=== PATIENT | female | born 1930 | race Caucasian/White ===

== ENCOUNTER 2016-03-21 15:06 | Emergency (ER) | payer OTHER ==
[2016-03-21 15:15] VITALS: BP 145/69; PULSE 95; TEMP 99.6; BMI 20.8
[2016-03-21 17:57] LABS: BASOPHIL 0.9 % (0-2.0); EOSINOPHIL 1.2 % (0-4.5); MCH 29.6 pg (25.7-33.7); MCHC 32.1 g/dl (32.0-36.0); MEAN CELL VOLUME 92.3 fl (80-96); MEAN PLT VOLUME 7.4 fl (7.5-11.1); PLATELET COUNT 187 K/MM3 (134-434); RDW 16.5 % (11.6-15.6); WHITE BLOOD COUNT 8.4 K/mm3 (4.0-10.0)
[2016-03-21 18:36] LABS: ALBUMIN 2.7 g/dl (3.4-5.0); ANION GAP 8 (8-16); BILIRUBIN,TOTAL 0.4 mg/dL (0.2-1.0); CALCIUM 7.8 mg/dL (8.5-10.1); CO2 27 mmol/L (21-32); CREATININE 1.2 mg/dL (0.55-1.02); GLUCOSE,RANDOM 94 mg/dL (74-106); SGOT/AST 12 U/L (15-37); SGPT/ALT 16 U/L (12-78); TOT PROT 5.8 g/dl (6.4-8.2)
[2016-03-21 18:38] LABS: ALK PHOS 63 U/L (45-117); TROPONIN I < 0.02 ng/ml (0.00-0.05)
--- NOTE | 2016-03-21 19:31 | PDOC ---
History of Present Illness - History of Present Illness Initial Comments: 03/21/16 19:32 Patient is an 85 year old female with significant medical hx of COPD/emphysema and left lobectomy who is presenting to the ED with nausea, chills, fever, body aches, cough, and lightheadedness since yesterday. The patient reports measuring a fever yesterday of 102 with body aches, chills, and dizziness. She also reports a cough that has been ongoing for the past five weeks. Today the patient spoke with Dr. Mullins over the phone who advised her to come to the ED. Patient took two extra strength Tylenol before coming to the ED which brought her temperature down to 99. Patients O2Sat in the ED was 99% on room air. The patient is chronically short of breath secondary to COPD. Denies vomiting or diarrhea. <Kristan Siddiqui - Last Filed: 03/21/16 21:38> <Jenny Murray - Last Filed: 03/21/16 22:43> - General Chief Complaint: Cold Symptoms Stated Complaint: COUGH, LIGHTHEADED, SOB Time Seen by Provider: 03/21/16 16:59 Past History <Kristan Siddiqui - Last Filed: 03/21/16 21:38> - Past Medical History COPD: Yes Psychiatric Problems: Yes (depression) - Surgical History Lung Surgery: Yes (lower let lobectomy) - Immunization History Immunization Up to Date: Yes - Psycho/Social/Smoking Cessation Hx Anxiety: No Suicidal Ideation: No Smoking History: Former smoker Have you smoked in the past 12 months: No Information on smoking cessation initiated: No Hx Alcohol Use: No Drug/Substance Use Hx: No Substance Use Type: None <Jenny Murray - Last Filed: 03/21/16 22:43> - Past Medical History Allergies/Adverse Reactions: Allergies Allergy/AdvReac Type Severity Reaction Status Date / Time No Known Allergies Allergy Verified 03/21/16 15:10 Home Medications: Ambulatory Orders Citalopram Hydrobromide [Celexa -] 50 mg PO DAILY 11/12/15 Levalbuterol Tartrate [Xopenex Hfa] 15 gm IH QID 11/12/15 Omeprazole 20 mg PO DAILY 11/12/15 Pregabalin [Lyrica] 0 mg PO DAILY 11/12/15 Zolpidem Tartrate [Ambien] 5 mg PO HS 11/12/15 Review of Systems - Review of Systems Comments:: 03/21/16 19:33 CONSTITUTIONAL: Present: fever, chills, body aches Absent: diaphoresis, generalized weakness, malaise, loss of appetite HEENT: Absent: rhinorrhea, nasal congestion, throat pain, throat swelling, difficulty swallowing, mouth swelling, ear pain, eye pain, visual changes CARDIOVASCULAR: Present: lightheadedness Absent: chest pain, syncope, palpitations, irregular heart rate, peripheral edema RESPIRATORY: Present: cough, shortness of breath (chronic) Absent: dyspnea with exertion, orthopnea, wheezing, stridor, hemoptysis GASTROINTESTINAL: Present: nausea Absent: abdominal pain, abdominal distension, vomiting, diarrhea, constipation, melena, hematochezia GENITOURINARY: Absent: dysuria, frequency, urgency, hesitancy, hematuria, flank pain, genital pain MUSCULOSKELETAL: Absent: myalgia, arthralgia, joint swelling SKIN: Absent: rash, itching, pallor HEMATOLOGIC/IMMUNOLOGIC: Absent: easy bleeding, easy bruising, lymphadenopathy, frequent infections ENDOCRINE: Absent: unexplained weight gain, unexplained weight loss, heat intolerance, cold intolerance NEUROLOGIC: Present: dizziness Absent: headache, focal weakness or paresthesia, unsteady gait, seizure, mental status changes, bladder or bowel incontinence. PSYCHIATRIC: Absent: anxiety, depression, suicidal or homicidal ideation, hallucinations <Kristan Siddiqui - Last Filed: 03/21/16 21:38> *Physical Exam - Vital Signs Last Vital Signs Temp Pulse Resp BP Pulse Ox 99.6 F 95 H 20 145/69 96 03/21/16 15:11 03/21/16 15:11 03/21/16 15:11 03/21/16 15:11 03/21/16 16:00 - Physical Exam Comments: 03/21/16 19:35 GENERAL: Well developed, well nourished. Awake and alert. No acute distress. HEENT: Normocephalic, atraumatic. PERRLA, EOMI. No conjunctival pallor. Sclera are non- icteric. Moist mucous membranes. Oropharynx is clear. NECK: Supple. Full ROM. No JVD. Carotid pulses 2+ and symmetric, without bruits. No thyromegaly. No lymphadenopathy. CARDIOVASCULAR: Slightly tachycardic. No murmurs, rubs, or gallops. Distal pulses are 2+ and symmetric. PULMONARY: No evidence of respiratory distress. Lungs clear to auscultation bilaterally. No wheezing, rales or rhonchi. ABDOMINAL: Flat abdomen. Soft. Non-tender. Non-distended. No rebound or guarding. No organomegaly. Normoactive bowel sounds. MUSCULOSKELETAL: Normal range of motion at all joints. No bony deformities or tenderness. No CVA tenderness. EXTREMITIES: No cyanosis. No clubbing. No edema. No calf tenderness. SKIN: Warm and dry. Normal capillary refill. No rashes. No jaundice. NEUROLOGICAL: Alert, awake, appropriate. Cranial nerves 2-12 intact. Normal speech. Gait is normal without ataxia. PSYCHIATRIC: Cooperative. Good eye contact. Appropriate mood and affect. <Kristan Siddiqui - Last Filed: 03/21/16 21:38> - Vital Signs Last Vital Signs Temp Pulse Resp BP Pulse Ox 99.6 F 95 H 20 145/69 96 03/21/16 15:11 03/21/16 15:11 03/21/16 15:11 03/21/16 15:11 03/21/16 16:00 <Jenny Murray - Last Filed: 03/21/16 22:43> Heart Score/ECG Review #1 03/21/16 21:39 Undetermined rhythm at [address] and T wave abnormality Abnormal ECG <Kristan Siddiqui - Last Filed: 03/21/16 21:38> ED Treatment Course - LABORATORY CBC & Chemistry Diagram: 03/21/16 17:50 03/21/16 17:50 - ADDITIONAL ORDERS Additional order review: Laboratory Results 03/21/16 17:50 Sodium 140 Potassium 4.9 Chloride 105 Carbon Dioxide 27 D Anion Gap 8 BUN 21 H D Creatinine 1.2 H Creat Clearance w eGFR 42.80 Random Glucose 94 Calcium 7.8 L Total Bilirubin 0.4 D AST 12 L ALT 16 Alkaline Phosphatase 63 Creatine Kinase 54 Troponin I < 0.02 Total Protein 5.8 L Albumin 2.7 L D 03/21/16 17:50 RBC 3.87 MCV 92.3 MCHC 32.1 RDW 16.5 H MPV 7.4 L D Neutrophils % 80.0 Lymphocytes % 10.1 D Monocytes % 7.8 Eosinophils % 1.2 D Basophils % 0.9 - RADIOLOGY Radiograph Interpretation: 03/21/16 19:37 Chest X-Ray Impression: Mild to moderate cardiomegaly. Bilateral interstitial thickening without gross evidence of focal infiltrates. Reported By: Hiro Ellsworth MD <Kristan Siddiqui - Last Filed: 03/21/16 21:38> - LABORATORY CBC & Chemistry Diagram: 03/21/16 17:50 03/21/16 17:50 - ADDITIONAL ORDERS Additional order review: Laboratory Results 03/21/16 17:50 Sodium 140 Potassium 4.9 Chloride 105 Carbon Dioxide 27 D Anion Gap 8 BUN 21 H D Creatinine 1.2 H Creat Clearance w eGFR 42.80 Random Glucose 94 Calcium 7.8 L Total Bilirubin 0.4 D AST 12 L ALT 16 Alkaline Phosphatase 63 Creatine Kinase 54 Troponin I < 0.02 Total Protein 5.8 L Albumin 2.7 L D 03/21/16 17:50 RBC 3.87 MCV 92.3 MCHC 32.1 RDW 16.5 H MPV 7.4 L D Neutrophils % 80.0 Lymphocytes % 10.1 D Monocytes % 7.8 Eosinophils % 1.2 D Basophils % 0.9 <Jenny Murray - Last Filed: 03/21/16 22:43> Medical Decision Making - Medical Decision Making 03/21/16 22:38 85-year-old female with history of lung cancer and COPD, has had some fever and cough with body chills and feeling lightheaded -low-grade temperature -Patient is not in any respiratory distress. She is not hypoxic on room air Chest x-ray did not show any infiltrates or pneumothorax or significant effusions CBC was unremarkable. There was no leukocytosis Chemistries were reviewed Cardiac enzymes were negative. EKG did not show any evidence of ischemia -Lung exam did not show any rhonchi or crackles -Patient was given albuterol treatment see if that would help her cough Impression viral syndrome. Will start Tamiflu Spoke to the patient and if she has any worsening symptoms, she should return tomorrow <Jenny Murray - Last Filed: 03/21/16 22:43> *DC/Admit/Observation/Transfer - Attestations Scribe Attestion: 03/21/16 19:37 Documentation prepared by Kristan Siddiqui, acting as medical dir for Jenny Murray MD. <Kristan Siddiqui - Last Filed: 03/21/16 21:38> <Jenny Murray - Last Filed: 03/21/16 22:43> Diagnosis at time of Disposition: Cough Fever Qualifiers: Fever type: unspecified Qualified Code(s): R50.9 - Fever, unspecified - Discharge Dispostion Disposition: HOME Condition at time of disposition: Stable - Referrals Referrals: Francisco J Mullins MD [Primary Care Provider] - - Patient Instructions Printed Discharge Instructions: DI for Cough -- Adult, DI for Fever (Symptom) - - Adult Additional Instructions: -please tale Tylenol for fever and body aches -continue to take your regular medications for your chronic obstructive pulmonary disease -please order picker your tamiflu at the [facility] -follow up with Dr Mullins this week -
[2016-03-21] MEDS ORDERED: SODIUM CHLORIDE 500 ML IV STA (19:32)
[2016-03-21] MEDS ORDERED: ALBUTEROL SO4 2.5/IPRATROPIUM 0.5 INH SOL 3 ML VIAL.NEB. NEB ONE ×2 (21:11→21:31)
[2016-03-21] MEDS ORDERED: predniSONE 20 MG TABLET (UD) PO ONE (21:57)
[2016-03-21] MEDS ORDERED: OSELTAMIVIR PHOSPHATE 75 MG CAPSULE PO ONE (21:57)
[2016-03-21] MEDS ORDERED: predniSONE 20 MG TABLET (UD) ONE (22:00)
[2016-03-21] MEDS ORDERED: OSELTAMIVIR PHOSPHATE 75 MG CAPSULE ONE (22:00)
--- NOTE | 2016-03-22 18:07 | EKG ---
Test Reason : Blood Pressure : / mmHG Vent. Rate : 079 BPM Atrial Rate : 258 BPM P-R Int : 000 ms QRS Dur : 092 ms QT Int : 420 ms P-R-T Axes : 000 037 043 degrees QTc Int : 481 ms LIKELY SINUS RHYTHM WITH ATRIAL PREMATURE COMPLEXES NONSPECIFIC ST AND T WAVE ABNORMALITY ABNORMAL ECG WHEN COMPARED WITH ECG OF 12-NOV-2015 13:43, PREMATURE ATRIAL COMPLEXES ARE SEEN Confirmed by POLY MARTINEZ, BRE ([id number]) on 03/22/2016 6:07:37 PM Referred By: Confirmed By:BRE PANG MD
== END 2016-03-21 22:50 | disposition home or self-care (01) ==
LOC: JER 15:06
PROC: 3E0F7GC Introduction of Other Therapeutic Substance into Respiratory Tract, Via Natural or Artificial Opening (ICD-10-PCS; principal; 2016-03-21)
PROC: 3E0337Z Introduction of Electrolytic and Water Balance Substance into Peripheral Vein, Percutaneous Approach (ICD-10-PCS; 2016-03-21)
DX: R50.9 Fever, unspecified (principal); J44.9 Chronic obstructive pulmonary disease, unspecified; Z85.118 Personal history of other malignant neoplasm of bronchus and lung
CPT/HCPCS: 36415; 71020-TC; 80053; 82550; 84484; 85025; 93005; 93010; 94640; 96360; 99285-25

== ENCOUNTER 2017-07-13 03:21 | Inpatient (IN) | payer OTHER ==
[2017-07-13] MEDS ORDERED: SODIUM CHLORIDE 1,000 ML IV STA (03:40)
[2017-07-13 03:50] VITALS: BMI 23.6
[2017-07-13] MEDS ORDERED: ACETAMINOPHEN INJECTION 100 ML IVPB ONE (04:03)
[2017-07-13 04:04] LABS: BASO % 0.4 % (0-2.0); HEMATOCRIT 31.7 % (32.4-45.2); HEMOGLOBIN 10.7 GM/dL (10.7-15.3); LYMPH % 6.5 % (8-40); MCH 30.4 pg (25.7-33.7); MCHC 33.7 g/dl (32.0-36.0); MEAN PLT VOLUME 7.7 fl (7.5-11.1); MONO % 8.2 % (3.8-10.2); NEUT % 83.9 % (42.8-82.8); PLATELET COUNT 222 K/MM3 (134-434); RBC 3.52 M/mm3 (3.60-5.2); RDW 14.7 % (11.6-15.6); WHITE BLOOD COUNT 6.1 K/mm3 (4.0-10.0)
[2017-07-13 04:15] LABS: URINE APPEARANCE SLCLOUDY; URINE BILIRUBIN NEGATIVE (<2.0 mg/dL); URINE COLOR YELLOW; URINE GLUCOSE (UA) NEGATIVE (NEGATIVE); URINE KETONE NEGATIVE (NEGATIVE); URINE LEUK ESTERASE NEGATIVE (NEGATIVE); URINE NITRITE NEGATIVE (NEGATIVE); URINE UROBILINOGEN NEGATIVE mg/dL (0.2-1.0)
--- NOTE | 2017-07-13 04:15 | PDOC ---
History of Present Illness - General Chief Complaint: Respiratory Stated Complaint: FEVER Time Seen by Provider: 07/13/17 03:55 History Source: Patient Exam Limitations: No Limitations - History of Present Illness Initial Comments: This is an 87 YOF with h/o COPD, PNA (patient states last seen at [facility] for PNA two months ago), HTN, lung CA s/p LLL resection, chronic anemia, GERD, depression, and anxiety who was BIBA from [facility] c/o fever up to 101.8 at her SNF as well as cough for the past 4-5 days and worsening of her baseline SOB. SNF records state her pulse oxygenation was 90% on 2 LPM O2 via NC , and she was using accessory muscles to breathe. The patient herself notes mild lightheadedness but denies any additional symptoms (specifically no nausea , vomiting, rashes, headache, chest pain, abdominal pain, or other symptoms). She had a CXR on 07/10/17 showing COPD with chronic pulmonary parenchymal markings but no focal findings. She presents with SNF paperwork noting a DNR/ DNI signed 06/29/17 by the patient. Past History - Past Medical History Allergies/Adverse Reactions: Allergies Allergy/AdvReac Type Severity Reaction Status Date / Time No Known Allergies Allergy Verified 07/13/17 04:12 Home Medications: Ambulatory Orders Citalopram Hydrobromide [Celexa -] 50 mg PO DAILY 11/12/15 Levalbuterol Tartrate [Xopenex Hfa] 15 gm IH QID 11/12/15 Omeprazole 20 mg PO DAILY 11/12/15 Pregabalin [Lyrica] 0 mg PO DAILY 11/12/15 Zolpidem Tartrate [Ambien] 5 mg PO HS 11/12/15 Oseltamivir Phosphate [Tamiflu -] 75 mg PO BID #10 capsule 03/21/16 Oseltamivir Phosphate [Tamiflu -] 75 mg PO BID #10 capsule 03/21/16 COPD: Yes Psychiatric Problems: Yes (depression) - Surgical History Lung Surgery: Yes (lower let lobectomy) - Immunization History Immunization Up to Date: Yes - Suicide/Smoking/Psychosocial Hx Smoking History: Never smoked Have you smoked in the past 12 months: No Information on smoking cessation initiated: No Hx Alcohol Use: No Drug/Substance Use Hx: No Substance Use Type: None Review of Systems - Review of Systems Able to Perform ROS?: Yes Constitutional: Yes: Chills, Fever. No: Unexplained wgt Loss HEENTM: No: Nose Congestion, Throat Pain Respiratory: Yes: Cough, Shortness of Breath, Wheezing Cardiac (ROS): Yes: Lightheadedness. No: Chest Pain, Palpitations ABD/GI: No: Constipated, Diarrhea, Nausea, Vomiting : No: Burning, Dysuria Musculoskeletal: No: Back Pain, Neck Pain Integumentary: No: Bruising, Rash Neurological: No: Headache, Numbness, Tingling, Weakness, Dizziness Endocrine: No: Unexplained Weight Gain, Unexplained Weight Loss *Physical Exam - Vital Signs Last Vital Signs Temp Pulse Resp BP Pulse Ox 102 F H 90 21 112/58 96 07/13/17 03:47 07/13/17 03:47 07/13/17 03:47 07/13/17 03:47 07/13/17 03:47 - Physical Exam General Appearance: Yes: Nourished, Appropriately Dressed, Other (very pleasant elderly woman answering questions appropriately though in 2-3 word sentences, smiling, but appears a bit uncomfortable). No: Apparent Distress HEENT: positive: EOMI, KEYONA, Normal Voice, Hearing Grossly Normal. negative: Scleral Icterus (R), Scleral Icterus (L), Nasal Congestion Neck: positive: Trachea midline, Supple. negative: Tender, Rigid Respiratory/Chest: positive: Lungs Clear, Normal Breath Sounds, Respiratory Distress, Labored Respiration, Rapid RR, Rhonchi, Wheezing, Other (abdominal retractions, accessory muscle use). negative: Stridor Cardiovascular: positive: Regular Rate, S1, S2, Other (occasional irregular beats). negative: Edema, JVD, Murmur Gastrointestinal/Abdominal: positive: Normal Bowel Sounds, Flat, Soft. negative : Tender, Organomegaly, Pulsatile Mass, Guarding Musculoskeletal: positive: Normal Inspection. negative: Decreased Range of Motion, Vertebral Tenderness Extremity: positive: Normal Capillary Refill, Normal Inspection, Normal Range of Motion. negative: Tender, Cyanosis Integumentary: positive: Normal Color, Dry, Warm. negative: Erythema, Rash, Bruising Neurologic: positive: lpc II-XII NML intact (grossly), Fully Oriented, Alert, Normal Mood/Affect, Normal Response, Motor Strength 5/5. negative: Confused Heart Score/ECG Review #1 ECG reviewed & interpreted by me at: 04:26 Sinus rhythm, rate of 92, with occasional dropped P-wave resulting prolonged R- R interval, normal axis, no ischemic changes ED Treatment Course - LABORATORY CBC & Chemistry Diagram: 07/13/17 03:49 07/13/17 03:49 Medical Decision Making - Medical Decision Making Patient with h/o COPD and PNA p/w respiratory distress, cough, and fever. DNR/DNI patient. Initial Vital Signs Temp Pulse Resp BP Pulse Ox 102 F H 90 21 112/58 96 07/13/17 03:47 07/13/17 03:47 07/13/17 03:47 07/13/17 03:47 07/13/17 03:47 Exam: Speaking in 2-3 word sentences, bilateral marked expiratory and inspiratory wheezes and rhonchi, abdominal retractions, accessory muscle use. DDX IBNLT: COPD, PNA, bronchitis, viral URI, much less likely influenza, PTX, CHF, ACS, PE, pericarditis, pneumonitis, allergic rxn, etc. W/U ordered: CBCD CMP Cardiac panel Lactate Coags Type & Screen BCx UA UCx CXR EKG Mg TX ordered: DuoNebs Magnesium Ofirmev NS bolus Azithromycin and Zosyn for HCAP coverage. EKG: Sinus rhythm, rate of 92, with occasional dropped P-wave resulting prolonged R-R interval, normal axis, no ischemic changes. CXR: Diffuse patchy consolidations worse in the right middle lobe with additional vascular congestion (per ED resident initial read). Laboratory Tests 07/13/17 07/13/17 07/13/17 03:49 03:49 03:49 WBC 6.1 RBC 3.52 L Hgb 10.7 Hct 31.7 L MCV 90.0 MCH 30.4 MCHC 33.7 RDW 14.7 D Plt Count 222 MPV 7.7 Neutrophils % 83.9 H Lymphocytes % 6.5 L D Monocytes % 8.2 Eosinophils % 1.0 Basophils % 0.4 PT with INR 12.60 INR 1.12 PTT (Actin FS) 30.8 VBG pH 7.43 H POC VBG pCO2 37.6 L POC VBG pO2 62.3 H Mixed VBG HCO3 24.5 Sodium Potassium Chloride Carbon Dioxide Anion Gap BUN Creatinine Creat Clearance w eGFR Random Glucose Lactic Acid Calcium Total Bilirubin AST ALT Alkaline Phosphatase Troponin I Total Protein Albumin Urine Color Urine Appearance Urine pH Ur Specific [place] Urine Protein Urine Glucose (UA) Urine Ketones Urine Blood Urine Nitrite Urine Bilirubin Urine Urobilinogen Ur Leukocyte Esterase Urine WBC (Auto) Urine RBC (Auto) Ur Epithelial Cells Urine Bacteria Hyaline Casts Urine Mucus 07/13/17 07/13/17 07/13/17 03:49 03:49 03:49 WBC RBC Hgb Hct MCV MCH MCHC RDW Plt Count MPV Neutrophils % Lymphocytes % Monocytes % Eosinophils % Basophils % PT with INR INR PTT (Actin FS) VBG pH POC VBG pCO2 POC VBG pO2 Mixed VBG HCO3 Sodium 139 Potassium 4.2 Chloride 108 H Carbon Dioxide 27 Anion Gap 4 L BUN 14 Creatinine 1.0 Creat Clearance w eGFR 52.57 Random Glucose 99 Lactic Acid 0.6 Calcium 7.7 L Total Bilirubin 0.3 D AST 14 L ALT 13 Alkaline Phosphatase 59 Troponin I 0.02 Total Protein 5.8 L Albumin 2.3 L Urine Color Urine Appearance Urine pH Ur Specific [place] Urine Protein Urine Glucose (UA) Urine Ketones Urine Blood Urine Nitrite Urine Bilirubin Urine Urobilinogen Ur Leukocyte Esterase Urine WBC (Auto) Urine RBC (Auto) Ur Epithelial Cells Urine Bacteria Hyaline Casts Urine Mucus 07/13/17 03:50 WBC RBC Hgb Hct MCV MCH MCHC RDW Plt Count MPV Neutrophils % Lymphocytes % Monocytes % Eosinophils % Basophils % PT with INR INR PTT (Actin FS) VBG pH POC VBG pCO2 POC VBG pO2 Mixed VBG HCO3 Sodium Potassium Chloride Carbon Dioxide Anion Gap BUN Creatinine Creat Clearance w eGFR Random Glucose Lactic Acid Calcium Total Bilirubin AST ALT Alkaline Phosphatase Troponin I Total Protein Albumin Urine Color Yellow Urine Appearance Slcloudy Urine pH 5.0 D Ur Specific [place] 1.020 Urine Protein 1+ H Urine Glucose (UA) Negative Urine Ketones Negative Urine Blood 1+ H Urine Nitrite Negative Urine Bilirubin Negative Urine Urobilinogen Negative Ur Leukocyte Esterase Negative Urine WBC (Auto) 1 Urine RBC (Auto) 2 Ur Epithelial Cells Rare Urine Bacteria Rare Hyaline Casts 1 Urine Mucus Few Reassessment: Much more comfortable and decreased wheezing after DuoNebs and Mg. She remains with bilateral expiratory wheezes and rhonchi but much improved from presentation. Placed additional antibiotic order for vancomycin IV. 15 mg/kg would be just over 1000 mg vancomycin and 20 mg/kg would be just over 1 ,250 mg. Thus initially 1250 mg IVPB vancomycin is placed but the ED only has 1,000 (not 1,250). Thus vancomycin 1,000 IVPB order is placed. Vital Signs Temperature 102 F H 07/13/17 03:47 Pulse Rate 78 07/13/17 04:58 Respiratory Rate 30 H 07/13/17 04:58 Blood Pressure 115/82 07/13/17 04:58 O2 Sat by Pulse Oximetry (%) 97 07/13/17 04:58 PSI indicates minimum 9.3% mortality (score 126, though ABG was not drawn). CURB-65 score is invalid as patient is likely HCAP and not CAP. The patients symptoms persist despite ED treatments. She is not safe for discharge from the ED at this time. They require further hospital observation, workup, and treatment. Microblog sent to [facility] for admission. Spoke with [facility], in agreement patient to be admitted to Inpatient Tele. Decision to Admit order placed to [facility] covering attending Dr. Doty. *DC/Admit/Observation/Transfer Diagnosis at time of Disposition: Anemia PNA (pneumonia) Qualifiers: Pneumonia type: due to unspecified organism Laterality: unspecified laterality Lung location: unspecified part of lung Qualified Code(s): J18.9 - Pneumonia, unspecified organism COPD (chronic obstructive pulmonary disease) Qualifiers: COPD type: unspecified COPD Qualified Code(s): J44.9 - Chronic obstructive pulmonary disease, unspecified - Discharge Dispostion Condition at time of disposition: Guarded Admit: Yes - Referrals - Patient Instructions - Post Discharge Activity
[2017-07-13] MEDS ORDERED: ACETAMINOPHEN 1000 MG/100 ML VIAL (NON FORMULARY) IVPB ONE (04:16)
[2017-07-13] MEDS ORDERED: ALBUTEROL SO4 2.5/IPRATROPIUM 0.5 INH SOL 3 ML VIAL.NEB. NEB ONE ×3 (04:16→08:06)
[2017-07-13 04:19] LABS: VENOUS PC02 37.6 mmHg (38-52); VENOUS PH 7.43 (7.32-7.42); VENOUS PO2 62.3 mmHg (28-48)
--- NOTE | 2017-07-13 04:19 | PDOC ---
Attending Attestation - Resident Resident Name: Louisa Dominguez - ED Attending Attestation I have performed the following: I have examined & evaluated the patient, The case was reviewed & discussed with the resident, I agree w/resident's findings & plan, Exceptions are as noted - HPI HPI: 07/13/17 04:21 COPD exacerabatiion and fever for 2 days. H/o pneumonia - Physicial Exam PE: 07/13/17 04:24 *Physical Exam General Appearance: Yes: Appropriately Dressed. No: Apparent Distress, Intoxicated HEENT: positive: EOMI, KEYONA, Normal ENT Inspection, Normal Voice, TMs Normal, Pharynx Normal. negative: Pale Conjunctivae, Photophobia, Scleral Icterus (R), Scleral Icterus (L) Neck: positive: Trachea midline, Normal Thyroid, Supple. negative: Tender, Rigid, Carotid bruit, Stridor, Lymphadenopathy (R), Lymphadenopathy (L), Thyromegaly Respiratory/Chest: positive: Lungs diffuse rhonchi, retracting. mild distress Cardiovascular: positive: Regular Rhythm, Regular Rate, S1, S2. negative: Edema , JVD, Murmur, Bradycardia, Tachycardia Vascular Pulses: Dorsalis-Pedis (R): 2+, Doralis-Pedis (L): 2+ Gastrointestinal/Abdominal: positive: Normal Bowel Sounds, Flat, Soft. negative : Tender, Organomegaly, Pulsatile Mass, Increased Bowel Sounds, Decreased BS, Distended, Guarding, Rebound, Hernia, Hepatomegaly, Spleenomegaly Lymphatic: negative: Adenopathy, Tenderness Musculoskeletal: positive: Normal Inspection. negative: CVA Tenderness, Decreased Range of Motion Extremity: positive: Normal Capillary Refill, Normal Inspection, Normal Range of Motion, Pelvis Stable. negative: Tender, Pedal Edema, Swelling, Erythema Integumentary: positive: Normal Color, Dry, Warm. negative: Cyanotic, Erythema , Jaundice, Rash Neurologic: positive: it support consultant II-XII NML intact, Fully Oriented, Alert, Normal Mood/ Affect, Motor Strength 5/5. negative: EOM Palsy, Facial Droop, Sensory Deficit - Medical Decision Making 07/13/17 04:26 Pt to be admitted
[2017-07-13 04:21] LABS: URINE PROTEIN 1+ (NEGATIVE)
[2017-07-13 04:22] LABS: EPI CELLS RARE /HPF (FEW); URINE BACTERIA RARE /hpf (NONE SEEN); URINE HYALINE CAST 1 /lpf; URINE MUCUS FEW
[2017-07-13] MEDS ORDERED: MAGNESIUM SULF 50% (8.12 MEQ/2 ML-1 GM VIAL) IVPB ONE (04:24)
[2017-07-13 04:26] LABS: INR 1.12 (0.82-1.09); PROTHROMBIN TIME (PATIENT) 12.6 SEC (9.7-13.0)
[2017-07-13 04:29] LABS: ACTIVATED PTT 30.8 SECONDS (26.9-34.4)
[2017-07-13] MEDS ORDERED: MAGNESIUM SULF 50% (8.12 MEQ/2 ML-1 GM VIAL) ONE (04:32)
[2017-07-13 04:36] LABS: ALBUMIN 2.3 g/dl (3.4-5.0); ALK PHOS 59 U/L (45-117); ANION GAP 4 (8-16); BILIRUBIN,TOTAL 0.3 mg/dL (0.2-1.0); BLOOD UREA NITROGEN 14 mg/dL (7-18); CALCIUM 7.7 mg/dL (8.5-10.1); CHLORIDE 108 mmol/L (98-107); CO2 27 mmol/L (21-32); GLUCOSE,RANDOM 99 mg/dL (74-106); POTASSIUM 4.2 mmol/L (3.5-5.1); SGOT/AST 14 U/L (15-37); SGPT/ALT 13 U/L (12-78); SODIUM 139 mmol/L (136-145); TOT PROT 5.8 g/dl (6.4-8.2)
[2017-07-13] MEDS ORDERED: AZITHROMYCIN IVPB 500 MG in DEXTROSE 5%-WATER - 250 ML IVPB ONE (04:37)
[2017-07-13] MEDS ORDERED: PIPERACILLIN/TAZOB 4.5 GM 4.5 GM in DEXTROSE 5%-WATER 100 ML IVPB ONE (04:37)
[2017-07-13] MEDS ORDERED: PIPERACILLIN/TAZOB 4.5 GM 4.5 GM/100 ML BAG IVPB ONE (04:47)
[2017-07-13] MEDS ORDERED: AZITHROMYCIN IVPB 250 ML IVPB ONE (04:52)
[2017-07-13] MEDS ORDERED: methylPREDNISolone NA SUCC 125 MG/2 ML VIAL IVPB ONE (06:00)
[2017-07-13] MEDS ORDERED: VANCOMYCIN 1,250 MG in DEXTROSE 5%-WATER - 250 ML IVPB ONE (06:00)
[2017-07-13] MEDS ORDERED: methylPREDNISolone NA SUCC 125 MG/2 ML VIAL ONE (06:25)
[2017-07-13] MEDS ORDERED: predniSONE 20 MG TABLET (UD) PO ONE (06:34)
[2017-07-13] MEDS ORDERED: VANCOMYCIN 1,000 MG in DEXTROSE 5%-WATER - 250 ML IVPB ONE (06:34)
[2017-07-13] MEDS ORDERED: VANCOMYCIN 1 GRAM (PRE-DOCKED) 1,000 MG/250 ML BAG IVPB ONE (06:34)
[2017-07-13] MEDS ORDERED: ALBUTEROL SO4 2.5/IPRATROPIUM 0.5 INH SOL 3 ML VIAL.NEB. NEB PRN ×2 (06:36→06:52)
[2017-07-13] MEDS: HEPARIN NA (PORCINE) 5,000 UNITS/ML 1ML VIAL SQ SCH ×3 (06:39→19:09)
--- NOTE | 2017-07-13 06:49 | PN ---
Teaching Attending Note Name of Resident: Anupama Cade ATTENDING PHYSICIAN STATEMENT I saw and evaluated the patient. Chart, data, imaging reviewed. I reviewed the resident's note and discussed the case with the resident. I agree with the resident's findings and plan as documented. SUBJECTIVE: 87 YO woman with h/o COPD, PNA (patient states last seen at [facility] for PNA two months ago), HTN, lung CA s/p LLL resection- 5 years ago, chronic anemia , GERD, depression, and anxiety BIBA from [facility], for fever and productive cough for the past 5 days. Fever in ER up to 102F. She coughs of intermittently orange phlegm. Oxygen saturation was low in SNF and she required supplemental o2 via nasal cannula. Denied any sick contacts or recent travels. She reports on smoking up until 20 years of age, however, she was exposed to a lot of second hand smoke from family members. Pt wishes to be dnr/dni. OBJECTIVE: Last Vital Signs Temp Pulse Resp BP Pulse Ox 102 F H 78 18 115/51 100 07/13/17 03:47 07/13/17 06:41 07/13/17 06:41 07/13/17 06:41 07/13/17 06:41 General - aaox3 pleasant, not in visible distress, fragile HEENT- no oral thrush or erythema Neck -supple CV -s1+s2+rrr chest- diffuse expiratory wheezing appreciated as well as coarse bronchial breath sounds. Abdomen- soft, nt, BS+ Ext- no pedal edema appreciated Abnormal Lab Results 07/13/17 07/13/17 07/13/17 03:49 03:49 03:49 RBC 3.52 L Hct 31.7 L Neutrophils % 83.9 H Lymphocytes % 6.5 L D VBG pH 7.43 H POC VBG pCO2 37.6 L POC VBG pO2 62.3 H Chloride 108 H Anion Gap 4 L Calcium 7.7 L AST 14 L Total Protein 5.8 L Albumin 2.3 L Urine Protein Urine Blood 07/13/17 03:50 RBC Hct Neutrophils % Lymphocytes % VBG pH POC VBG pCO2 POC VBG pO2 Chloride Anion Gap Calcium AST Total Protein Albumin Urine Protein 1+ H Urine Blood 1+ H ekg -reviewed, sinus rhythm with premature atrial beats CXR -reviewed, right middle lobe infiltrate ASSESSMENT AND PLAN: #HCAP with likely right mid lobe involvement. -admit to med/surg -sputum culture -urine legionella antigen -mycoplasma igM -Nares MRSA screen -cefepime 2g iv q12hrs -vancomycin 1g IV q12hrs -aim for trough 15-20 -azithromycin 500mg po daily #COPD exacerbation -diffuse wheezing, may have been triggered by pneumonia -prednisone 40mg po daily -duonebs q6hrs -spiriva daily -supplemental o2 via nasal cannula #Advanced directives- patient is DNR/DNI
--- NOTE | 2017-07-13 06:55 | HP ---
CHIEF COMPLAINT: fever, cough PCP: Dr. Mullins HISTORY OF PRESENT ILLNESS: 87 YOF with h/o COPD, PNA (patient states last seen at [facility] for PNA two months ago), HTN, lung CA s/p LLL resection, chronic anemia, GERD, depression, and anxiety who was BIBA from [facility] because of fever of 101.8 and cough with yellow sputum over the past 4-5 days, with worsening SOB. Patient is not on continuous oxygen but says she sometimes requires it in the care home. Patient endorses chills with lightheadedness. Patient denies sick contacts, recent travel, chest pain, nausea, vomiting, dysuria, hemauria, recent weight changes. ER course was notable for: (1) CXR: Diffuse patchy consolidations worse in the right middle lobe with additional vascular congestion (2) Temp: 102 (3) Zosyn, Vanco, Azithromycin Recent Travel: denies PAST MEDICAL HISTORY: per hpi Social History: Smoking: denies Alcohol: denies Drugs: denies Family History: Allergies No Known Allergies Allergy (Verified 07/13/17 04:12) HOME MEDICATIONS: Home Medications Medication Instructions Recorded Citalopram Hydrobromide [Celexa -] 50 mg PO DAILY 11/12/15 Levalbuterol Tartrate [Xopenex Hfa] 15 gm IH QID 11/12/15 Omeprazole 20 mg PO DAILY 11/12/15 Pregabalin [Lyrica] 0 mg PO DAILY 11/12/15 Zolpidem Tartrate [Ambien] 5 mg PO HS 11/12/15 Oseltamivir Phosphate [Tamiflu -] 75 mg PO BID #10 capsule 03/21/16 Oseltamivir Phosphate [Tamiflu -] 75 mg PO BID #10 capsule 03/21/16 REVIEW OF SYSTEMS CONSTITUTIONAL: fever, chills Absent: diaphoresis, generalized weakness, malaise, loss of appetite, weight change HEENT: Absent: rhinorrhea, nasal congestion, throat pain, throat swelling, difficulty swallowing, mouth swelling, ear pain, eye pain, visual changes CARDIOVASCULAR: Absent: chest pain, syncope, palpitations, irregular heart rate, lightheadedness , peripheral edema RESPIRATORY: cough, sob Absent: dyspnea with exertion, orthopnea, wheezing, stridor, hemoptysis GASTROINTESTINAL: Absent: abdominal pain, abdominal distension, nausea, vomiting, diarrhea, constipation, melena, hematochezia GENITOURINARY: Absent: dysuria, frequency, urgency, hesitancy, hematuria, flank pain, genital pain NEUROLOGIC: Absent: headache, focal weakness or paresthesias, dizziness, unsteady gait, seizure, mental status changes, bladder or bowel incontinence PSYCHIATRIC: Absent: anxiety, depression, suicidal or homicidal ideation, hallucinations. PHYSICAL EXAMINATION Vital Signs - 24 hr 07/13/17 07/13/17 07/13/17 03:47 04:58 06:41 Temperature 102 F H Pulse Rate 90 Pulse Rate [ 78 78 Apical] Respiratory 21 30 H 18 Rate Blood Pressure 112/58 Blood Pressure 115/82 115/51 [Left Arm] O2 Sat by Pulse 96 97 100 Oximetry (%) GENERAL: A/o x3, appears comfortable on 2L NC EYES: extraocular movements intact, sclera anicteric, conjunctiva clear EARS, NOSE, THROAT: oropharynx clear without exudates. Moist mucous membranes. NECK: supple without lymphadenopathy LUNGS: scattered,expiratory wheezing, course breath sounds HEART: Regular rate and rhythm, normal S1 and S2 without murmur, rub or gallop. ABDOMEN: Soft, nontender, not distended +BS UPPER EXTREMITIES: 2+ pulses, warm, well-perfused. No cyanosis. No clubbing. No peripheral edema. LOWER EXTREMITIES: 2+ pulses, warm, well-perfused. No calf tenderness. No peripheral edema. NEUROLOGICAL: Cranial nerves II-XII intact. Normal speech PSYCHIATRIC: Cooperative. Good eye contact. Appropriate mood and affect. Laboratory Results - last 24 hr 07/13/17 07/13/17 07/13/17 03:49 03:49 03:49 WBC 6.1 RBC 3.52 L Hgb 10.7 Hct 31.7 L MCV 90.0 MCH 30.4 MCHC 33.7 RDW 14.7 D Plt Count 222 MPV 7.7 Neutrophils % 83.9 H Lymphocytes % 6.5 L D Monocytes % 8.2 Eosinophils % 1.0 Basophils % 0.4 PT with INR 12.60 INR 1.12 PTT (Actin FS) 30.8 VBG pH 7.43 H POC VBG pCO2 37.6 L POC VBG pO2 62.3 H Mixed VBG HCO3 24.5 Sodium Potassium Chloride Carbon Dioxide Anion Gap BUN Creatinine Creat Clearance w eGFR Random Glucose Lactic Acid Calcium Phosphorus Total Bilirubin AST ALT Alkaline Phosphatase Troponin I Total Protein Albumin Urine Color Urine Appearance Urine pH Ur Specific [place] Urine Protein Urine Glucose (UA) Urine Ketones Urine Blood Urine Nitrite Urine Bilirubin Urine Urobilinogen Ur Leukocyte Esterase Urine WBC (Auto) Urine RBC (Auto) Ur Epithelial Cells Urine Bacteria Hyaline Casts Urine Mucus 07/13/17 07/13/17 07/13/17 03:49 03:49 03:49 WBC RBC Hgb Hct MCV MCH MCHC RDW Plt Count MPV Neutrophils % Lymphocytes % Monocytes % Eosinophils % Basophils % PT with INR INR PTT (Actin FS) VBG pH POC VBG pCO2 POC VBG pO2 Mixed VBG HCO3 Sodium 139 Potassium 4.2 Chloride 108 H Carbon Dioxide 27 Anion Gap 4 L BUN 14 Creatinine 1.0 Creat Clearance w eGFR 52.57 Random Glucose 99 Lactic Acid 0.6 Calcium 7.7 L Phosphorus Total Bilirubin 0.3 D AST 14 L ALT 13 Alkaline Phosphatase 59 Troponin I 0.02 Total Protein 5.8 L Albumin 2.3 L Urine Color Urine Appearance Urine pH Ur Specific [place] Urine Protein Urine Glucose (UA) Urine Ketones Urine Blood Urine Nitrite Urine Bilirubin Urine Urobilinogen Ur Leukocyte Esterase Urine WBC (Auto) Urine RBC (Auto) Ur Epithelial Cells Urine Bacteria Hyaline Casts Urine Mucus 07/13/17 07/13/17 07/13/17 03:50 05:51 05:51 WBC RBC Hgb Hct MCV MCH MCHC RDW Plt Count MPV Neutrophils % Lymphocytes % Monocytes % Eosinophils % Basophils % PT with INR INR PTT (Actin FS) VBG pH POC VBG pCO2 POC VBG pO2 Mixed VBG HCO3 Sodium Potassium Chloride Carbon Dioxide Anion Gap BUN Creatinine Creat Clearance w eGFR Random Glucose Lactic Acid 0.8 Calcium Phosphorus 2.7 Total Bilirubin AST ALT Alkaline Phosphatase Troponin I Total Protein Albumin Urine Color Yellow Urine Appearance Slcloudy Urine pH 5.0 D Ur Specific [place] 1.020 Urine Protein 1+ H Urine Glucose (UA) Negative Urine Ketones Negative Urine Blood 1+ H Urine Nitrite Negative Urine Bilirubin Negative Urine Urobilinogen Negative Ur Leukocyte Esterase Negative Urine WBC (Auto) 1 Urine RBC (Auto) 2 Ur Epithelial Cells Rare Urine Bacteria Rare Hyaline Casts 1 Urine Mucus Few ASSESSMENT/PLAN: 87 YOF with h/o COPD, PNA (patient states last seen at [facility] for PNA two months ago), HTN, lung CA s/p LLL resection, chronic anemia, GERD, depression, and anxiety presented from [facility] because of fevers and cough. #HCAP -CXR prelim read in ED: Diffuse patchy consolidations worse in the right middle lobe with additional vascular congestion -Ucx, Bcx -urine antigens -sputum cultures -Mycoplasma -MRSA screen -IV abx: Cefepime, Vanco, Azithromycin #COPD exacerbation -Duonebs PRN, standing -O2 -1x Solu-medrol in ED -home advair -ordered 40mg Prednisone for tomorrow #HTN -bp wnl -will monitor -med rec #PPx -Hep SQ Visit type - Emergency Visit Emergency Visit: Yes ED Registration Date: 07/13/17 Care time: The patient presented to the Emergency Department on the above date and was hospitalized for further evaluation of their emergent condition. - New Patient This patient is new to me today: Yes Date on this admission: 07/13/17 - Critical Care Critical Care patient: No Hospitalist Screening - Colonoscopy Questionnaire Colonoscopy Questionnaire: Colonoscopy Questionnaire - Patient: 50 - 75 years old and never had a screening colonoscopy: Unknown History of colon or rectal polyps, or CA: Unknown History of IBD, Crohn's disease or UC: Unknown History of abdominal radiation therapy as a child: Unknown - Relative: 1 with colon or rectal CA, or polyps at age 60 or younger: Unknown Colon or rectal CA diagnosed at age 45 or younger: Unknown Multiple relatives with colon or rectal CA: Unknown - Outcome: Screening Result: Negative Screen
[2017-07-13] MEDS ORDERED: SODIUM CHLORIDE 1,000 ML IV SCH (07:00)
[2017-07-13] MEDS ORDERED: predniSONE 20 MG TABLET (UD) PO SCH (07:17)
[2017-07-13] MEDS: ALBUTEROL SO4 2.5/IPRATROPIUM 0.5 INH SOL 3 ML VIAL.NEB. NEB SCH ×3 (08:04→20:09)
--- NOTE | 2017-07-13 09:29 | PN ---
Physical Exam: SUBJECTIVE: Patient seen and examined in ED. Feels short of breath, continues to have non-productive cough; Denies fever, chills, CP, chest palpitations. OBJECTIVE: Vital Signs Period Temp Pulse Resp BP Sys/Jeknins Pulse Ox Last 24 Hr 98.2 F-102 F 78-90 16-30 112-116/51-82 96-100 GENERAL: aaox3, mildly dyspneic when speaking HEENT: sclera anicteric, conjunctiva clear, mmm LUNGS: b/l expiratory wheezing, course breath sounds HEART: rrr, normal s1/s2 ABDOMEN: soft, ntnd EXTREMITIES: wwp, no edema CBC, BMP 07/13/17 03:49 07/13/17 03:49 Hepatic Panel Total Bilirubin 0.3 mg/dL (0.2-1.0) D 07/13/17 03:49 AST 14 U/L (15-37) L 07/13/17 03:49 ALT 13 U/L (12-78) 07/13/17 03:49 Alkaline Phosphatase 59 U/L (45-117) 07/13/17 03:49 Albumin 2.3 g/dl (3.4-5.0) L 07/13/17 03:49 Microbiology 07/13/17 06:34 Sputum - Expectorated Gram Stain - Final 07/13/17 06:40 Serum Mycoplasma Antibody - Preliminary CXR 07/13/17: R perihilar changes with a progressive L base atelectasis or infiltrate with fluid; Active Medications Albuterol Sulfate (Ventolin 0.083% Nebulizer Soln -) 1 amp NEB Q4H PRN PRN Reason: SHORT OF BREATH/WHEEZING Albuterol/Ipratropium (Duoneb -) 1 amp NEB RQID [facility] Last Admin: 07/13/17 08:04 Dose: 1 amp Amlodipine Besylate (Norvasc -) 5 mg PO DAILY [facility] Heparin Sodium (Porcine) (Heparin -) 5,000 unit SQ Q8H-IV [facility]BEL Last Admin: 07/13/17 10:25 Dose: Not Given Azithromycin 500 mg/ Dextrose 250 mls @ 250 mls/hr IVPB DAILY [facility] Piperacillin Sod/Tazobactam (Sod 3.375 gm/ Dextrose) 50 mls @ 100 mls/hr IVPB Q8H-IV [facility]BEL PRN Reason: Protocol Last Admin: 07/13/17 13:14 Dose: 100 mls/hr Lorazepam (Ativan -) 0.5 mg PO HS [facility] Methylprednisolone Sodium Succinate (Solu-Medrol -) 60 mg IVPUSH Q8H-IV [facility]BEL Last Admin: 07/13/17 13:14 Dose: 60 mg Non-Formulary Medication (Brexpiprazole [Rexulti]) 0.5 mg PO HS [facility] Non-Formulary Medication (Citalopram Hydrobromide [Celexa -]) 40 mg PO HS [facility] Non-Formulary Medication (Omeprazole) 20 mg PO DAILY [facility] Pregabalin (Lyrica -) 50 mg PO HS [facility] Fluticasone/Salmeterol (Advair 100mcg/50mcg -) 1 puff IH BID [facility] Last Admin: 07/13/17 13:13 Dose: 1 puff Zolpidem Tartrate (Ambien -) 5 mg PO HS [facility] ASSESSMENT/PLAN: 87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 Vilma Tenorio MD PGY1 - Internal Medicine Visit type - Emergency Visit Emergency Visit: No - New Patient This patient is new to me today: Yes Date on this admission: 07/13/17 - Critical Care Critical Care patient: No
--- NOTE | 2017-07-13 09:37 | PN ---
Progress Note (short form) - Note Progress Note: ID Consult dictated RML pneumonia Possible sepsis secondary to pneumonia Acute exacerbation COPD Hx Lung ca s/p lobectomy Pending c/s empiric zosyn/ zithromax Bronchodilators/ steroids
--- NOTE | 2017-07-13 10:46 | CONS ---
DATE OF CONSULTATION: DATE OF DICTATION: 07/13/2017 HISTORY OF PRESENT ILLNESS: The patient is an 87-year-old female evaluated for pneumonia. The patient [facility] a [facility]. She reports that over the past 4 to 5 days she has had a cough which has been dry in nature associated with shortness of breath and pleuritic-type right-sided chest pain. She was in [facility] distress at the [facility] using accessory muscles. Her O2 saturation was in the low 90s. She presented to the emergency room where her temperature was 102. Chest x-ray shows a right perihilar infiltrate, left basilar atelectasis. Cultures were obtained. She was empirically treated with vancomycin, Zosyn, Zithromax, cefepime. At the present time she is awake. She is able to converse. She is slightly short of breath at rest on a nasal cannula. Patient reports recently being hospitalized at [facility] 2 months ago for treatment of pneumonia and COPD exacerbation. She denies any ill contacts. No recent travel. She is a nonsmoker; however, has had a history of secondhand smoke exposure. PAST MEDICAL HISTORY: Positive for COPD, history of lung cancer, status post left lower lobe resection, pulmonary hypertension, gastroesophageal reflux, anemia, depression. ALLERGIES: No known allergies. MEDICATIONS: Celexa, Xopenex, omeprazole, Lyrica, Ambien. SOCIAL HISTORY: She resides in a penitentiary facility. Nonsmoker. Nondrinker. SYSTEMS REVIEW: Neurologic: No loss of consciousness, seizure activity or focal weakness. Cardiac: Negative chest pain or palpitations.Respiratory: As per HPI. Gastrointestinal: Negative vomiting or diarrhea. Genitourinary: Negative for urinary tract infection. LABORATORY DATA: White count 6.1, 83 neutrophils, 6 lymphocytes, 8 monocytes, 1 eosinophil, hematocrit 31.7, platelet count 222. BUN 14, creatinine 1.0. Urinalysis: White cell 1. Chest X-ray: As described. PHYSICAL EXAMINATION: General: She is awake and alert. She is slightly short breath at rest on nasal cannula O2. She is able to speak in complete sentences. HEENT: Sclerae are anicteric. Dry mucous membranes. Cardiac: Heart sounds S1, S2. Lungs: Bilateral rhonchi and wheezing. No rales. Abdomen: Soft, obese. No tenderness elicited. No mass, rebound or rigidity. Extremities: Edema 1+. IMPRESSION: 1. Right middle lobe pneumonia. 2. Possible sepsis secondary to pneumonia. 3. Acute exacerbation of chronic obstructive pulmonary disease. 4. History of lung carcinoma, status post left lower lobe lobectomy. RECOMMENDATIONS: Await culture results. Empiric antibiotic coverage for healthcare-acquired pathogens as well as atypical pulmonary pathogens with Zosyn and Zithromax. Await sputum cultures, urine Legionella antigen. Continue inhaled bronchodilators and corticosteroids. Pulmonary evaluation. Will follow. Thank you for the kind referral. CHERIE ROBERTS M.D. LUIS [id number]
--- NOTE | 2017-07-13 11:20 | CON.PULM ---
Consult Consult Specialty:: PULMONARY Referred by:: Dr. Esparza Reason for Consultation:: shortness of breath - History of Present Illness Chief Complaint: shortness of breath History of Present Illness: 87yo female with h/o HTN, COPD, lung ca s/p LLL lobectomy, GERD, depression/ anxiety, recently admitted at [facility] for pneumonia who was transferred from [facility] with shortness of breath and fevers. Reports a nonproductive cough and wheezing. No chest pain or palpitations. Was doing well at [facility], ambulating and breathing was improving until this episode. Denies any cough or choking when eating. No dysphagia. She was a remote smoker but exposed to 2nd hand smoke. - History Source History Provided By: Patient, Medical Record Limitations to Obtaining History: No Limitations - Past Medical History Cardio/Vascular: Yes: HTN Pulmonary: Yes: COPD Gastrointestinal: Yes: GERD Psych: Yes: Anxiety, Depression - Alcohol/Substance Use Hx Alcohol Use: No - Smoking History Smoking history: Never smoked Have you smoked in the past 12 months: No Home Medications - Allergies Allergies/Adverse Reactions: Allergies Allergy/AdvReac Type Severity Reaction Status Date / Time No Known Allergies Allergy Verified 07/13/17 04:12 - Home Medications Home Medications: Ambulatory Orders Citalopram Hydrobromide [Celexa -] 50 mg PO DAILY 11/12/15 Levalbuterol Tartrate [Xopenex Hfa] 15 gm IH QID 11/12/15 Omeprazole 20 mg PO DAILY 11/12/15 Pregabalin [Lyrica] 0 mg PO DAILY 11/12/15 Zolpidem Tartrate [Ambien] 5 mg PO HS 11/12/15 Oseltamivir Phosphate [Tamiflu -] 75 mg PO BID #10 capsule 03/21/16 Oseltamivir Phosphate [Tamiflu -] 75 mg PO BID #10 capsule 03/21/16 Review of Systems - Review of Systems Constitutional: reports: Chills, Fever, Weakness Eyes: denies: Recent Change in Vision HENT: denies: Nasal Congestion, Throat Pain Neck: denies: Stiffness, Tenderness Cardiovascular: reports: Shortness of Breath. denies: Chest Pain, Edema, Palpitations Respiratory: reports: Cough, Exercise Intolerance, SOB, SOB on Exertion, Wheezing. denies: Hemoptysis Gastrointestinal: denies: Abdominal Pain, Nausea, Vomiting Genitourinary: denies: Dysuria, Hematuria Neurological: denies: Dizziness, Headache Physical Exam Vital Sings: Vital Signs Temperature 98.2 F 07/13/17 07:37 Pulse Rate 85 07/13/17 07:37 Respiratory Rate 16 07/13/17 07:37 Blood Pressure 116/82 07/13/17 07:37 O2 Sat by Pulse Oximetry (%) 100 07/13/17 07:37 Constitutional: Yes: Mild Distress Eyes: Yes: Conjunctiva Clear, EOM Intact HENT: Yes: Atraumatic, Normocephalic Neck: Yes: Supple, Trachea Midline Cardiovascular: Yes: Regular Rate and Rhythm Respiratory: Yes: Poor Air Entry, Rhonchi, Wheezes ...Clubbing: No Gastrointestinal: Yes: Normal Bowel Sounds, Soft. No: Tenderness Edema: No Neurological: Yes: Alert, Oriented Labs: CBC, BMP 07/13/17 03:49 07/13/17 03:49 Imaging - Results Chest X-ray: Report Reviewed, Image Reviewed (RLL infiltrate) Problem List - Problems (1) PNA (pneumonia) Code(s): J18.9 - PNEUMONIA, UNSPECIFIED ORGANISM Qualifiers: Pneumonia type: due to unspecified organism Laterality: unspecified laterality Lung location: unspecified part of lung Qualified Code(s): J18.9 - Pneumonia, unspecified organism (2) COPD exacerbation Code(s): J44.1 - CHRONIC OBSTRUCTIVE PULMONARY DISEASE W (ACUTE) EXACERBATION (3) HTN (hypertension) Code(s): I10 - ESSENTIAL (PRIMARY) HYPERTENSION (4) GERD (gastroesophageal reflux disease) Code(s): K21.9 - GASTRO-ESOPHAGEAL REFLUX DISEASE WITHOUT ESOPHAGITIS Assessment/Plan Acute COPD Exacerbation Recurrent Pneumonia - r/o Aspiration HTN GERD Depression/Anxiety - IV antibiotics - f/u cultures - IV medrol - inhaled bronchodilators standing and PRN - o2 to keep Spo2 >90% - would get swallow eval - DVT prophylaxis Thank you for this consult Ochoa Butler MD
--- NOTE | 2017-07-13 11:27 | EKG ---
Test Reason : Blood Pressure : / mmHG Vent. Rate : 092 BPM Atrial Rate : 092 BPM P-R Int : 140 ms QRS Dur : 086 ms QT Int : 384 ms P-R-T Axes : 081 046 045 degrees QTc Int : 474 ms SINUS RHYTHM WITH PREMATURE ATRIAL COMPLEXES OTHERWISE NORMAL ECG WHEN COMPARED WITH ECG OF 21-MAR-2016 17:53, PREVIOUS ECG HAS UNDETERMINED RHYTHM, NEEDS REVIEW Confirmed by MICHAEL MARTINEZ, ALEXANDRO ([id number]) on 07/13/2017 11:27:00 AM Referred By: Confirmed By:ALEXANDRO RODRIGUEZ MD
--- NOTE | 2017-07-13 11:46 | CONSULT ---
Admitting History and Physical - Admission History of Present Illness: Per EMR: HISTORY OF PRESENT ILLNESS: 87 YOF with h/o COPD, PNA (patient states last seen at [facility] for PNA two months ago), HTN, lung CA s/p LLL resection, chronic anemia, GERD, depression, and anxiety who was BIBA from [facility] because of fever of 101.8 and cough with yellow sputum over the past 4-5 days, with worsening SOB CXR: Diffuse patchy consolidations worse in the right middle lobe with additional vascular congestion Pulmonary: Acute COPD Exacerbation Recurrent Pneumonia - r/o Aspiration HTN GERD Depression/Anxiety This is my first consult with this pt. History Source: Patient Limitations to Obtaining History: No Limitations - Past Medical History Cardiovascular: Yes: HTN Pulmonary: Yes: COPD Gastrointestinal: Yes: GERD Psych: Yes: Anxiety, Depression - Smoking History Smoking history: Never smoked Have you smoked in the past 12 months: No - Alcohol/Substance Use Hx Alcohol Use: No History - Admission Reason For Visit: PNEUMONIA COPD ANEMIA - Diagnostics X-ray: Report Reviewed (CXR: Diffuse patchy consolidations worse in the right middle lobe with additional vascular congestion) - General Mental Status: Alert and Oriented, Awake and Alert, Able to Follow Commands, Forgetful Attention: Intact Ability to Follow Directions: Excellent Head/Neck Control: WFL - Hearing Hearing: Functional Speech Evaluation - Communication Primary Language: [place] Communication: Yes: Within Normal Limits Oral Expression Ability: Yes: No Impairment - Speech Production Able to Make Needs Known: Yes: WNL Intelligibility: Yes: WNL - Speech Characteristics Voice Loudness: Normal Voice Pitch: Yes: Normal Voice Phonatory-based Quality: Yes: Normal Nasal Resonance: Normal Articulation: Yes: Precise Rate of Speech: Intact - Language/Auditory Comprehension Follows: Yes: 2 Stage Simple Commands - Language/Verbal Expression Able to Respond to Simple Queries: Yes: WNL Able to Communicate Wants and Needs: Yes: WNL Functional Communication Status: Yes: WNL - Swallow Evaluation/Bedside Assessment Current Nutritional Intake: Regular, Thin Liquids Oral Secretions: Yes: WFL Dentition: Yes: Adequate Facial Symmetry at Rest: Symmetrical Facial Symmetry on Retraction: Symmetrical Sensation: Normal Against Resistance Opening: Normal Against Resistance Closing: Normal Pucker Lips: Normal Smile: Normal Lingual Movement: Normal, Symmetric Lingual Speed of Movement: Normal Lingual Movement Strgth Against Opposition: Normal Lingual Movement Characteristics: Normal Velopharyngeal Movement: Normal Laryngeal Elevation: WFL Laryngeal Movement: Able to Palpate Rate of Intake: WFL Bolus Size: WFL Chewing: WFL Oral Prep Time: WFL A-P Transit: WFL Pocketing: None Timing of Swallow: WFL Coughing/Throat Clear: No Change in Voice: No Recommendations - Speech Evaluation, Impression/Plan Impression: [place]-pharyngeal swallowing function overtly WNL. Pt reports h/o GERD , needing to eat small amounts at a time, recent nausea. r/o esophageal dysphagia? Doubt anterograde aspiration. Retrograde? Pt denies regurgitation of food,vomiting. - Dysphagia Impressions/Plan Dysphagia Impressions: Ongoing Evaluation *Silent aspiration: cannot be R/O at bedside Dysphagia Treatment Plan: OOB for meals, OOB for 1 h. after meals Recommendations: GI Consult (as indicated?), Other ( Altenate solids with liquids. GERD precautions. Avoid PO intake w/in 2-3 hours of bedtime.) - Recommendations Diet Consistency: Regular Medication Administration: Whole with water Liquids: Thin Liquids
[2017-07-13] MEDS ORDERED: DEXTROSE 5%-WATER - 50 ML IVPB ONE ×2 (12:33→18:25)
[2017-07-13] MEDS ORDERED: PIPERACILLIN/TAZOBACTAM 3.375 GM VIAL IVPB ONE ×2 (12:33→18:25)
[2017-07-13] MEDS: FLUTICASONE/SALMETEROL 100 MCG/50 MCG DISKUS IH SCH ×2 (13:13→21:06)
[2017-07-13] MEDS: PIPERACILLIN/TAZOB 3.375 GM 3.375 GM in DEXTROSE 5%-WATER - 50 ML IVPB SCH ×2 (13:14→19:09)
[2017-07-13] MEDS: methylPREDNISolone NA SUCC 125 MG/2 ML VIAL IVPUSH SCH ×2 (13:14→19:09)
[2017-07-13] MEDS ORDERED: PT OWN MED DRAWER 7, Y5N ONE ×2 (13:46→21:11)
--- NOTE | 2017-07-13 18:10 | PN ---
Teaching Attending Note Name of Resident: Karon Tenorio ATTENDING PHYSICIAN STATEMENT I saw and evaluated the patient. I reviewed the resident's note and discussed the case with the resident. I agree with the resident's findings and plan as documented. SUBJECTIVE: Patient feels less SOB. OBJECTIVE: Vital Signs Period Temp Pulse Resp BP Sys/Jenkins Pulse Ox Last 24 Hr 97.5 F-102 F 76-90 16-30 112-132/51-82 96-100 HEART: S1S2, RRR LUNGS: Bilateral rhonchi and wheezes ABDOMEN: Soft, non-tender, non-distended, normal BS EXTREMITIES: No edema Laboratory Results - last 24 hr 07/13/17 07/13/17 07/13/17 03:49 03:49 03:49 WBC 6.1 RBC 3.52 L Hgb 10.7 Hct 31.7 L MCV 90.0 MCH 30.4 MCHC 33.7 RDW 14.7 D Plt Count 222 MPV 7.7 Neutrophils % 83.9 H Lymphocytes % 6.5 L D Monocytes % 8.2 Eosinophils % 1.0 Basophils % 0.4 PT with INR 12.60 INR 1.12 PTT (Actin FS) 30.8 VBG pH 7.43 H POC VBG pCO2 37.6 L POC VBG pO2 62.3 H Mixed VBG HCO3 24.5 Sodium Potassium Chloride Carbon Dioxide Anion Gap BUN Creatinine Creat Clearance w eGFR Random Glucose Lactic Acid Calcium Phosphorus Total Bilirubin AST ALT Alkaline Phosphatase Troponin I Total Protein Albumin Urine Color Urine Appearance Urine pH Ur Specific [place] Urine Protein Urine Glucose (UA) Urine Ketones Urine Blood Urine Nitrite Urine Bilirubin Urine Urobilinogen Ur Leukocyte Esterase Urine WBC (Auto) Urine RBC (Auto) Ur Epithelial Cells Urine Bacteria Hyaline Casts Urine Mucus 07/13/17 07/13/17 07/13/17 03:49 03:49 03:49 WBC RBC Hgb Hct MCV MCH MCHC RDW Plt Count MPV Neutrophils % Lymphocytes % Monocytes % Eosinophils % Basophils % PT with INR INR PTT (Actin FS) VBG pH POC VBG pCO2 POC VBG pO2 Mixed VBG HCO3 Sodium 139 Potassium 4.2 Chloride 108 H Carbon Dioxide 27 Anion Gap 4 L BUN 14 Creatinine 1.0 Creat Clearance w eGFR 52.57 Random Glucose 99 Lactic Acid 0.6 Calcium 7.7 L Phosphorus Total Bilirubin 0.3 D AST 14 L ALT 13 Alkaline Phosphatase 59 Troponin I 0.02 Total Protein 5.8 L Albumin 2.3 L Urine Color Urine Appearance Urine pH Ur Specific [place] Urine Protein Urine Glucose (UA) Urine Ketones Urine Blood Urine Nitrite Urine Bilirubin Urine Urobilinogen Ur Leukocyte Esterase Urine WBC (Auto) Urine RBC (Auto) Ur Epithelial Cells Urine Bacteria Hyaline Casts Urine Mucus 07/13/17 07/13/17 07/13/17 03:50 05:51 05:51 WBC RBC Hgb Hct MCV MCH MCHC RDW Plt Count MPV Neutrophils % Lymphocytes % Monocytes % Eosinophils % Basophils % PT with INR INR PTT (Actin FS) VBG pH POC VBG pCO2 POC VBG pO2 Mixed VBG HCO3 Sodium Potassium Chloride Carbon Dioxide Anion Gap BUN Creatinine Creat Clearance w eGFR Random Glucose Lactic Acid 0.8 Calcium Phosphorus 2.7 Total Bilirubin AST ALT Alkaline Phosphatase Troponin I Total Protein Albumin Urine Color Yellow Urine Appearance Slcloudy Urine pH 5.0 D Ur Specific [place] 1.020 Urine Protein 1+ H Urine Glucose (UA) Negative Urine Ketones Negative Urine Blood 1+ H Urine Nitrite Negative Urine Bilirubin Negative Urine Urobilinogen Negative Ur Leukocyte Esterase Negative Urine WBC (Auto) 1 Urine RBC (Auto) 2 Ur Epithelial Cells Rare Urine Bacteria Rare Hyaline Casts 1 Urine Mucus Few Current Medications Generic Name Dose Route Start Last Admin Trade Name Freq PRN Reason Stop Dose Admin Albuterol Sulfate 1 amp 07/13/17 06:56 Ventolin 0.083% Nebulizer Soln - NEB Q4H PRN SHORT OF BREATH/WHEEZING Albuterol/Ipratropium 1 amp 07/13/17 08:00 07/13/17 08:04 Duoneb - NEB 1 amp RQID [facility] Administration Heparin Sodium (Porcine) 5,000 unit 07/13/17 06:30 07/13/17 10:25 Heparin - SQ Not Given Q8H-IV [facility] Azithromycin 500 mg/ Dextrose 250 mls @ 250 mls/hr 07/14/17 10:00 IVPB DAILY [facility] Piperacillin Sod/Tazobactam 50 mls @ 100 mls/hr 07/13/17 10:00 07/13/17 13:14 Sod 3.375 gm/ Dextrose IVPB 100 mls/hr Q8H-IV [facility] Administration Protocol Methylprednisolone Sodium Succinate 60 mg 07/13/17 11:30 07/13/17 13:14 Solu-Medrol - IVPUSH 60 mg Q8H-IV [facility] Administration Fluticasone/Salmeterol 1 puff 07/13/17 10:00 07/13/17 13:13 Advair 100mcg/50mcg - IH 1 puff BID [facility] Administration ASSESSMENT AND PLAN: This is an 87 year old woman with a history of COPD, HTN, lung cancer, left lower lobectomy, anemia, GERD, depression, anxiety who presented to the ED from [facility] because of cough and fever. 1. Healthcare-associated pneumonia - On Zosyn, Zithromax - Swallow evaluation appreciated 2. Acute exacerbation of COPD - Continue SoluMedrol, Advair, DuoNeb, albuterol nebs as needed 3. HTN - On no medication 4. Lung cancer, history of left lower lobectomy 5. GERD 6. Depression, anxiety
[2017-07-13] MEDS ORDERED: PREGABALIN 25 MG CAPSULE PO SCH (18:15)
[2017-07-13] MEDS ORDERED: CEFEPIME HCL/D5W 1 GM/50 ML BAG IVPB ONE (19:00)
[2017-07-13] MEDS ORDERED: VANCOMYCIN 1 GM PREMIX - 1 GM/200 ML BAG IVPB ONE (19:00)
[2017-07-13] MEDS ORDERED: BREXPIPRAZOLE 0.5 MG PO SCH (22:00)
[2017-07-13] MEDS: LORazepam 0.5 MG TABLET PO SCH (22:52)
[2017-07-13] MEDS: ZOLPIDEM TARTRATE 5 MG TABLET PO SCH (22:52)
[2017-07-13] MEDS: CITALOPRAM HYDROBROMIDE 20 MG TABLET (FP) PO SCH (22:53)
[2017-07-13] MEDS: PREGABALIN 25 MG CAPSULE PO SCH (22:54)
[2017-07-13] MEDS: ALBUTEROL SO4 0.083% IH SOL 2.5 MG/3 ML VIAL.NEB. NEB PRN (23:44)
[2017-07-14] MEDS ORDERED: PIPERACILLIN/TAZOBACTAM 3.375 GM VIAL IVPB ONE ×2 (00:44→09:32)
[2017-07-14] MEDS ORDERED: DEXTROSE 5%-WATER - 50 ML IVPB ONE ×3 (00:45→20:46)
[2017-07-14] MEDS: HEPARIN NA (PORCINE) 5,000 UNITS/ML 1ML VIAL SQ SCH ×3 (02:53→17:40)
[2017-07-14] MEDS: methylPREDNISolone NA SUCC 125 MG/2 ML VIAL IVPUSH SCH ×3 (02:53→17:40)
[2017-07-14] MEDS: PIPERACILLIN/TAZOB 3.375 GM 3.375 GM in DEXTROSE 5%-WATER - 50 ML IVPB SCH ×2 (02:53→09:37)
[2017-07-14] MEDS: ALBUTEROL SO4 2.5/IPRATROPIUM 0.5 INH SOL 3 ML VIAL.NEB. NEB SCH ×4 (07:20→20:35)
[2017-07-14 08:02] LABS: BASO % 0.1 % (0-2.0); HEMATOCRIT 35.1 % (32.4-45.2); HEMOGLOBIN 11.7 GM/dL (10.7-15.3); LYMPH % 2.9 % (8-40); MCHC 33.5 g/dl (32.0-36.0); MEAN CELL VOLUME 89.6 fl (80-96); MEAN PLT VOLUME 7.7 fl (7.5-11.1); MONO % 2.7 % (3.8-10.2); NEUT % 94.3 % (42.8-82.8); PLATELET COUNT 290 K/MM3 (134-434); RBC 3.92 M/mm3 (3.60-5.2); RDW 14.6 % (11.6-15.6); WHITE BLOOD COUNT 10.1 K/mm3 (4.0-10.0)
[2017-07-14 08:51] LABS: CHLORIDE 102 mmol/L (98-107); POTASSIUM 4.3 mmol/L (3.5-5.1); SODIUM 136 mmol/L (136-145)
[2017-07-14 08:56] LABS: ANION GAP 12 (8-16); BLOOD UREA NITROGEN 20 mg/dL (7-18); CALCIUM 8.7 mg/dL (8.5-10.1); CO2 22 mmol/L (21-32); CREATININE 1.4 mg/dL (0.55-1.02); GLUCOSE,RANDOM 150 mg/dL (74-106)
--- NOTE | 2017-07-14 09:31 | PN ---
Physical Exam: SUBJECTIVE: Patient seen and examined. No events overnight. continues to have non-productive cough this morning; no fever or chills, reports breathing "about the same". OBJECTIVE: Vital Signs Period Temp Pulse Resp BP Sys/Jenkins Pulse Ox Last 24 Hr 97.5 F-98.2 F 84-99 18-20 132-137/59-72 98 GENERAL: aaox3, mildly dyspneic when speaking HEENT: sclera anicteric, conjunctiva clear, mmm LUNGS: b/l expiratory wheezing, course breath sounds HEART: rrr, normal s1/s2 ABDOMEN: soft, ntnd EXTREMITIES: wwp, no edema CBC, BMP 07/14/17 06:40 07/14/17 06:40 Hepatic Panel Total Bilirubin 0.3 mg/dL (0.2-1.0) D 07/13/17 03:49 AST 14 U/L (15-37) L 07/13/17 03:49 ALT 13 U/L (12-78) 07/13/17 03:49 Alkaline Phosphatase 59 U/L (45-117) 07/13/17 03:49 Albumin 2.3 g/dl (3.4-5.0) L 07/13/17 03:49 Microbiology 07/13/17 06:34 Sputum - Expectorated Gram Stain - Final 07/13/17 06:34 Sputum - Expectorated Sputum Culture - Preliminary NORMAL RESPIRATORY EMIL 07/13/17 07:18 Nares - Mrsa Screen - Right MRSA Screen - Final NO MRSA ISOLATED 07/13/17 03:50 Urine - Urine Clean Catch Urine Culture - Final NO GROWTH OBTAINED 07/13/17 03:49 Blood - Peripheral Venous Blood Culture - Preliminary NO GROWTH OBTAINED AFTER 24 HOURS, INCUBATION TO CONTINUE FOR 4 DAYS. 07/13/17 03:49 Blood - Peripheral Venous Blood Culture - Preliminary NO GROWTH OBTAINED AFTER 24 HOURS, INCUBATION TO CONTINUE FOR 4 DAYS. 07/13/17 06:40 Serum Mycoplasma Antibody - Preliminary Active Medications Albuterol Sulfate (Ventolin 0.083% Nebulizer Soln -) 1 amp NEB Q4H PRN PRN Reason: SHORT OF BREATH/WHEEZING Last Admin: 07/13/17 23:44 Dose: 1 amp Albuterol/Ipratropium (Duoneb -) 1 amp NEB RQID [facility] Last Admin: 07/14/17 11:36 Dose: 1 amp Amlodipine Besylate (Norvasc -) 5 mg PO DAILY [facility] Last Admin: 07/14/17 09:36 Dose: 5 mg Citalopram Hydrobromide (Celexa -) 40 mg PO HS [facility] Last Admin: 07/13/17 22:53 Dose: 40 mg Heparin Sodium (Porcine) (Heparin -) 5,000 unit SQ Q8H-IV [facility] Last Admin: 07/14/17 09:36 Dose: 5,000 unit Azithromycin 500 mg/ Dextrose 250 mls @ 250 mls/hr IVPB DAILY [facility] Last Admin: 07/14/17 10:35 Dose: 250 mls/hr Sodium Chloride (Normal Saline -) 1,000 mls @ 75 mls/hr IV ASDIR [facility] Stop: 07/14/17 23:19 Last Admin: 07/14/17 10:34 Dose: 75 mls/hr Piperacillin Sod/Tazobactam (Sod 2.5 gm/ Dextrose) 50 mls @ 100 mls/hr IVPB Q8H -IV [facility] PRN Reason: Protocol Lorazepam (Ativan -) 0.5 mg PO [facility] Last Admin: 07/13/17 22:52 Dose: 0.5 mg Methylprednisolone Sodium Succinate (Solu-Medrol -) 60 mg IVPUSH Q8H-IV [facility] Last Admin: 07/14/17 09:37 Dose: 60 mg Non-Formulary Medication (Brexpiprazole [Rexulti]) 0.5 mg PO HS [facility] Pantoprazole Sodium (Protonix -) 20 mg PO DAILY [facility] Last Admin: 07/14/17 09:36 Dose: 20 mg Pregabalin (Lyrica -) 50 mg PO [facility] Last Admin: 07/13/17 22:54 Dose: 50 mg Fluticasone/Salmeterol (Advair 100mcg/50mcg -) 1 puff IH BID [facility] Last Admin: 07/14/17 09:36 Dose: 1 puff Zolpidem Tartrate (Ambien -) 5 mg PO [facility] Last Admin: 07/13/17 22:52 Dose: 5 mg ASSESSMENT/PLAN: 87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 #sepsis 2/2 HCAP, RML infiltrate seen on CXR -RULING [employer]ACH[employer] consulted; appreciate recommendations -ID consulted, Zosyn and Azithromycin (Day 2), Zosyn dose decreased to 2.5gm Q8 due to GFR -Sputum culture: Normal respiratory emil -f/u mycoplasma Ag and Legionella Ag -Urine Cx NGTD; Blood culture [id number] #GERONIMO, Cr 1.4 (1 yesterday) -IVF x 1L -Urine studies to calculate FeNa -Zosyn dose adjusted for GFR #copd exacerbation -Pulm consulted -O2 therapy as needed to maintain Spo2 >90% -Duo nebs RQID + Albuterol Q4H PRN -Advair 1 puff BID -Solumedrol 60mg IVP Q8H #Depression/Anxiety/Insomnia -c/w home Celexa, Rexulti, Lyrica, Ativan #FEN NS@75cc x 1 bag lytes wnl Na controlled diet #PPX: HSQ TID/ protonix (on home omeprazole 20mg) #DISPO: m/s DNR/DNI, MOLST form in chart, signed 06/29/17 d/w Dr. José Manuel Tenorio MD PGY1 - Internal Medicine Visit type - Emergency Visit Emergency Visit: No - New Patient This patient is new to me today: No - Critical Care Critical Care patient: No
[2017-07-14] MEDS ORDERED: PT OWN MED DRAWER 7, Y5N ONE ×3 (09:32→17:49)
[2017-07-14] MEDS: amLODIPine BESYLATE 5 MG TABLET (FP) PO SCH (09:36)
[2017-07-14] MEDS: PANTOPRAZOLE 20 MG TABLET (FP) PO SCH (09:36)
[2017-07-14] MEDS: FLUTICASONE/SALMETEROL 100 MCG/50 MCG DISKUS IH SCH ×2 (09:36→21:16)
[2017-07-14] MEDS ORDERED: SODIUM CHLORIDE 1,000 ML IV SCH (10:00)
[2017-07-14] MEDS: AZITHROMYCIN IVPB 500 MG in DEXTROSE 5%-WATER - 250 ML IVPB SCH (10:35)
--- NOTE | 2017-07-14 13:40 | PN ---
Progress Note, Physician History of Present Illness: PULMOARY ALERT,STILL DYSPNEIC,+COUGH - Current Medication List Current Medications: Active Medications Albuterol Sulfate (Ventolin 0.083% Nebulizer Soln -) 1 amp NEB Q4H PRN PRN Reason: SHORT OF BREATH/WHEEZING Last Admin: 07/13/17 23:44 Dose: 1 amp Albuterol/Ipratropium (Duoneb -) 1 amp NEB RQID [facility] Last Admin: 07/14/17 11:36 Dose: 1 amp Amlodipine Besylate (Norvasc -) 5 mg PO DAILY [facility] Last Admin: 07/14/17 09:36 Dose: 5 mg Citalopram Hydrobromide (Celexa -) 40 mg PO HS [facility] Last Admin: 07/13/17 22:53 Dose: 40 mg Heparin Sodium (Porcine) (Heparin -) 5,000 unit SQ Q8H-IV [facility] Last Admin: 07/14/17 09:36 Dose: 5,000 unit Azithromycin 500 mg/ Dextrose 250 mls @ 250 mls/hr IVPB DAILY [facility] Last Admin: 07/14/17 10:35 Dose: 250 mls/hr Sodium Chloride (Normal Saline -) 1,000 mls @ 75 mls/hr IV ASDIR [facility] Stop: 07/14/17 23:19 Last Admin: 07/14/17 10:34 Dose: 75 mls/hr Piperacillin Sod/Tazobactam (Sod 2.5 gm/ Dextrose) 50 mls @ 100 mls/hr IVPB Q8H -IV [facility] PRN Reason: Protocol Lorazepam (Ativan -) 0.5 mg PO HS [facility] Last Admin: 07/13/17 22:52 Dose: 0.5 mg Methylprednisolone Sodium Succinate (Solu-Medrol -) 60 mg IVPUSH Q8H-IV [facility] Last Admin: 07/14/17 09:37 Dose: 60 mg Non-Formulary Medication (Brexpiprazole [Rexulti]) 0.[address] [facility] Pantoprazole Sodium (Protonix -) 20 mg PO DAILY [facility] Last Admin: 07/14/17 09:36 Dose: 20 mg Pregabalin (Lyrica -) 50 mg PO HS [facility] Last Admin: 07/13/17 22:54 Dose: 50 mg Fluticasone/Salmeterol (Advair 100mcg/50mcg -) 1 puff IH BID [facility] Last Admin: 07/14/17 09:36 Dose: 1 puff Zolpidem Tartrate (Ambien -) 5 mg PO HS [facility] Last Admin: 07/13/17 22:52 Dose: 5 mg - Objective Vital Signs: Vital Signs Temperature 98.3 F 07/14/17 08:00 Pulse Rate 90 07/14/17 08:00 Respiratory Rate 18 07/14/17 08:00 Blood Pressure 122/70 07/14/17 08:00 O2 Sat by Pulse Oximetry (%) 98 07/13/17 21:00 Constitutional: Yes: Well Nourished, Calm Eyes: Yes: WNL HENT: Yes: WNL Neck: Yes: WNL Cardiovascular: Yes: Regular Rate and Rhythm, S1, S2 Respiratory: Yes: Rhonchi (JAMES RHONCHI) Gastrointestinal: Yes: Normal Bowel Sounds, Soft Extremities: Yes: WNL Edema: No Labs: CBC, BMP 07/14/17 06:40 07/14/17 06:40 INR, PTT INR 1.12 (0.82-1.09) 07/13/17 03:49 Assessment/Plan Problem List - Problems (1) PNA (pneumonia) Code(s): J18.9 - PNEUMONIA, UNSPECIFIED ORGANISM Qualifiers: Pneumonia type: due to unspecified organism Laterality: unspecified laterality Lung location: unspecified part of lung Qualified Code(s): J18.9 - Pneumonia, unspecified organism (2) COPD exacerbation Code(s): J44.1 - CHRONIC OBSTRUCTIVE PULMONARY DISEASE W (ACUTE) EXACERBATION (3) HTN (hypertension) Code(s): I10 - ESSENTIAL (PRIMARY) HYPERTENSION (4) GERD (gastroesophageal reflux disease) Code(s): K21.9 - GASTRO-ESOPHAGEAL REFLUX DISEASE WITHOUT ESOPHAGITIS Assessment/Plan Acute COPD Exacerbation Recurrent Pneumonia - r/o Aspiration HTN GERD Depression/Anxiety - IV antibiotics - IV medrol - inhaled bronchodilators standing and PRN - o2 to keep Spo2 >90% - would get swallow eval - DVT prophylaxis - antitussives DR PEREZ
--- NOTE | 2017-07-14 15:45 | PN ---
Teaching Attending Note Name of Resident: Karon Tenorio ATTENDING PHYSICIAN STATEMENT I saw and evaluated the patient. I reviewed the resident's note and discussed the case with the resident. I agree with the resident's findings and plan as documented. SUBJECTIVE: Continues to wheeze, on oxygen. comfortable at rest. c/o having cough OBJECTIVE: Vital Signs Temperature 97.4 F L 07/14/17 14:28 Pulse Rate 98 H 07/14/17 14:28 Respiratory Rate 17 07/14/17 14:28 Blood Pressure 138/69 07/14/17 14:28 O2 Sat by Pulse Oximetry (%) 98 07/13/17 21:00 GENERAL: A/o x3, appears comfortable on 2L NC EYES: extraocular movements intact, sclera anicteric, conjunctiva clear EARS, NOSE, THROAT: oropharynx clear without exudates. Moist mucous membranes. NECK: supple without lymphadenopathy LUNGS: BL rhonchi course breath sounds HEART: Regular rate and rhythm, normal S1 and S2 without murmur, rub or gallop. ABDOMEN: Soft, nontender, not distended +BS EXTREMITIES: 2+ pulses, warm, well-perfused. No cyanosis. No clubbing. No peripheral edema. NEUROLOGICAL: Cranial nerves II-XII intact. Normal speech PSYCHIATRIC: Cooperative. Good eye contact. Appropriate mood and affect. CBCD WBC 10.1 K/mm3 (4.0-10.0) H D 07/14/17 06:40 RBC 3.92 M/mm3 (3.60-5.2) 07/14/17 06:40 Hgb 11.7 GM/dL (10.7-15.3) 07/14/17 06:40 Hct 35.1 % (32.4-45.2) 07/14/17 06:40 MCV 89.6 fl (80-96) 07/14/17 06:40 MCHC 33.5 g/dl (32.0-36.0) 07/14/17 06:40 RDW 14.6 % (11.6-15.6) 07/14/17 06:40 Plt Count 290 K/MM3 (134-434) D 07/14/17 06:40 MPV 7.7 fl (7.5-11.1) 07/14/17 06:40 CMP Sodium 136 mmol/L (136-145) 07/14/17 06:40 Potassium 4.3 mmol/L (3.5-5.1) 07/14/17 06:40 Chloride 102 mmol/L (98-107) 07/14/17 06:40 Carbon Dioxide 22 mmol/L (21-32) 07/14/17 06:40 Anion Gap 12 (8-16) 07/14/17 06:40 BUN 20 mg/dL (7-18) H 07/14/17 06:40 Creatinine 1.4 mg/dL (0.55-1.02) H 07/14/17 06:40 Creat Clearance w eGFR 52.57 (>60) 07/13/17 03:49 Random Glucose 150 mg/dL (74-106) H 07/14/17 06:40 Calcium 8.7 mg/dL (8.5-10.1) 07/14/17 06:40 Total Bilirubin 0.3 mg/dL (0.2-1.0) D 07/13/17 03:49 AST 14 U/L (15-37) L 07/13/17 03:49 ALT 13 U/L (12-78) 07/13/17 03:49 Alkaline Phosphatase 59 U/L (45-117) 07/13/17 03:49 Total Protein 5.8 g/dl (6.4-8.2) L 07/13/17 03:49 Albumin 2.3 g/dl (3.4-5.0) L 07/13/17 03:49 CARDIAC ENZYMES Troponin I 0.02 ng/ml (0.00-0.05) 07/13/17 03:49 Current Medications Generic Name Dose Route Start Last Admin Trade Name Freq PRN Reason Stop Dose Admin Albuterol Sulfate 1 amp 07/13/17 06:56 07/13/17 23:44 Ventolin 0.083% Nebulizer Soln - NEB 1 amp Q4H PRN Administration SHORT OF BREATH/WHEEZING Albuterol/Ipratropium 1 amp 07/13/17 08:00 07/14/17 15:28 Duoneb - NEB 1 amp RQID [facility] Administration Amlodipine Besylate 5 mg 07/14/17 10:00 07/14/17 09:36 Norvasc - PO 5 mg DAILY [facility] Administration Citalopram Hydrobromide 40 mg 07/13/17 22:00 05/03/18 22:53 Celexa - PO 40 mg HS [facility] Administration Guaifenesin/Codeine Phosphate 5 ml 07/14/17 13:42 Robitussin Ac - PO TID PRN COUGH Heparin Sodium (Porcine) 5,000 unit 07/13/17 06:30 07/14/17 09:36 Heparin - SQ 5,000 unit Q8H-IV [facility] Administration Azithromycin 500 mg/ Dextrose 250 mls @ 250 mls/hr 07/14/17 10:00 07/14/17 10 :35 IVPB 250 mls/hr DAILY [facility] Administration Sodium Chloride 1,000 mls @ 75 mls/hr 07/14/17 10:00 07/14/17 10:34 Normal Saline - IV 07/14/17 23:19 75 mls/hr ASDIR [facility] Administration Piperacillin Sod/Tazobactam 50 mls @ 100 mls/hr 07/14/17 18:00 Sod 2.5 gm/ Dextrose IVPB Q8H-IV [facility] Protocol Lorazepam 0.5 mg 07/13/17 22:00 07/13/17 22:52 Ativan - PO 0.5 mg HS [facility] Administration Methylprednisolone Sodium Succinate 60 mg 07/13/17 11:30 07/14/17 09:37 Solu-Medrol - IVPUSH 60 mg Q8H-IV [facility] Administration Non-Formulary Medication 0.5 mg 07/13/17 22:00 Brexpiprazole [Rexulti] PO HS [facility] Pantoprazole Sodium 20 mg 07/14/17 10:00 07/14/17 09:36 Protonix - PO 20 mg DAILY [facility] Administration Pregabalin 50 mg 07/13/17 22:00 07/13/17 22:54 Lyrica - PO 50 mg HS [facility] Administration Fluticasone/Salmeterol 1 puff 07/13/17 10:00 07/14/17 09:36 Advair 100mcg/50mcg - IH 1 puff BID [facility] Administration Zolpidem Tartrate 5 mg 07/13/17 22:00 07/13/17 22:52 Ambien - PO 5 mg HS [facility] Administration Home Medications Medication Instructions Recorded Levalbuterol Tartrate [Xopenex Hfa] 15 gm IH QID 11/12/15 Omeprazole 20 mg PO DAILY 11/12/15 Pregabalin [Lyrica] 50 mg PO DAILY 11/12/15 Zolpidem Tartrate [Ambien] 5 mg PO HS 11/12/15 Amlodipine Besylate 5 mg PO DAILY 07/13/17 Brexpiprazole [Rexulti] 0.5 mg PO HS 07/13/17 Citalopram Hydrobromide [Celexa -] 40 mg PO HS 07/13/17 Lorazepam 0.5 mg PO HS 07/13/17 Tiotropium Williamson [Spiriva] 2 inh PO DAILY 07/13/17 ASSESSMENT AND PLAN: This is an 87 year old woman with a history of COPD, HTN, lung cancer, left lower lobectomy, anemia, GERD, depression, anxiety who presented to the ED from [facility] because of cough and fever. # Healthcare-associated pneumonia on IV antibiotic Zosyn and Zithromax will continue , Swallow evaluation is done by Estefania anderson wnl. # Acute exacerbation of COPD on Solu medrol 60mg IV q8, Advair, DuoNeb, albuterol nebs as needed, Pulm. on the case # HTN controlled on NOrvasc continue # Hx of Lung cancer, with left lower lobectomy # Hx of GERD on protonix # Hx of Depression, anxiety on Celexa DVT Px: Heparin
--- NOTE | 2017-07-14 15:50 | PN ---
Progress Note, Physician History of Present Illness: C/O cough productive of whitish sputum Tachypneic at rest on nasal cannula + Wheeze No c/o fever/ chills - Current Medication List Current Medications: Active Medications Albuterol Sulfate (Ventolin 0.083% Nebulizer Soln -) 1 amp NEB Q4H PRN PRN Reason: SHORT OF BREATH/WHEEZING Last Admin: 07/13/17 23:44 Dose: 1 amp Albuterol/Ipratropium (Duoneb -) 1 amp NEB RQID [facility] Last Admin: 07/14/17 15:28 Dose: 1 amp Amlodipine Besylate (Norvasc -) 5 mg PO DAILY [facility] Last Admin: 07/14/17 09:36 Dose: 5 mg Citalopram Hydrobromide (Celexa -) 40 mg PO HS [facility] Last Admin: 07/13/17 22:53 Dose: 40 mg Guaifenesin/Codeine Phosphate (Robitussin Ac -) 5 ml PO TID PRN PRN Reason: COUGH Heparin Sodium (Porcine) (Heparin -) 5,000 unit SQ Q8H-IV [facility] Last Admin: 07/14/17 09:36 Dose: 5,000 unit Azithromycin 500 mg/ Dextrose 250 mls @ 250 mls/hr IVPB DAILY [facility] Last Admin: 07/14/17 10:35 Dose: 250 mls/hr Sodium Chloride (Normal Saline -) 1,000 mls @ 75 mls/hr IV ASDIR [facility] Stop: 07/14/17 23:19 Last Admin: 07/14/17 10:34 Dose: 75 mls/hr Piperacillin Sod/Tazobactam (Sod 2.5 gm/ Dextrose) 50 mls @ 100 mls/hr IVPB Q8H -IV [facility] PRN Reason: Protocol Lorazepam (Ativan -) 0.5 mg PO HS [facility] Last Admin: 07/13/17 22:52 Dose: 0.5 mg Methylprednisolone Sodium Succinate (Solu-Medrol -) 60 mg IVPUSH Q8H-IV [facility] Last Admin: 07/14/17 09:37 Dose: 60 mg Non-Formulary Medication (Brexpiprazole [Rexulti]) 0.5 mg PO HS [facility] Pantoprazole Sodium (Protonix -) 20 mg PO DAILY [facility] Last Admin: 07/14/17 09:36 Dose: 20 mg Pregabalin (Lyrica -) 50 mg PO [facility] Last Admin: 07/13/17 22:54 Dose: 50 mg Fluticasone/Salmeterol (Advair 100mcg/50mcg -) 1 puff IH BID [facility] Last Admin: 07/14/17 09:36 Dose: 1 puff Zolpidem Tartrate (Ambien -) 5 mg PO [facility] Last Admin: 07/13/17 22:52 Dose: 5 mg - Objective Vital Signs: Vital Signs Temperature 97.4 F L 07/14/17 14:28 Pulse Rate 98 H 07/14/17 14:28 Respiratory Rate 17 07/14/17 14:28 Blood Pressure 138/69 07/14/17 14:28 O2 Sat by Pulse Oximetry (%) 98 07/13/17 21:00 Constitutional: Yes: Thin Cardiovascular: Yes: Regular Rate and Rhythm, S1, S2 Respiratory: Yes: Rhonchi, Wheezes Gastrointestinal: Yes: Normal Bowel Sounds, Soft. No: Tenderness Edema: No Labs: CBC, BMP 07/14/17 06:40 07/14/17 06:40 INR, PTT INR 1.12 (0.82-1.09) 07/13/17 03:49 Assessment/Plan RML pneumonia Possible sepsis secondary to pneumonia Acute exacerbation COPD Continue zithromax/ zosyn Bronchodilators/ steroids
[2017-07-14] MEDS ORDERED: DEXTROSE 5% IVPB SCH (18:00)
[2017-07-14] MEDS ORDERED: TAZOB IVPB SCH (18:00)
[2017-07-14] MEDS ORDERED: WATER IVPB SCH (18:00)
[2017-07-14] MEDS ORDERED: PIPERACILLIN IVPB SCH (18:00)
[2017-07-14] MEDS: PIPERACILLIN/TAZOB 2.25 GM 2.25 GM in DEXTROSE 5%-WATER - 50 ML IVPB SCH (18:43)
[2017-07-14 20:30] LABS: URINE CREATININE 79.3 mg/dL (20-320)
[2017-07-14] MEDS ORDERED: PIPERACILLIN/TAZOBACTAM 2.25 GM VIAL IVPB ONE (20:45)
[2017-07-14] MEDS: ZOLPIDEM TARTRATE 5 MG TABLET PO SCH (21:18)
[2017-07-14] MEDS: PREGABALIN 25 MG CAPSULE PO SCH (21:18)
[2017-07-14] MEDS: LORazepam 0.5 MG TABLET PO SCH (21:18)
[2017-07-14] MEDS: CITALOPRAM HYDROBROMIDE 20 MG TABLET (FP) PO SCH (21:18)
[2017-07-15] MEDS ORDERED: PIPERACILLIN/TAZOBACTAM 2.25 GM VIAL IVPB ONE ×3 (00:36→18:01)
[2017-07-15] MEDS ORDERED: DEXTROSE 5%-WATER - 50 ML IVPB ONE ×3 (00:37→18:01)
[2017-07-15] MEDS: PIPERACILLIN/TAZOB 2.25 GM 2.25 GM in DEXTROSE 5%-WATER - 50 ML IVPB SCH ×3 (01:37→18:02)
[2017-07-15] MEDS: methylPREDNISolone NA SUCC 125 MG/2 ML VIAL IVPUSH SCH ×3 (01:52→18:03)
[2017-07-15] MEDS: HEPARIN NA (PORCINE) 5,000 UNITS/ML 1ML VIAL SQ SCH ×3 (01:52→18:03)
[2017-07-15] MEDS: ALBUTEROL SO4 0.083% IH SOL 2.5 MG/3 ML VIAL.NEB. NEB PRN (04:04)
[2017-07-15] MEDS: ALBUTEROL SO4 2.5/IPRATROPIUM 0.5 INH SOL 3 ML VIAL.NEB. NEB SCH ×4 (07:25→19:50)
[2017-07-15 08:22] LABS: BASO % 0.2 % (0-2.0); HEMOGLOBIN 10.1 GM/dL (10.7-15.3); LYMPH % 2.1 % (8-40); MCH 30.1 pg (25.7-33.7); MCHC 33.7 g/dl (32.0-36.0); MEAN CELL VOLUME 89.3 fl (80-96); MEAN PLT VOLUME 7.8 fl (7.5-11.1); MONO % 2.8 % (3.8-10.2); NEUT % 94.9 % (42.8-82.8); PLATELET COUNT 278 K/MM3 (134-434); RBC 3.36 M/mm3 (3.60-5.2); RDW 15.1 % (11.6-15.6); WHITE BLOOD COUNT 13.3 K/mm3 (4.0-10.0)
--- NOTE | 2017-07-15 08:49 | PN ---
Progress Note (short form) - Note Progress Note: Patient continues to cough. less shortness of breath. No fever or chills. Vital Signs Temperature 97.9 F 07/15/17 07:22 Pulse Rate 90 07/15/17 07:22 Respiratory Rate 23 07/15/17 07:22 Blood Pressure 138/61 07/15/17 07:22 O2 Sat by Pulse Oximetry (%) 97 07/14/17 21:00 GENERAL: A/o x3, appears comfortable on 2L NC EYES: extraocular movements intact, sclera anicteric, conjunctiva clear EARS, NOSE, THROAT: oropharynx clear without exudates. Moist mucous membranes. NECK: supple without lymphadenopathy LUNGS: positive rhonchi Bl, with course breath sounds HEART: Regular rate and rhythm, normal S1 and S2 without murmur, rub or gallop. ABDOMEN: Soft, nontender, not distended +BS EXTREMITIES: 2+ pulses, warm, well-perfused. No cyanosis. No clubbing. No peripheral edema. NEUROLOGICAL: Cranial nerves II-XII intact. Normal speech PSYCHIATRIC: Cooperative. Good eye contact. Appropriate mood and affect. CBCD WBC 13.3 K/mm3 (4.0-10.0) H D 07/15/17 07:35 RBC 3.36 M/mm3 (3.60-5.2) L 07/15/17 07:35 Hgb 10.1 GM/dL (10.7-15.3) L D 07/15/17 07:35 Hct 30.0 % (32.4-45.2) L 07/15/17 07:35 MCV 89.3 fl (80-96) 07/15/17 07:35 MCHC 33.7 g/dl (32.0-36.0) 07/15/17 07:35 RDW 15.1 % (11.6-15.6) 07/15/17 07:35 Plt Count 278 K/MM3 (134-434) 07/15/17 07:35 MPV 7.8 fl (7.5-11.1) 07/15/17 07:35 CMP Sodium 136 mmol/L (136-145) 07/14/17 06:40 Potassium 4.3 mmol/L (3.5-5.1) 07/14/17 06:40 Chloride 102 mmol/L (98-107) 07/14/17 06:40 Carbon Dioxide 22 mmol/L (21-32) 07/14/17 06:40 Anion Gap 12 (8-16) 07/14/17 06:40 BUN 20 mg/dL (7-18) H 07/14/17 06:40 Creatinine 1.4 mg/dL (0.55-1.02) H 07/14/17 06:40 Creat Clearance w eGFR 52.57 (>60) 07/13/17 03:49 Random Glucose 150 mg/dL (74-106) H 07/14/17 06:40 Calcium 8.7 mg/dL (8.5-10.1) 07/14/17 06:40 Total Bilirubin 0.3 mg/dL (0.2-1.0) D 07/13/17 03:49 AST 14 U/L (15-37) L 07/13/17 03:49 ALT 13 U/L (12-78) 07/13/17 03:49 Alkaline Phosphatase 59 U/L (45-117) 07/13/17 03:49 Total Protein 5.8 g/dl (6.4-8.2) L 07/13/17 03:49 Albumin 2.3 g/dl (3.4-5.0) L 07/13/17 03:49 CARDIAC ENZYMES Troponin I 0.02 ng/ml (0.00-0.05) 07/13/17 03:49 Current Medications Generic Name Dose Route Start Last Admin Trade Name Freq PRN Reason Stop Dose Admin Albuterol Sulfate 1 amp 07/13/17 06:56 07/15/17 04:04 Ventolin 0.083% Nebulizer Soln - NEB 1 amp Q4H PRN Administration SHORT OF BREATH/WHEEZING Albuterol/Ipratropium 1 amp 07/13/17 08:00 07/15/17 07:25 Duoneb - NEB 1 amp RQID [facility] Administration Amlodipine Besylate 5 mg 07/14/17 10:00 07/14/17 09:36 Norvasc - PO 5 mg DAILY [facility] Administration Citalopram Hydrobromide 40 mg 07/13/17 22:00 07/14/17 21:18 Celexa - PO 40 mg HS [facility] Administration Guaifenesin/Codeine Phosphate 5 ml 07/14/17 13:42 Robitussin Ac - PO TID PRN COUGH Heparin Sodium (Porcine) 5,000 unit 07/13/17 06:30 07/15/17 01:52 Heparin - SQ 5,000 unit Q8H-IV [facility] Administration Azithromycin 500 mg/ Dextrose 250 mls @ 250 mls/hr 07/14/17 10:00 07/14/17 10 :35 IVPB 250 mls/hr DAILY [facility] Administration Piperacillin Sod/Tazobactam 50 mls @ 100 mls/hr 07/14/17 18:30 07/15/17 01:37 Sod 2.25 gm/ Dextrose IVPB 100 mls/hr Q8H-IV [facility] Administration Protocol Lorazepam 0.5 mg 07/13/17 22:00 07/14/17 21:18 Ativan - PO 0.5 mg HS [facility] Administration Methylprednisolone Sodium Succinate 60 mg 07/13/17 11:30 07/15/17 01:52 Solu-Medrol - IVPUSH 60 mg Q8H-IV [facility] Administration Non-Formulary Medication 0.5 mg 07/13/17 22:00 Brexpiprazole [Rexulti] PO HS [facility] Pantoprazole Sodium 20 mg 07/14/17 10:00 07/14/17 09:36 Protonix - PO 20 mg DAILY [facility] Administration Pregabalin 50 mg 07/13/17 22:00 07/14/17 21:18 Lyrica - PO 50 mg HS [facility] Administration Fluticasone/Salmeterol 1 puff 07/13/17 10:00 07/14/17 21:16 Advair 100mcg/50mcg - IH 1 puff BID [facility] Administration Zolpidem Tartrate 5 mg 07/13/17 22:00 07/14/17 21:18 Ambien - PO 5 mg HS [facility] Administration Home Medications Medication Instructions Recorded Levalbuterol Tartrate [Xopenex Hfa] 15 gm IH QID 11/12/15 Omeprazole 20 mg PO DAILY 11/12/15 Pregabalin [Lyrica] 50 mg PO DAILY 11/12/15 Zolpidem Tartrate [Ambien] 5 mg PO HS 11/12/15 Amlodipine Besylate 5 mg PO DAILY 07/13/17 Brexpiprazole [Rexulti] 0.5 mg PO HS 07/13/17 Citalopram Hydrobromide [Celexa -] 40 mg PO HS 07/13/17 Lorazepam 0.5 mg PO HS 07/13/17 Tiotropium [place] [Spiriva] 2 inh PO DAILY 07/13/17 This is an 87 year old woman with a history of COPD, HTN, lung cancer, left lower lobectomy, anemia, GERD, depression, anxiety who presented to the ED from [facility] because of cough and fever. # Healthcare-associated pneumonia on IV antibiotic Zosyn and Zithromax continue , Dr.Brill key. is on the case, continues to cough on Robitussin Ac, Swallow evaluation is done by Estefania anderson wnl. # Acute exacerbation of COPD continue Solu medrol IV 60mg q8, Advair, DuoNeb, albuterol nebs as needed # HTN controlled on NOrvasc continue # Hx of Lung cancer, with left lower lobectomy # Hx of GERD on protonix # Hx of Depression, anxiety on Celexa DVT Px: Heparin Visit type - Emergency Visit Emergency Visit: Yes ED Registration Date: 07/13/17 Care time: The patient presented to the Emergency Department on the above date and was hospitalized for further evaluation of their emergent condition. - New Patient This patient is new to me today: No - Critical Care Critical Care patient: No - Discharge Referral Referred to [facility] Med P.C.: No
[2017-07-15 08:50] LABS: ALBUMIN 2.4 g/dl (3.4-5.0); ANION GAP 9 (8-16); BILIRUBIN,TOTAL 0.2 mg/dL (0.2-1.0); BLOOD UREA NITROGEN 19 mg/dL (7-18); CALCIUM 8.5 mg/dL (8.5-10.1); CHLORIDE 107 mmol/L (98-107); CO2 25 mmol/L (21-32); GLUCOSE,RANDOM 161 mg/dL (74-106); POTASSIUM 3.8 mmol/L (3.5-5.1); SGOT/AST 14 U/L (15-37); SGPT/ALT 14 U/L (12-78); SODIUM 141 mmol/L (136-145); TOT PROT 5.8 g/dl (6.4-8.2)
[2017-07-15 08:51] LABS: ALK PHOS 54 U/L (45-117)
[2017-07-15] MEDS: FLUTICASONE/SALMETEROL 100 MCG/50 MCG DISKUS IH SCH ×2 (10:00→21:49)
[2017-07-15] MEDS ORDERED: PT OWN MED DRAWER 7, Y5N ONE ×3 (10:04→21:51)
[2017-07-15] MEDS: amLODIPine BESYLATE 5 MG TABLET (FP) PO SCH (10:12)
[2017-07-15] MEDS: PANTOPRAZOLE 20 MG TABLET (FP) PO SCH (10:12)
[2017-07-15] MEDS: AZITHROMYCIN IVPB 500 MG in DEXTROSE 5%-WATER - 250 ML IVPB SCH (10:20)
--- NOTE | 2017-07-15 12:31 | PN ---
Progress Note, Physician History of Present Illness: pulmonary alert,feeling better,less congested,+cough - Current Medication List Current Medications: Active Medications Albuterol Sulfate (Ventolin 0.083% Nebulizer Soln -) 1 amp NEB Q4H PRN PRN Reason: SHORT OF BREATH/WHEEZING Last Admin: 07/15/17 04:04 Dose: 1 amp Albuterol/Ipratropium (Duoneb -) 1 amp NEB RQID [facility] Last Admin: 07/15/17 11:14 Dose: 1 amp Amlodipine Besylate (Norvasc -) 5 mg PO DAILY [facility] Last Admin: 07/15/17 10:12 Dose: 5 mg Citalopram Hydrobromide (Celexa -) 40 mg PO HS [facility] Last Admin: 07/14/17 21:18 Dose: 40 mg Guaifenesin/Codeine Phosphate (Robitussin Ac -) 5 ml PO TID PRN PRN Reason: COUGH Heparin Sodium (Porcine) (Heparin -) 5,000 unit SQ Q8H-IV [facility] Last Admin: 07/15/17 10:12 Dose: 5,000 unit Azithromycin 500 mg/ Dextrose 250 mls @ 250 mls/hr IVPB DAILY [facility] Last Admin: 07/15/17 10:20 Dose: 250 mls/hr Piperacillin Sod/Tazobactam (Sod 2.25 gm/ Dextrose) 50 mls @ 100 mls/hr IVPB Q8H-IV [facility] PRN Reason: Protocol Last Admin: 07/15/17 10:21 Dose: 100 mls/hr Lorazepam (Ativan -) 0.5 mg PO [facility] Last Admin: 07/14/17 21:18 Dose: 0.5 mg Methylprednisolone Sodium Succinate (Solu-Medrol -) 60 mg IVPUSH Q8H-IV [facility] Last Admin: 07/15/17 10:22 Dose: 60 mg Non-Formulary Medication (Brexpiprazole [Rexulti]) 0.5 mg PO [facility] Pantoprazole Sodium (Protonix -) 20 mg PO DAILY [facility] Last Admin: 07/15/17 10:12 Dose: 20 mg Pregabalin (Lyrica -) 50 mg PO HS [facility] Last Admin: 07/14/17 21:18 Dose: 50 mg Fluticasone/Salmeterol (Advair 100mcg/50mcg -) 1 puff IH BID [facility] Last Admin: 07/14/17 21:16 Dose: 1 puff Zolpidem Tartrate (Ambien -) 5 mg PO HS [facility] Last Admin: 07/14/17 21:18 Dose: 5 mg - Objective Vital Signs: Vital Signs Temperature 97.7 F 07/15/17 11:00 Pulse Rate 96 H 07/15/17 11:00 Respiratory Rate 22 07/15/17 11:00 Blood Pressure 150/66 07/15/17 11:00 O2 Sat by Pulse Oximetry (%) 97 07/15/17 09:00 Constitutional: Yes: Calm, Thin Eyes: Yes: WNL HENT: Yes: WNL Neck: Yes: WNL Cardiovascular: Yes: Regular Rate and Rhythm, S1, S2 Respiratory: Yes: Rhonchi (eboni rhonchi) Gastrointestinal: Yes: Normal Bowel Sounds, Soft Extremities: Yes: WNL Edema: No Labs: CBC, BMP 07/15/17 07:35 07/15/17 07:35 INR, PTT INR 1.12 (0.82-1.09) 07/13/17 03:49 Assessment/Plan Problem List - Problems (1) PNA (pneumonia) Code(s): J18.9 - PNEUMONIA, UNSPECIFIED ORGANISM Qualifiers: Pneumonia type: due to unspecified organism Laterality: unspecified laterality Lung location: unspecified part of lung Qualified Code(s): J18.9 - Pneumonia, unspecified organism (2) COPD exacerbation Code(s): J44.1 - CHRONIC OBSTRUCTIVE PULMONARY DISEASE W (ACUTE) EXACERBATION (3) HTN (hypertension) Code(s): I10 - ESSENTIAL (PRIMARY) HYPERTENSION (4) GERD (gastroesophageal reflux disease) Code(s): K21.9 - GASTRO-ESOPHAGEAL REFLUX DISEASE WITHOUT ESOPHAGITIS Assessment/Plan Acute COPD Exacerbation Recurrent Pneumonia - r/o Aspiration HTN GERD Depression/Anxiety - IV antibiotics - IV medrol sane dose - inhaled bronchodilators standing and PRN - o2 to keep Spo2 >90% - would get swallow eval - DVT prophylaxis - antitussives - chest pt DR PEREZ
[2017-07-15] MEDS: ZOLPIDEM TARTRATE 5 MG TABLET PO SCH (21:10)
[2017-07-15] MEDS: CITALOPRAM HYDROBROMIDE 20 MG TABLET (FP) PO SCH (21:10)
[2017-07-15] MEDS: LORazepam 0.5 MG TABLET PO SCH (21:10)
[2017-07-15] MEDS: PREGABALIN 25 MG CAPSULE PO SCH (21:10)
[2017-07-16] MEDS ORDERED: PIPERACILLIN/TAZOBACTAM 2.25 GM VIAL IVPB ONE ×3 (00:59→17:11)
[2017-07-16] MEDS ORDERED: DEXTROSE 5%-WATER - 100 ML IVPB ONE (01:00)
[2017-07-16] MEDS: PIPERACILLIN/TAZOB 2.25 GM 2.25 GM in DEXTROSE 5%-WATER - 50 ML IVPB SCH ×3 (01:31→17:19)
[2017-07-16] MEDS: HEPARIN NA (PORCINE) 5,000 UNITS/ML 1ML VIAL SQ SCH ×3 (01:32→17:20)
[2017-07-16] MEDS: methylPREDNISolone NA SUCC 125 MG/2 ML VIAL IVPUSH SCH ×3 (01:33→17:20)
[2017-07-16] MEDS: ALBUTEROL SO4 2.5/IPRATROPIUM 0.5 INH SOL 3 ML VIAL.NEB. NEB SCH ×4 (07:25→19:50)
[2017-07-16] MEDS ORDERED: PT OWN MED DRAWER 7, Y5N ONE ×2 (08:32→21:32)
[2017-07-16] MEDS ORDERED: DEXTROSE 5%-WATER - 50 ML IVPB ONE ×2 (08:33→17:11)
[2017-07-16] MEDS: PANTOPRAZOLE 20 MG TABLET (FP) PO SCH (09:00)
[2017-07-16] MEDS: FLUTICASONE/SALMETEROL 100 MCG/50 MCG DISKUS IH SCH ×2 (09:00→21:47)
[2017-07-16] MEDS: amLODIPine BESYLATE 5 MG TABLET (FP) PO SCH (09:00)
[2017-07-16] MEDS: AZITHROMYCIN IVPB 500 MG in DEXTROSE 5%-WATER - 250 ML IVPB SCH (09:16)
--- NOTE | 2017-07-16 09:57 | PN ---
Progress Note (short form) - Note Progress Note: Patient has been coughing, bringing up yellow dark phylem. Vital Signs Temperature 97.8 F 07/16/17 08:48 Pulse Rate 92 H 07/16/17 08:48 Respiratory Rate 18 07/16/17 08:48 Blood Pressure 145/71 07/16/17 08:48 O2 Sat by Pulse Oximetry (%) 97 07/16/17 08:48 GENERAL: A/o x3, appears comfortable on 2L NC EYES: extraocular movements intact, sclera anicteric, conjunctiva clear EARS, NOSE, THROAT: oropharynx clear without exudates. Moist mucous membranes. NECK: supple without lymphadenopathy LUNGS: positive rhonchi Bl, with wheezing in the front of the chest and course breath sounds HEART: Regular rate and rhythm, normal S1 and S2 without murmur, rub or gallop. ABDOMEN: Soft, nontender, not distended +BS EXTREMITIES: 2+ pulses, warm, well-perfused. No cyanosis. No clubbing. No peripheral edema. NEUROLOGICAL: Cranial nerves II-XII intact. Normal speech PSYCHIATRIC: Cooperative. Good eye contact. Appropriate mood and affect. CBCD WBC 13.3 K/mm3 (4.0-10.0) H D 07/15/17 07:35 RBC 3.36 M/mm3 (3.60-5.2) L 07/15/17 07:35 Hgb 10.1 GM/dL (10.7-15.3) L D 07/15/17 07:35 Hct 30.0 % (32.4-45.2) L 07/15/17 07:35 MCV 89.3 fl (80-96) 07/15/17 07:35 MCHC 33.7 g/dl (32.0-36.0) 07/15/17 07:35 RDW 15.1 % (11.6-15.6) 07/15/17 07:35 Plt Count 278 K/MM3 (134-434) 07/15/17 07:35 MPV 7.8 fl (7.5-11.1) 07/15/17 07:35 CMP Sodium 141 mmol/L (136-145) 07/15/17 07:35 Potassium 3.8 mmol/L (3.5-5.1) 07/15/17 07:35 Chloride 107 mmol/L (98-107) 07/15/17 07:35 Carbon Dioxide 25 mmol/L (21-32) 07/15/17 07:35 Anion Gap 9 (8-16) 07/15/17 07:35 BUN 19 mg/dL (7-18) H 07/15/17 07:35 Creatinine 1.0 mg/dL (0.55-1.02) 07/15/17 07:35 Creat Clearance w eGFR 52.57 (>60) 07/15/17 07:35 Random Glucose 161 mg/dL (74-106) H 07/15/17 07:35 Calcium 8.5 mg/dL (8.5-10.1) 07/15/17 07:35 Total Bilirubin 0.2 mg/dL (0.2-1.0) D 07/15/17 07:35 AST 14 U/L (15-37) L 07/15/17 07:35 ALT 14 U/L (12-78) 07/15/17 07:35 Alkaline Phosphatase 54 U/L (45-117) 07/15/17 07:35 Total Protein 5.8 g/dl (6.4-8.2) L 07/15/17 07:35 Albumin 2.4 g/dl (3.4-5.0) L 07/15/17 07:35 CARDIAC ENZYMES Troponin I 0.02 ng/ml (0.00-0.05) 07/13/17 03:49 Current Medications Generic Name Dose Route Start Last Admin Trade Name Freq PRN Reason Stop Dose Admin Albuterol Sulfate 1 amp 07/13/17 06:56 07/15/17 04:04 Ventolin 0.083% Nebulizer Soln - NEB 1 amp Q4H PRN Administration SHORT OF BREATH/WHEEZING Albuterol/Ipratropium 1 amp 07/13/17 08:00 07/16/17 07:25 Duoneb - NEB 1 amp RQID [facility] Administration Amlodipine Besylate 5 mg 07/14/17 10:00 07/16/17 09:00 Norvasc - PO 5 mg DAILY [facility] Administration Citalopram Hydrobromide 40 mg 07/13/17 22:00 07/15/17 21:10 Celexa - PO 40 mg HS [facility] Administration Guaifenesin/Codeine Phosphate 5 ml 07/14/17 13:42 Robitussin Ac - PO TID PRN COUGH Heparin Sodium (Porcine) 5,000 unit 07/13/17 06:30 07/16/17 09:00 Heparin - SQ 5,000 unit Q8H-IV [facility] Administration Azithromycin 500 mg/ Dextrose 250 mls @ 250 mls/hr 07/14/17 10:00 07/16/17 09 :16 IVPB 250 mls/hr DAILY [facility] Administration Piperacillin Sod/Tazobactam 50 mls @ 100 mls/hr 07/14/17 18:30 07/16/17 09:01 Sod 2.25 gm/ Dextrose IVPB 100 mls/hr Q8H-IV [facility] Administration Protocol Lorazepam 0.5 mg 07/13/17 22:00 07/15/17 21:10 Ativan - PO 0.5 mg HS [facility] Administration Methylprednisolone Sodium Succinate 60 mg 07/13/17 11:30 07/16/17 09:00 Solu-Medrol - IVPUSH 60 mg Q8H-IV [facility] Administration Non-Formulary Medication 0.5 mg 07/13/17 22:00 Brexpiprazole [Rexulti] PO HS [facility] Pantoprazole Sodium 20 mg 07/14/17 10:00 07/16/17 09:00 Protonix - PO 20 mg DAILY [facility] Administration Pregabalin 50 mg 07/13/17 22:00 07/15/17 21:10 Lyrica - PO 50 mg HS [facility] Administration Fluticasone/Salmeterol 1 puff 07/13/17 10:00 07/16/17 09:00 Advair 100mcg/50mcg - IH 1 puff BID [facility] Administration Zolpidem Tartrate 5 mg 07/13/17 22:00 07/15/17 21:10 Ambien - PO 5 mg HS [facility] Administration Home Medications Medication Instructions Recorded Levalbuterol Tartrate [Xopenex Hfa] 15 gm IH QID 11/12/15 Omeprazole 20 mg PO DAILY 11/12/15 Pregabalin [Lyrica] 50 mg PO DAILY 11/12/15 Zolpidem Tartrate [Ambien] 5 mg PO HS 11/12/15 Amlodipine Besylate 5 mg PO DAILY 07/13/17 Brexpiprazole [Rexulti] 0.5 mg PO HS 07/13/17 Citalopram Hydrobromide [Celexa -] 40 mg PO HS 07/13/17 Lorazepam 0.5 mg PO HS 07/13/17 Tiotropium [place] [Spiriva] 2 inh PO DAILY 07/13/17 Microbiology 07/13/17 03:49 Blood - Peripheral Venous Blood Culture - Preliminary NO GROWTH OBTAINED AFTER 72 HOURS, INCUBATION TO CONTINUE FOR 2 DAYS. 07/13/17 03:49 Blood - Peripheral Venous Blood Culture - Preliminary NO GROWTH OBTAINED AFTER 72 HOURS, INCUBATION TO CONTINUE FOR 2 DAYS. 07/13/17 06:34 Sputum - Expectorated Gram Stain - Final 07/13/17 06:34 Sputum - Expectorated Sputum Culture - Final NORMAL RESPIRATORY NEY 07/13/17 03:50 Urine For Antigen Detection Legionella Antigen - Final 07/13/17 03:50 Urine For Antigen Detection Streptococcus pneumoniae Antigen (M - Final 07/13/17 07:18 Nares - Mrsa Screen - Right MRSA Screen - Final NO MRSA ISOLATED 07/13/17 03:50 Urine - Urine Clean Catch Urine Culture - Final NO GROWTH OBTAINED 07/13/17 06:40 Serum Mycoplasma Antibody - Preliminary A/P: This is an 87 year old woman with a history of COPD, HTN, lung cancer, left lower lobectomy, anemia, GERD, depression, anxiety who presented to the ED from [facility] because of cough and fever. # Healthcare-associated pneumonia with dark yellow sputum with continuous cough , continue IV antibiotic Zosyn and Zithromax , Dr.Brill key. is on the case, continues to cough continue Robitussin Ac will make it scheduled 3x per day vs prn since the patient is not asking for it. Swallow evaluation is done by Estefania anderson wnl. # Acute exacerbation of COPD continue Solu medrol IV 60mg q8, Advair, DuoNeb, albuterol nebs as needed # HTN controlled on NOrvasc continue # Hx of Lung cancer, with left lower lobectomy # Hx of GERD on protonix # Hx of Depression, anxiety on Celexa DVT Px: Heparin Visit type - Emergency Visit Emergency Visit: Yes ED Registration Date: 07/13/17 Care time: The patient presented to the Emergency Department on the above date and was hospitalized for further evaluation of their emergent condition. - New Patient This patient is new to me today: No - Critical Care Critical Care patient: No - Discharge Referral Referred to [facility] Med P.C.: No
[2017-07-16] MEDS: guaiFENesin/CODEINE 5 ML UNIT-DOSE CUPS PO PRN ×2 (10:09→21:47)
--- NOTE | 2017-07-16 13:32 | PN ---
Progress Note, Physician History of Present Illness: pulmonary alert,feels weak,+ cough - Current Medication List Current Medications: Active Medications Albuterol Sulfate (Ventolin 0.083% Nebulizer Soln -) 1 amp NEB Q4H PRN PRN Reason: SHORT OF BREATH/WHEEZING Last Admin: 07/15/17 04:04 Dose: 1 amp Albuterol/Ipratropium (Duoneb -) 1 amp NEB RQID [facility] Last Admin: 07/16/17 11:39 Dose: 1 amp Amlodipine Besylate (Norvasc -) 5 mg PO DAILY [facility] Last Admin: 07/16/17 09:00 Dose: 5 mg Citalopram Hydrobromide (Celexa -) 40 mg PO HS [facility] Last Admin: 07/15/17 21:10 Dose: 40 mg Guaifenesin/Codeine Phosphate (Robitussin Ac -) 5 ml PO TID PRN PRN Reason: COUGH Last Admin: 07/16/17 10:09 Dose: 5 ml Heparin Sodium (Porcine) (Heparin -) 5,000 unit SQ Q8H-IV [facility] Last Admin: 07/16/17 09:00 Dose: 5,000 unit Azithromycin 500 mg/ Dextrose 250 mls @ 250 mls/hr IVPB DAILY [facility] Last Admin: 07/16/17 09:16 Dose: 250 mls/hr Piperacillin Sod/Tazobactam (Sod 2.25 gm/ Dextrose) 50 mls @ 100 mls/hr IVPB Q8H-IV [facility] PRN Reason: Protocol Last Admin: 07/16/17 09:01 Dose: 100 mls/hr Lorazepam (Ativan -) 0.5 mg PO [facility] Last Admin: 07/15/17 21:10 Dose: 0.5 mg Methylprednisolone Sodium Succinate (Solu-Medrol -) 60 mg IVPUSH Q8H-IV [facility] Last Admin: 07/16/17 09:00 Dose: 60 mg Non-Formulary Medication (Brexpiprazole [Rexulti]) 0.5 mg PO [facility] Pantoprazole Sodium (Protonix -) 20 mg PO DAILY [facility] Last Admin: 07/16/17 09:00 Dose: 20 mg Pregabalin (Lyrica -) 50 mg PO [facility] Last Admin: 07/15/17 21:10 Dose: 50 mg Fluticasone/Salmeterol (Advair 100mcg/50mcg -) 1 puff IH BID [facility] Last Admin: 07/16/17 09:00 Dose: 1 puff Zolpidem Tartrate (Ambien -) 5 mg PO HS [facility] Last Admin: 07/15/17 21:10 Dose: 5 mg - Objective Vital Signs: Vital Signs Temperature 97.8 F 07/16/17 08:48 Pulse Rate 92 H 07/16/17 08:48 Respiratory Rate 18 07/16/17 08:48 Blood Pressure 145/71 07/16/17 08:48 O2 Sat by Pulse Oximetry (%) 97 07/16/17 08:48 Constitutional: Yes: Well Nourished, Calm Eyes: Yes: WNL HENT: Yes: WNL Neck: Yes: WNL Cardiovascular: Yes: Regular Rate and Rhythm, S1, S2 Respiratory: Yes: Rhonchi, Wheezes (scattered eboni rhonchi and wheezes) Gastrointestinal: Yes: Normal Bowel Sounds, Soft Extremities: Yes: WNL Edema: No Labs: C Assessment/Plan Problem List - Problems (1) PNA (pneumonia) Code(s): J18.9 - PNEUMONIA, UNSPECIFIED ORGANISM Qualifiers: Pneumonia type: due to unspecified organism Laterality: unspecified laterality Lung location: unspecified part of lung Qualified Code(s): J18.9 - Pneumonia, unspecified organism (2) COPD exacerbation Code(s): J44.1 - CHRONIC OBSTRUCTIVE PULMONARY DISEASE W (ACUTE) EXACERBATION (3) HTN (hypertension) Code(s): I10 - ESSENTIAL (PRIMARY) HYPERTENSION (4) GERD (gastroesophageal reflux disease) Code(s): K21.9 - GASTRO-ESOPHAGEAL REFLUX DISEASE WITHOUT ESOPHAGITIS Assessment/Plan Acute COPD Exacerbation Recurrent Pneumonia - r/o Aspiration HTN GERD Depression/Anxiety - IV antibiotics - IV medrol same dose - inhaled bronchodilators standing and PRN - o2 to keep Spo2 >90% - would get swallow eval - DVT prophylaxis - antitussives - chest pt - chest x-ray DR PEREZ
[2017-07-16] MEDS: CITALOPRAM HYDROBROMIDE 20 MG TABLET (FP) PO SCH (21:47)
[2017-07-16] MEDS: LORazepam 0.5 MG TABLET PO SCH (21:47)
[2017-07-16] MEDS: ZOLPIDEM TARTRATE 5 MG TABLET PO SCH (21:47)
[2017-07-16] MEDS: PREGABALIN 25 MG CAPSULE PO SCH (21:52)
[2017-07-17] MEDS ORDERED: PIPERACILLIN/TAZOBACTAM 2.25 GM VIAL IVPB ONE ×3 (01:00→17:32)
[2017-07-17] MEDS ORDERED: DEXTROSE 5%-WATER - 50 ML IVPB ONE ×3 (01:01→17:32)
[2017-07-17] MEDS: HEPARIN NA (PORCINE) 5,000 UNITS/ML 1ML VIAL SQ SCH ×3 (01:13→17:37)
[2017-07-17] MEDS: PIPERACILLIN/TAZOB 2.25 GM 2.25 GM in DEXTROSE 5%-WATER - 50 ML IVPB SCH ×3 (01:13→17:37)
[2017-07-17] MEDS: methylPREDNISolone NA SUCC 125 MG/2 ML VIAL IVPUSH SCH ×3 (01:14→17:37)
[2017-07-17] MEDS: ALBUTEROL SO4 2.5/IPRATROPIUM 0.5 INH SOL 3 ML VIAL.NEB. NEB SCH ×4 (07:30→20:33)
[2017-07-17] MEDS: amLODIPine BESYLATE 5 MG TABLET (FP) PO SCH (09:31)
[2017-07-17] MEDS: PANTOPRAZOLE 20 MG TABLET (FP) PO SCH (09:31)
[2017-07-17] MEDS: FLUTICASONE/SALMETEROL 100 MCG/50 MCG DISKUS IH SCH ×2 (09:31→21:51)
[2017-07-17] MEDS: AZITHROMYCIN IVPB 500 MG in DEXTROSE 5%-WATER - 250 ML IVPB SCH (10:08)
[2017-07-17 10:27] LABS: HEMATOCRIT 30.1 % (32.4-45.2); HEMOGLOBIN 10.2 GM/dL (10.7-15.3); MCH 30.3 pg (25.7-33.7); MEAN PLT VOLUME 7.7 fl (7.5-11.1); PLATELET COUNT 340 K/MM3 (134-434); RBC 3.38 M/mm3 (3.60-5.2); RDW 14.7 % (11.6-15.6); WHITE BLOOD COUNT 11.3 K/mm3 (4.0-10.0)
[2017-07-17 10:51] LABS: ALBUMIN 2.1 g/dl (3.4-5.0); ALK PHOS 52 U/L (45-117); ANION GAP 5 (8-16); BILIRUBIN,TOTAL 0.2 mg/dL (0.2-1.0); BLOOD UREA NITROGEN 27 mg/dL (7-18); CALCIUM 7.8 mg/dL (8.5-10.1); CHLORIDE 107 mmol/L (98-107); CO2 28 mmol/L (21-32); CREATININE 1.1 mg/dL (0.55-1.02); GLUCOSE,RANDOM 168 mg/dL (74-106); POTASSIUM 4.4 mmol/L (3.5-5.1); SGOT/AST 24 U/L (15-37); SGPT/ALT 27 U/L (12-78); SODIUM 140 mmol/L (136-145); TOT PROT 5.4 g/dl (6.4-8.2)
[2017-07-17 11:33] LABS: PLATELET ESTIMATE ADEQUATE
--- NOTE | 2017-07-17 14:00 | PN ---
Progress Note, Physician History of Present Illness: PULMONARY ALERT,FEELING ABOUT THE SAME ,DYSPNEIC,+COUGH,STILL CONGESTED - Current Medication List Current Medications: Active Medications Albuterol Sulfate (Ventolin 0.083% Nebulizer Soln -) 1 amp NEB Q4H PRN PRN Reason: SHORT OF BREATH/WHEEZING Last Admin: 07/15/17 04:04 Dose: 1 amp Albuterol/Ipratropium (Duoneb -) 1 amp NEB RQID [facility] Last Admin: 07/17/17 11:39 Dose: 1 amp Amlodipine Besylate (Norvasc -) 5 mg PO DAILY [facility] Last Admin: 07/17/17 09:31 Dose: 5 mg Citalopram Hydrobromide (Celexa -) 40 mg PO HS [facility] Last Admin: 07/16/17 21:47 Dose: 40 mg Heparin Sodium (Porcine) (Heparin -) 5,000 unit SQ Q8H-IV [facility] Last Admin: 07/17/17 09:31 Dose: 5,000 unit Azithromycin 500 mg/ Dextrose 250 mls @ 250 mls/hr IVPB DAILY [facility] Last Admin: 07/17/17 10:08 Dose: 250 mls/hr Piperacillin Sod/Tazobactam (Sod 2.25 gm/ Dextrose) 50 mls @ 100 mls/hr IVPB Q8H-IV [facility] PRN Reason: Protocol Last Admin: 07/17/17 09:31 Dose: 100 mls/hr Lorazepam (Ativan -) 0.5 mg PO HS [facility] Last Admin: 07/16/17 21:47 Dose: 0.5 mg Methylprednisolone Sodium Succinate (Solu-Medrol -) 60 mg IVPUSH Q8H-IV [facility] Last Admin: 07/17/17 09:31 Dose: 60 mg Non-Formulary Medication (Brexpiprazole [Rexulti]) 0.5 mg PO [facility] Pantoprazole Sodium (Protonix -) 20 mg PO DAILY [facility] Last Admin: 07/17/17 09:31 Dose: 20 mg Pregabalin (Lyrica -) 50 mg PO HS [facility] Last Admin: 07/16/17 21:52 Dose: 50 mg Fluticasone/Salmeterol (Advair 100mcg/50mcg -) 1 puff IH BID [facility] Last Admin: 07/17/17 09:31 Dose: 1 puff Zolpidem Tartrate (Ambien -) 5 mg PO HS [facility] Last Admin: 07/16/17 21:47 Dose: 5 mg - Objective Vital Signs: Vital Signs Temperature 97.8 F 07/17/17 09:00 Pulse Rate 87 07/17/17 09:00 Respiratory Rate 19 07/17/17 09:00 Blood Pressure 146/68 07/17/17 09:00 O2 Sat by Pulse Oximetry (%) 98 07/17/17 09:00 Constitutional: Yes: Well Nourished, Calm Eyes: Yes: WNL HENT: Yes: WNL Neck: Yes: WNL Cardiovascular: Yes: Regular Rate and Rhythm, S1, S2 Respiratory: Yes: Rhonchi, Wheezes (BILATERAL RHONCHI AND WHEEZES) Gastrointestinal: Yes: Normal Bowel Sounds, Soft Extremities: Yes: WNL Edema: No Labs: CBC, BMP 07/17/17 10:01 07/17/17 10:01 INR, PTT INR 1.12 (0.82-1.09) 07/13/17 03:49 - ....Imaging Chest X-ray: Report Reviewed, Image Reviewed Assessment/Plan Problem List - Problems (1) PNA (pneumonia) Code(s): J18.9 - PNEUMONIA, UNSPECIFIED ORGANISM Qualifiers: Pneumonia type: due to unspecified organism Laterality: unspecified laterality Lung location: unspecified part of lung Qualified Code(s): J18.9 - Pneumonia, unspecified organism (2) COPD exacerbation Code(s): J44.1 - CHRONIC OBSTRUCTIVE PULMONARY DISEASE W (ACUTE) EXACERBATION (3) HTN (hypertension) Code(s): I10 - ESSENTIAL (PRIMARY) HYPERTENSION (4) GERD (gastroesophageal reflux disease) Code(s): K21.9 - GASTRO-ESOPHAGEAL REFLUX DISEASE WITHOUT ESOPHAGITIS Assessment/Plan Acute COPD Exacerbation Recurrent Pneumonia - r/o Aspiration HTN GERD Depression/Anxiety - continue IV antibiotics - IV medrol - inhaled bronchodilators standing and PRN - o2 to keep Spo2 >90% - would get swallow eval - DVT prophylaxis - antitussives - chest pt DR PEREZ
--- NOTE | 2017-07-17 14:17 | PN ---
Teaching Attending Note Name of Resident: Adam Soliz ATTENDING PHYSICIAN STATEMENT I saw and evaluated the patient. I reviewed the resident's note and discussed the case with the resident. I agree with the resident's findings and plan as documented. SUBJECTIVE: Patient feels like she isn't improving. OBJECTIVE: Vital Signs Period Temp Pulse Resp BP Sys/Jenkins Pulse Ox Last 24 Hr 97.3 F-97.8 F 82-90 18-21 137-149/67-83 98-100 HEART: S1S2, RRR LUNGS: Bilateral rhonchi and wheezes ABDOMEN: Soft, non-tender, non-distended, normal BS EXTREMITIES: No edema Laboratory Results - last 24 hr 07/17/17 07/17/17 10:01 10:01 WBC 11.3 H RBC 3.38 L Hgb 10.2 L Hct 30.1 L MCV 89.0 MCH 30.3 MCHC 34.0 RDW 14.7 Plt Count 340 D MPV 7.7 Total Counted 100 Neutrophils % Outside Event Sales Specialist Neutrophils % (Manual) 90.0 H Band Neutrophils % 1.0 Lymphocytes % Outside Event Sales Specialist Lymphocytes % (Manual) 4.0 L Monocytes % Outside Event Sales Specialist Monocytes % (Manual) 5 Eosinophils % Outside Event Sales Specialist Basophils % Outside Event Sales Specialist Platelet Estimate Adequate Sodium 140 Potassium 4.4 Chloride 107 Carbon Dioxide 28 Anion Gap 5 L BUN 27 H Creatinine 1.1 H Creat Clearance w eGFR 47.09 Random Glucose 168 H Calcium 7.8 L Total Bilirubin 0.2 AST 24 ALT 27 Alkaline Phosphatase 52 Total Protein 5.4 L Albumin 2.1 L Current Medications Generic Name Dose Route Start Last Admin Trade Name Freq PRN Reason Stop Dose Admin Albuterol Sulfate 1 amp 07/13/17 06:56 07/15/17 04:04 Ventolin 0.083% Nebulizer Soln - NEB 1 amp Q4H PRN Administration SHORT OF BREATH/WHEEZING Albuterol/Ipratropium 1 amp 07/13/17 08:00 07/17/17 11:39 Duoneb - NEB 1 amp RQID [facility] Administration Amlodipine Besylate 5 mg 07/14/17 10:00 07/17/17 09:31 Norvasc - PO 5 mg DAILY [facility] Administration Citalopram Hydrobromide 40 mg 07/13/17 22:00 07/16/17 21:47 Celexa - PO 40 mg HS [facility] Administration Heparin Sodium (Porcine) 5,000 unit 07/13/17 06:30 07/17/17 09:31 Heparin - SQ 5,000 unit Q8H-IV [facility] Administration Azithromycin 500 mg/ Dextrose 250 mls @ 250 mls/hr 07/14/17 10:00 07/17/17 10 :08 IVPB 250 mls/hr DAILY [facility] Administration Piperacillin Sod/Tazobactam 50 mls @ 100 mls/hr 07/14/17 18:30 07/17/17 09:31 Sod 2.25 gm/ Dextrose IVPB 100 mls/hr Q8H-IV [facility] Administration Protocol Lorazepam 0.5 mg 07/13/17 22:00 07/16/17 21:47 Ativan - PO 0.5 mg HS [facility] Administration Methylprednisolone Sodium Succinate 60 mg 07/13/17 11:30 07/17/17 09:31 Solu-Medrol - IVPUSH 60 mg Q8H-IV [facility] Administration Non-Formulary Medication 0.5 mg 07/13/17 22:00 Brexpiprazole [Rexulti] PO HS [facility] Pantoprazole Sodium 20 mg 07/14/17 10:00 07/17/17 09:31 Protonix - PO 20 mg DAILY [facility] Administration Pregabalin 50 mg 07/13/17 22:00 07/16/17 21:52 Lyrica - PO 50 mg HS [facility] Administration Fluticasone/Salmeterol 1 puff 07/13/17 10:00 07/17/17 09:31 Advair 100mcg/50mcg - IH 1 puff BID [facility] Administration Zolpidem Tartrate 5 mg 07/13/17 22:00 07/16/17 21:47 Ambien - PO 5 mg HS [facility] Administration ASSESSMENT AND PLAN: This is an 87 year old woman with a history of COPD, HTN, lung cancer, left lower lobectomy, anemia, GERD, depression, anxiety who presented to the ED from [facility] because of cough and fever. 1. Healthcare-associated pneumonia - On Zosyn, Zithromax 2. Acute exacerbation of COPD - Slowly improving - Continue SoluMedrol, Advair, DuoNeb, albuterol nebs as needed - Check echo - Consider chest CT 3. HTN - Continue Norvasc 4. Lung cancer, history of left lower lobectomy 5. GERD 6. Depression, anxiety - Continue Celexa, Ativan
[2017-07-17] MEDS ORDERED: BENZOCAINE/MENTH/CETYLPYRD CL 1 EACH LOZENGE MM PRN (14:45)
--- NOTE | 2017-07-17 17:42 | PN ---
Progress Note, Physician History of Present Illness: OOB in chair C/O cough productive of whitish sputum Breathing non-labored No c/o fever/ chills - Current Medication List Current Medications: Active Medications Albuterol Sulfate (Ventolin 0.083% Nebulizer Soln -) 1 amp NEB Q4H PRN PRN Reason: SHORT OF BREATH/WHEEZING Last Admin: 07/15/17 04:04 Dose: 1 amp Albuterol/Ipratropium (Duoneb -) 1 amp NEB RQID [facility] Last Admin: 07/17/17 15:38 Dose: 1 amp Amlodipine Besylate (Norvasc -) 5 mg PO DAILY [facility] Last Admin: 07/17/17 09:31 Dose: 5 mg Benzocaine/Menthol (Cepacol Lozenge -) 1 each MM PRN PRN PRN Reason: SORE THROAT Citalopram Hydrobromide (Celexa -) 40 mg PO HS [facility] Last Admin: 07/16/17 21:47 Dose: 40 mg Heparin Sodium (Porcine) (Heparin -) 5,000 unit SQ Q8H-IV [facility] Last Admin: 07/17/17 17:37 Dose: 5,000 unit Azithromycin 500 mg/ Dextrose 250 mls @ 250 mls/hr IVPB DAILY [facility] Last Admin: 07/17/17 10:08 Dose: 250 mls/hr Piperacillin Sod/Tazobactam (Sod 2.25 gm/ Dextrose) 50 mls @ 100 mls/hr IVPB Q8H-IV [facility] PRN Reason: Protocol Last Admin: 07/17/17 17:37 Dose: 100 mls/hr Lorazepam (Ativan -) 0.5 mg PO [facility] Last Admin: 07/16/17 21:47 Dose: 0.5 mg Methylprednisolone Sodium Succinate (Solu-Medrol -) 60 mg IVPUSH Q8H-IV [facility] Last Admin: 07/17/17 17:37 Dose: 60 mg Non-Formulary Medication (Brexpiprazole [Rexulti]) 0.5 mg PO [facility] Pantoprazole Sodium (Protonix -) 20 mg PO DAILY [facility] Last Admin: 07/17/17 09:31 Dose: 20 mg Pregabalin (Lyrica -) 50 mg PO HS [facility] Last Admin: 07/16/17 21:52 Dose: 50 mg Fluticasone/Salmeterol (Advair 100mcg/50mcg -) 1 puff IH BID [facility] Last Admin: 07/17/17 09:31 Dose: 1 puff Zolpidem Tartrate (Ambien -) 5 mg PO HS [facility] Last Admin: 07/16/17 21:47 Dose: 5 mg - Objective Vital Signs: Vital Signs Temperature 97.3 F L 07/17/17 14:35 Pulse Rate 85 07/17/17 14:35 Respiratory Rate 22 07/17/17 14:35 Blood Pressure 133/63 07/17/17 14:35 O2 Sat by Pulse Oximetry (%) 98 07/17/17 09:00 Constitutional: Yes: No Distress, Thin Cardiovascular: Yes: Regular Rate and Rhythm, S1, S2 Respiratory: Yes: Rhonchi, Wheezes Gastrointestinal: Yes: Normal Bowel Sounds, Soft. No: Tenderness Edema: LLE: 1+, RLE: 1+ Labs: CBC, BMP 07/17/17 10:01 07/17/17 10:01 INR, PTT INR 1.12 (0.82-1.09) 07/13/17 03:49 Assessment/Plan RML pneumonia Possible sepsis secondary to pneumonia Acute exacerbation COPD Continue zithromax/ zosyn Bronchodilators/ steroids
--- NOTE | 2017-07-17 18:30 | PN ---
Physical Exam: SUBJECTIVE: Patient seen and examined at bedside. No complaints. OBJECTIVE: Vital Signs Period Temp Pulse Resp BP Sys/Jenkins Pulse Ox Last 24 Hr 97.3 F-97.8 F 82-88 19-22 133-149/63-77 98-100 GENERAL: The patient is awake, alert, and fully oriented, in no acute distress. HEAD: Normal with no signs of trauma. EYES: sclera anicteric, conjunctiva clear. No ptosis. ENT: Ears normal, nares patent, oropharynx clear without exudates, moist mucous membranes. NECK: Trachea midline, full range of motion, supple. LUNGS: diffuse wheezes and crackles, no accessory muscle use. HEART: Regular rate and rhythm, S1, S2 without murmur, rub or gallop. ABDOMEN: Soft, nontender, nondistended, normoactive bowel sounds, no guarding, no rebound, no hepatosplenomegaly, no masses. EXTREMITIES: 2+ pulses, warm, well-perfused, no edema. NEUROLOGICAL: Cranial nerves II through XII grossly intact. Normal speech, gait not observed. PSYCH: Normal mood, normal affect. SKIN: Warm, dry, normal turgor, no rashes or lesions noted Laboratory Results - last 24 hr 07/17/17 07/17/17 10:01 10:01 WBC 11.3 H RBC 3.38 L Hgb 10.2 L Hct 30.1 L MCV 89.0 MCH 30.3 MCHC 34.0 RDW 14.7 Plt Count 340 D MPV 7.7 Total Counted 100 Neutrophils % Compliance Engineer Neutrophils % (Manual) 90.0 H Band Neutrophils % 1.0 Lymphocytes % Compliance Engineer Lymphocytes % (Manual) 4.0 L Monocytes % Compliance Engineer Monocytes % (Manual) 5 Eosinophils % Compliance Engineer Basophils % Compliance Engineer Platelet Estimate Adequate Sodium 140 Potassium 4.4 Chloride 107 Carbon Dioxide 28 Anion Gap 5 L BUN 27 H Creatinine 1.1 H Creat Clearance w eGFR 47.09 Random Glucose 168 H Calcium 7.8 L Total Bilirubin 0.2 AST 24 ALT 27 Alkaline Phosphatase 52 Total Protein 5.4 L Albumin 2.1 L Active Medications Generic Name Dose Route Start Last Admin Trade Name Freq PRN Reason Stop Dose Admin Albuterol Sulfate 1 amp 07/13/17 06:56 07/15/17 04:04 Ventolin 0.083% Nebulizer Soln - NEB 1 amp Q4H PRN Administration SHORT OF BREATH/WHEEZING Albuterol/Ipratropium 1 amp 07/13/17 08:00 07/17/17 15:38 Duoneb - NEB 1 amp RQID [facility] Administration Amlodipine Besylate 5 mg 07/14/17 10:00 07/17/17 09:31 Norvasc - PO 5 mg DAILY [facility] Administration Benzocaine/Menthol 1 each 07/17/17 14:45 Cepacol Lozenge - MM PRN PRN SORE THROAT Citalopram Hydrobromide 40 mg 07/13/17 22:00 07/16/17 21:47 Celexa - PO 40 mg HS [facility] Administration Heparin Sodium (Porcine) 5,000 unit 07/13/17 06:30 07/17/17 17:37 Heparin - SQ 5,000 unit Q8H-IV [facility] Administration Azithromycin 500 mg/ Dextrose 250 mls @ 250 mls/hr 07/14/17 10:00 07/17/17 10 :08 IVPB 250 mls/hr DAILY [facility] Administration Piperacillin Sod/Tazobactam 50 mls @ 100 mls/hr 07/14/17 18:30 07/17/17 17:37 Sod 2.25 gm/ Dextrose IVPB 100 mls/hr Q8H-IV [facility] Administration Protocol Lorazepam 0.5 mg 07/13/17 22:00 07/16/17 21:47 Ativan - PO 0.5 mg HS [facility] Administration Methylprednisolone Sodium Succinate 60 mg 07/13/17 11:30 07/17/17 17:37 Solu-Medrol - IVPUSH 60 mg Q8H-IV [facility] Administration Non-Formulary Medication 0.5 mg 07/13/17 22:00 Brexpiprazole [Rexulti] PO HS [facility] Pantoprazole Sodium 20 mg 07/14/17 10:00 07/17/17 09:31 Protonix - PO 20 mg DAILY [facility] Administration Pregabalin 50 mg 07/13/17 22:00 07/16/17 21:52 Lyrica - PO 50 mg HS [facility] Administration Fluticasone/Salmeterol 1 puff 07/13/17 10:00 07/17/17 09:31 Advair 100mcg/50mcg - IH 1 puff BID [facility] Administration Zolpidem Tartrate 5 mg 07/13/17 22:00 07/16/17 21:47 Ambien - PO 5 mg HS [facility] Administration ASSESSMENT/PLAN: Pt is an 87 y/o F DNR/DNI with PMH COPD, HTN, lung cancer, left lower lobectomy , anemia, GERD, depression, anxiety who presented to the ED from [facility] because of cough and fever. #HCAP -afebrile -leukocytosis 11.3 -RUL infiltrate -Azithromycin, Zosyn #COPD exacerbation -Duonebs -Solu-medrol -Adavair -Pulm on board #HTN -BP currently under control #FEN -not on fluid -lytes wnl -Na controlled diet #DVT ppx -Hep Sub Q Adam Soliz MD PGY-1 IM Visit type - Emergency Visit Emergency Visit: No - New Patient This patient is new to me today: Yes Date on this admission: 07/18/17 - Critical Care Critical Care patient: No
[2017-07-17] MEDS ORDERED: guaiFENesin 200 MG/10 ML 10 ML UNIT-DOSE CUPS PO PRN (18:48)
[2017-07-17] MEDS ORDERED: guaiFENesin/CODEINE 5 ML UNIT-DOSE CUPS PO PRN (19:14)
[2017-07-17] MEDS ORDERED: PT OWN MED DRAWER 7, Y5N ONE ×2 (21:48→23:04)
[2017-07-17] MEDS: CITALOPRAM HYDROBROMIDE 20 MG TABLET (FP) PO SCH (21:52)
[2017-07-17] MEDS: ZOLPIDEM TARTRATE 5 MG TABLET PO SCH (21:52)
[2017-07-17] MEDS: LORazepam 0.5 MG TABLET PO SCH (21:52)
[2017-07-17] MEDS: PREGABALIN 25 MG CAPSULE PO SCH (21:52)
[2017-07-18] MEDS ORDERED: DEXTROSE 5%-WATER - 50 ML IVPB ONE ×3 (01:25→17:13)
[2017-07-18] MEDS ORDERED: PIPERACILLIN/TAZOBACTAM 2.25 GM VIAL IVPB ONE ×3 (01:25→17:13)
[2017-07-18] MEDS: PIPERACILLIN/TAZOB 2.25 GM 2.25 GM in DEXTROSE 5%-WATER - 50 ML IVPB SCH ×3 (01:53→17:21)
[2017-07-18] MEDS: methylPREDNISolone NA SUCC 125 MG/2 ML VIAL IVPUSH SCH ×3 (01:57→17:20)
[2017-07-18] MEDS: HEPARIN NA (PORCINE) 5,000 UNITS/ML 1ML VIAL SQ SCH ×4 (01:57→22:01)
[2017-07-18] MEDS: ALBUTEROL SO4 2.5/IPRATROPIUM 0.5 INH SOL 3 ML VIAL.NEB. NEB SCH ×4 (07:30→20:58)
[2017-07-18 07:37] LABS: HEMATOCRIT 31.2 % (32.4-45.2); HEMOGLOBIN 10.5 GM/dL (10.7-15.3); MCH 30.1 pg (25.7-33.7); MCHC 33.7 g/dl (32.0-36.0); MEAN CELL VOLUME 89.1 fl (80-96); MEAN PLT VOLUME 7.4 fl (7.5-11.1); PLATELET COUNT 370 K/MM3 (134-434); RDW 15.3 % (11.6-15.6)
[2017-07-18 08:04] LABS: CHLORIDE 106 mmol/L (98-107); POTASSIUM 4.8 mmol/L (3.5-5.1); SODIUM 140 mmol/L (136-145)
[2017-07-18 08:27] LABS: ALBUMIN 2.1 g/dl (3.4-5.0); ALK PHOS 55 U/L (45-117); ANION GAP 7 (8-16); BILIRUBIN,TOTAL 0.3 mg/dL (0.2-1.0); BLOOD UREA NITROGEN 30 mg/dL (7-18); CALCIUM 7.9 mg/dL (8.5-10.1); CO2 27 mmol/L (21-32); CREATININE 1.1 mg/dL (0.55-1.02); GLUCOSE,RANDOM 143 mg/dL (74-106); SGOT/AST 26 U/L (15-37); SGPT/ALT 33 U/L (12-78); TOT PROT 5.3 g/dl (6.4-8.2)
[2017-07-18] MEDS ORDERED: PT OWN MED DRAWER 7, Y5N ONE (08:36)
[2017-07-18 09:08] LABS: PLATELET ESTIMATE NORMAL
[2017-07-18] MEDS: FLUTICASONE/SALMETEROL 100 MCG/50 MCG DISKUS IH SCH ×2 (10:50→22:00)
[2017-07-18] MEDS: amLODIPine BESYLATE 5 MG TABLET (FP) PO SCH (10:51)
[2017-07-18] MEDS: PANTOPRAZOLE 20 MG TABLET (FP) PO SCH (10:51)
[2017-07-18] MEDS: AZITHROMYCIN IVPB 500 MG in DEXTROSE 5%-WATER - 250 ML IVPB SCH (11:22)
--- NOTE | 2017-07-18 12:08 | PN ---
Progress Note, [employer]S - Note Progress Note: Medical events noted including CT chest. Swallowing reassessed. No overt signs of dysphagia. Aspiration not demonstrated or suspected, although bedside evaluation not reliable. If aspiration is suspected, MBS is needed to r/o silent aspiration.
--- NOTE | 2017-07-18 13:25 | PN ---
Progress Note, Physician History of Present Illness: OOB in chair C/O cough productive of whitish sputum Reports dyspnea with minimal exertion No c/o chest pain Breathing non-labored No c/o fever/ chills CT RUL, RLL infiltrates - Current Medication List Current Medications: Active Medications Albuterol Sulfate (Ventolin 0.083% Nebulizer Soln -) 1 amp NEB Q4H PRN PRN Reason: SHORT OF BREATH/WHEEZING Last Admin: 07/15/17 04:04 Dose: 1 amp Albuterol/Ipratropium (Duoneb -) 1 amp NEB RQID [facility] Last Admin: 07/18/17 12:05 Dose: 1 amp Amlodipine Besylate (Norvasc -) 5 mg PO DAILY [facility] Last Admin: 07/18/17 10:51 Dose: 5 mg Benzocaine/Menthol (Cepacol Lozenge -) 1 each MM PRN PRN PRN Reason: SORE THROAT Last Admin: 07/17/17 23:08 Dose: 1 each Citalopram Hydrobromide (Celexa -) 40 mg PO HS [facility] Last Admin: 07/17/17 21:52 Dose: 40 mg Guaifenesin/Codeine Phosphate (Robitussin Ac -) 5 ml PO Q8H PRN PRN Reason: COUGH Heparin Sodium (Porcine) (Heparin -) 5,000 unit SQ Q8H-IV [facility] Last Admin: 07/18/17 10:51 Dose: 5,000 unit Azithromycin 500 mg/ Dextrose 250 mls @ 250 mls/hr IVPB DAILY [facility] Last Admin: 07/18/17 11:22 Dose: 250 mls/hr Piperacillin Sod/Tazobactam (Sod 2.25 gm/ Dextrose) 50 mls @ 100 mls/hr IVPB Q8H-IV [facility] PRN Reason: Protocol Last Admin: 07/18/17 10:50 Dose: 100 mls/hr Lorazepam (Ativan -) 0.5 mg PO HS [facility] Last Admin: 07/17/17 21:52 Dose: 0.5 mg Methylprednisolone Sodium Succinate (Solu-Medrol -) 60 mg IVPUSH Q8H-IV [facility] Last Admin: 07/18/17 10:51 Dose: 60 mg Non-Formulary Medication (Brexpiprazole [Rexulti]) 0.5 mg PO HS [facility] Pantoprazole Sodium (Protonix -) 20 mg PO DAILY [facility] Last Admin: 07/18/17 10:51 Dose: 20 mg Pregabalin (Lyrica -) 50 mg PO [facility] Last Admin: 07/17/17 21:52 Dose: 50 mg Fluticasone/Salmeterol (Advair 100mcg/50mcg -) 1 puff IH BID [facility] Last Admin: 07/18/17 10:50 Dose: 1 puff Zolpidem Tartrate (Ambien -) 5 mg PO [facility] Last Admin: 07/17/17 21:52 Dose: 5 mg - Objective Vital Signs: Vital Signs Temperature 98.0 F 07/18/17 09:00 Pulse Rate 91 H 07/18/17 09:00 Respiratory Rate 22 07/18/17 09:00 Blood Pressure 145/88 07/18/17 09:00 O2 Sat by Pulse Oximetry (%) 100 07/18/17 09:00 Constitutional: Yes: No Distress Eyes: Yes: Conjunctiva Clear Cardiovascular: Yes: Regular Rate and Rhythm, S1, S2 Respiratory: Yes: Rhonchi, Wheezes Gastrointestinal: Yes: Normal Bowel Sounds, Soft. No: Tenderness Labs: CBC, BMP 07/18/17 06:30 07/18/17 06:30 INR, PTT INR 1.12 (0.82-1.09) 07/13/17 03:49 Assessment/Plan RML pneumonia Possible sepsis secondary to pneumonia Acute exacerbation COPD Continue zithromax/ zosyn Bronchodilators/ steroids
--- NOTE | 2017-07-18 13:33 | PN ---
Progress Note, Physician History of Present Illness: pulmonary alert,no change,still congested,+ cough,+sob - Current Medication List Current Medications: Active Medications Albuterol Sulfate (Ventolin 0.083% Nebulizer Soln -) 1 amp NEB Q4H PRN PRN Reason: SHORT OF BREATH/WHEEZING Last Admin: 07/15/17 04:04 Dose: 1 amp Albuterol/Ipratropium (Duoneb -) 1 amp NEB RQID [facility] Last Admin: 07/18/17 12:05 Dose: 1 amp Amlodipine Besylate (Norvasc -) 5 mg PO DAILY [facility] Last Admin: 07/18/17 10:51 Dose: 5 mg Benzocaine/Menthol (Cepacol Lozenge -) 1 each MM PRN PRN PRN Reason: SORE THROAT Last Admin: 07/17/17 23:08 Dose: 1 each Citalopram Hydrobromide (Celexa -) 40 mg PO HS [facility] Last Admin: 07/17/17 21:52 Dose: 40 mg Guaifenesin/Codeine Phosphate (Robitussin Ac -) 5 ml PO Q8H PRN PRN Reason: COUGH Heparin Sodium (Porcine) (Heparin -) 5,000 unit SQ Q8H-IV [facility] Last Admin: 07/18/17 10:51 Dose: 5,000 unit Azithromycin 500 mg/ Dextrose 250 mls @ 250 mls/hr IVPB DAILY [facility] Last Admin: 07/18/17 11:22 Dose: 250 mls/hr Piperacillin Sod/Tazobactam (Sod 2.25 gm/ Dextrose) 50 mls @ 100 mls/hr IVPB Q8H-IV [facility] PRN Reason: Protocol Last Admin: 07/18/17 10:50 Dose: 100 mls/hr Lorazepam (Ativan -) 0.5 mg PO HS [facility] Last Admin: 07/17/17 21:52 Dose: 0.5 mg Methylprednisolone Sodium Succinate (Solu-Medrol -) 60 mg IVPUSH Q8H-IV [facility] Last Admin: 07/18/17 10:51 Dose: 60 mg Non-Formulary Medication (Brexpiprazole [Rexulti]) 0.5 mg PO HS [facility] Pantoprazole Sodium (Protonix -) 20 mg PO DAILY [facility] Last Admin: 07/18/17 10:51 Dose: 20 mg Pregabalin (Lyrica -) 50 mg PO HS [facility] Last Admin: 07/17/17 21:52 Dose: 50 mg Fluticasone/Salmeterol (Advair 100mcg/50mcg -) 1 puff IH BID [facility] Last Admin: 07/18/17 10:50 Dose: 1 puff Zolpidem Tartrate (Ambien -) 5 mg PO HS [facility] Last Admin: 07/17/17 21:52 Dose: 5 mg - Objective Vital Signs: Vital Signs Temperature 98.0 F 07/18/17 09:00 Pulse Rate 91 H 07/18/17 09:00 Respiratory Rate 22 07/18/17 09:00 Blood Pressure 145/88 07/18/17 09:00 O2 Sat by Pulse Oximetry (%) 100 07/18/17 09:00 Constitutional: Yes: Well Nourished, Calm Eyes: Yes: WNL HENT: Yes: WNL Neck: Yes: WNL Cardiovascular: Yes: Regular Rate and Rhythm, S1, S2 Respiratory: Yes: Rhonchi, Wheezes (bilateral rhonchi and wheezes) Gastrointestinal: Yes: Normal Bowel Sounds, Soft Extremities: Yes: WNL Edema: No Labs: CBC, BMP 07/18/17 06:30 07/18/17 06:30 INR, PTT INR 1.12 (0.82-1.09) 07/13/17 03:49 Assessment/Plan Problem List - Problems (1) PNA (pneumonia) Code(s): J18.9 - PNEUMONIA, UNSPECIFIED ORGANISM Qualifiers: Pneumonia type: due to unspecified organism Laterality: unspecified laterality Lung location: unspecified part of lung Qualified Code(s): J18.9 - Pneumonia, unspecified organism (2) COPD exacerbation Code(s): J44.1 - CHRONIC OBSTRUCTIVE PULMONARY DISEASE W (ACUTE) EXACERBATION (3) HTN (hypertension) Code(s): I10 - ESSENTIAL (PRIMARY) HYPERTENSION (4) GERD (gastroesophageal reflux disease) Code(s): K21.9 - GASTRO-ESOPHAGEAL REFLUX DISEASE WITHOUT ESOPHAGITIS Assessment/Plan Acute COPD Exacerbation Recurrent Pneumonia - r/o Aspiration HTN GERD PULMONARY HTN Depression/Anxiety - continue IV antibiotics - IV medrol - inhaled bronchodilators standing and PRN - o2 to keep Spo2 >90% - DVT prophylaxis - antitussives - chest pt - PT evalvarez PEREZ
[2017-07-18] MEDS: POLYETHYLENE GLYCOL 3350 119 GM BTL PO SCH (15:41)
--- NOTE | 2017-07-18 18:02 | PN ---
Teaching Attending Note Name of Resident: Adam Soliz ATTENDING PHYSICIAN STATEMENT I saw and evaluated the patient. I reviewed the resident's note and discussed the case with the resident. I agree with the resident's findings and plan as documented with exceptions below. SUBJECTIVE: Patient seen and examined. overall breathing unchanged, no new complaints. OBJECTIVE: Vital Signs Period Temp Pulse Resp BP Sys/Jenkins Pulse Ox Last 24 Hr 97.3 F-98.0 F 84-95 20-22 114-148/69-88 97-100 Intake & Output 07/15/17 07/16/17 07/17/17 07/18/17 23:59 23:59 23:59 23:59 Intake Total 9284 035 9117 830 Balance 2350 897 5990 830 General: sitting in chair in no acute distress Chest: bilateral expiratory wheezing with coarse rhonchi Abdomen: soft, NT, ND, Extremities: no edema Home Medication List Medication Instructions Recorded Confirmed Type Levalbuterol Tartrate [Xopenex Hfa] 15 gm IH QID 11/12/15 07/13/17 History Omeprazole 20 mg PO DAILY 11/12/15 07/13/17 History Pregabalin [Lyrica] 50 mg PO DAILY 11/12/15 07/13/17 History Zolpidem Tartrate [Ambien] 5 mg PO HS 11/12/15 07/13/17 History Amlodipine Besylate 5 mg PO DAILY 07/13/17 07/13/17 History Brexpiprazole [Rexulti] 0.5 mg PO HS 07/13/17 07/13/17 History Citalopram Hydrobromide [Celexa -] 40 mg PO HS 07/13/17 07/13/17 History Lorazepam 0.5 mg PO 07/13/17 07/13/17 History Tiotropium [place] [Spiriva] 2 inh PO DAILY 07/13/17 07/13/17 History Active Medications Generic Name Dose Route Start Last Admin Trade Name Freq PRN Reason Stop Dose Admin Albuterol Sulfate 1 amp 07/13/17 06:56 07/15/17 04:04 Ventolin 0.083% Nebulizer Soln - NEB 1 amp Q4H PRN Administration SHORT OF BREATH/WHEEZING Albuterol/Ipratropium 1 amp 07/13/17 08:00 07/18/17 15:15 Duoneb - NEB 1 amp RQID [facility] Administration Amlodipine Besylate 5 mg 07/14/17 10:00 07/18/17 10:51 Norvasc - PO 5 mg DAILY [facility] Administration Benzocaine/Menthol 1 each 07/17/17 14:45 07/17/17 23:08 Cepacol Lozenge - MM 1 each PRN PRN Administration SORE THROAT Citalopram Hydrobromide 40 mg 07/13/17 22:00 07/17/17 21:52 Celexa - PO 40 mg HS [facility] Administration Guaifenesin/Codeine Phosphate 5 ml 07/17/17 19:14 Robitussin Ac - PO Q8H PRN COUGH Heparin Sodium (Porcine) 5,000 unit 07/13/17 06:30 07/18/17 17:20 Heparin - SQ 5,000 unit Q8H-IV [facility] Administration Azithromycin 500 mg/ Dextrose 250 mls @ 250 mls/hr 07/14/17 10:00 07/18/17 11 :22 IVPB 250 mls/hr DAILY [facility] Administration Piperacillin Sod/Tazobactam 50 mls @ 100 mls/hr 07/14/17 18:30 07/18/17 17:21 Sod 2.25 gm/ Dextrose IVPB 100 mls/hr Q8H-IV [facility] Administration Protocol Lorazepam 0.5 mg 07/13/17 22:00 07/17/17 21:52 Ativan - PO 0.5 mg HS [facility] Administration Methylprednisolone Sodium Succinate 60 mg 07/13/17 11:30 07/18/17 17:20 Solu-Medrol - IVPUSH 60 mg Q8H-IV [facility] Administration Non-Formulary Medication 0.5 mg 07/13/17 22:00 Brexpiprazole [Rexulti] PO HS [facility] Pantoprazole Sodium 20 mg 07/14/17 10:00 07/18/17 10:51 Protonix - PO 20 mg DAILY [facility] Administration Polyethylene Glycol 17 gm 07/18/17 15:30 07/18/17 15:41 Miralax (For Daily Use) - PO 17 gm DAILY [facility] Administration Pregabalin 50 mg 07/13/17 22:00 07/17/17 21:52 Lyrica - PO 50 mg HS [facility] Administration Fluticasone/Salmeterol 1 puff 07/13/17 10:00 07/18/17 10:50 Advair 100mcg/50mcg - IH 1 puff BID [facility] Administration Zolpidem Tartrate 5 mg 07/13/17 22:00 07/17/17 21:52 Ambien - PO 5 mg HS [facility] Administration Laboratory Results - last 24 hr 07/18/17 07/18/17 06:30 06:30 WBC 12.0 H RBC 3.50 L Hgb 10.5 L Hct 31.2 L MCV 89.1 MCH 30.1 MCHC 33.7 RDW 15.3 Plt Count 370 MPV 7.4 L Neutrophils % No Result Required. Neutrophils % (Manual) 93.0 H Band Neutrophils % 0.0 Lymphocytes % No Result Required. Lymphocytes % (Manual) 4.0 L Monocytes % (Manual) 1 L Eosinophils % (Manual) 0.0 Basophils % (Manual) 0.0 Myelocytes % (Man) 2 Promyelocytes % (Man) 0 Blast Cells % (Manual) 0 Nucleated RBC % 0 Metamyelocytes 0 Platelet Estimate Normal Sodium 140 Potassium 4.8 Chloride 106 Carbon Dioxide 27 Anion Gap 7 L BUN 30 H Creatinine 1.1 H Creat Clearance w eGFR 47.09 Random Glucose 143 H Calcium 7.9 L Total Bilirubin 0.3 D AST 26 ALT 33 Alkaline Phosphatase 55 Total Protein 5.3 L Albumin 2.1 Lhepar Microbiology 07/13/17 03:49 Blood - Peripheral Venous Blood Culture - Final NO GROWTH AFTER 5 DAYS INCUBATION 07/13/17 03:49 Blood - Peripheral Venous Blood Culture - Final NO GROWTH AFTER 5 DAYS INCUBATION 07/13/17 06:40 Serum Mycoplasma Antibody - Final 07/13/17 06:34 Sputum - Expectorated Gram Stain - Final 07/13/17 06:34 Sputum - Expectorated Sputum Culture - Final NORMAL RESPIRATORY NEY 07/13/17 03:50 Urine For Antigen Detection Legionella Antigen - Final 07/13/17 03:50 Urine For Antigen Detection Streptococcus pneumoniae Antigen (M - Final 07/13/17 07:18 Nares - Mrsa Screen - Right MRSA Screen - Final NO MRSA ISOLATED 07/13/17 03:50 Urine - Urine Clean Catch Urine Culture - Final NO GROWTH OBTAINED CT chest RUL/RLL PNA ASSESSMENT AND PLAN: 87 yof with PMHx of 87 year old woman with a history of COPD, HTN, ?lung cancer , left lower lobectomy, anemia, GERD, depression, anxiety admitted with sepsis secondary to RUL/RLL PNA -Sepsis due to RUL/RLL PNA -Acute COPD exacerbation -?Lung ca s/p Left lower lobectomy -Anemia -GERD Depression -Anxiety -HTN Plan: Overall unchanged> CT chest results noted. Speech/swallow input noted. IV steroids. Zosyn/azithromycin day 5, continue fo rnow. Cultures/PNA studies neg so far. Chest PT and nebs/o2 suppl prn. DVTPPX with heparin GIPPX with PPI on steroids. Continue amlodipine. Plan discussed with patient in detail, all questions answered.
--- NOTE | 2017-07-18 19:51 | PN ---
Physical Exam: SUBJECTIVE: Patient seen and examined at bedside. No complaints. Pt states she feels the same. OBJECTIVE: Vital Signs Period Temp Pulse Resp BP Sys/Jenkins Pulse Ox Last 24 Hr 97.3 F-98.0 F 84-95 20-22 114-148/69-88 97-100 GENERAL: The patient is awake, alert, and fully oriented, in no acute distress. HEAD: Normal with no signs of trauma. EYES: sclera anicteric, conjunctiva clear. No ptosis. ENT: Ears normal, nares patent, oropharynx clear without exudates, moist mucous membranes. NECK: Trachea midline, full range of motion, supple. LUNGS: diffuse wheezes and crackles, no accessory muscle use. HEART: Regular rate and rhythm, S1, S2 without murmur, rub or gallop. ABDOMEN: Soft, nontender, nondistended, normoactive bowel sounds, no guarding, no rebound, no hepatosplenomegaly, no masses. EXTREMITIES: 2+ pulses, warm, well-perfused, no edema. NEUROLOGICAL: Cranial nerves II through XII grossly intact. Normal speech, gait not observed. PSYCH: Normal mood, normal affect. SKIN: Warm, dry, normal turgor, no rashes or lesions noted Laboratory Results - last 24 hr 07/18/17 07/18/17 06:30 06:30 WBC 12.0 H RBC 3.50 L Hgb 10.5 L Hct 31.2 L MCV 89.1 MCH 30.1 MCHC 33.7 RDW 15.3 Plt Count 370 MPV 7.4 L Neutrophils % No Result Required. Neutrophils % (Manual) 93.0 H Band Neutrophils % 0.0 Lymphocytes % No Result Required. Lymphocytes % (Manual) 4.0 L Monocytes % (Manual) 1 L Eosinophils % (Manual) 0.0 Basophils % (Manual) 0.0 Myelocytes % (Man) 2 Promyelocytes % (Man) 0 Blast Cells % (Manual) 0 Nucleated RBC % 0 Metamyelocytes 0 Platelet Estimate Normal Sodium 140 Potassium 4.8 Chloride 106 Carbon Dioxide 27 Anion Gap 7 L BUN 30 H Creatinine 1.1 H Creat Clearance w eGFR 47.09 Random Glucose 143 H Calcium 7.9 L Total Bilirubin 0.3 D AST 26 ALT 33 Alkaline Phosphatase 55 Total Protein 5.3 L Albumin 2.1 L Active Medications Generic Name Dose Route Start Last Admin Trade Name Freq PRN Reason Stop Dose Admin Albuterol Sulfate 1 amp 07/13/17 06:56 07/15/17 04:04 Ventolin 0.083% Nebulizer Soln - NEB 1 amp Q4H PRN Administration SHORT OF BREATH/WHEEZING Albuterol/Ipratropium 1 amp 07/13/17 08:00 07/18/17 15:15 Duoneb - NEB 1 amp RQID [facility] Administration Amlodipine Besylate 5 mg 07/14/17 10:00 07/18/17 10:51 Norvasc - PO 5 mg DAILY [facility] Administration Benzocaine/Menthol 1 each 07/17/17 14:45 07/17/17 23:08 Cepacol Lozenge - MM 1 each PRN PRN Administration SORE THROAT Citalopram Hydrobromide 40 mg 07/13/17 22:00 07/17/17 21:52 Celexa - PO 40 mg HS [facility] Administration Guaifenesin/Codeine Phosphate 5 ml 07/17/17 19:14 Robitussin Ac - PO Q8H PRN COUGH Heparin Sodium (Porcine) 5,000 unit 07/13/17 06:30 07/18/17 17:20 Heparin - SQ 5,000 unit Q8H-IV [facility] Administration Azithromycin 500 mg/ Dextrose 250 mls @ 250 mls/hr 07/14/17 10:00 07/18/17 11 :22 IVPB 250 mls/hr DAILY [facility] Administration Piperacillin Sod/Tazobactam 50 mls @ 100 mls/hr 07/14/17 18:30 07/18/17 17:21 Sod 2.25 gm/ Dextrose IVPB 100 mls/hr Q8H-IV [facility] Administration Protocol Lorazepam 0.5 mg 07/13/17 22:00 07/17/17 21:52 Ativan - PO 0.5 mg HS [facility] Administration Methylprednisolone Sodium Succinate 60 mg 07/13/17 11:30 07/18/17 17:20 Solu-Medrol - IVPUSH 60 mg Q8H-IV [facility] Administration Non-Formulary Medication 0.5 mg 07/13/17 22:00 Brexpiprazole [Rexulti] PO HS [facility] Pantoprazole Sodium 20 mg 07/14/17 10:00 07/18/17 10:51 Protonix - PO 20 mg DAILY [facility] Administration Polyethylene Glycol 17 gm 07/18/17 15:30 07/18/17 15:41 Miralax (For Daily Use) - PO 17 gm DAILY [facility] Administration Pregabalin 50 mg 07/13/17 22:00 07/17/17 21:52 Lyrica - PO 50 mg HS [facility] Administration Fluticasone/Salmeterol 1 puff 07/13/17 10:00 07/18/17 10:50 Advair 100mcg/50mcg - IH 1 puff BID [facility] Administration Zolpidem Tartrate 5 mg 07/13/17 22:00 07/17/17 21:52 Ambien - PO 5 mg HS [facility] Administration ASSESSMENT/PLAN: Pt is an 87 y/o F DNR/DNI with PMH COPD, HTN, lung cancer, left lower lobectomy , anemia, GERD, depression, anxiety who presented to the ED from [facility] because of cough and fever. #HCAP -afebrile -persistent leukocytosis -CT chest today showed RUL and RML infiltrate suggestive of PNA & R pleural effusion -Azithromycin, Zosyn #COPD exacerbation -Duonebs -Solu-medrol -Adavair -Pulm on board #HTN -BP currently under control #anxiety/Depression -celexa -brexpiprazole #constipation -miralax #FEN -not on fluid -lytes wnl -Na controlled diet #DVT ppx -Hep Sub Q Adam Soliz MD PGY-1 IM Visit type - Emergency Visit Emergency Visit: No - New Patient This patient is new to me today: No - Critical Care Critical Care patient: No
[2017-07-18] MEDS: CITALOPRAM HYDROBROMIDE 20 MG TABLET (FP) PO SCH (22:00)
[2017-07-18] MEDS: LORazepam 0.5 MG TABLET PO SCH (22:00)
[2017-07-18] MEDS: ZOLPIDEM TARTRATE 5 MG TABLET PO SCH (22:00)
[2017-07-18] MEDS: PREGABALIN 25 MG CAPSULE PO SCH (22:01)
[2017-07-19] MEDS ORDERED: DEXTROSE 5%-WATER - 50 ML IVPB ONE ×3 (01:21→18:54)
[2017-07-19] MEDS ORDERED: PIPERACILLIN/TAZOBACTAM 2.25 GM VIAL IVPB ONE ×3 (01:21→18:54)
[2017-07-19] MEDS: PIPERACILLIN/TAZOB 2.25 GM 2.25 GM in DEXTROSE 5%-WATER - 50 ML IVPB SCH ×3 (01:53→18:59)
[2017-07-19] MEDS: methylPREDNISolone NA SUCC 125 MG/2 ML VIAL IVPUSH SCH ×2 (01:53→09:52)
[2017-07-19] MEDS: HEPARIN NA (PORCINE) 5,000 UNITS/ML 1ML VIAL SQ SCH ×3 (06:16→21:08)
[2017-07-19] MEDS: ALBUTEROL SO4 2.5/IPRATROPIUM 0.5 INH SOL 3 ML VIAL.NEB. NEB SCH ×4 (08:00→20:44)
[2017-07-19] MEDS ORDERED: PT OWN MED DRAWER 7, Y5N ONE ×3 (09:26→18:18)
[2017-07-19 09:27] LABS: HEMATOCRIT 32.8 % (32.4-45.2); HEMOGLOBIN 11.1 GM/dL (10.7-15.3); MCH 30.2 pg (25.7-33.7); MCHC 33.7 g/dl (32.0-36.0); MEAN CELL VOLUME 89.5 fl (80-96); MEAN PLT VOLUME 7.5 fl (7.5-11.1); PLATELET COUNT 399 K/MM3 (134-434); RBC 3.67 M/mm3 (3.60-5.2); RDW 15.1 % (11.6-15.6); WHITE BLOOD COUNT 12.1 K/mm3 (4.0-10.0)
[2017-07-19] MEDS: FLUTICASONE/SALMETEROL 100 MCG/50 MCG DISKUS IH SCH ×2 (09:52→21:07)
[2017-07-19] MEDS: amLODIPine BESYLATE 5 MG TABLET (FP) PO SCH (09:53)
[2017-07-19] MEDS: PANTOPRAZOLE 20 MG TABLET (FP) PO SCH (09:53)
[2017-07-19] MEDS: POLYETHYLENE GLYCOL 3350 119 GM BTL PO SCH (09:53)
[2017-07-19 11:11] LABS: PLATELET ESTIMATE NORMAL
[2017-07-19 11:28] LABS: CHLORIDE 103 mmol/L (98-107); POTASSIUM 4.7 mmol/L (3.5-5.1); SODIUM 139 mmol/L (136-145)
[2017-07-19] MEDS: AZITHROMYCIN IVPB 500 MG in DEXTROSE 5%-WATER - 250 ML IVPB SCH (12:15)
[2017-07-19 12:35] LABS: ALBUMIN 2.4 g/dl (3.4-5.0); ALK PHOS 58 U/L (45-117); ANION GAP 10 (8-16); BILIRUBIN,TOTAL 0.3 mg/dL (0.2-1.0); BLOOD UREA NITROGEN 31 mg/dL (7-18); CO2 26 mmol/L (21-32); CREATININE 1.2 mg/dL (0.55-1.02); GLUCOSE,RANDOM 122 mg/dL (74-106); SGOT/AST 30 U/L (15-37); SGPT/ALT 44 U/L (12-78); TOT PROT 5.7 g/dl (6.4-8.2)
--- NOTE | 2017-07-19 13:02 | PN ---
Progress Note, Physician History of Present Illness: pulmonary alert,oob-chair,feeling better,less congested - Current Medication List Current Medications: Active Medications Albuterol Sulfate (Ventolin 0.083% Nebulizer Soln -) 1 amp NEB Q4H PRN PRN Reason: SHORT OF BREATH/WHEEZING Last Admin: 07/15/17 04:04 Dose: 1 amp Albuterol/Ipratropium (Duoneb -) 1 amp NEB RQID [facility] Last Admin: 07/19/17 11:47 Dose: 1 amp Amlodipine Besylate (Norvasc -) 5 mg PO DAILY [facility] Last Admin: 07/19/17 09:53 Dose: 5 mg Benzocaine/Menthol (Cepacol Lozenge -) 1 each MM PRN PRN PRN Reason: SORE THROAT Last Admin: 07/17/17 23:08 Dose: 1 each Citalopram Hydrobromide (Celexa -) 40 mg PO HS [facility] Last Admin: 07/18/17 22:00 Dose: 40 mg Guaifenesin/Codeine Phosphate (Robitussin Ac -) 5 ml PO Q8H PRN PRN Reason: COUGH Heparin Sodium (Porcine) (Heparin -) 5,000 unit SQ TID [facility] Last Admin: 07/19/17 06:16 Dose: 5,000 unit Azithromycin 500 mg/ Dextrose 250 mls @ 250 mls/hr IVPB DAILY [facility] Last Admin: 07/19/17 12:15 Dose: 250 mls/hr Piperacillin Sod/Tazobactam (Sod 2.25 gm/ Dextrose) 50 mls @ 100 mls/hr IVPB Q8H-IV [facility] PRN Reason: Protocol Last Admin: 07/19/17 10:59 Dose: 100 mls/hr Lorazepam (Ativan -) 0.5 mg PO [facility] Last Admin: 07/18/17 22:00 Dose: 0.5 mg Methylprednisolone Sodium Succinate (Solu-Medrol -) 60 mg IVPUSH Q8H-IV [facility] Last Admin: 07/19/17 09:52 Dose: 60 mg Non-Formulary Medication (Brexpiprazole [Rexulti]) 0.5 mg PO [facility] Pantoprazole Sodium (Protonix -) 20 mg PO DAILY [facility] Last Admin: 07/19/17 09:53 Dose: 20 mg Polyethylene Glycol (Miralax (For Daily Use) -) 17 gm PO DAILY [facility] Last Admin: 07/19/17 09:53 Dose: 17 gm Pregabalin (Lyrica -) 50 mg PO [facility] Last Admin: 07/18/17 22:01 Dose: 50 mg Fluticasone/Salmeterol (Advair 100mcg/50mcg -) 1 puff IH BID [facility] Last Admin: 07/19/17 09:52 Dose: 1 puff Zolpidem Tartrate (Ambien -) 5 mg PO [facility] Last Admin: 07/18/17 22:00 Dose: 5 mg - Objective Vital Signs: Vital Signs Temperature 97.6 F 07/19/17 10:10 Pulse Rate 87 07/19/17 10:10 Respiratory Rate 20 07/19/17 10:10 Blood Pressure 125/68 07/19/17 10:10 O2 Sat by Pulse Oximetry (%) 99 07/19/17 10:05 Constitutional: Yes: Well Nourished, Calm Eyes: Yes: WNL HENT: Yes: WNL Neck: Yes: WNL Cardiovascular: Yes: Regular Rate and Rhythm, S1, S2 Respiratory: Yes: Rhonchi (less rhonchi bilaterally) Gastrointestinal: Yes: Normal Bowel Sounds, Soft Extremities: Yes: WNL Edema: No Labs: CBC, BMP 07/19/17 08:00 07/19/17 08:00 INR, PTT INR 1.12 (0.82-1.09) 07/13/17 03:49 Assessment/Plan Problem List - Problems (1) PNA (pneumonia) Code(s): J18.9 - PNEUMONIA, UNSPECIFIED ORGANISM Qualifiers: Pneumonia type: due to unspecified organism Laterality: unspecified laterality Lung location: unspecified part of lung Qualified Code(s): J18.9 - Pneumonia, unspecified organism (2) COPD exacerbation Code(s): J44.1 - CHRONIC OBSTRUCTIVE PULMONARY DISEASE W (ACUTE) EXACERBATION (3) HTN (hypertension) Code(s): I10 - ESSENTIAL (PRIMARY) HYPERTENSION (4) GERD (gastroesophageal reflux disease) Code(s): K21.9 - GASTRO-ESOPHAGEAL REFLUX DISEASE WITHOUT ESOPHAGITIS Assessment/Plan Acute COPD Exacerbation Recurrent Pneumonia - r/o Aspiration HTN GERD PULMONARY HTN Depression/Anxiety - IV antibiotics - IV medrol same dose - inhaled bronchodilators standing and PRN - o2 to keep Spo2 >90% - DVT prophylaxis - antitussives - chest pt - PT alda PEREZ
--- NOTE | 2017-07-19 13:11 | PN ---
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 Pt overtly tolerating diet with god appetite. If recurrent PNA and aspiration is suspected, MBS is needed to r/o silent aspiration.
[2017-07-19] MEDS ORDERED: methylPREDNISolone NA SUCC 40 MG/1 ML VIAL IVPUSH SCH ×2 (14:33→22:00)
--- NOTE | 2017-07-19 14:38 | PN ---
Teaching Attending Note Name of Resident: Adam Soliz ATTENDING PHYSICIAN STATEMENT I saw and evaluated the patient. I reviewed the resident's note and discussed the case with the resident. I agree with the resident's findings and plan as documented with exceptions below. SUBJECTIVE: Patient seen and examined. No new symptoms. OBJECTIVE: Vital Signs Period Temp Pulse Resp BP Sys/Jenkins Pulse Ox Last 24 Hr 97.4 F-98.1 F 82-95 20-22 133-145/69-84 99-100 Intake & Output 07/16/17 07/17/17 07/18/17 07/19/17 23:59 23:59 23:59 23:59 Intake Total 930 1690 1430 615 Balance 930 1690 1430 615 General: sitting in chair in no acute distress Chest: right rhonchi with expiratory wheezing in lower and upper lobes, left sided occasional expiratory wheezing, good air entry overall Home Medication List Medication Instructions Recorded Confirmed Type Levalbuterol Tartrate [Xopenex Hfa] 15 gm IH QID 11/12/15 07/13/17 History Omeprazole 20 mg PO DAILY 11/12/15 07/13/17 History Pregabalin [Lyrica] 50 mg PO DAILY 11/12/15 07/13/17 History Zolpidem Tartrate [Ambien] 5 mg PO HS 11/12/15 07/13/17 History Amlodipine Besylate 5 mg PO DAILY 07/13/17 07/13/17 History Brexpiprazole [Rexulti] 0.5 mg PO HS 07/13/17 07/13/17 History Citalopram Hydrobromide [Celexa -] 40 mg PO 07/13/17 07/13/17 History Lorazepam 0.5 mg PO 07/13/17 07/13/17 History Tiotropium Bricelyn [Spiriva] 2 inh PO DAILY 07/13/17 07/13/17 History Active Medications Generic Name Dose Route Start Last Admin Trade Name Freq PRN Reason Stop Dose Admin Albuterol Sulfate 1 amp 07/13/17 06:56 07/15/17 04:04 Ventolin 0.083% Nebulizer Soln - NEB 1 amp Q4H PRN Administration SHORT OF BREATH/WHEEZING Albuterol/Ipratropium 1 amp 07/13/17 08:00 07/19/17 11:47 Duoneb - NEB 1 amp RQID [facility] Administration Amlodipine Besylate 5 mg 07/14/17 10:00 07/19/17 09:53 Norvasc - PO 5 mg DAILY [facility] Administration Benzocaine/Menthol 1 each 07/17/17 14:45 07/17/17 23:08 Cepacol Lozenge - MM 1 each PRN PRN Administration SORE THROAT Citalopram Hydrobromide 40 mg 07/13/17 22:00 07/18/17 22:00 Celexa - PO 40 mg HS [facility] Administration Guaifenesin/Codeine Phosphate 5 ml 07/17/17 19:14 Robitussin Ac - PO Q8H PRN COUGH Heparin Sodium (Porcine) 5,000 unit 07/18/17 22:00 07/19/17 13:57 Heparin - SQ 5,000 unit TID [facility] Administration Azithromycin 500 mg/ Dextrose 250 mls @ 250 mls/hr 07/14/17 10:00 07/19/17 12 :15 IVPB 250 mls/hr DAILY [facility] Administration Piperacillin Sod/Tazobactam 50 mls @ 100 mls/hr 07/14/17 18:30 07/19/17 10:59 Sod 2.25 gm/ Dextrose IVPB 100 mls/hr Q8H-IV [facility] Administration Protocol Lorazepam 0.5 mg 07/13/17 22:00 07/18/17 22:00 Ativan - PO 0.5 mg HS [facility] Administration Methylprednisolone Sodium Succinate 40 mg 07/19/17 14:33 Solu-Medrol - IVPUSH Q8H-IV [facility] Non-Formulary Medication 0.5 mg 07/13/17 22:00 Brexpiprazole [Rexulti] PO HS [facility] Pantoprazole Sodium 20 mg 07/14/17 10:00 07/19/17 09:53 Protonix - PO 20 mg DAILY [facility] Administration Polyethylene Glycol 17 gm 07/18/17 15:30 07/19/17 09:53 Miralax (For Daily Use) - PO 17 gm DAILY [facility] Administration Pregabalin 50 mg 07/13/17 22:00 07/18/17 22:01 Lyrica - PO 50 mg HS [facility] Administration Fluticasone/Salmeterol 1 puff 07/13/17 10:00 05/09/18 09:52 Advair 100mcg/50mcg - IH 1 puff BID [facility] Administration Zolpidem Tartrate 5 mg 07/13/17 22:00 07/18/17 22:00 Ambien - PO 5 mg HS [facility] Administration Laboratory Results - last 24 hr 07/19/17 07/19/17 08:00 08:00 WBC 12.1 H RBC 3.67 Hgb 11.1 Hct 32.8 MCV 89.5 MCH 30.2 MCHC 33.7 RDW 15.1 Plt Count 399 MPV 7.5 Neutrophils % [employer] Neutrophils % (Manual) 73.5 D Band Neutrophils % 3.0 Lymphocytes % [employer] Lymphocytes % (Manual) 8.2 D Monocytes % [employer] Monocytes % (Manual) 4 D Eosinophils % [employer] Eosinophils % (Manual) 0.0 Basophils % [employer] Basophils % (Manual) 0.0 Myelocytes % (Man) 8 H D Promyelocytes % (Man) 0 Blast Cells % (Manual) 0 Nucleated RBC % 1 H Metamyelocytes 3 H D Platelet Estimate Normal Sodium 139 Potassium 4.7 Chloride 103 Carbon Dioxide 26 Anion Gap 10 BUN 31 H Creatinine 1.2 H Creat Clearance w eGFR 42.60 Random Glucose 122 H Calcium 8.0 L Total Bilirubin 0.3 AST 30 ALT 44 Alkaline Phosphatase 58 Total Protein 5.7 L Albumin 2.4 L Microbiology 07/13/17 03:49 Blood - Peripheral Venous Blood Culture - Final NO GROWTH AFTER 5 DAYS INCUBATION 07/13/17 03:49 Blood - Peripheral Venous Blood Culture - Final NO GROWTH AFTER 5 DAYS INCUBATION 07/13/17 06:40 Serum Mycoplasma Antibody - Final 07/13/17 06:34 Sputum - Expectorated Gram Stain - Final 07/13/17 06:34 Sputum - Expectorated Sputum Culture - Final NORMAL RESPIRATORY NEY 07/13/17 03:50 Urine For Antigen Detection Legionella Antigen - Final 07/13/17 03:50 Urine For Antigen Detection Streptococcus pneumoniae Antigen (M - Final 07/13/17 07:18 Nares - Mrsa Screen - Right MRSA Screen - Final NO MRSA ISOLATED 07/13/17 03:50 Urine - Urine Clean Catch Urine Culture - Final NO GROWTH OBTAINED CT chest results reviewed ASSESSMENT AND PLAN: 87 yof with PMHx of 87 year old woman with a history of COPD, HTN, lung cancer , left lower lobectomy, anemia, GERD, depression, anxiety admitted with sepsis secondary to RUL/RLL PNA -Sepsis due to RUL/RLL PNA -Acute COPD exacerbation - h/o Lung ca s/p Left lower lobectomy -Anemia -GERD Depression -Anxiety -HTN Plan: Slow improvement. Better lung exam. Change solumedrol to [address] chest results noted. Speech/swallow input noted. Zosyn/azithromycin day 7, continue for now. Cultures/PNA studies neg so far. Chest PT and nebs/o2 suppl prn. Continue amlodipine. DVTPPX with heparin GIPPX with PPI on steroids. Dispo in 48 -72 hours if continues to improve. Plan discussed with patient in detail, all questions answered.
--- NOTE | 2017-07-19 18:41 | PN ---
Physical Exam: SUBJECTIVE: Patient seen and examined at bedside. No complaints. Pt states she feels the same. OBJECTIVE: Vital Signs Period Temp Pulse Resp BP Sys/Jenkins Pulse Ox Last 24 Hr 97.5 F-98.1 F 82-90 20-22 132-145/62-84 99-100 GENERAL: The patient is awake, alert, and fully oriented, in no acute distress. HEAD: Normal with no signs of trauma. EYES: sclera anicteric, conjunctiva clear. No ptosis. ENT: Ears normal, nares patent, oropharynx clear without exudates, moist mucous membranes. NECK: Trachea midline, full range of motion, supple. LUNGS: diffuse wheezes and crackles, no accessory muscle use. HEART: Regular rate and rhythm, S1, S2 without murmur, rub or gallop. ABDOMEN: Soft, nontender, nondistended, normoactive bowel sounds, no guarding, no rebound, no hepatosplenomegaly, no masses. EXTREMITIES: 2+ pulses, warm, well-perfused, no edema. NEUROLOGICAL: Cranial nerves II through XII grossly intact. Normal speech, gait not observed. PSYCH: Normal mood, normal affect. SKIN: Warm, dry, normal turgor, no rashes or lesions noted Laboratory Results - last 24 hr 07/19/17 07/19/17 08:00 08:00 WBC 12.1 H RBC 3.67 Hgb 11.1 Hct 32.8 MCV 89.5 MCH 30.2 MCHC 33.7 RDW 15.1 Plt Count 399 MPV 7.5 Neutrophils % [employer] Neutrophils % (Manual) 73.5 D Band Neutrophils % 3.0 Lymphocytes % [employer] Lymphocytes % (Manual) 8.2 D Monocytes % [employer] Monocytes % (Manual) 4 D Eosinophils % [employer] Eosinophils % (Manual) 0.0 Basophils % [employer] Basophils % (Manual) 0.0 Myelocytes % (Man) 8 H D Promyelocytes % (Man) 0 Blast Cells % (Manual) 0 Nucleated RBC % 1 H Metamyelocytes 3 H D Platelet Estimate Normal Sodium 139 Potassium 4.7 Chloride 103 Carbon Dioxide 26 Anion Gap 10 BUN 31 H Creatinine 1.2 H Creat Clearance w eGFR 42.60 Random Glucose 122 H Calcium 8.0 L Total Bilirubin 0.3 AST 30 ALT 44 Alkaline Phosphatase 58 Total Protein 5.7 L Albumin 2.4 L Active Medications Generic Name Dose Route Start Last Admin Trade Name Freq PRN Reason Stop Dose Admin Albuterol Sulfate 1 amp 07/13/17 06:56 07/15/17 04:04 Ventolin 0.083% Nebulizer Soln - NEB 1 amp Q4H PRN Administration SHORT OF BREATH/WHEEZING Albuterol/Ipratropium 1 amp 07/13/17 08:00 07/19/17 16:07 Duoneb - NEB 1 amp RQID [facility] Administration Amlodipine Besylate 5 mg 07/14/17 10:00 07/19/17 09:53 Norvasc - PO 5 mg DAILY [facility] Administration Benzocaine/Menthol 1 each 07/17/17 14:45 07/17/17 23:08 Cepacol Lozenge - MM 1 each PRN PRN Administration SORE THROAT Citalopram Hydrobromide 40 mg 07/13/17 22:00 07/18/17 22:00 Celexa - PO 40 mg HS [facility] Administration Guaifenesin/Codeine Phosphate 5 ml 07/17/17 19:14 Robitussin Ac - PO Q8H PRN COUGH Heparin Sodium (Porcine) 5,000 unit 07/18/17 22:00 07/19/17 13:57 Heparin - SQ 5,000 unit TID [facility] Administration Azithromycin 500 mg/ Dextrose 250 mls @ 250 mls/hr 07/14/17 10:00 07/19/17 12 :15 IVPB 250 mls/hr DAILY [facility] Administration Piperacillin Sod/Tazobactam 50 mls @ 100 mls/hr 07/14/17 18:30 07/19/17 10:59 Sod 2.25 gm/ Dextrose IVPB 100 mls/hr Q8H-IV [facility] Administration Protocol Lorazepam 0.5 mg 07/13/17 22:00 07/18/17 22:00 Ativan - PO 0.5 mg HS [facility] Administration Methylprednisolone Sodium Succinate 40 mg 07/19/17 22:00 Solu-Medrol - IVPUSH BID [facility] Non-Formulary Medication 0.5 mg 07/13/17 22:00 Brexpiprazole [Rexulti] PO HS [facility] Pantoprazole Sodium 20 mg 07/14/17 10:00 07/19/17 09:53 Protonix - PO 20 mg DAILY [facility] Administration Polyethylene Glycol 17 gm 07/18/17 15:30 07/19/17 09:53 Miralax (For Daily Use) - PO 17 gm DAILY [facility] Administration Pregabalin 50 mg 07/13/17 22:00 07/18/17 22:01 Lyrica - PO 50 mg HS [facility] Administration Fluticasone/Salmeterol 1 puff 07/13/17 10:00 07/19/17 09:52 Advair 100mcg/50mcg - IH 1 puff BID [facility] Administration Zolpidem Tartrate 5 mg 07/13/17 22:00 07/18/17 22:00 Ambien - PO 5 mg HS [facility] Administration ASSESSMENT/PLAN: Pt is an 87 y/o F DNR/DNI with PMH COPD, HTN, lung cancer, left lower lobectomy , anemia, GERD, depression, anxiety who presented to the ED from [facility] because of cough and fever. #HCAP -afebrile -persistent leukocytosis -CT chest showed RUL and RML infiltrate suggestive of PNA & R pleural effusion -Azithromycin, Zosyn #COPD exacerbation -Duonebs -Solu-medrol -Adavair -Pulm on board #HTN -BP currently under control #anxiety/Depression -celexa -brexpiprazole #constipation -miralax -senna -colace #FEN -not on fluid -lytes wnl -Na controlled diet #DVT ppx -Hep Sub Q Adam Soliz MD PGY-1 IM Visit type - Emergency Visit Emergency Visit: No - New Patient This patient is new to me today: No - Critical Care Critical Care patient: No
[2017-07-19] MEDS: DOCUSATE SODIUM 100 MG CAPSULE (FP) PO SCH (18:59)
[2017-07-19] MEDS: methylPREDNISolone NA SUCC 40 MG/1 ML VIAL IVPUSH SCH (20:15)
[2017-07-19] MEDS: SENNOSIDES 8.6MG TABLET (FP) PO SCH (21:08)
[2017-07-19] MEDS: ZOLPIDEM TARTRATE 5 MG TABLET PO SCH (21:08)
[2017-07-19] MEDS: LORazepam 0.5 MG TABLET PO SCH (21:08)
[2017-07-19] MEDS: CITALOPRAM HYDROBROMIDE 20 MG TABLET (FP) PO SCH (21:08)
[2017-07-19] MEDS: PREGABALIN 25 MG CAPSULE PO SCH (21:09)
[2017-07-20] MEDS ORDERED: PIPERACILLIN/TAZOBACTAM 2.25 GM VIAL IVPB ONE ×3 (01:28→18:11)
[2017-07-20] MEDS ORDERED: DEXTROSE 5%-WATER - 50 ML IVPB ONE ×3 (01:28→18:11)
[2017-07-20] MEDS: methylPREDNISolone NA SUCC 40 MG/1 ML VIAL IVPUSH SCH ×3 (01:59→21:22)
[2017-07-20] MEDS: PIPERACILLIN/TAZOB 2.25 GM 2.25 GM in DEXTROSE 5%-WATER - 50 ML IVPB SCH ×3 (01:59→18:44)
[2017-07-20] MEDS: HEPARIN NA (PORCINE) 5,000 UNITS/ML 1ML VIAL SQ SCH ×3 (06:02→21:22)
[2017-07-20 07:39] LABS: HEMATOCRIT 31.4 % (32.4-45.2); HEMOGLOBIN 10.6 GM/dL (10.7-15.3); MCH 30.3 pg (25.7-33.7); MCHC 33.9 g/dl (32.0-36.0); MEAN CELL VOLUME 89.5 fl (80-96); MEAN PLT VOLUME 7.6 fl (7.5-11.1); PLATELET COUNT 371 K/MM3 (134-434); RBC 3.51 M/mm3 (3.60-5.2); RDW 15.4 % (11.6-15.6); WHITE BLOOD COUNT 12.3 K/mm3 (4.0-10.0)
[2017-07-20] MEDS: ALBUTEROL SO4 2.5/IPRATROPIUM 0.5 INH SOL 3 ML VIAL.NEB. NEB SCH ×4 (07:58→20:52)
--- NOTE | 2017-07-20 08:01 | PN ---
Teaching Attending Note Name of Resident: Adam Soliz ATTENDING PHYSICIAN STATEMENT I saw and evaluated the patient. I reviewed the resident's note and discussed the case with the resident. I agree with the resident's findings and plan as documented with exceptions below. SUBJECTIVE: Patient seen and examined. Breathing overall unchanged, no new complaints. OBJECTIVE: Vital Signs Period Temp Pulse Resp BP Sys/Jenkins Pulse Ox Last 24 Hr 97.5 F-98.1 F 83-92 20-22 132-143/62-76 98-99 Intake & Output 07/17/17 07/18/17 07/19/17 07/20/17 23:59 23:59 23:59 23:59 Intake Total 1690 1430 1355 100 Balance 1690 1430 1355 100 General: sitting in bed, no acute distress Chest: markedly improved lung exam and air entry, occasional wheezing left lung , none appreciate right lung Home Medication List Medication Instructions Recorded Confirmed Type Levalbuterol Tartrate [Xopenex Hfa] 15 gm IH QID 11/12/15 07/13/17 History Omeprazole 20 mg PO DAILY 11/12/15 07/13/17 History Pregabalin [Lyrica] 50 mg PO DAILY 11/12/15 07/13/17 History Zolpidem Tartrate [Ambien] 5 mg PO HS 11/12/15 07/13/17 History Amlodipine Besylate 5 mg PO DAILY 07/13/17 07/13/17 History Brexpiprazole [Rexulti] 0.5 mg PO HS 07/13/17 07/13/17 History Citalopram Hydrobromide [Celexa -] 40 mg PO HS 07/13/17 07/13/17 History Lorazepam 0.5 mg PO HS 07/13/17 07/13/17 History Tiotropium [place] [Spiriva] 2 inh PO DAILY 07/13/17 07/13/17 History Active Medications Generic Name Dose Route Start Last Admin Trade Name Freq PRN Reason Stop Dose Admin Albuterol Sulfate 1 amp 07/13/17 06:56 07/15/17 04:04 Ventolin 0.083% Nebulizer Soln - NEB 1 amp Q4H PRN Administration SHORT OF BREATH/WHEEZING Albuterol/Ipratropium 1 amp 07/13/17 08:00 07/20/17 07:58 Duoneb - NEB 1 amp RQID [facility] Administration Amlodipine Besylate 5 mg 07/14/17 10:00 07/19/17 09:53 Norvasc - PO 5 mg DAILY [facility] Administration Benzocaine/Menthol 1 each 07/17/17 14:45 07/17/17 23:08 Cepacol Lozenge - MM 1 each PRN PRN Administration SORE THROAT Citalopram Hydrobromide 40 mg 07/13/17 22:00 07/19/17 21:08 Celexa - PO 40 mg HS [facility] Administration Docusate Sodium 100 mg 07/19/17 18:45 07/19/17 18:59 Colace - PO 100 mg DAILY [facility] Administration Guaifenesin/Codeine Phosphate 5 ml 07/17/17 19:14 Robitussin Ac - PO Q8H PRN COUGH Heparin Sodium (Porcine) 5,000 unit 07/18/17 22:00 07/20/17 06:02 Heparin - SQ 5,000 unit TID [facility] Administration Azithromycin 500 mg/ Dextrose 250 mls @ 250 mls/hr 07/14/17 10:00 07/19/17 12 :15 IVPB 250 mls/hr DAILY [facility] Administration Piperacillin Sod/Tazobactam 50 mls @ 100 mls/hr 07/14/17 18:30 07/20/17 01:59 Sod 2.25 gm/ Dextrose IVPB 100 mls/hr Q8H-IV [facility] Administration Protocol Lorazepam 0.5 mg 07/13/17 22:00 07/19/17 21:08 Ativan - PO 0.5 mg HS [facility] Administration Methylprednisolone Sodium Succinate 40 mg 07/19/17 20:15 07/20/17 01:59 Solu-Medrol - IVPUSH 40 mg Q8H-IV [facility] Administration Non-Formulary Medication 0.5 mg 07/13/17 22:00 Brexpiprazole [Rexulti] PO HS [facility] Pantoprazole Sodium 20 mg 07/14/17 10:00 07/19/17 09:53 Protonix - PO 20 mg DAILY [facility] Administration Polyethylene Glycol 17 gm 07/18/17 15:30 07/19/17 09:53 Miralax (For Daily Use) - PO 17 gm DAILY [facility] Administration Pregabalin 50 mg 07/13/17 22:00 05/09/18 21:09 Lyrica - PO 50 mg HS [facility] Administration Fluticasone/Salmeterol 1 puff 07/13/17 10:00 07/19/17 21:07 Advair 100mcg/50mcg - IH 1 puff BID [facility] Administration Senna 2 tab 07/19/17 22:00 07/19/17 21:08 Senna - PO 2 tab HS [facility] Administration Zolpidem Tartrate 5 mg 07/13/17 22:00 07/19/17 21:08 Ambien - PO 5 mg HS [facility] Administration Laboratory Results - last 24 hr 07/20/17 07/20/17 06:30 06:30 WBC 12.3 H RBC 3.51 L Hgb 10.6 L Hct 31.4 L MCV 89.5 MCH 30.3 MCHC 33.9 RDW 15.4 Plt Count 371 MPV 7.6 Neutrophils % No Result Required. Neutrophils % (Manual) 79.0 Band Neutrophils % 4.0 Lymphocytes % No Result Required. Lymphocytes % (Manual) 5.0 L D Monocytes % (Manual) 3 L Eosinophils % (Manual) 0.0 Basophils % (Manual) 0.0 Myelocytes % (Man) 7 H Promyelocytes % (Man) 0 Blast Cells % (Manual) 0 Nucleated RBC % 2 H Metamyelocytes 2 D Platelet Estimate Normal Schistocytes 1+ Sodium 139 Potassium 4.7 Chloride 104 Carbon Dioxide 28 Anion Gap 7 L BUN 32 H Creatinine 1.3 H Creat Clearance w eGFR 38.84 Random Glucose 145 H Calcium 7.8 L Total Bilirubin 0.4 D AST 30 ALT 45 Alkaline Phosphatase 52 Total Protein 5.3 L Albumin 2.2 L Microbiology 07/13/17 03:49 Blood - Peripheral Venous Blood Culture - Final NO GROWTH AFTER 5 DAYS INCUBATION 07/13/17 03:49 Blood - Peripheral Venous Blood Culture - Final NO GROWTH AFTER 5 DAYS INCUBATION 07/13/17 06:40 Serum Mycoplasma Antibody - Final 07/13/17 06:34 Sputum - Expectorated Gram Stain - Final 07/13/17 06:34 Sputum - Expectorated Sputum Culture - Final NORMAL RESPIRATORY NEY 07/13/17 03:50 Urine For Antigen Detection Legionella Antigen - Final 07/13/17 03:50 Urine For Antigen Detection Streptococcus pneumoniae Antigen (M - Final 07/13/17 07:18 Nares - Mrsa Screen - Right MRSA Screen - Final NO MRSA ISOLATED 07/13/17 03:50 Urine - Urine Clean Catch Urine Culture - Final NO GROWTH OBTAINED ASSESSMENT AND PLAN: 87 yof with PMHx of 87 year old woman with a history of COPD, HTN, lung cancer , left lower lobectomy, anemia, GERD, depression, anxiety admitted with sepsis secondary to RUL/RLL PNA -Sepsis due to RUL/RLL PNA -Acute COPD exacerbation -Mild GERONIMO - h/o Lung ca s/p Left lower lobectomy -Anemia -GERD Depression -Anxiety -HTN Plan: Continues to improve, change solumedrol to 40 mg IV q12h. NS 500 ml IVF bolus x 1, trend Cr CT chest results noted. Speech/swallow input noted. Zosyn day 8, s/p 7 days of azithromycin, d/c now. Cultures/PNA studies neg so far. Chest PT and nebs/o2 suppl prn. Continue amlodipine. DVTPPX with heparin GIPPX with PPI on steroids. Dispo in 48 hours if continues to improve. Assess for home oxygen needs in 24 hours if continues to improve. Plan discussed with patient in detail, all questions answered.
[2017-07-20 08:29] LABS: ALBUMIN 2.2 g/dl (3.4-5.0); ANION GAP 7 (8-16); BILIRUBIN,TOTAL 0.4 mg/dL (0.2-1.0); BLOOD UREA NITROGEN 32 mg/dL (7-18); CALCIUM 7.8 mg/dL (8.5-10.1); CHLORIDE 104 mmol/L (98-107); CO2 28 mmol/L (21-32); GLUCOSE,RANDOM 145 mg/dL (74-106); POTASSIUM 4.7 mmol/L (3.5-5.1); SGOT/AST 30 U/L (15-37); SGPT/ALT 45 U/L (12-78); SODIUM 139 mmol/L (136-145); TOT PROT 5.3 g/dl (6.4-8.2)
[2017-07-20 09:12] LABS: ALK PHOS 52 U/L (45-117); CREATININE 1.3 mg/dL (0.55-1.02)
[2017-07-20] MEDS ORDERED: PT OWN MED DRAWER 7, Y5N ONE ×3 (10:00→16:12)
[2017-07-20] MEDS: POLYETHYLENE GLYCOL 3350 119 GM BTL PO SCH (10:03)
[2017-07-20] MEDS: DOCUSATE SODIUM 100 MG CAPSULE (FP) PO SCH (10:03)
[2017-07-20] MEDS: amLODIPine BESYLATE 5 MG TABLET (FP) PO SCH (10:03)
[2017-07-20] MEDS: PANTOPRAZOLE 20 MG TABLET (FP) PO SCH (10:03)
[2017-07-20] MEDS: FLUTICASONE/SALMETEROL 100 MCG/50 MCG DISKUS IH SCH ×3 (10:04→21:21)
--- NOTE | 2017-07-20 10:32 | PN ---
Progress Note (short form) - Note Progress Note: PULMONARY States breathing better but still some dyspnea on exertion. +nonproductive cough and wheezing. No fevers or chills. c/o constipation Last Vital Signs Temp Pulse Resp BP Pulse Ox 98.2 F 89 20 149/68 98 07/20/17 09:34 07/20/17 09:34 07/20/17 09:34 07/20/17 09:34 07/19/17 21:00 Gen: NAD at rest, less tachypneic Heart: RRR Lung: scattered wheezes, less rhonchi Abd: soft, nontender Ext: + edema CBC, BMP 07/20/17 06:30 07/20/17 06:30 Active Medications Albuterol Sulfate (Ventolin 0.083% Nebulizer Soln -) 1 amp NEB Q4H PRN PRN Reason: SHORT OF BREATH/WHEEZING Last Admin: 07/15/17 04:04 Dose: 1 amp Albuterol/Ipratropium (Duoneb -) 1 amp NEB RQID [facility] Last Admin: 07/20/17 07:58 Dose: 1 amp Amlodipine Besylate (Norvasc -) 5 mg PO DAILY [facility] Last Admin: 07/20/17 10:03 Dose: 5 mg Benzocaine/Menthol (Cepacol Lozenge -) 1 each MM PRN PRN PRN Reason: SORE THROAT Last Admin: 07/17/17 23:08 Dose: 1 each Citalopram Hydrobromide (Celexa -) 40 mg PO HS [facility] Last Admin: 07/19/17 21:08 Dose: 40 mg Docusate Sodium (Colace -) 100 mg PO DAILY [facility] Last Admin: 07/20/17 10:03 Dose: 100 mg Guaifenesin/Codeine Phosphate (Robitussin Ac -) 5 ml PO Q8H PRN PRN Reason: COUGH Heparin Sodium (Porcine) (Heparin -) 5,000 unit SQ TID [facility] Last Admin: 07/20/17 06:02 Dose: 5,000 unit Piperacillin Sod/Tazobactam (Sod 2.25 gm/ Dextrose) 50 mls @ 100 mls/hr IVPB Q8H-IV [facility] PRN Reason: Protocol Last Admin: 07/20/17 10:03 Dose: 100 mls/hr Lorazepam (Ativan -) 0.5 mg PO [facility] Last Admin: 07/19/17 21:08 Dose: 0.5 mg Methylprednisolone Sodium Succinate (Solu-Medrol -) 40 mg IVPUSH Q8H-IV [facility] Last Admin: 07/20/17 10:03 Dose: 40 mg Non-Formulary Medication (Brexpiprazole [Rexulti]) 0.5 mg PO [facility] Pantoprazole Sodium (Protonix -) 20 mg PO DAILY [facility] Last Admin: 07/20/17 10:03 Dose: 20 mg Polyethylene Glycol (Miralax (For Daily Use) -) 17 gm PO DAILY [facility] Last Admin: 07/20/17 10:03 Dose: 17 gm Pregabalin (Lyrica -) 50 mg PO [facility] Last Admin: 07/19/17 21:09 Dose: 50 mg Fluticasone/Salmeterol (Advair 100mcg/50mcg -) 1 puff IH BID [facility] Last Admin: 07/20/17 10:04 Dose: Not Given Senna (Senna -) 2 tab PO [facility] Last Admin: 07/19/17 21:08 Dose: 2 tab Zolpidem Tartrate (Ambien -) 5 mg PO [facility] Last Admin: 07/19/17 21:08 Dose: 5 mg A/P Acute COPD Exacerbation h/o Lung Ca s/p LLL lobectomy Recurrent Pneumonia - r/o Aspiration HTN GERD Pulmonary HTN Depression/Anxiety - will give dose of lasix today - continue antibiotics - agree with medrol taper - inhaled bronchodilators standing and PRN - o2 to keep Spo2 >90% - bowel regimen - DVT prophylaxis Problem List - Problems (1) PNA (pneumonia) Code(s): J18.9 - PNEUMONIA, UNSPECIFIED ORGANISM Qualifiers: Pneumonia type: due to unspecified organism Laterality: unspecified laterality Lung location: unspecified part of lung Qualified Code(s): J18.9 - Pneumonia, unspecified organism (2) COPD exacerbation Code(s): J44.1 - CHRONIC OBSTRUCTIVE PULMONARY DISEASE W (ACUTE) EXACERBATION (3) HTN (hypertension) Code(s): I10 - ESSENTIAL (PRIMARY) HYPERTENSION (4) GERD (gastroesophageal reflux disease) Code(s): K21.9 - GASTRO-ESOPHAGEAL REFLUX DISEASE WITHOUT ESOPHAGITIS
[2017-07-20] MEDS ORDERED: FUROSEMIDE 40 MG/4 ML INJECTABLE VIAL IVPUSH ONE (11:15)
--- NOTE | 2017-07-20 11:43 | PN ---
Physical Exam: SUBJECTIVE: Patient seen and examined at bedside. No complaints. Pt states she feels the same. Looks slightly better. OBJECTIVE: Vital Signs Period Temp Pulse Resp BP Sys/Jenkins Pulse Ox Last 24 Hr 97.5 F-98.2 F 83-92 20-22 132-149/61-74 98 GENERAL: The patient is awake, alert, and fully oriented, in no acute distress. HEAD: Normal with no signs of trauma. EYES: sclera anicteric, conjunctiva clear. No ptosis. ENT: Ears normal, nares patent, oropharynx clear without exudates, moist mucous membranes. NECK: Trachea midline, full range of motion, supple. LUNGS: diffuse wheezes and crackles, no accessory muscle use. HEART: Regular rate and rhythm, S1, S2 without murmur, rub or gallop. ABDOMEN: Soft, nontender, nondistended, normoactive bowel sounds, no guarding, no rebound, no hepatosplenomegaly, no masses. EXTREMITIES: 2+ pulses, warm, well-perfused, no edema. NEUROLOGICAL: Cranial nerves II through XII grossly intact. Normal speech, gait not observed. PSYCH: Normal mood, normal affect. SKIN: Warm, dry, normal turgor, no rashes or lesions noted Laboratory Results - last 24 hr 07/19/17 07/20/17 07/20/17 08:00 06:30 06:30 WBC 12.3 H RBC 3.51 L Hgb 10.6 L Hct 31.4 L MCV 89.5 MCH 30.3 MCHC 33.9 RDW 15.4 Plt Count 371 MPV 7.6 Neutrophils % No Result Required. Lymphocytes % No Result Required. Sodium 139 139 Potassium 4.7 4.7 Chloride 103 104 Carbon Dioxide 26 28 Anion Gap 10 7 L BUN 31 H 32 H Creatinine 1.2 H 1.3 H Creat Clearance w eGFR 42.60 38.84 Random Glucose 122 H 145 H Calcium 8.0 L 7.8 L Total Bilirubin 0.3 0.4 D AST 30 30 ALT 44 45 Alkaline Phosphatase 58 52 Total Protein 5.7 L 5.3 L Albumin 2.4 L 2.2 L Active Medications Generic Name Dose Route Start Last Admin Trade Name Freq PRN Reason Stop Dose Admin Albuterol Sulfate 1 amp 07/13/17 06:56 07/15/17 04:04 Ventolin 0.083% Nebulizer Soln - NEB 1 amp Q4H PRN Administration SHORT OF BREATH/WHEEZING Albuterol/Ipratropium 1 amp 07/13/17 08:00 07/20/17 11:15 Duoneb - NEB 1 amp RQID [facility] Administration Amlodipine Besylate 5 mg 07/14/17 10:00 07/20/17 10:03 Norvasc - PO 5 mg DAILY [facility] Administration Benzocaine/Menthol 1 each 07/17/17 14:45 07/17/17 23:08 Cepacol Lozenge - MM 1 each PRN PRN Administration SORE THROAT Citalopram Hydrobromide 40 mg 07/13/17 22:00 07/19/17 21:08 Celexa - PO 40 mg HS [facility] Administration Docusate Sodium 100 mg 07/19/17 18:45 07/20/17 10:03 Colace - PO 100 mg DAILY [facility] Administration Guaifenesin/Codeine Phosphate 5 ml 07/17/17 19:14 Robitussin Ac - PO Q8H PRN COUGH Heparin Sodium (Porcine) 5,000 unit 07/18/17 22:00 07/20/17 06:02 Heparin - SQ 5,000 unit TID [facility] Administration Piperacillin Sod/Tazobactam 50 mls @ 100 mls/hr 07/14/17 18:30 07/20/17 10:03 Sod 2.25 gm/ Dextrose IVPB 100 mls/hr Q8H-IV [facility] Administration Protocol Lorazepam 0.5 mg 07/13/17 22:00 07/19/17 21:08 Ativan - PO 0.5 mg HS [facility] Administration Methylprednisolone Sodium Succinate 40 mg 07/19/17 20:15 07/20/17 10:03 Solu-Medrol - IVPUSH 40 mg Q8H-IV [facility] Administration Non-Formulary Medication 0.5 mg 07/13/17 22:00 Brexpiprazole [Rexulti] PO HS [facility] Pantoprazole Sodium 20 mg 07/14/17 10:00 07/20/17 10:03 Protonix - PO 20 mg DAILY [facility] Administration Polyethylene Glycol 17 gm 07/18/17 15:30 07/20/17 10:03 Miralax (For Daily Use) - PO 17 gm DAILY [facility] Administration Pregabalin 50 mg 07/13/17 22:00 07/19/17 21:09 Lyrica - PO 50 mg HS [facility] Administration Fluticasone/Salmeterol 1 puff 07/13/17 10:00 07/20/17 10:04 Advair 100mcg/50mcg - IH Not Given BID [facility] Senna 2 tab 07/19/17 22:00 07/19/17 21:08 Senna - PO 2 tab HS [facility] Administration Zolpidem Tartrate 5 mg 07/13/17 22:00 07/19/17 21:08 Ambien - PO 5 mg HS [facility] Administration ASSESSMENT/PLAN: Pt is an 87 y/o F DNR/DNI with PMH COPD, HTN, lung cancer, left lower lobectomy , anemia, GERD, depression, anxiety who presented to the ED from [facility] because of cough and fever. Note: Was called to see pt in the afternoon because she was complaining of chest pain. On interview with the pt, she had reproducible, nonradiating, pressure in the epigastrium without palpitations, diaphoresis, headache, nausea/vomiting. Pressure sensation began after pt walked with PT. Physical exam: Cor irregular rhythm, 3/6 systolic murmur at LSB, no rubs/gallops. Lungs CTA b/l notably without wheezing heard previously. Abd: gaseous distension. Reproducible mild tenderness in epigastrium. Plan: EKG and Trop ordered to r/o ACS. Maalox & zantac. EKG: no STEMI. Old and TWI and PACs. Trop negative. #HCAP -afebrile -persistent leukocytosis -CT chest showed RUL and RML infiltrate suggestive of PNA & R pleural effusion -Azithromycin, Zosyn #COPD exacerbation -Duonebs -Solu-medrol decreased yesterday. Pt improving -Adavair -Pulm on board. Plan to give lasix. #HTN -BP currently under control #anxiety/Depression -celexa -brexpiprazole #constipation -miralax -senna -colace #FEN -not on fluid -lytes wnl -Na controlled diet #DVT ppx -Hep Sub Q Adam Soliz MD PGY-1 IM Visit type - Emergency Visit Emergency Visit: No - New Patient This patient is new to me today: No - Critical Care Critical Care patient: No
[2017-07-20 12:33] LABS: PLATELET ESTIMATE NORMAL
[2017-07-20] MEDS ORDERED: SODIUM CHLORIDE 500 ML IV STA ×2 (12:53→14:13)
[2017-07-20] MEDS ORDERED: MAG HYDROX/AL HYDROX/SIMETH 30 ML UNIT-DOSE CUP PO ONE (15:22)
[2017-07-20] MEDS ORDERED: RANITIDINE HCL 150 MG TABLET (FP) PO ONE (15:22)
--- NOTE | 2017-07-20 16:11 | EKG ---
Test Reason : Blood Pressure : / mmHG Vent. Rate : 088 BPM Atrial Rate : 088 BPM P-R Int : 146 ms QRS Dur : 104 ms QT Int : 420 ms P-R-T Axes : 073 040 033 degrees QTc Int : 508 ms SINUS RHYTHM WITH OCCASIONAL PREMATURE VENTRICULAR COMPLEXES AND PREMATURE ATRIAL COMPLEXES PROLONGED QT ABNORMAL ECG WHEN COMPARED WITH ECG OF 13-JUL-2017 03:21, PREMATURE VENTRICULAR COMPLEXES ARE NOW PRESENT Confirmed by MICHAEL MARTINEZ, ALEXANDRO ([id number]) on 07/20/2017 4:11:33 PM Referred By: ARELI HUMMEL Confirmed By:ALEXANDRO RODRIGUEZ MD
[2017-07-20] MEDS ORDERED: PANTOPRAZOLE SODIUM 40 MG VIAL IVPUSH ONE (16:45)
[2017-07-20] MEDS ORDERED: BISACODYL 10 MG SUPP.RECT PR ONE (17:02)
[2017-07-20] MEDS ORDERED: BISACODYL 10 MG SUPP.RECT PR PRN (17:02)
[2017-07-20] MEDS: SENNOSIDES 8.6MG TABLET (FP) PO SCH (21:22)
[2017-07-20] MEDS: LORazepam 0.5 MG TABLET PO SCH (21:22)
[2017-07-20] MEDS: PREGABALIN 25 MG CAPSULE PO SCH (21:22)
[2017-07-20] MEDS: ZOLPIDEM TARTRATE 5 MG TABLET PO SCH (21:22)
[2017-07-20] MEDS: CITALOPRAM HYDROBROMIDE 20 MG TABLET (FP) PO SCH (21:22)
[2017-07-21] MEDS ORDERED: PIPERACILLIN/TAZOBACTAM 2.25 GM VIAL IVPB ONE ×3 (01:51→17:26)
[2017-07-21] MEDS ORDERED: DEXTROSE 5%-WATER - 50 ML IVPB ONE ×3 (01:52→17:26)
[2017-07-21] MEDS: PIPERACILLIN/TAZOB 2.25 GM 2.25 GM in DEXTROSE 5%-WATER - 50 ML IVPB SCH ×3 (02:36→17:33)
[2017-07-21] MEDS: HEPARIN NA (PORCINE) 5,000 UNITS/ML 1ML VIAL SQ SCH ×3 (06:02→21:26)
--- NOTE | 2017-07-21 07:26 | PN ---
Physical Exam: SUBJECTIVE: Patient seen and examined at bedside. No complaints. Her abdominal discomfort from yesterday is improved. She mentioned this morning that she has had this sensation many times in the past, which she neglected to mention yesterday. OBJECTIVE: Vital Signs Period Temp Pulse Resp BP Sys/Jenkins Pulse Ox Last 24 Hr 97.8 F-98.2 F 83-98 20-22 134-149/61-89 97-97 GENERAL: The patient is awake, alert, and fully oriented, in no acute distress. HEAD: Normal with no signs of trauma. EYES: sclera anicteric, conjunctiva clear. No ptosis. ENT: Ears normal, nares patent, oropharynx clear without exudates, moist mucous membranes. NECK: Trachea midline, full range of motion, supple. LUNGS: patchy wheezes, no accessory muscle use. HEART: Regular rate and rhythm, S1, S2 without murmur, rub or gallop. ABDOMEN: Soft, nontender, nondistended, normoactive bowel sounds, no guarding, no rebound, no hepatosplenomegaly, no masses. EXTREMITIES: 2+ pulses, warm, well-perfused, no edema. NEUROLOGICAL: Cranial nerves II through XII grossly intact. Normal speech, gait not observed. PSYCH: Normal mood, normal affect. SKIN: Warm, dry, normal turgor, no rashes or lesions noted Laboratory Results - last 24 hr 07/20/17 07/20/17 07/20/17 06:30 06:30 15:54 WBC 12.3 H RBC 3.51 L Hgb 10.6 L Hct 31.4 L MCV 89.5 MCH 30.3 MCHC 33.9 RDW 15.4 Plt Count 371 MPV 7.6 Neutrophils % No Result Required. Neutrophils % (Manual) 79.0 Band Neutrophils % 4.0 Lymphocytes % No Result Required. Lymphocytes % (Manual) 5.0 L D Monocytes % (Manual) 3 L Eosinophils % (Manual) 0.0 Basophils % (Manual) 0.0 Myelocytes % (Man) 7 H Promyelocytes % (Man) 0 Blast Cells % (Manual) 0 Nucleated RBC % 2 H Metamyelocytes 2 D Platelet Estimate Normal Schistocytes 1+ Sodium 139 Potassium 4.7 Chloride 104 Carbon Dioxide 28 Anion Gap 7 L BUN 32 H Creatinine 1.3 H Creat Clearance w eGFR 38.84 Random Glucose 145 H Calcium 7.8 L Total Bilirubin 0.4 D AST 30 ALT 45 Alkaline Phosphatase 52 Troponin I < 0.02 Total Protein 5.3 L Albumin 2.2 L Ur Random Sodium Ur Random Potassium Ur Random Chloride 07/20/17 17:30 WBC RBC Hgb Hct MCV MCH MCHC RDW Plt Count MPV Neutrophils % Neutrophils % (Manual) Band Neutrophils % Lymphocytes % Lymphocytes % (Manual) Monocytes % (Manual) Eosinophils % (Manual) Basophils % (Manual) Myelocytes % (Man) Promyelocytes % (Man) Blast Cells % (Manual) Nucleated RBC % Metamyelocytes Platelet Estimate Schistocytes Sodium Potassium Chloride Carbon Dioxide Anion Gap BUN Creatinine Creat Clearance w eGFR Random Glucose Calcium Total Bilirubin AST ALT Alkaline Phosphatase Troponin I Total Protein Albumin Ur Random Sodium 121 Ur Random Potassium 11.5 Ur Random Chloride 131 Active Medications Generic Name Dose Route Start Last Admin Trade Name Freq PRN Reason Stop Dose Admin Albuterol Sulfate 1 amp 07/13/17 06:56 07/15/17 04:04 Ventolin 0.083% Nebulizer Soln - NEB 1 amp Q4H PRN Administration SHORT OF BREATH/WHEEZING Albuterol/Ipratropium 1 amp 07/13/17 08:00 07/20/17 20:52 Duoneb - NEB 1 amp RQID [facility] Administration Amlodipine Besylate 5 mg 07/14/17 10:00 07/20/17 10:03 Norvasc - PO 5 mg DAILY [facility] Administration Benzocaine/Menthol 1 each 07/17/17 14:45 07/17/17 23:08 Cepacol Lozenge - MM 1 each PRN PRN Administration SORE THROAT Bisacodyl 10 mg 07/20/17 17:02 Dulcolax Suppository - CA PRN PRN CONSTIPATION Citalopram Hydrobromide 40 mg 07/13/17 22:00 07/20/17 21:22 Celexa - PO 40 mg HS [facility] Administration Docusate Sodium 100 mg 07/19/17 18:45 07/20/17 10:03 Colace - PO 100 mg DAILY [facility] Administration Guaifenesin/Codeine Phosphate 5 ml 07/17/17 19:14 Robitussin Ac - PO Q8H PRN COUGH Heparin Sodium (Porcine) 5,000 unit 07/18/17 22:00 07/21/17 06:02 Heparin - SQ 5,000 unit TID [facility] Administration Piperacillin Sod/Tazobactam 50 mls @ 100 mls/hr 07/14/17 18:30 07/21/17 02:36 Sod 2.25 gm/ Dextrose IVPB 100 mls/hr Q8H-IV [facility] Administration Protocol Lorazepam 0.5 mg 07/13/17 22:00 07/20/17 21:22 Ativan - PO 0.5 mg HS [facility] Administration Methylprednisolone Sodium Succinate 40 mg 07/20/17 22:00 07/20/17 21:22 Solu-Medrol - IVPUSH 40 mg Q12H [facility] Administration Non-Formulary Medication 0.5 mg 07/13/17 22:00 Brexpiprazole [Rexulti] PO HS [facility] Polyethylene Glycol 17 gm 07/18/17 15:30 07/20/17 10:03 Miralax (For Daily Use) - PO 17 gm DAILY [facility] Administration Pregabalin 50 mg 07/13/17 22:00 07/20/17 21:22 Lyrica - PO 50 mg HS [facility] Administration Fluticasone/Salmeterol 1 puff 07/13/17 10:00 07/20/17 21:21 Advair 100mcg/50mcg - IH 1 puff BID [facility] Administration Senna 2 tab 07/19/17 22:00 07/20/17 21:22 Senna - PO 2 tab HS [facility] Administration Zolpidem Tartrate 5 mg 07/13/17 22:00 07/20/17 21:22 Ambien - PO 5 mg HS [facility] Administration ASSESSMENT/PLAN: Pt is an 87 y/o F DNR/DNI with PMH COPD, HTN, lung cancer, left lower lobectomy , anemia, GERD, depression, anxiety who presented to the ED from [facility] because of cough and fever. #HCAP -afebrile -persistent leukocytosis -CT chest showed RUL and RML infiltrate suggestive of PNA & R pleural effusion -Azithromycin, Zosyn. Plan to taper Abx. #COPD exacerbation -Duonebs -Solu-medrol decreased yesterday. Pt improving -Adavair -Pulm on board. Plan to give lasix. #HTN -BP currently under control #anxiety/Depression -celexa -brexpiprazole #constipation -miralax -senna -colace #FEN -not on fluid -lytes wnl -Na controlled diet #DVT ppx -Hep Sub Q #Dispo -To [facility] if ok tomorrow Adam Soliz MD PGY-1 IM Visit type - Emergency Visit Emergency Visit: No - New Patient This patient is new to me today: No - Critical Care Critical Care patient: No - Discharge Referral [facility]erred to [facility] No
[2017-07-21] MEDS: ALBUTEROL SO4 2.5/IPRATROPIUM 0.5 INH SOL 3 ML VIAL.NEB. NEB SCH ×4 (07:55→20:50)
[2017-07-21 07:56] LABS: HEMATOCRIT 31.9 % (32.4-45.2); HEMOGLOBIN 10.7 GM/dL (10.7-15.3); MCHC 33.6 g/dl (32.0-36.0); MEAN CELL VOLUME 89.3 fl (80-96); MEAN PLT VOLUME 7.1 fl (7.5-11.1); PLATELET COUNT 347 K/MM3 (134-434); RBC 3.57 M/mm3 (3.60-5.2); RDW 15.6 % (11.6-15.6); WHITE BLOOD COUNT 15.3 K/mm3 (4.0-10.0)
[2017-07-21 08:21] LABS: ANION GAP 5 (8-16); BLOOD UREA NITROGEN 28 mg/dL (7-18); CALCIUM 7.9 mg/dL (8.5-10.1); CHLORIDE 103 mmol/L (98-107); CO2 31 mmol/L (21-32); GLUCOSE,RANDOM 123 mg/dL (74-106); POTASSIUM 4.9 mmol/L (3.5-5.1); SODIUM 139 mmol/L (136-145)
[2017-07-21 08:22] LABS: CREATININE 1.2 mg/dL (0.55-1.02)
[2017-07-21] MEDS: methylPREDNISolone NA SUCC 40 MG/1 ML VIAL IVPUSH SCH (09:12)
[2017-07-21] MEDS: amLODIPine BESYLATE 5 MG TABLET (FP) PO SCH (09:12)
[2017-07-21] MEDS: DOCUSATE SODIUM 100 MG CAPSULE (FP) PO SCH (09:12)
[2017-07-21] MEDS: FLUTICASONE/SALMETEROL 100 MCG/50 MCG DISKUS IH SCH ×2 (09:12→21:25)
[2017-07-21] MEDS: POLYETHYLENE GLYCOL 3350 119 GM BTL PO SCH (09:13)
[2017-07-21 10:30] LABS: PLATELET ESTIMATE NORMAL
--- NOTE | 2017-07-21 14:25 | PN ---
Progress Note, Physician History of Present Illness: pulmonary alert,feeling better,less dyspneic,less congested - Current Medication List Current Medications: Active Medications Albuterol Sulfate (Ventolin 0.083% Nebulizer Soln -) 1 amp NEB Q4H PRN PRN Reason: SHORT OF BREATH/WHEEZING Last Admin: 07/15/17 04:04 Dose: 1 amp Albuterol/Ipratropium (Duoneb -) 1 amp NEB RQID [facility] Last Admin: 07/21/17 11:55 Dose: 1 amp Amlodipine Besylate (Norvasc -) 5 mg PO DAILY [facility] Last Admin: 07/21/17 09:12 Dose: 5 mg Benzocaine/Menthol (Cepacol Lozenge -) 1 each MM PRN PRN PRN Reason: SORE THROAT Last Admin: 07/17/17 23:08 Dose: 1 each Bisacodyl (Dulcolax Suppository -) 10 mg ND PRN PRN PRN Reason: CONSTIPATION Citalopram Hydrobromide (Celexa -) 40 mg PO HS [facility] Last Admin: 07/20/17 21:22 Dose: 40 mg Docusate Sodium (Colace -) 100 mg PO DAILY [facility] Last Admin: 07/21/17 09:12 Dose: 100 mg Guaifenesin/Codeine Phosphate (Robitussin Ac -) 5 ml PO Q8H PRN PRN Reason: COUGH Heparin Sodium (Porcine) (Heparin -) 5,000 unit SQ TID [facility] Last Admin: 07/21/17 13:48 Dose: 5,000 unit Piperacillin Sod/Tazobactam (Sod 2.25 gm/ Dextrose) 50 mls @ 100 mls/hr IVPB Q8H-IV [facility] PRN Reason: Protocol Last Admin: 07/21/17 09:12 Dose: 100 mls/hr Lorazepam (Ativan -) 0.5 mg PO HS [facility] Last Admin: 07/20/17 21:22 Dose: 0.5 mg Methylprednisolone Sodium Succinate (Solu-Medrol -) 40 mg IVPUSH Q12H [facility] Last Admin: 07/21/17 09:12 Dose: 40 mg Non-Formulary Medication (Brexpiprazole [Rexulti]) 0.5 mg PO HS [facility] Polyethylene Glycol (Miralax (For Daily Use) -) 17 gm PO DAILY [facility] Last Admin: 07/21/17 09:13 Dose: 17 gm Pregabalin (Lyrica -) 50 mg PO [facility] Last Admin: 07/20/17 21:22 Dose: 50 mg Fluticasone/Salmeterol (Advair 100mcg/50mcg -) 1 puff IH BID [facility] Last Admin: 07/21/17 09:12 Dose: 1 puff Senna (Senna -) 2 tab PO [facility] Last Admin: 07/20/17 21:22 Dose: 2 tab Zolpidem Tartrate (Ambien -) 5 mg PO [facility] Last Admin: 07/20/17 21:22 Dose: 5 mg - Objective Vital Signs: Vital Signs Temperature 97.7 F 07/21/17 10:00 Pulse Rate 95 H 07/21/17 14:05 Respiratory Rate 20 07/21/17 10:00 Blood Pressure 153/75 07/21/17 10:00 O2 Sat by Pulse Oximetry (%) 94 L 07/21/17 14:05 Constitutional: Yes: Well Nourished, Calm Eyes: Yes: WNL HENT: Yes: WNL Neck: Yes: WNL Cardiovascular: Yes: Regular Rate and Rhythm, S1, S2 Respiratory: Yes: Rhonchi (bilateral rhonchi) Gastrointestinal: Yes: Normal Bowel Sounds, Soft Extremities: Yes: WNL Edema: No Labs: CBC, BMP 07/21/17 07:38 07/21/17 07:38 INR, PTT INR 1.12 (0.82-1.09) 07/13/17 03:49 Assessment/Plan Problem List - Problems (1) PNA (pneumonia) Code(s): J18.9 - PNEUMONIA, UNSPECIFIED ORGANISM Qualifiers: Pneumonia type: due to unspecified organism Laterality: unspecified laterality Lung location: unspecified part of lung Qualified Code(s): J18.9 - Pneumonia, unspecified organism (2) COPD exacerbation Code(s): J44.1 - CHRONIC OBSTRUCTIVE PULMONARY DISEASE W (ACUTE) EXACERBATION (3) HTN (hypertension) Code(s): I10 - ESSENTIAL (PRIMARY) HYPERTENSION (4) GERD (gastroesophageal reflux disease) Code(s): K21.9 - GASTRO-ESOPHAGEAL REFLUX DISEASE WITHOUT ESOPHAGITIS Assessment/Plan Acute COPD Exacerbation Recurrent Pneumonia - r/o Aspiration HTN GERD PULMONARY HTN Depression/Anxiety - IV antibiotics - IV medrol - inhaled bronchodilators standing and PRN - o2 to keep Spo2 >90% - DVT prophylaxis - antitussives - chest pt - PT DR PEREZ
[2017-07-21] MEDS ORDERED: predniSONE 20 MG TABLET (UD) PO ONE (17:00)
--- NOTE | 2017-07-21 18:02 | PN ---
Teaching Attending Note Name of Resident: Adam Soliz ATTENDING PHYSICIAN STATEMENT I saw and evaluated the patient. I reviewed the resident's note and discussed the case with the resident. I agree with the resident's findings and plan as documented with exceptions below. SUBJECTIVE: Patient seen and examined. breathing continues to improve. No fevers/chills or new complaints. OBJECTIVE: Vital Signs Period Temp Pulse Resp BP Sys/Jenkins Pulse Ox Last 24 Hr 97.7 F-98.0 F 80-95 18-22 135-153/67-82 94-97 Intake & Output 07/18/17 07/19/17 07/20/17 07/21/17 23:59 23:59 23:59 23:59 Intake Total 1430 1355 1555 650 Output Total 350 Balance 1430 1355 1205 650 Weight 151 lb General: sitting in chair in no acute distress Chest: markedly improved lung exam, few scattered right sided rales, no wheezing , good air entry bilaterally Abdomen: soft, NT Extremities: no edema Home Medication List Medication Instructions Recorded Confirmed Type Levalbuterol Tartrate [Xopenex Hfa] 15 gm IH QID 11/12/15 07/13/17 History Omeprazole 20 mg PO DAILY 11/12/15 07/13/17 History Pregabalin [Lyrica] 50 mg PO DAILY 11/12/15 07/13/17 History Zolpidem Tartrate [Ambien] 5 mg PO HS 11/12/15 07/13/17 History Amlodipine Besylate 5 mg PO DAILY 07/13/17 07/13/17 History Brexpiprazole [Rexulti] 0.5 mg PO HS 07/13/17 07/13/17 History Citalopram Hydrobromide [Celexa -] 40 mg PO HS 07/13/17 07/13/17 History Lorazepam 0.5 mg PO HS 07/13/17 07/13/17 History Tiotropium [place] [Spiriva] 2 inh PO DAILY 07/13/17 07/13/17 History Active Medications Generic Name Dose Route Start Last Admin Trade Name Freq PRN Reason Stop Dose Admin Albuterol Sulfate 1 amp 07/13/17 06:56 07/15/17 04:04 Ventolin 0.083% Nebulizer Soln - NEB 1 amp Q4H PRN Administration SHORT OF BREATH/WHEEZING Albuterol/Ipratropium 1 amp 07/13/17 08:00 07/21/17 11:55 Duoneb - NEB 1 amp RQID [facility] Administration Amlodipine Besylate 5 mg 07/14/17 10:00 07/21/17 09:12 Norvasc - PO 5 mg DAILY [facility] Administration Benzocaine/Menthol 1 each 07/17/17 14:45 07/17/17 23:08 Cepacol Lozenge - MM 1 each PRN PRN Administration SORE THROAT Bisacodyl 10 mg 07/20/17 17:02 Dulcolax Suppository - [place] PRN PRN CONSTIPATION Citalopram Hydrobromide 40 mg 07/13/17 22:00 07/20/17 21:22 Celexa - PO 40 mg HS [facility] Administration Docusate Sodium 100 mg 07/19/17 18:45 07/21/17 09:12 Colace - PO 100 mg DAILY [facility] Administration Guaifenesin/Codeine Phosphate 5 ml 07/17/17 19:14 Robitussin Ac - PO Q8H PRN COUGH Heparin Sodium (Porcine) 5,000 unit 07/18/17 22:00 07/21/17 13:48 Heparin - SQ 5,000 unit TID [facility] Administration Piperacillin Sod/Tazobactam 50 mls @ 100 mls/hr 07/14/17 18:30 07/21/17 17:33 Sod 2.25 gm/ Dextrose IVPB 100 mls/hr Q8H-IV [facility] Administration Protocol Lorazepam 0.5 mg 07/13/17 22:00 07/20/17 21:22 Ativan - PO 0.5 mg HS [facility] Administration Polyethylene Glycol 17 gm 07/18/17 15:30 07/21/17 09:13 Miralax (For Daily Use) - PO 17 gm DAILY [facility] Administration Prednisone 60 mg 07/22/17 10:00 Deltasone - PO DAILY [facility] Pregabalin 50 mg 07/13/17 22:00 07/20/17 21:22 Lyrica - PO 50 mg HS [facility] Administration Fluticasone/Salmeterol 1 puff 07/13/17 10:00 07/21/17 09:12 Advair 100mcg/50mcg - IH 1 puff BID [facility] Administration Senna 2 tab 07/19/17 22:00 07/20/17 21:22 Senna - PO 2 tab HS [facility] Administration Zolpidem Tartrate 5 mg 07/13/17 22:00 07/20/17 21:22 Ambien - PO 5 mg HS [facility] Administration Laboratory Results - last 24 hr 07/20/17 07/21/17 07/21/17 17:30 07:38 07:38 WBC 15.3 H RBC 3.57 L Hgb 10.7 Hct 31.9 L MCV 89.3 MCH 30.0 MCHC 33.6 RDW 15.6 Plt Count 347 MPV 7.1 L Neutrophils % No Result Required. Neutrophils % (Manual) 81.6 Band Neutrophils % 0.0 Lymphocytes % No Result Required. Lymphocytes % (Manual) 6.1 L D Monocytes % (Manual) 4 Eosinophils % (Manual) 0.0 Basophils % (Manual) 0.0 Myelocytes % (Man) 6 H Promyelocytes % (Man) 0 Blast Cells % (Manual) 0 Nucleated RBC % 2 H Metamyelocytes 0 D Platelet Estimate Normal Sodium 139 Potassium 4.9 Chloride 103 Carbon Dioxide 31 Anion Gap 5 L BUN 28 H Creatinine 1.2 H Random Glucose 123 H Calcium 7.9 L Ur Random Sodium 121 Ur Random Potassium 11.5 Ur Random Chloride 131 ASSESSMENT AND PLAN: 87 yof with PMHx of 87 year old woman with a history of COPD, HTN, lung cancer , left lower lobectomy, anemia, GERD, depression, anxiety admitted with sepsis secondary to RUL/RLL PNA -Sepsis due to RUL/RLL PNA -Acute COPD exacerbation -Mild GERONIMO - h/o Lung ca s/p Left lower lobectomy -Anemia -GERD Depression -Anxiety -HTN Plan: Continues to improve, change to prednisone 60 mg daily. Oxygenating well on room air. CT chest results noted. Speech/swallow input noted. Zosyn day 9, s/p 7 days of azithromycin, discuss with ID for taper to oral in 24 hours. Cultures/PNA studies neg so far. Chest PT and nebs/o2 suppl prn. Continue amlodipine. DVTPPX with heparin GIPPX with PPI on steroids. Dispo to [facility] tomorrow if no new events. Plan discussed with patient in detail, all questions answered.
[2017-07-21] MEDS: SENNOSIDES 8.6MG TABLET (FP) PO SCH (21:26)
[2017-07-21] MEDS: ZOLPIDEM TARTRATE 5 MG TABLET PO SCH (21:26)
[2017-07-21] MEDS: CITALOPRAM HYDROBROMIDE 20 MG TABLET (FP) PO SCH (21:26)
[2017-07-21] MEDS: LORazepam 0.5 MG TABLET PO SCH (21:26)
[2017-07-21] MEDS: PREGABALIN 25 MG CAPSULE PO SCH (21:29)
[2017-07-22] MEDS ORDERED: PIPERACILLIN/TAZOBACTAM 2.25 GM VIAL IVPB ONE ×2 (01:36→09:27)
[2017-07-22] MEDS ORDERED: DEXTROSE 5%-WATER - 50 ML IVPB ONE ×2 (01:36→09:27)
[2017-07-22] MEDS: PIPERACILLIN/TAZOB 2.25 GM 2.25 GM in DEXTROSE 5%-WATER - 50 ML IVPB SCH ×2 (01:52→09:29)
[2017-07-22] MEDS: HEPARIN NA (PORCINE) 5,000 UNITS/ML 1ML VIAL SQ SCH ×2 (06:00→14:32)
[2017-07-22 07:20] LABS: HEMATOCRIT 30.9 % (32.4-45.2); HEMOGLOBIN 10.5 GM/dL (10.7-15.3); MCH 30.2 pg (25.7-33.7); MCHC 33.8 g/dl (32.0-36.0); MEAN CELL VOLUME 89.5 fl (80-96); MEAN PLT VOLUME 7.3 fl (7.5-11.1); PLATELET COUNT 327 K/MM3 (134-434); RBC 3.46 M/mm3 (3.60-5.2); RDW 15.5 % (11.6-15.6); WHITE BLOOD COUNT 14.3 K/mm3 (4.0-10.0)
[2017-07-22 07:48] LABS: CHLORIDE 103 mmol/L (98-107); POTASSIUM 4.4 mmol/L (3.5-5.1); SODIUM 139 mmol/L (136-145)
[2017-07-22] MEDS: ALBUTEROL SO4 2.5/IPRATROPIUM 0.5 INH SOL 3 ML VIAL.NEB. NEB SCH ×2 (07:50→11:54)
[2017-07-22 07:55] LABS: ANION GAP 4 (8-16); BLOOD UREA NITROGEN 28 mg/dL (7-18); CALCIUM 7.8 mg/dL (8.5-10.1); CO2 32 mmol/L (21-32); CREATININE 1.1 mg/dL (0.55-1.02); GLUCOSE,RANDOM 95 mg/dL (74-106)
[2017-07-22 09:10] VITALS: BP 134/54; PULSE 89; TEMP 97.9
--- NOTE | 2017-07-22 09:16 | PN ---
Physical Exam: SUBJECTIVE: Patient seen and examined at bedside. No complaints. OBJECTIVE: Vital Signs Period Temp Pulse Resp BP Sys/Jenkins Pulse Ox Last 24 Hr 97.5 F-98.1 F 78-95 18-21 128-153/54-77 94-96 GENERAL: The patient is awake, alert, and fully oriented, in no acute distress. HEAD: Normal with no signs of trauma. EYES: PERRL, extraocular movements intact, sclera anicteric, conjunctiva clear. No ptosis. ENT: Ears normal, nares patent, oropharynx clear without exudates, moist mucous membranes. NECK: Trachea midline, full range of motion, supple. LUNGS: Breath sounds equal, clear to auscultation bilaterally, no wheezes, no crackles, no accessory muscle use. HEART: Regular rate and rhythm, S1, S2 without murmur, rub or gallop. ABDOMEN: Soft, nontender, nondistended, normoactive bowel sounds, no guarding, no rebound, no hepatosplenomegaly, no masses. EXTREMITIES: 2+ pulses, warm, well-perfused, no edema. NEUROLOGICAL: Cranial nerves II through XII grossly intact. Normal speech, gait not observed. PSYCH: Normal mood, normal affect. SKIN: Warm, dry, normal turgor, no rashes or lesions noted Laboratory Results - last 24 hr 07/21/17 07/22/17 07/22/17 07:38 06:40 06:40 WBC 14.3 H RBC 3.46 L Hgb 10.5 L Hct 30.9 L MCV 89.5 MCH 30.2 MCHC 33.8 RDW 15.5 Plt Count 327 MPV 7.3 L Neutrophils % No Result Required. Neutrophils % (Manual) 81.6 Band Neutrophils % 0.0 Lymphocytes % No Result Required. Lymphocytes % (Manual) 6.1 L D Monocytes % (Manual) 4 Eosinophils % (Manual) 0.0 Basophils % (Manual) 0.0 Myelocytes % (Man) 6 H Promyelocytes % (Man) 0 Blast Cells % (Manual) 0 Nucleated RBC % 2 H Metamyelocytes 0 D Platelet Estimate Normal Sodium 139 Potassium 4.4 Chloride 103 Carbon Dioxide 32 Anion Gap 4 L BUN 28 H Creatinine 1.1 H Random Glucose 95 Calcium 7.8 L Active Medications Generic Name Dose Route Start Last Admin Trade Name Freq PRN Reason Stop Dose Admin Albuterol Sulfate 1 amp 07/13/17 06:56 07/15/17 04:04 Ventolin 0.083% Nebulizer Soln - NEB 1 amp Q4H PRN Administration SHORT OF BREATH/WHEEZING Albuterol/Ipratropium 1 amp 07/13/17 08:00 07/22/17 07:50 Duoneb - NEB 1 amp RQID [facility] Administration Amlodipine Besylate 5 mg 07/14/17 10:00 07/21/17 09:12 Norvasc - PO 5 mg DAILY [facility] Administration Benzocaine/Menthol 1 each 07/17/17 14:45 07/17/17 23:08 Cepacol Lozenge - MM 1 each PRN PRN Administration SORE THROAT Bisacodyl 10 mg 07/20/17 17:02 Dulcolax Suppository - [place] PRN PRN CONSTIPATION Citalopram Hydrobromide 40 mg 07/13/17 22:00 07/21/17 21:26 Celexa - PO 40 mg HS [facility] Administration Docusate Sodium 100 mg 07/19/17 18:45 07/21/17 09:12 Colace - PO 100 mg DAILY [facility] Administration Guaifenesin/Codeine Phosphate 5 ml 07/17/17 19:14 07/21/17 21:25 Robitussin Ac - PO 5 ml Q8H PRN Administration COUGH Heparin Sodium (Porcine) 5,000 unit 07/18/17 22:00 07/22/17 06:00 Heparin - SQ 5,000 unit TID [facility] Administration Piperacillin Sod/Tazobactam 50 mls @ 100 mls/hr 07/14/17 18:30 07/22/17 01:52 Sod 2.25 gm/ Dextrose IVPB 100 mls/hr Q8H-IV [facility] Administration Protocol Lorazepam 0.5 mg 07/13/17 22:00 07/21/17 21:26 Ativan - PO 0.5 mg HS [facility] Administration Polyethylene Glycol 17 gm 07/18/17 15:30 07/21/17 09:13 Miralax (For Daily Use) - PO 17 gm DAILY [facility] Administration Prednisone 60 mg 07/22/17 10:00 Deltasone - PO DAILY [facility] Pregabalin 50 mg 07/13/17 22:00 07/21/17 21:29 Lyrica - PO 50 mg HS [facility] Administration Fluticasone/Salmeterol 1 puff 07/13/17 10:00 07/21/17 21:25 Advair 100mcg/50mcg - IH 1 puff BID [facility] Administration Senna 2 tab 07/19/17 22:00 07/21/17 21:26 Senna - PO 2 tab HS [facility] Administration Zolpidem Tartrate 5 mg 07/13/17 22:00 07/21/17 21:26 Ambien - PO 5 mg HS [facility] Administration ASSESSMENT/PLAN: Pt is an 87 y/o F DNR/DNI with PMH COPD, HTN, lung cancer, left lower lobectomy , anemia, GERD, depression, anxiety who presented to the ED from [facility] because of cough and fever. #HCAP -afebrile -persistent leukocytosis -CT chest showed RUL and RML infiltrate suggestive of PNA & R pleural effusion -Zosyn. Plan to taper Abx. #COPD exacerbation -Duonebs -Solu-medrol decreased yesterday. Pt improving -Adavair -Pulm on board. #HTN -BP currently under control #anxiety/Depression -celexa #constipation: Resolved -miralax -senna -colace #FEN -not on fluid -lytes wnl -Na controlled diet #DVT ppx -Hep Sub Q #Dispo -HCAP -To [facility] on d/c Adam Soliz MD PGY-1 IM
[2017-07-22] MEDS ORDERED: PT OWN MED DRAWER 7, Y5N ONE ×2 (09:27→09:40)
[2017-07-22] MEDS: amLODIPine BESYLATE 5 MG TABLET (FP) PO SCH (09:29)
[2017-07-22] MEDS: DOCUSATE SODIUM 100 MG CAPSULE (FP) PO SCH (09:29)
[2017-07-22] MEDS: FLUTICASONE/SALMETEROL 100 MCG/50 MCG DISKUS IH SCH (09:30)
--- NOTE | 2017-07-22 09:32 | PN ---
Teaching Attending Note Name of Resident: Adam Soliz ATTENDING PHYSICIAN STATEMENT I saw and evaluated the patient. I reviewed the resident's note and discussed the case with the resident. I agree with the resident's findings and plan as documented with exceptions below. SUBJECTIVE: Patient seen and examined, breathing continues to improve, still with cough but improved. OBJECTIVE: Vital Signs Period Temp Pulse Resp BP Sys/Jenkins Pulse Ox Last 24 Hr 97.5 F-98.1 F 78-95 18-21 128-153/54-77 94-96 Intake & Output 07/19/17 07/20/17 07/21/17 07/22/17 23:59 23:59 23:59 23:59 Intake Total 1355 1555 850 200 Output Total 350 Balance 1355 1205 850 200 Weight 151 lb General: lying in bed in no acute distress Chest: occasional wheezing but markedly improved air entry and exam Abdomen:soft, NT, nD Extremities: no edema Home Medication List Medication Instructions Recorded Confirmed Type Levalbuterol Tartrate [Xopenex Hfa] 15 gm IH QID 11/12/15 07/13/17 History Omeprazole 20 mg PO DAILY 11/12/15 07/13/17 History Pregabalin [Lyrica] 50 mg PO DAILY 11/12/15 07/13/17 History Zolpidem Tartrate [Ambien] 5 mg PO HS 11/12/15 07/13/17 History Amlodipine Besylate 5 mg PO DAILY 07/13/17 07/13/17 History Brexpiprazole [Rexulti] 0.5 mg PO HS 07/13/17 07/13/17 History Citalopram Hydrobromide [Celexa -] 40 mg PO HS 07/13/17 07/13/17 History Lorazepam 0.5 mg PO HS 07/13/17 07/13/17 History Tiotropium [place] [Spiriva] 2 inh PO DAILY 07/13/17 07/13/17 History Active Medications Generic Name Dose Route Start Last Admin Trade Name Freq PRN Reason Stop Dose Admin Albuterol Sulfate 1 amp 07/13/17 06:56 07/15/17 04:04 Ventolin 0.083% Nebulizer Soln - NEB 1 amp Q4H PRN Administration SHORT OF BREATH/WHEEZING Albuterol/Ipratropium 1 amp 07/13/17 08:00 07/22/17 07:50 Duoneb - NEB 1 amp RQID [facility] Administration Amlodipine Besylate 5 mg 07/14/17 10:00 07/21/17 09:12 Norvasc - PO 5 mg DAILY [facility] Administration Benzocaine/Menthol 1 each 07/17/17 14:45 07/17/17 23:08 Cepacol Lozenge - MM 1 each PRN PRN Administration SORE THROAT Bisacodyl 10 mg 07/20/17 17:02 Dulcolax Suppository - [place] PRN PRN CONSTIPATION Citalopram Hydrobromide 40 mg 07/13/17 22:00 07/21/17 21:26 Celexa - PO 40 mg HS [facility] Administration Docusate Sodium 100 mg 07/19/17 18:45 07/21/17 09:12 Colace - PO 100 mg DAILY [facility] Administration Guaifenesin/Codeine Phosphate 5 ml 07/17/17 19:14 07/21/17 21:25 Robitussin Ac - PO 5 ml Q8H PRN Administration COUGH Heparin Sodium (Porcine) 5,000 unit 07/18/17 22:00 07/22/17 06:00 Heparin - SQ 5,000 unit TID [facility] Administration Piperacillin Sod/Tazobactam 50 mls @ 100 mls/hr 07/14/17 18:30 07/22/17 01:52 Sod 2.25 gm/ Dextrose IVPB 100 mls/hr Q8H-IV [facility] Administration Protocol Lorazepam 0.5 mg 07/13/17 22:00 07/21/17 21:26 Ativan - PO 0.5 mg HS [facility] Administration Polyethylene Glycol 17 gm 07/18/17 15:30 07/21/17 09:13 Miralax (For Daily Use) - PO 17 gm DAILY [facility] Administration Prednisone 60 mg 07/22/17 10:00 Deltasone - PO DAILY [facility] Pregabalin 50 mg 07/13/17 22:00 07/21/17 21:29 Lyrica - PO 50 mg HS [facility] Administration Fluticasone/Salmeterol 1 puff 07/13/17 10:00 07/21/17 21:25 Advair 100mcg/50mcg - IH 1 puff BID [facility] Administration Senna 2 tab 07/19/17 22:00 07/21/17 21:26 Senna - PO 2 tab HS [facility] Administration Zolpidem Tartrate 5 mg 07/13/17 22:00 07/21/17 21:26 Ambien - PO 5 mg HS [facility] Administration Laboratory Results - last 24 hr 07/21/17 07/22/17 07/22/17 07:38 06:40 06:40 WBC 14.3 H RBC 3.46 L Hgb 10.5 L Hct 30.9 L MCV 89.5 MCH 30.2 MCHC 33.8 RDW 15.5 Plt Count 327 MPV 7.3 L Neutrophils % No Result Required. Neutrophils % (Manual) 81.6 Band Neutrophils % 0.0 Lymphocytes % No Result Required. Lymphocytes % (Manual) 6.1 L D Monocytes % (Manual) 4 Eosinophils % (Manual) 0.0 Basophils % (Manual) 0.0 Myelocytes % (Man) 6 H Promyelocytes % (Man) 0 Blast Cells % (Manual) 0 Nucleated RBC % 2 H Metamyelocytes 0 D Platelet Estimate Normal Sodium 139 Potassium 4.4 Chloride 103 Carbon Dioxide 32 Anion Gap 4 L BUN 28 H Creatinine 1.1 H Random Glucose 95 Calcium 7.8 L Microbiology 07/13/17 03:49 Blood - Peripheral Venous Blood Culture - Final NO GROWTH AFTER 5 DAYS INCUBATION 07/13/17 03:49 Blood - Peripheral Venous Blood Culture - Final NO GROWTH AFTER 5 DAYS INCUBATION 07/13/17 06:40 Serum Mycoplasma Antibody - Final 07/13/17 06:34 Sputum - Expectorated Gram Stain - Final 07/13/17 06:34 Sputum - Expectorated Sputum Culture - Final NORMAL RESPIRATORY NEY 07/13/17 03:50 Urine For Antigen Detection Legionella Antigen - Final 07/13/17 03:50 Urine For Antigen Detection Streptococcus pneumoniae Antigen (M - Final 07/13/17 07:18 Nares - Mrsa Screen - Right MRSA Screen - Final NO MRSA ISOLATED 07/13/17 03:50 Urine - Urine Clean Catch Urine Culture - Final NO GROWTH OBTAINED ASSESSMENT AND PLAN: 87 yof with PMHx of 87 year old woman with a history of COPD, HTN, lung cancer , left lower lobectomy, anemia, GERD, depression, anxiety admitted with sepsis secondary to RUL/RLL PNA -Sepsis due to RUL/RLL PNA -Acute COPD exacerbation -Mild GERONIMO - h/o Lung ca s/p Left lower lobectomy -Anemia -GERD Depression -Anxiety -HTN Plan: Continues to improve, Prednisone 60 mg daily with slow taper. Discuss with Dr. Gutierrez for abx taper vs discontinuation.s/p 10 days of zosyn and 7 days of azithromycin. Oxygenating well on room air. CT chest results noted. Speech/swallow input noted. Cultures/PNA studies neg so far. Chest PT and nebs/o2 suppl prn. Continue amlodipine. DVTPPX with heparin GIPPX with PPI on steroids. Dispo to [facility] today pending ID input if bed available. Plan discussed with patient in detail, all questions answered.
--- NOTE | 2017-07-22 09:53 | DS ---
Physical Exam: SUBJECTIVE: Patient seen and examined at bedside. No complaints at this time. Afebrile. Stable. Pt had pre & post yesterday with O2 sat 94% on RA. OBJECTIVE: Vital Signs Period Temp Pulse Resp BP Sys/Jenkins Pulse Ox Last 24 Hr 97.5 F-98.1 F 78-95 18-21 128-153/54-77 94-96 PHYSICAL EXAM GENERAL: The patient is awake, alert, and fully oriented, in no acute distress. HEAD: Normal with no signs of trauma. EYES: sclera anicteric, conjunctiva clear. No ptosis. ENT: Ears normal, nares patent, oropharynx clear without exudates, moist mucous membranes. NECK: Trachea midline, full range of motion, supple. LUNGS: no wheezes or crackles, no accessory muscle use. HEART: Regular rate and rhythm, S1, S2 without murmur, rub or gallop. ABDOMEN: Soft, nontender, nondistended, normoactive bowel sounds, no guarding, no rebound, no hepatosplenomegaly, no masses. EXTREMITIES: 2+ pulses, warm, well-perfused, no edema. NEUROLOGICAL: Cranial nerves II through XII grossly intact. Normal speech, gait not observed. PSYCH: Normal mood, normal affect. SKIN: Warm, dry, normal turgor, no rashes or lesions noted LABS Laboratory Results - last 24 hr 07/21/17 07/22/17 07/22/17 07:38 06:40 06:40 WBC 14.3 H RBC 3.46 L Hgb 10.5 L Hct 30.9 L MCV 89.5 MCH 30.2 MCHC 33.8 RDW 15.5 Plt Count 327 MPV 7.3 L Neutrophils % No Result Required. Neutrophils % (Manual) 81.6 Band Neutrophils % 0.0 Lymphocytes % No Result Required. Lymphocytes % (Manual) 6.1 L D Monocytes % (Manual) 4 Eosinophils % (Manual) 0.0 Basophils % (Manual) 0.0 Myelocytes % (Man) 6 H Promyelocytes % (Man) 0 Blast Cells % (Manual) 0 Nucleated RBC % 2 H Metamyelocytes 0 D Platelet Estimate Normal Sodium 139 Potassium 4.4 Chloride 103 Carbon Dioxide 32 Anion Gap 4 L BUN 28 H Creatinine 1.1 H Random Glucose 95 Calcium 7.8 L HOSPITAL COURSE: Date of Admission:07/13/17 Date of Discharge: 07/22/17 Pt is an 87 y/o F DNR/DNI with PMH COPD, HTN, lung cancer, left lower lobectomy , anemia, GERD, depression, anxiety who presented to the ED from [facility] because of cough and fever. Pt was admitted for evaluation and treatment of HCAP. She had diffuse wheezing and crackles on lung exam initially, which improved very slowly over the course of her hospital stay. She had several chest XR which showed evidence of her pulmonary disease and a chest CT, which showed RUL and RML infiltrate suggestive of PNA & R pleural effusion. She was treated with Duonebs, Solu-medrol, Adavair for her COPD. She received atibiotics for the HCAP. Pt has had persistet leukocytosis throughout her hospital course. There was concern at one point about a possible GERONIMO because of a slowly uptrending [place]. Bladder and renal U/S were crews which did not reveal retention. [place] resolved. Pt also complained of several days of constipation, which finally resolved after senna, colace, mirilax, dulcolax, and tap water enema. She is being discharged with a prednisone taper, bowel regimen, COPD regimen, and instructions to resume the rest of her home meds. Pt is currently afebrile, not in distress, and stable for transfer back to [facility]. Minutes to complete discharge: 30 Discharge Summary Reason For Visit: PNEUMONIA COPD ANEMIA Current Active Problems Anemia (Acute) COPD (chronic obstructive pulmonary disease) (Acute) COPD exacerbation (Acute) GERD (gastroesophageal reflux disease) (Acute) HTN (hypertension) (Acute) PNA (pneumonia) (Acute) Condition: Good - Instructions Diet, Activity, Other Instructions: You are being discharged back to [facility]. You need to take all of your home medications as directed. You are being discharged with steroids. Please take as follows: 60mg daily for 3 days (07/23/2017 - 07/25/2017) 50mg daily for 3 days (07/26/2017 - 07/28/2017) 40mg daily for 3 days (07/29/2017 - 07/31/2017) 30mg daily for 3 days (08/01/2017 - 08/03/2017) 20mg daily for 3 days (08/04/2017 - 08/06/2017) 10mg daily for 3 days (08/07/2017 - 08/09/2017), then off. Continue chest Physiotherapy at the facility. Incentive spirometry every hour when awake as tolerated. Follow up with Dr. Mullins in 1 week Advise for up CT chest in 6 weeks to ensure resolution of pneumonia. If your symptoms recur or if you develop new symptoms, fevers, chills, trouble breathing please return to the emergency department. Referrals: Francisco J Mullins MD [Staff Physician] - 1 Week [facility] - Home Medications Comprehensive Discharge Medication List: Ambulatory Orders Levalbuterol Tartrate [Xopenex Hfa] 15 gm IH QID 11/12/15 Omeprazole 20 mg PO DAILY 11/12/15 Pregabalin [Lyrica] 50 mg PO DAILY 11/12/15 Zolpidem Tartrate [Ambien] 5 mg PO HS 11/12/15 Amlodipine Besylate 5 mg PO DAILY 07/13/17 Brexpiprazole [Rexulti] 0.5 mg PO HS 07/13/17 Citalopram Hydrobromide [Celexa -] 40 mg PO HS 07/13/17 Lorazepam 0.5 mg PO HS 07/13/17 Tiotropium [place] [Spiriva] 2 inh PO DAILY 07/13/17 This patient is new to me today: No Emergency Visit: No Critical Care patient: No - Discharge Referral Referred to [facility] No
[2017-07-22] MEDS ORDERED: predniSONE 20 MG TABLET (UD) PO SCH (10:00)
[2017-07-22] MEDS: POLYETHYLENE GLYCOL 3350 119 GM BTL PO SCH (10:20)
[2017-07-22] MEDS ORDERED: INSULIN (NOVOLOG) ASPART 100 UNITS/ML 10ML VIAL ONE (11:03)
--- NOTE | 2017-07-22 11:14 | PN ---
Progress Note (short form) - Note Progress Note: doing well no SOB minimal cough no fevers Vital Signs Period Temp Pulse Resp BP Sys/Jenkins Pulse Ox Last 24 Hr 97.5 F-98.1 F 78-95 18-21 128-143/54-77 94-96 cor-rrr lungs clear abd soft,nt ext no edema CBC, BMP 07/22/17 06:40 07/22/17 06:40 Microbiology 07/13/17 03:49 Blood - Peripheral Venous Blood Culture - Final NO GROWTH AFTER 5 DAYS INCUBATION 07/13/17 03:49 Blood - Peripheral Venous Blood Culture - Final NO GROWTH AFTER 5 DAYS INCUBATION 07/13/17 06:40 Serum Mycoplasma Antibody - Final 07/13/17 06:34 Sputum - Expectorated Gram Stain - Final 07/13/17 06:34 Sputum - Expectorated Sputum Culture - Final NORMAL RESPIRATORY NEY 07/13/17 03:50 Urine For Antigen Detection Legionella Antigen - Final 07/13/17 03:50 Urine For Antigen Detection Streptococcus pneumoniae Antigen (M - Final 07/13/17 07:18 Nares - Mrsa Screen - Right MRSA Screen - Final NO MRSA ISOLATED 07/13/17 03:50 Urine - Urine Clean Catch Urine Culture - Final NO GROWTH OBTAINED Current Medications Albuterol Sulfate (Ventolin 0.083% Nebulizer Soln -) 1 amp NEB Q4H PRN PRN Reason: SHORT OF BREATH/WHEEZING Last Admin: 07/15/17 04:04 Dose: 1 amp Albuterol/Ipratropium (Duoneb -) 1 amp NEB RQID [facility] Last Admin: 07/22/17 07:50 Dose: 1 amp Amlodipine Besylate (Norvasc -) 5 mg PO DAILY [facility] Last Admin: 07/22/17 09:29 Dose: 5 mg Benzocaine/Menthol (Cepacol Lozenge -) 1 each MM PRN PRN PRN Reason: SORE THROAT Last Admin: 07/17/17 23:08 Dose: 1 each Bisacodyl (Dulcolax Suppository -) 10 mg NV PRN PRN PRN Reason: CONSTIPATION Citalopram Hydrobromide (Celexa -) 40 mg PO HS [facility] Last Admin: 07/21/17 21:26 Dose: 40 mg Docusate Sodium (Colace -) 100 mg PO DAILY [facility] Last Admin: 07/22/17 09:29 Dose: 100 mg Guaifenesin/Codeine Phosphate (Robitussin Ac -) 5 ml PO Q8H PRN PRN Reason: COUGH Last Admin: 07/21/17 21:25 Dose: 5 ml Heparin Sodium (Porcine) (Heparin -) 5,000 unit SQ TID [facility] Last Admin: 07/22/17 06:00 Dose: 5,000 unit Piperacillin Sod/Tazobactam (Sod 2.25 gm/ Dextrose) 50 mls @ 100 mls/hr IVPB Q8H-IV CHARBEL PRN Reason: Protocol Last Admin: 07/22/17 09:29 Dose: 100 mls/hr Lorazepam (Ativan -) 0.5 mg PO [facility] Last Admin: 07/21/17 21:26 Dose: 0.5 mg Polyethylene Glycol (Miralax (For Daily Use) -) 17 gm PO DAILY [facility] Last Admin: 07/22/17 10:20 Dose: 17 gm Prednisone (Deltasone -) 60 mg PO DAILY [facility] Last Admin: 07/22/17 09:29 Dose: 60 mg Pregabalin (Lyrica -) 50 mg PO HS [facility] Last Admin: 07/21/17 21:29 Dose: 50 mg Fluticasone/Salmeterol (Advair 100mcg/50mcg -) 1 puff IH BID [facility] Last Admin: 07/22/17 09:30 Dose: 1 puff Senna (Senna -) 2 tab PO [facility] Last Admin: 07/21/17 21:26 Dose: 2 tab Zolpidem Tartrate (Ambien -) 5 mg PO [facility] Last Admin: 07/21/17 21:26 Dose: 5 mg a/p pneumonia- s/p 7 days zithromax, day #9 zosyn no need for further antibiotics agree with d/c back to SNF
[2017-07-22 11:24] LABS: PLATELET ESTIMATE NORMAL
--- NOTE | 2017-07-22 12:15 | PN ---
Progress Note (short form) - Note Progress Note: Continued slow improvement. NAD. No acute events overnight. Intake & Output 07/19/17 07/20/17 07/21/17 07/22/17 23:59 23:59 23:59 23:59 Intake Total 1355 1555 850 515 Output Total 350 Balance 1355 1205 850 515 Weight 151 lb Last Vital Signs Temp Pulse Resp BP Pulse Ox 97.9 F 89 20 134/54 96 07/22/17 09:00 07/22/17 09:00 07/22/17 09:00 07/22/17 09:00 07/22/17 10:11 Active Medications Albuterol Sulfate (Ventolin 0.083% Nebulizer Soln -) 1 amp NEB Q4H PRN PRN Reason: SHORT OF BREATH/WHEEZING Last Admin: 07/15/17 04:04 Dose: 1 amp Albuterol/Ipratropium (Duoneb -) 1 amp NEB RQID [facility] Last Admin: 07/22/17 11:54 Dose: 1 amp Amlodipine Besylate (Norvasc -) 5 mg PO DAILY [facility] Last Admin: 07/22/17 09:29 Dose: 5 mg Benzocaine/Menthol (Cepacol Lozenge -) 1 each MM PRN PRN PRN Reason: SORE THROAT Last Admin: 07/17/17 23:08 Dose: 1 each Bisacodyl (Dulcolax Suppository -) 10 mg GA PRN PRN PRN Reason: CONSTIPATION Citalopram Hydrobromide (Celexa -) 40 mg PO HS [facility] Last Admin: 07/21/17 21:26 Dose: 40 mg Docusate Sodium (Colace -) 100 mg PO DAILY [facility] Last Admin: 07/22/17 09:29 Dose: 100 mg Guaifenesin/Codeine Phosphate (Robitussin Ac -) 5 ml PO Q8H PRN PRN Reason: COUGH Last Admin: 07/21/17 21:25 Dose: 5 ml Heparin Sodium (Porcine) (Heparin -) 5,000 unit SQ TID [facility] Last Admin: 07/22/17 06:00 Dose: 5,000 unit Piperacillin Sod/Tazobactam (Sod 2.25 gm/ Dextrose) 50 mls @ 100 mls/hr IVPB Q8H-IV CHARBEL PRN Reason: Protocol Last Admin: 07/22/17 09:29 Dose: 100 mls/hr Lorazepam (Ativan -) 0.5 mg PO [facility] Last Admin: 07/21/17 21:26 Dose: 0.5 mg Polyethylene Glycol (Miralax (For Daily Use) -) 17 gm PO DAILY [facility] Last Admin: 07/22/17 10:20 Dose: 17 gm Prednisone (Deltasone -) 60 mg PO DAILY [facility] Last Admin: 07/22/17 09:29 Dose: 60 mg Pregabalin (Lyrica -) 50 mg PO [facility] Last Admin: 07/21/17 21:29 Dose: 50 mg Fluticasone/Salmeterol (Advair 100mcg/50mcg -) 1 puff IH BID [facility] Last Admin: 07/22/17 09:30 Dose: 1 puff Senna (Senna -) 2 tab PO [facility] Last Admin: 07/21/17 21:26 Dose: 2 tab Zolpidem Tartrate (Ambien -) 5 mg PO [facility] Last Admin: 07/21/17 21:26 Dose: 5 mg Constitutional: Yes: NAD Eyes: Yes: WNL HENT: Yes: WNL Neck: Yes: WNL Cardiovascular: Yes: Regular Rate and Rhythm, S1, S2 Respiratory: Yes: Scattered bilateral Rhonchi Gastrointestinal: Yes: Normal Bowel Sounds, Soft Extremities: Yes: WNL Edema: No Labs: Laboratory Results - last 24 hr 07/22/17 07/22/17 06:40 06:40 WBC 14.3 H RBC 3.46 L Hgb 10.5 L Hct 30.9 L MCV 89.5 MCH 30.2 MCHC 33.8 RDW 15.5 Plt Count 327 MPV 7.3 L Total Counted 100 Neutrophils % No Result Required. Neutrophils % (Manual) 86.0 H Band Neutrophils % 2.0 Lymphocytes % No Result Required. Lymphocytes % (Manual) 5.0 L Monocytes % (Manual) 1 L Eosinophils % (Manual) 0.0 Basophils % (Manual) 0.0 Myelocytes % (Man) 4 H D Promyelocytes % (Man) 0 Blast Cells % (Manual) 0 Nucleated RBC % 0 Metamyelocytes 2 D Platelet Estimate Normal Sodium 139 Potassium 4.4 Chloride 103 Carbon Dioxide 32 Anion Gap 4 L BUN 28 H Creatinine 1.1 H Random Glucose 95 Calcium 7.8 L Assessment/Plan Problem List - Problems (1) PNA (pneumonia) Code(s): J18.9 - PNEUMONIA, UNSPECIFIED ORGANISM Qualifiers: Pneumonia type: due to unspecified organism Laterality: unspecified laterality Lung location: unspecified part of lung Qualified Code(s): J18.9 - Pneumonia, unspecified organism (2) COPD exacerbation Code(s): J44.1 - CHRONIC OBSTRUCTIVE PULMONARY DISEASE W (ACUTE) EXACERBATION (3) HTN (hypertension) Code(s): I10 - ESSENTIAL (PRIMARY) HYPERTENSION (4) GERD (gastroesophageal reflux disease) Code(s): K21.9 - GASTRO-ESOPHAGEAL REFLUX DISEASE WITHOUT ESOPHAGITIS Assessment/Plan Acute COPD Exacerbation Recurrent Pneumonia - r/o Aspiration HTN GERD PULMONARY HTN Depression/Anxiety Agree with change to oral therapy and D/C back to SNF Dr Rico
== END 2017-07-22 15:00 | DRG 871 ==
LOC: JER 03:21 → JERBED 06:07 → UNDOADMIN 06:20 → J5S 09:43
PROVIDERS: ADMIT Internal Medicine; ATTEND Hospitalist
DX: A41.89 Other specified sepsis (principal); J18.9 Pneumonia, unspecified organism; J96.01 Acute respiratory failure with hypoxia; J44.1 Chronic obstructive pulmonary disease with (acute) exacerbation; J90 Pleural effusion, not elsewhere classified; N17.9 Acute kidney failure, unspecified; I10 Essential (primary) hypertension; K21.9 Gastro-esophageal reflux disease without esophagitis; F41.8 Other specified anxiety disorders; D64.9 Anemia, unspecified; G47.00 Insomnia, unspecified; I27.20 Pulmonary hypertension, unspecified; D72.829 Elevated white blood cell count, unspecified; K59.00 Constipation, unspecified; Z66 Do not resuscitate; Z85.118 Personal history of other malignant neoplasm of bronchus and lung
CPT/HCPCS: 36415; 71045-TC-FY; 71250-TC; 76775-TC; 76856-TC; 80048; 80053; 81003; 81015; 82436; 82570; 82803; 83605; 84100; 84133; 84300; 84484; 85025; 85610; 85730; 86738; 87040; 87070; 87081; 87086; 87205; 87899; 93005; 93010; 93306-TC; 94010; 94640; 94761; 97116-GP; 97161-GP; 99285-25; J0131; J1644; J7030; J7620

== ENCOUNTER 2017-08-16 10:47 | Inpatient (IN) | payer OTHER ==
[2017-08-16] MEDS ORDERED: SODIUM CHLORIDE 1,000 ML IV STA (11:45)
[2017-08-16] MEDS ORDERED: ACETAMINOPHEN 1000 MG/100 ML VIAL (NON FORMULARY) IVPB ONE (11:46)
--- NOTE | 2017-08-16 11:47 | PDOC ---
History of Present Illness - General Chief Complaint: SIRS, Suspected/Possible Stated Complaint: SOB Time Seen by Provider: 08/16/17 11:40 - History of Present Illness Initial Comments: CHIEF COMPLAINT: 87 y/o febrile female with PMH COPD, PNA (Admitted here on 07/13 for PNA), HTN, lung CA s/p LLL resection, chronic anemia, GERD, depression and anxiety BIB EMS from [facility] with fever and worsening SOB. HISTORY OF PRESENT ILLNESS: The patient was discharged from here on 07/22/17 where she was treated for PNA. She states she felt well until 1 week ago when she started feeling SOB again. She had a chest xray done at [facility] yesterday and it showed b/l pneumonia. She was given 4.5mg of zosyn at [facility] yesterday. Upon arrival in the ER she is febrile and SOB. Vital signs on arrival are notable for temp of 101.6 with O2 sat of 93% on RA. REVIEW OF SYSTEMS: GENERAL/CONSTITUTIONAL: +fever. +weakness. No weight change. HEAD, EYES, EARS, NOSE AND THROAT: No change in vision. No ear pain or discharge. No sore throat. CARDIOVASCULAR: +SOB. No chest pain. RESPIRATORY: +cough. No wheezing or hemoptysis. GASTROINTESTINAL: No abd pain, nausea, vomiting, diarrhea. GENITOURINARY: No dysuria, frequency, or change in urination. MUSCULOSKELETAL: No joint or muscle swelling or pain. No neck or back pain. SKIN: No rash or easy bruising. NEUROLOGIC: No headache, vertigo, loss of consciousness, or loss of sensation. PHYSICAL EXAM: GENERAL: The patient is awake, alert, and fully oriented, in moderate respiratory distress. She appears tired and can only speak 3 words before becoming SOB and starting to cough. HEAD: Normal with no signs of trauma. ENT: Pupils equal, round and reactive to light, extraocular movements intact, sclera anicteric, conjunctiva clear. Neck supple. LUNGS: Tight expiratory wheezing. Accessory muscle use. CV: RRR, S1/S2, no MRG. Cap refill < 2 sec. ABDOMEN: Soft, non-distended, non-tender even to deep palpation, no hepatomegaly or splenomegaly, no masses. EXTREMITIES: Normal range of motion, no edema. NEUROLOGICAL: Normal speech, normal gait. CN II-XII grossly intact. PSYCH: Normal mood, normal affect. SKIN: Warm, dry, normal turgor, no rashes or lesions noted. Past History - Past Medical History Allergies/Adverse Reactions: Allergies Allergy/AdvReac Type Severity Reaction Status Date / Time No Known Allergies Allergy Verified 07/13/17 04:12 Home Medications: Ambulatory Orders Levalbuterol Tartrate [Xopenex Hfa] 15 gm IH QID 11/12/15 Omeprazole 20 mg PO DAILY 11/12/15 Pregabalin [Lyrica] 50 mg PO BID 11/12/15 Zolpidem Tartrate [Ambien] 5 mg PO HS 11/12/15 Amlodipine Besylate 5 mg PO DAILY 07/13/17 Brexpiprazole [Rexulti] 0.5 mg PO HS 07/13/17 Citalopram Hydrobromide [Celexa -] 40 mg PO HS 07/13/17 Lorazepam 0.5 mg PO HS 07/13/17 Tiotropium [place] [Spiriva] 2 inh PO DAILY 07/13/17 Albuterol 0.083% Nebulizer Delores [Ventolin 0.083% Nebulizer Soln -] 1 amp NEB Q4H PRN amp 07/22/17 Docusate Sodium [Colace -] 100 mg PO DAILY capsule 07/22/17 Polyethylene Glycol 3350 [Miralax 119 gm Btl -] 17 gm PO DAILY bottle 07/22/17 Prednisone See Taper PO DAILY 18 Days tablet 07/22/17 Salmeterol/Fluticasone [Advair 100Mcg/50Mcg -] 1 puff IH BID inhaler 07/22/17 Sennosides [Senna -] 2 tab PO HS tablet 07/22/17 Albuterol 2.5/Ipratropium 0.5 [Duoneb -] 1 amp NEB Q6H 08/16/17 Apixaban [Eliquis] 2.5 mg PO BID 08/16/17 Bisacodyl Suppository [Dulcolax Suppository -] 10 mg RC DAILY PRN 08/16/17 Magnesium Hydrox 2400MG/30Ml [Milk of Magnesia -] 30 ml PO DAILY PRN 08/16/17 Metoprolol Tartrate 0.5 tab PO 08/16/17 Nutritional Supplement [Hi-Rodger] 4 oz PO DAILY 08/16/17 Cancer: Yes (lung CA s/p LLL resection) CVA: No COPD: Yes CHF: No Dementia: No GI Disorders: Yes (GERD) Disorders: No HTN: Yes Hypercholesterolemia: No Liver Disease: No Psychiatric Problems: Yes (depression) Seizures: No - Surgical History Abdominal Surgery: No Cholecystectomy: No Lung Surgery: Yes (lower left lobectomy) - Immunization History Immunization Up to Date: Yes - Suicide/Smoking/Psychosocial Hx Smoking History: Never smoked Have you smoked in the past 12 months: No Information on smoking cessation initiated: No Hx Alcohol Use: No Drug/Substance Use Hx: No Substance Use Type: None *Physical Exam - Vital Signs Last Vital Signs Temp Pulse Resp BP Pulse Ox 101.6 F H 79 22 133/56 93 L 08/16/17 11:02 08/16/17 11:02 08/16/17 11:02 08/16/17 11:02 08/16/17 11:02 Heart Score/ECG Review - ECG Intrepretation Comment:: Twelve-lead EKG was performed and reviewed by Dr. Low. There is normal sinus rhythm with a normal rate. The axis is normal. The intervals are normal. There are no ST or T wave abnormalities. Impression: Normal twelve-lead EKG ED Treatment Course - LABORATORY CBC & Chemistry Diagram: 08/16/17 12:39 08/16/17 12:39 - RADIOLOGY Radiology Studies Ordered: Category Date Time Status CHEST X-RAY PORTABLE* [RAD] Stat Radiology 08/16/17 11:45 Ordered Medical Decision Making - Medical Decision Making A/P: 87 y/o febrile female sent in from [facility] for fever, increased SOB and b/ l consolidations on CXR. Plan is as follows: 1. Septic work up CXR IMPRESSION: New mixture of atelectatic and infiltrative changes. patient will be admitted for HAP. IV vanc, zosyn and levaquin have been ordered. Patient does feel better after neb treatments and breathing is less labored. Dr. Mercado accepted admission to Med/surg. Dr. Morris was consulted for ID *DC/Admit/Observation/Transfer Diagnosis at time of Disposition: Hospital acquired PNA - Discharge Dispostion Condition at time of disposition: Fair Decision to Admit order: Yes - Referrals Referrals: Nataly Manuel MD [Primary Care Provider] - - Patient Instructions - Post Discharge Activity
[2017-08-16] MEDS ORDERED: ALBUTEROL SO4 2.5/IPRATROPIUM 0.5 INH SOL 3 ML VIAL.NEB. NEB ONE ×2 (12:28→20:32)
[2017-08-16] MEDS: ALBUTEROL SO4 2.5/IPRATROPIUM 0.5 INH SOL 3 ML VIAL.NEB. NEB SCH ×5 (12:30→21:01)
--- NOTE | 2017-08-16 12:47 | EKG ---
Test Reason : Blood Pressure : / mmHG Vent. Rate : 080 BPM Atrial Rate : 080 BPM P-R Int : 160 ms QRS Dur : 094 ms QT Int : 388 ms P-R-T Axes : 056 039 038 degrees QTc Int : 447 ms SINUS RHYTHM WITH PREMATURE ATRIAL COMPLEXES NONSPECIFIC T WAVE ABNORMALITY ABNORMAL ECG WHEN COMPARED WITH ECG OF 20-JUL-2017 15:16, PREMATURE VENTRICULAR COMPLEXES ARE NO LONGER PRESENT T WAVE INVERSION NOW EVIDENT IN ANTERIOR LEADS QT HAS SHORTENED Confirmed by CHET MARTINEZ, LIZBETH ([id number]) on 08/16/2017 12:46:44 PM Referred By: Confirmed By:LIZBETH ROSENBERG MD
[2017-08-16] MEDS ORDERED: ACETAMINOPHEN INJECTION 100 ML IVPB ONE (12:55)
[2017-08-16 12:56] LABS: HEMOGLOBIN 10.4 GM/dL (10.7-15.3)
--- NOTE | 2017-08-16 12:56 | PDOC ---
*Physical Exam - Vital Signs Last Vital Signs Temp Pulse Resp BP Pulse Ox 101.6 F H 79 22 133/56 93 L 08/16/17 11:02 08/16/17 11:02 08/16/17 11:02 08/16/17 11:02 08/16/17 11:02 - Physical Exam Comments: 08/16/17 12:55 The patient was examined by LUCILA Hernandez under my direct supervision. I personally evaluated the patient. I concur with the above findings and the plan of care. ED Treatment Course - LABORATORY CBC & Chemistry Diagram: 08/18/17 07:15 08/18/17 07:15 *DC/Admit/Observation/Transfer Diagnosis at time of Disposition: Hospital acquired PNA - Discharge Dispostion Condition at time of disposition: Fair - Referrals - Patient Instructions - Post Discharge Activity
[2017-08-16 12:59] LABS: VENOUS PC02 41.1 mmHg (38-52); VENOUS PH 7.4 (7.32-7.42)
[2017-08-16 13:04] LABS: BASO % 1.1 % (0-2.0); EOS % 0.6 % (0-4.5); HEMATOCRIT 31.4 % (32.4-45.2); LYMPH % 2.9 % (8-40); MCH 29.8 pg (25.7-33.7); MCHC 32.9 g/dl (32.0-36.0); MEAN CELL VOLUME 90.6 fl (80-96); MEAN PLT VOLUME 7.5 fl (7.5-11.1); MONO % 8.6 % (3.8-10.2); NEUT % 86.8 % (42.8-82.8); PLATELET COUNT 292 K/MM3 (134-434); RBC 3.47 M/mm3 (3.60-5.2); RDW 17.1 % (11.6-15.6); WHITE BLOOD COUNT 9.1 K/mm3 (4.0-10.0)
[2017-08-16 13:15] LABS: INR 1.37 (0.82-1.09); PROTHROMBIN TIME (PATIENT) 15.5 SEC (9.7-13.0)
[2017-08-16 13:25] LABS: ALBUMIN 2.3 g/dl (3.4-5.0); ANION GAP 9 (8-16); BILIRUBIN,TOTAL 0.6 mg/dL (0.2-1.0); BLOOD UREA NITROGEN 18 mg/dL (7-18); CALCIUM 7.9 mg/dL (8.5-10.1); CHLORIDE 105 mmol/L (98-107); CO2 24 mmol/L (21-32); CREATININE 1.1 mg/dL (0.55-1.02); GLUCOSE,RANDOM 104 mg/dL (74-106); MAGNESIUM 2.6 mg/dL (1.8-2.4); POTASSIUM 4.4 mmol/L (3.5-5.1); SGOT/AST 13 U/L (15-37); SGPT/ALT 18 U/L (12-78); SODIUM 138 mmol/L (136-145); TOT PROT 5.7 g/dl (6.4-8.2)
[2017-08-16 13:28] LABS: ALK PHOS 55 U/L (45-117)
[2017-08-16] MEDS ORDERED: VANCOMYCIN 1,000 MG in DEXTROSE 5%-WATER - 250 ML IVPB ONE (13:52)
[2017-08-16] MEDS ORDERED: VANCOMYCIN 1 GRAM (PRE-DOCKED) 1,000 MG/250 ML BAG IVPB ONE (14:09)
[2017-08-16] MEDS ORDERED: PIPERACILLIN/TAZOB 3.375 GM 3.375 GM/50 ML BAG IVPB ONE (14:10)
[2017-08-16] MEDS ORDERED: PIPERACILLIN/TAZOB 4.5 GM 4.5 GM/100 ML BAG IVPB ONE (14:36)
[2017-08-16] MEDS: PIPERACILLIN/TAZOB 4.5 GM 4.5 GM in DEXTROSE 5%-WATER 100 ML IVPB ONE (14:38)
[2017-08-16] MEDS ORDERED: ACETAMINOPHEN 325 MG TABLET (FP) PO PRN (18:34)
[2017-08-16] MEDS ORDERED: BISACODYL 10 MG SUPP.RECT RC PRN (18:36)
[2017-08-16] MEDS ORDERED: ALBUTEROL SO4 0.083% IH SOL 2.5 MG/3 ML VIAL.NEB. NEB PRN (18:36)
[2017-08-16] MEDS ORDERED: PIPERACILLIN/TAZOB 2.25 GM 2.25 GM in DEXTROSE 5%-WATER - 50 ML IVPB SCH (21:00)
[2017-08-16 21:25] LABS: URINE APPEARANCE SLCLOUDY; URINE BILIRUBIN NEGATIVE (<2.0 mg/dL); URINE COLOR YELLOW; URINE GLUCOSE (UA) NEGATIVE (NEGATIVE); URINE KETONE NEGATIVE (NEGATIVE); URINE LEUK ESTERASE NEGATIVE (NEGATIVE); URINE NITRITE NEGATIVE (NEGATIVE); URINE UROBILINOGEN NEGATIVE mg/dL (0.2-1.0)
[2017-08-16 21:40] LABS: URINE PROTEIN 1+ (NEGATIVE)
[2017-08-16] MEDS ORDERED: PIPERACILLIN/TAZOBACTAM 2.25 GM VIAL IVPB ONE (21:50)
[2017-08-16] MEDS: FLUTICASONE/SALMETEROL 100 MCG/50 MCG DISKUS IH SCH (22:48)
[2017-08-16] MEDS: CITALOPRAM HYDROBROMIDE 20 MG TABLET (FP) PO SCH (22:49)
[2017-08-16] MEDS: PREGABALIN 50 MG CAPSULE PO SCH (22:49)
[2017-08-16] MEDS: APIXABAN 2.5 MG TABLET PO SCH (22:49)
[2017-08-16] MEDS: ZOLPIDEM TARTRATE 5 MG TABLET PO PRN (22:51)
[2017-08-16] MEDS: LORazepam 0.5 MG TABLET PO PRN (22:51)
[2017-08-16] MEDS ORDERED: PT OWN MED DRAWER 7, Y5N ONE (23:18)
[2017-08-17] MEDS ORDERED: PIPERACILLIN/TAZOBACTAM 2.25 GM VIAL IVPB ONE ×2 (02:18→09:57)
[2017-08-17] MEDS ORDERED: DEXTROSE 5%-WATER - 50 ML IVPB ONE ×3 (02:18→18:31)
[2017-08-17] MEDS: PIPERACILLIN/TAZOB 2.25 GM 2.25 GM in DEXTROSE 5%-WATER - 50 ML IVPB SCH ×2 (02:25→10:04)
[2017-08-17 06:53] VITALS: BMI 22.9
[2017-08-17] MEDS: ALBUTEROL SO4 2.5/IPRATROPIUM 0.5 INH SOL 3 ML VIAL.NEB. NEB SCH ×4 (07:35→20:14)
[2017-08-17 07:57] LABS: BASO % 0.3 % (0-2.0); EOS % 0.8 % (0-4.5); HEMATOCRIT 27.2 % (32.4-45.2); HEMOGLOBIN 9.1 GM/dL (10.7-15.3); LYMPH % 6.1 % (8-40); MCH 30.2 pg (25.7-33.7); MCHC 33.4 g/dl (32.0-36.0); MEAN CELL VOLUME 90.2 fl (80-96); MEAN PLT VOLUME 7.4 fl (7.5-11.1); MONO % 11.8 % (3.8-10.2); PLATELET COUNT 260 K/MM3 (134-434); RBC 3.01 M/mm3 (3.60-5.2); RDW 17.1 % (11.6-15.6); WHITE BLOOD COUNT 7.3 K/mm3 (4.0-10.0)
[2017-08-17 08:13] LABS: CHLORIDE 105 mmol/L (98-107); POTASSIUM 4.2 mmol/L (3.5-5.1); SODIUM 138 mmol/L (136-145)
[2017-08-17 08:28] LABS: ALBUMIN 1.9 g/dl (3.4-5.0); ALK PHOS 44 U/L (45-117); ANION GAP 9 (8-16); BILIRUBIN,TOTAL 0.4 mg/dL (0.2-1.0); BLOOD UREA NITROGEN 16 mg/dL (7-18); CALCIUM 7.7 mg/dL (8.5-10.1); CO2 24 mmol/L (21-32); CREATININE 1.1 mg/dL (0.55-1.02); GLUCOSE,RANDOM 89 mg/dL (74-106); SGOT/AST 16 U/L (15-37); SGPT/ALT 15 U/L (12-78); TOT PROT 4.9 g/dl (6.4-8.2)
[2017-08-17] MEDS: PREGABALIN 50 MG CAPSULE PO SCH ×2 (10:02→21:26)
[2017-08-17] MEDS: APIXABAN 2.5 MG TABLET PO SCH (10:02)
[2017-08-17] MEDS: amLODIPine BESYLATE 5 MG TABLET (FP) PO SCH (10:02)
[2017-08-17] MEDS: PANTOPRAZOLE 20 MG TABLET (FP) PO SCH (10:02)
--- NOTE | 2017-08-17 10:48 | CON.PULM ---
Consult Consult Specialty:: PULMONARY Referred by:: Dr. Marie Reason for Consultation:: pneumonia - History of Present Illness Chief Complaint: shortness of breath History of Present Illness: 87yo female with h/o HTN, GERD, COPD, h/o lung ca s/p LLL lobectomy, multiple recent admissions for pneumonia who was transferred from the [place] for fevers and worsening shortness of breath. Reports has been experiencing shortness of breath and a nonproductive cough for the past week but fevers started day prior to admission. Was started on prednisone by MD at the snf without significant improvement. No chest pain or palpitations. CXR here showing bilateral infiltrates different from prior pneumonia. Was evaluated by MEASUREMENT SUPERVISOR last admission who did not suspect aspiration. - History Source History Provided By: Patient, Medical Record Limitations to Obtaining History: No Limitations - Past Medical History Cardio/Vascular: Yes: HTN Pulmonary: Yes: COPD Gastrointestinal: Yes: GERD Psych: Yes: Anxiety, Depression - Alcohol/Substance Use Hx Alcohol Use: No - Smoking History Smoking history: Never smoked Have you smoked in the past 12 months: No Home Medications - Allergies Allergies/Adverse Reactions: Allergies Allergy/AdvReac Type Severity Reaction Status Date / Time No Known Allergies Allergy Verified 07/13/17 04:12 - Home Medications Home Medications: Ambulatory Orders Omeprazole 20 mg PO DAILY 11/12/15 Pregabalin [Lyrica] 50 mg PO BID 11/12/15 Zolpidem Tartrate [Ambien] 5 mg PO HS 11/12/15 Amlodipine Besylate 5 mg PO DAILY 07/13/17 Brexpiprazole [Rexulti] 0.5 mg PO HS 07/13/17 Citalopram Hydrobromide [Celexa -] 40 mg PO HS 07/13/17 Lorazepam 0.5 mg PO HS 07/13/17 Tiotropium [place] [Spiriva] 2 inh PO DAILY 07/13/17 Albuterol 0.083% Nebulizer Delores [Ventolin 0.083% Nebulizer Soln -] 1 amp NEB Q4H PRN amp 07/22/17 Salmeterol/Fluticasone [Advair 100Mcg/50Mcg -] 1 puff IH BID inhaler 07/22/17 Acetaminophen [Acetaminophen ER] 650 mg PO Q6H PRN 08/16/17 Albuterol 2.5/Ipratropium 0.5 [Duoneb -] 1 amp NEB Q6H 08/16/17 Apixaban [Eliquis] 2.5 mg PO BID 08/16/17 Bisacodyl Suppository [Dulcolax Suppository -] 10 mg RC DAILY PRN 08/16/17 Levalbuterol HCl [Xopenex] 1.25 mg NEB Q6H PRN 08/16/17 Magnesium Hydrox 2400MG/30Ml [Milk of Magnesia -] 30 ml PO DAILY PRN 08/16/17 Metoprolol Tartrate 0.5 tab PO Q12H 08/16/17 Nutritional Supplement [Hi-Rodger] 4 oz PO DAILY 08/16/17 Review of Systems - Review of Systems Constitutional: reports: Fever, Malaise, Weakness Eyes: denies: Recent Change in Vision HENT: denies: Nasal Congestion, Throat Pain Neck: denies: Stiffness, Tenderness Cardiovascular: reports: Shortness of Breath. denies: Chest Pain, Edema, Palpitations Respiratory: reports: Cough, SOB on Exertion, Wheezing. denies: Hemoptysis Gastrointestinal: denies: Abdominal Pain, Nausea, Vomiting Genitourinary: denies: Dysuria, Hematuria Neurological: denies: Dizziness, Headache Physical Exam Vital Sings: Vital Signs Temperature 98.9 F 08/17/17 09:36 Pulse Rate 104 H 08/17/17 09:36 Respiratory Rate 18 08/17/17 09:36 Blood Pressure 138/69 08/17/17 09:36 O2 Sat by Pulse Oximetry (%) 95 08/16/17 22:30 Constitutional: Yes: Mild Distress Eyes: Yes: Conjunctiva Clear, EOM Intact HENT: Yes: Atraumatic, Normocephalic Neck: Yes: Supple, Trachea Midline Cardiovascular: Yes: Regular Rate and Rhythm Respiratory: Yes: Diminished (distant breath sounds). No: Wheezes ...Clubbing: No Gastrointestinal: Yes: Normal Bowel Sounds, Soft. No: Tenderness Edema: No Neurological: Yes: Alert, Oriented Labs: CBC, BMP 08/17/17 06:20 08/17/17 06:20 Imaging - Results Chest X-ray: Report Reviewed, Image Reviewed (bilateral infiltrates) Problem List - Problems (1) PNA (pneumonia) Code(s): J18.9 - PNEUMONIA, UNSPECIFIED ORGANISM (2) COPD exacerbation Code(s): J44.1 - CHRONIC OBSTRUCTIVE PULMONARY DISEASE W (ACUTE) EXACERBATION (3) GERD (gastroesophageal reflux disease) Code(s): K21.9 - GASTRO-ESOPHAGEAL REFLUX DISEASE WITHOUT ESOPHAGITIS (4) HTN (hypertension) Code(s): I10 - ESSENTIAL (PRIMARY) HYPERTENSION Assessment/Plan r/o Pneumonia Acute COPD Exacerbation h/o Lung Ca s/p LLL lobectomy HTN Anxiety GERD - continue antibiotics - f/u cultures - will order CT chest noncontrast to evaluate infiltrates - pending CT, may need further investigation as pt with recurrent infiltrates to r/o non-infectious causes vs atypical organisms - O2 to keep SpO2 >90% - IV medrol - inhaled bronchodilators standing and PRN - DVT prophylaxis Thank you for this consult Ochoa Butler MD
[2017-08-17] MEDS: FLUTICASONE/SALMETEROL 100 MCG/50 MCG DISKUS IH SCH ×2 (11:00→21:27)
[2017-08-17] MEDS ORDERED: PT OWN MED DRAWER 7, Y5N ONE (11:20)
[2017-08-17] MEDS: methylPREDNISolone NA SUCC 125 MG/2 ML VIAL IVPUSH SCH ×2 (12:22→18:34)
--- NOTE | 2017-08-17 12:49 | HP ---
Admitting History and Physical - Primary Care Physician PCP: Kiana Baptiste - Admission Chief Complaint: SOB and coughing History of Present Illness: ER HISTORY CHIEF COMPLAINT: 87 y/o febrile female with PMH COPD, PNA (Admitted here on 07/13 for PNA), HTN, lung CA s/p LLL resection, chronic anemia, GERD, depression and anxiety BIB EMS from [facility] with fever and worsening SOB. HISTORY OF PRESENT ILLNESS: The patient was discharged from here on 07/22/17 where she was treated for PNA. She states she felt well until 1 week ago when she started feeling SOB again. She had a chest xray done at [facility] yesterday and it showed b/l pneumonia. She was given 4.5mg of zosyn at [facility] yesterday. Upon arrival in the ER she is febrile and SOB. Vital signs on arrival are notable for temp of 101.6 with O2 sat of 93% on RA. Pt examined - Feels depressed Pt has had multiple admissions here. HCP at bedside Pt has pain in left side of chest SOB+Cough History Source: Patient, Family Member Limitations to Obtaining History: No Limitations - Past Medical History Cardiovascular: Yes: HTN Pulmonary: Yes: COPD Gastrointestinal: Yes: GERD Psych: Yes: Anxiety, Depression - Smoking History Smoking history: Never smoked Have you smoked in the past 12 months: No - Alcohol/Substance Use Hx Alcohol Use: No Home Medications - Allergies Allergies/Adverse Reactions: Allergies Allergy/AdvReac Type Severity Reaction Status Date / Time No Known Allergies Allergy Verified 07/13/17 04:12 - Home Medications Home Medications: Ambulatory Orders Omeprazole 20 mg PO DAILY 11/12/15 Pregabalin [Lyrica] 50 mg PO BID 11/12/15 Zolpidem Tartrate [Ambien] 5 mg PO HS 11/12/15 Amlodipine Besylate 5 mg PO DAILY 07/13/17 Brexpiprazole [Rexulti] 0.5 mg PO HS 07/13/17 Citalopram Hydrobromide [Celexa -] 40 mg PO HS 07/13/17 Lorazepam 0.5 mg PO HS 07/13/17 Tiotropium [place] [Spiriva] 2 inh PO DAILY 07/13/17 Albuterol 0.083% Nebulizer Delores [Ventolin 0.083% Nebulizer Soln -] 1 amp NEB Q4H PRN amp 07/22/17 Salmeterol/Fluticasone [Advair 100Mcg/50Mcg -] 1 puff IH BID inhaler 07/22/17 Acetaminophen [Acetaminophen ER] 650 mg PO Q6H PRN 08/16/17 Albuterol 2.5/Ipratropium 0.5 [Duoneb -] 1 amp NEB Q6H 08/16/17 Apixaban [Eliquis] 2.5 mg PO BID 08/16/17 Bisacodyl Suppository [Dulcolax Suppository -] 10 mg RC DAILY PRN 08/16/17 Levalbuterol HCl [Xopenex] 1.25 mg NEB Q6H PRN 08/16/17 Magnesium Hydrox 2400MG/30Ml [Milk of Magnesia -] 30 ml PO DAILY PRN 08/16/17 Metoprolol Tartrate 0.5 tab PO Q12H 08/16/17 Nutritional Supplement [Hi-Rodger] 4 oz PO DAILY 08/16/17 Review of Systems - Review of Systems Constitutional: reports: Chills, Fever, Loss of Appetite, Weakness Respiratory: reports: Cough, SOB Physical Examination Vital Signs: Vital Signs Temperature 98.9 F 08/17/17 09:36 Pulse Rate 104 H 08/17/17 09:36 Respiratory Rate 18 08/17/17 09:36 Blood Pressure 138/69 08/17/17 09:36 O2 Sat by Pulse Oximetry (%) 98 08/17/17 09:00 Constitutional: Yes: No Distress, Calm Cardiovascular: Yes: Regular Rate and Rhythm Respiratory: Yes: Diminished, Rhonchi Gastrointestinal: Yes: Normal Bowel Sounds, Soft, Abdomen, Obese. No: Tenderness Edema: No Neurological: Yes: Alert, Oriented Labs: CBC, BMP 08/17/17 06:20 08/17/17 06:20 Imaging - Results Chest X-ray: Image Reviewed (patchy infiltrates) EKG: Image Reviewed (sinus) Problem List - Problems (1) Hospital acquired PNA Code(s): J18.9 - PNEUMONIA, UNSPECIFIED ORGANISM (2) Anemia Code(s): D64.9 - ANEMIA, UNSPECIFIED (3) COPD (chronic obstructive pulmonary disease) Code(s): J44.9 - CHRONIC OBSTRUCTIVE PULMONARY DISEASE, UNSPECIFIED Qualifiers: COPD type: unspecified COPD Qualified Code(s): J44.9 - Chronic obstructive pulmonary disease, unspecified (4) COPD exacerbation Code(s): J44.1 - CHRONIC OBSTRUCTIVE PULMONARY DISEASE W (ACUTE) EXACERBATION (5) GERD (gastroesophageal reflux disease) Code(s): K21.9 - GASTRO-ESOPHAGEAL REFLUX DISEASE WITHOUT ESOPHAGITIS (6) HTN (hypertension) Code(s): I10 - ESSENTIAL (PRIMARY) HYPERTENSION Assessment/Plan PLAN IV antibiotics has recurrent pneumonia, COPD Pulmonary eval noted Solumedrol added Nebs O2 as needed Will need CT chest no contrast DVT prophylaxis-- on Eliquis continue with meds ID eval sputum cultures
[2017-08-17] MEDS ORDERED: guaiFENesin 200 MG/10 ML 10 ML UNIT-DOSE CUPS PO PRN (12:56)
--- NOTE | 2017-08-17 14:26 | PN ---
Progress Note (short form) - Note Progress Note: ID Consult dictated Recurrent pneumonia Acute exacerbation COPD Pending c/s, empiric treatment HCAP with zosyn/ zithromax
--- NOTE | 2017-08-17 15:01 | CONS ---
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 Patient was hospitalized at [facility] from July 13 through July 22 with right-sided pneumonia and acute exacerbation of COPD. Prior to that, she had been hospitalized at [facility] with pneumonia and COPD. She now returns after developing fever and increasing shortness of breath at the [facility] for the past 1 week. In the emergency room, her temperature was noted to be 101.6, O2 saturation 93% on room air. Chest x-ray showed bilateral infiltrates. She was empirically treated with vancomycin and Zosyn. At the present time, she is out of bed to chair. She is short of breath at rest on nasal cannula. She reports cough. However, no sputum production. She denies any chest pain. On her previous admission to [facility] in July, blood cultures were negative and sputum grew normal emil. She denies any ill contacts. She is a nonsmoker. No recent travel. PAST MEDICAL HISTORY: Positive for COPD, hypertension, lung cancer, anemia, gastroesophageal reflux, depression, pulmonary hypertension. PAST SURGICAL HISTORY: Status post left lower lobe resection. ALLERGIES: No known allergies. MEDICATIONS: Include albuterol, omeprazole, Lyrica, Ambien, amlodipine, Celexa, Colace, Eliquis. SOCIAL HISTORY: She resides in a shelter facility. Nonsmoker; however, history of exposure to second-hand smoke. SYSTEMS REVIEW: Neurologic: No loss of consciousness, seizure activity, focal weakness. Cardiac: Negative chest pain or palpitations. Respiratory: As per HPI. Gastrointestinal: Negative vomiting or diarrhea. Genitourinary: Negative for urinary tract infection. LABORATORY DATA: White count 7.3; neutrophils 81, lymphocytes 6, monocytes 11; hematocrit 27.2; platelets 260. BUN 16, creatinine 1.1. Urine leukocyte esterase negative. Chest x-ray shows large heart; atelectatic and infiltrative changes, right lung field. PHYSICAL EXAMINATION: General: She is out of bed to chair. She is short of breath at rest on nasal cannula. Vital Signs: Temperature 98.9, T-max 101.6; blood pressure 138/69; pulse 104, regular; respirations 18 per minute. HEENT: Sclerae anicteric. Heart: Sounds irregular. S1, S2. Lungs: Clear bilaterally. No rhonchi, rales, or wheezing. Abdomen: Soft. No tenderness elicited. No mass, rebound, or rigidity. Extremities: Edema 1+. IMPRESSION: 1. Healthcare-associated pneumonia. 2. Possible sepsis secondary to pneumonia. 3. Acute exacerbation of chronic obstructive pulmonary disease. Await cultures. Empiric antibiotic coverage for healthcare-associated pneumonia versus atypical pneumonia with Zosyn and Zithromax. Inhaled bronchodilators. Pulmonary evaluation. Will follow. Thank you for the kind referral. CHERIE ROBERTS M.D. [id number]
[2017-08-17] MEDS: AZITHROMYCIN IVPB 500 MG in DEXTROSE 5%-WATER - 250 ML IVPB SCH (15:25)
[2017-08-17] MEDS ORDERED: PIPERACILLIN/TAZOBACTAM 3.375 GM VIAL IVPB ONE (18:31)
[2017-08-17] MEDS: PIPERACILLIN/TAZOB 3.375 GM 3.375 GM in DEXTROSE 5%-WATER - 50 ML IVPB SCH (18:33)
--- NOTE | 2017-08-17 19:45 | HOSP ---
Subjective - Review of Symptoms Events since last encounter: called to see patient for nose bleed Subjective: pt reports her nose has been bleeding off and on "all afternoon". She will hold pressure and then it will stop and then later it restarts. She denies picking her nose but states that she blows it often. She denies inserting tissue into her nose when blowing nose. She is concerned about her medications. She does not recall ever being on eliquis before and states the [facility] put it on her med list. Physical Examination Vital Signs: Vital Signs Temperature 99 F 08/17/17 16:46 Pulse Rate 118 H 08/17/17 16:46 Respiratory Rate 24 08/17/17 16:46 Blood Pressure 126/64 08/17/17 16:46 O2 Sat by Pulse Oximetry (%) 98 08/17/17 09:00 Findings/Remarks: Pt noted with gauze in nose. No active nasal bleeding at present. Labs: CBC, BMP 08/17/17 06:20 08/17/17 06:20 Hospitalist Encounter Assessment: Epistaxis - advised RN to obtain rhino rocket for patient and have on floor if nose begins to bleed again - pt instructed to hold pressure on nose steady for 5-10 minutes if bleeding restarts - humidify oxygen - DC eliquis
[2017-08-17] MEDS: CITALOPRAM HYDROBROMIDE 20 MG TABLET (FP) PO SCH (21:26)
[2017-08-17] MEDS: LORazepam 0.5 MG TABLET PO PRN (21:30)
[2017-08-17] MEDS: ZOLPIDEM TARTRATE 5 MG TABLET PO PRN (21:30)
[2017-08-18] MEDS ORDERED: PIPERACILLIN/TAZOBACTAM 3.375 GM VIAL IVPB ONE ×3 (00:32→17:27)
[2017-08-18] MEDS ORDERED: DEXTROSE 5%-WATER - 50 ML IVPB ONE ×3 (00:32→17:28)
[2017-08-18] MEDS: PIPERACILLIN/TAZOB 3.375 GM 3.375 GM in DEXTROSE 5%-WATER - 50 ML IVPB SCH ×3 (01:25→17:36)
[2017-08-18] MEDS: methylPREDNISolone NA SUCC 125 MG/2 ML VIAL IVPUSH SCH ×3 (01:26→17:37)
[2017-08-18] MEDS: ALBUTEROL SO4 2.5/IPRATROPIUM 0.5 INH SOL 3 ML VIAL.NEB. NEB SCH ×4 (07:20→21:06)
[2017-08-18 07:42] LABS: BASO % 0.1 % (0-2.0); HEMATOCRIT 28.9 % (32.4-45.2); HEMOGLOBIN 9.7 GM/dL (10.7-15.3); LYMPH % 2.1 % (8-40); MCH 30.1 pg (25.7-33.7); MCHC 33.5 g/dl (32.0-36.0); MEAN CELL VOLUME 89.9 fl (80-96); MEAN PLT VOLUME 7.5 fl (7.5-11.1); MONO % 2.5 % (3.8-10.2); NEUT % 95.3 % (42.8-82.8); PLATELET COUNT 289 K/MM3 (134-434); RBC 3.22 M/mm3 (3.60-5.2); RDW 16.9 % (11.6-15.6); WHITE BLOOD COUNT 9.1 K/mm3 (4.0-10.0)
[2017-08-18 08:10] LABS: CHLORIDE 106 mmol/L (98-107); SODIUM 139 mmol/L (136-145)
[2017-08-18 08:20] LABS: ALK PHOS 51 U/L (45-117); ANION GAP 8 (8-16); BILIRUBIN,TOTAL 0.3 mg/dL (0.2-1.0); BLOOD UREA NITROGEN 18 mg/dL (7-18); CALCIUM 8.4 mg/dL (8.5-10.1); CO2 25 mmol/L (21-32); CREATININE 0.9 mg/dL (0.55-1.02); GLUCOSE,RANDOM 175 mg/dL (74-106); SGOT/AST 13 U/L (15-37); SGPT/ALT 16 U/L (12-78); TOT PROT 5.4 g/dl (6.4-8.2)
[2017-08-18 09:48] LABS: PLATELET ESTIMATE NORMAL
--- NOTE | 2017-08-18 09:55 | PN ---
Progress Note (short form) - Note Progress Note: pt seen/ examined chart reviewed Developed Epistaxix last night Eilquis d/zaynab last night due to concern of above Anxious. Vital Signs Temp 99.3 F 08/18/17 05:49 Pulse 76 08/18/17 05:49 Resp 22 08/18/17 05:49 BP 115/60 08/18/17 05:49 Pulse Ox 98 08/17/17 21:00 Intake & Output 08/17/17 08/17/17 08/18/17 11:59 23:59 11:59 Intake Total 50 2100 150 Output Total 150 250 Balance -100 1850 150 Intake: IV 1200 LAC 1200 IVPB 50 300 50 Oral 600 100 Output: Urine 150 250 Void 150 250 Other: Voiding Method Incontinent Bedside Commode # Unmeasured Voids Void 1 1 3 Bowel Movement No Yes: med soft brown No Active Medications Acetaminophen (Tylenol -) 650 mg PO Q6H PRN PRN Reason: FEVER Last Admin: 08/17/17 14:45 Dose: 650 mg Albuterol Sulfate (Ventolin 0.083% Nebulizer Soln -) 1 amp NEB Q4H PRN PRN Reason: SHORT OF BREATH/WHEEZING Albuterol/Ipratropium (Duoneb -) 1 amp NEB RQID [facility] Last Admin: 08/17/17 20:14 Dose: 1 amp Amlodipine Besylate (Norvasc -) 5 mg PO DAILY [facility] Last Admin: 08/17/17 10:02 Dose: 5 mg Bisacodyl (Dulcolax Suppository -) 10 mg RC DAILY PRN PRN Reason: CONSTIPATION Citalopram Hydrobromide (Celexa -) 40 mg PO HS [facility] Last Admin: 08/17/17 21:26 Dose: 40 mg Guaifenesin (Robitussin -) 10 ml PO Q4H PRN PRN Reason: COUGH Piperacillin Sod/Tazobactam (Sod 3.375 gm/ Dextrose) 50 mls @ 100 mls/hr IVPB Q8H-IV [facility]; Protocol Last Admin: 08/18/17 01:25 Dose: 100 mls/hr Azithromycin 500 mg/ Dextrose 250 mls @ 250 mls/hr IVPB DAILY [facility] Last Admin: 08/17/17 15:25 Dose: 250 mls/hr Lorazepam (Ativan -) 0.5 mg PO HS PRN PRN Reason: ANXIETY Last Admin: 08/17/17 21:30 Dose: 0.5 mg Methylprednisolone Sodium Succinate (Solu-Medrol -) 60 mg IVPUSH Q8H-IV [facility] Last Admin: 08/18/17 01:26 Dose: 60 mg Pantoprazole Sodium (Protonix -) 20 mg PO DAILY [facility] Last Admin: 08/17/17 10:02 Dose: 20 mg Pregabalin (Lyrica -) 50 mg PO BID [facility] Last Admin: 08/17/17 21:26 Dose: 50 mg Fluticasone/Salmeterol (Advair 100mcg/50mcg -) 1 puff IH BID [facility] Last Admin: 08/17/17 21:27 Dose: 1 puff Zolpidem Tartrate (Ambien -) 5 mg PO HS PRN PRN Reason: INSOMNIA Last Admin: 08/17/17 21:30 Dose: 5 mg CBC, BMP 08/18/17 07:15 08/18/17 07:15 Microbiology 08/16/17 20:50 Urine Culture - Final Urine - Urine - Catheterized NO GROWTH OBTAINED 08/16/17 12:30 Blood Culture - Preliminary Blood - Peripheral Venous NO GROWTH OBTAINED AFTER 24 HOURS, INCUBATION TO CONTINUE FOR 4 DAYS. 08/16/17 12:30 Blood Culture - Preliminary Blood - Peripheral Venous NO GROWTH OBTAINED AFTER 24 HOURS, INCUBATION TO CONTINUE FOR 4 DAYS. Physical Examination Constitutional: Yes: No Distress, anxious. Cardiovascular: Yes: Regular Rate and Rhythm Respiratory: Yes: Diminished, Rhonchi. Gastrointestinal: Yes: Normal Bowel Sounds, Soft, Abdomen, Obese. No: Tenderness Edema: No Neurological: Yes: Alert, Oriented. Psych -- Anxious. Imaging - Results Chest X-ray: Image Reviewed (patchy infiltrates) EKG: Image Reviewed (sinus) Problem List - Problems (1) Hospital acquired PNA Code(s): J18.9 - PNEUMONIA, UNSPECIFIED ORGANISM (2) Anemia Code(s): D64.9 - ANEMIA, UNSPECIFIED (3) COPD (chronic obstructive pulmonary disease) Code(s): J44.9 - CHRONIC OBSTRUCTIVE PULMONARY DISEASE, UNSPECIFIED Qualifiers: COPD type: unspecified COPD Qualified Code(s): J44.9 - Chronic obstructive pulmonary disease, unspecified (4) COPD exacerbation Code(s): J44.1 - CHRONIC OBSTRUCTIVE PULMONARY DISEASE W (ACUTE) EXACERBATION (5) GERD (gastroesophageal reflux disease) Code(s): K21.9 - GASTRO-ESOPHAGEAL REFLUX DISEASE WITHOUT ESOPHAGITIS (6) HTN (hypertension) Code(s): I10 - ESSENTIAL (PRIMARY) HYPERTENSION Assessment/Plan Continue present care. IV antibiotics Solumedrol Nebs O2 as needed ct chest - DVT prophylaxis-- scd stcking for now-- pt concerned about bleed will follow
[2017-08-18] MEDS ORDERED: PT OWN MED DRAWER 7, Y5N ONE ×2 (09:58→20:48)
[2017-08-18] MEDS: FLUTICASONE/SALMETEROL 100 MCG/50 MCG DISKUS IH SCH ×2 (10:44→21:39)
[2017-08-18] MEDS: PREGABALIN 50 MG CAPSULE PO SCH ×2 (10:45→21:39)
[2017-08-18] MEDS: amLODIPine BESYLATE 5 MG TABLET (FP) PO SCH (10:45)
[2017-08-18] MEDS: PANTOPRAZOLE 20 MG TABLET (FP) PO SCH (10:45)
[2017-08-18] MEDS: AZITHROMYCIN IVPB 500 MG in DEXTROSE 5%-WATER - 250 ML IVPB SCH (11:43)
--- NOTE | 2017-08-18 11:45 | PN ---
Progress Note (short form) - Note Progress Note: PULMONARY LOW GRADE TEMP ANICTERIC/EPISTAXSIS/LEFT NARES CRUSTED BLOOD ANICTERIC SCATTERED MILD RHONCHI S1S2 BS+ NONTENDER NO EDEMA LABS/MEDS/NOTES/IMAGES REVIEWED ? Pneumonia Acute COPD Exacerbation h/o Lung Ca s/p LLL lobectomy HTN Anxiety GERD - antibiotics - cultures negative thus far - CT chest noncontrast to evaluate infiltrates pending - O2 to keep SpO2 >90% - IV medrol - inhaled bronchodilators standing and PRN - DVT prophylaxis Sophia FOSTER MD
--- NOTE | 2017-08-18 12:01 | PN ---
Progress Note, Physician History of Present Illness: Seated in bed Mildly tachypneic on mask Episode of epistaxis noted; now coughing up dark blood. No c/o chest pain No fever/ chills - Current Medication List Current Medications: Active Medications Acetaminophen (Tylenol -) 650 mg PO Q6H PRN PRN Reason: FEVER Last Admin: 08/17/17 14:45 Dose: 650 mg Albuterol Sulfate (Ventolin 0.083% Nebulizer Soln -) 1 amp NEB Q4H PRN PRN Reason: SHORT OF BREATH/WHEEZING Albuterol/Ipratropium (Duoneb -) 1 amp NEB RQID [facility] Last Admin: 08/18/17 11:40 Dose: 1 amp Amlodipine Besylate (Norvasc -) 5 mg PO DAILY [facility] Last Admin: 08/18/17 10:45 Dose: 5 mg Bisacodyl (Dulcolax Suppository -) 10 mg RC DAILY PRN PRN Reason: CONSTIPATION Citalopram Hydrobromide (Celexa -) 40 mg PO HS [facility] Last Admin: 08/17/17 21:26 Dose: 40 mg Guaifenesin (Robitussin -) 10 ml PO Q4H PRN PRN Reason: COUGH Piperacillin Sod/Tazobactam (Sod 3.375 gm/ Dextrose) 50 mls @ 100 mls/hr IVPB Q8H-IV [facility]; Protocol Last Admin: 08/18/17 10:45 Dose: 100 mls/hr Azithromycin 500 mg/ Dextrose 250 mls @ 250 mls/hr IVPB DAILY [facility] Last Admin: 08/18/17 11:43 Dose: 250 mls/hr Lorazepam (Ativan -) 0.5 mg PO HS PRN PRN Reason: ANXIETY Last Admin: 08/17/17 21:30 Dose: 0.5 mg Methylprednisolone Sodium Succinate (Solu-Medrol -) 60 mg IVPUSH Q8H-IV [facility] Last Admin: 08/18/17 10:45 Dose: 60 mg Pantoprazole Sodium (Protonix -) 20 mg PO DAILY [facility] Last Admin: 08/18/17 10:45 Dose: 20 mg Pregabalin (Lyrica -) 50 mg PO BID [facility] Last Admin: 08/18/17 10:45 Dose: 50 mg Fluticasone/Salmeterol (Advair 100mcg/50mcg -) 1 puff IH BID [facility] Last Admin: 08/18/17 10:44 Dose: 1 puff Zolpidem Tartrate (Ambien -) 5 mg PO HS PRN PRN Reason: INSOMNIA Last Admin: 08/17/17 21:30 Dose: 5 mg - Objective Vital Signs: Vital Signs Temperature 99.3 F 08/18/17 05:49 Pulse Rate 76 08/18/17 05:49 Respiratory Rate 22 08/18/17 05:49 Blood Pressure 115/60 08/18/17 05:49 O2 Sat by Pulse Oximetry (%) 98 08/17/17 21:00 Constitutional: Yes: No Distress Eyes: Yes: Conjunctiva Clear Cardiovascular: Yes: Regular Rate and Rhythm, S1, S2 Respiratory: Yes: Rhonchi Gastrointestinal: Yes: Normal Bowel Sounds, Soft. No: Tenderness Labs: CBC, BMP 08/18/17 07:15 08/18/17 07:15 INR, PTT INR 1.37 (0.82-1.09) H 08/16/17 12:39 Assessment/Plan Recurrent pneumonia Exacerbation COPD S/P epistaxis ? hemopysis- more likely post nasal drainage Await c/s Continue empiric zosyn/ zithromax
[2017-08-18] MEDS: PIPERACILLIN/TAZOB 4.5 GM 4.5 GM in DEXTROSE 5%-WATER 100 ML IVPB ONE (17:36)
[2017-08-18] MEDS: LORazepam 0.5 MG TABLET PO PRN (21:39)
[2017-08-18] MEDS: ZOLPIDEM TARTRATE 5 MG TABLET PO PRN (21:39)
[2017-08-18] MEDS: CITALOPRAM HYDROBROMIDE 20 MG TABLET (FP) PO SCH (21:39)
[2017-08-19] MEDS ORDERED: PIPERACILLIN/TAZOBACTAM 3.375 GM VIAL IVPB ONE ×2 (00:20→09:47)
[2017-08-19] MEDS: methylPREDNISolone NA SUCC 125 MG/2 ML VIAL IVPUSH SCH ×3 (02:35→18:37)
[2017-08-19] MEDS: PIPERACILLIN/TAZOB 3.375 GM 3.375 GM in DEXTROSE 5%-WATER - 50 ML IVPB SCH ×3 (02:39→18:35)
[2017-08-19] MEDS ORDERED: PT OWN MED DRAWER 7, Y5N ONE ×2 (05:23→10:10)
[2017-08-19] MEDS: ALBUTEROL SO4 2.5/IPRATROPIUM 0.5 INH SOL 3 ML VIAL.NEB. NEB SCH ×4 (07:33→20:36)
[2017-08-19] MEDS ORDERED: DEXTROSE 5%-WATER - 50 ML IVPB ONE (09:47)
[2017-08-19] MEDS: amLODIPine BESYLATE 5 MG TABLET (FP) PO SCH (09:50)
[2017-08-19] MEDS: PANTOPRAZOLE 20 MG TABLET (FP) PO SCH (09:50)
[2017-08-19] MEDS: PREGABALIN 50 MG CAPSULE PO SCH ×2 (09:50→21:43)
[2017-08-19] MEDS: FLUTICASONE/SALMETEROL 100 MCG/50 MCG DISKUS IH SCH ×2 (10:12→21:43)
--- NOTE | 2017-08-19 11:11 | PN ---
Progress Note (short form) - Note Progress Note: Awake and alert on NC O2. Reports minimal dark/clotted blood mixed with sputum this AM. Breathing feels about the same. Intake & Output 08/16/17 08/17/17 08/18/17 08/19/17 23:59 23:59 23:59 23:59 Intake Total 120 2150 800 50 Output Total 400 Balance 120 1750 800 50 Weight 151 lb 2 oz Last Vital Signs Temp Pulse Resp BP Pulse Ox 97.9 F 91 H 19 124/73 95 08/19/17 06:19 08/19/17 06:19 08/19/17 06:19 08/19/17 06:19 08/18/17 21:00 Active Medications Acetaminophen (Tylenol -) 650 mg PO Q6H PRN PRN Reason: FEVER Last Admin: 08/17/17 14:45 Dose: 650 mg Albuterol Sulfate (Ventolin 0.083% Nebulizer Soln -) 1 amp NEB Q4H PRN PRN Reason: SHORT OF BREATH/WHEEZING Albuterol/Ipratropium (Duoneb -) 1 amp NEB RQID [facility] Last Admin: 08/19/17 07:33 Dose: 1 amp Amlodipine Besylate (Norvasc -) 5 mg PO DAILY [facility] Last Admin: 08/19/17 09:50 Dose: 5 mg Bisacodyl (Dulcolax Suppository -) 10 mg RC DAILY PRN PRN Reason: CONSTIPATION Citalopram Hydrobromide (Celexa -) 40 mg PO HS [facility] Last Admin: 08/18/17 21:39 Dose: 40 mg Guaifenesin (Robitussin -) 10 ml PO Q4H PRN PRN Reason: COUGH Piperacillin Sod/Tazobactam (Sod 3.375 gm/ Dextrose) 50 mls @ 100 mls/hr IVPB Q8H-IV [facility]; Protocol Last Admin: 08/19/17 09:50 Dose: 100 mls/hr Azithromycin 500 mg/ Dextrose 250 mls @ 250 mls/hr IVPB DAILY [facility] Last Admin: 08/18/17 11:43 Dose: 250 mls/hr Lorazepam (Ativan -) 0.5 mg PO HS PRN PRN Reason: ANXIETY Last Admin: 08/18/17 21:39 Dose: 0.5 mg Methylprednisolone Sodium Succinate (Solu-Medrol -) 60 mg IVPUSH Q8H-IV [facility] Last Admin: 08/19/17 09:50 Dose: 60 mg Pantoprazole Sodium (Protonix -) 20 mg PO DAILY [facility] Last Admin: 08/19/17 09:50 Dose: 20 mg Pregabalin (Lyrica -) 50 mg PO BID [facility] Last Admin: 08/19/17 09:50 Dose: 50 mg Fluticasone/Salmeterol (Advair 100mcg/50mcg -) 1 puff IH BID [facility] Last Admin: 08/19/17 10:12 Dose: 1 puff Zolpidem Tartrate (Ambien -) 5 mg PO HS PRN PRN Reason: INSOMNIA Last Admin: 08/18/17 21:39 Dose: 5 mg Constitutional: Yes: No Distress on NC O2, mildly anxious. Cardiovascular: Yes: Regular Rate and Rhythm Respiratory: Yes: Bilateral rhonchi, no wheeze Gastrointestinal: Yes: Normal Bowel Sounds, Soft, Abdomen, Obese. No: Tenderness Edema: No Neurological: Yes: Alert, Oriented. Psych -Mildly Anxious. Bilateral Pneumonia: Upper lobe predominance (?) Aspiration Acute COPD Exacerbation h/o Lung Ca s/p LLL lobectomy HTN Anxiety GERD - antibiotics per ID - O2 to keep SpO2 >90% - IV medrol - inhaled bronchodilators standing and PRN - DVT prophylaxis - Monitor hemoptysis Dr Rico
--- NOTE | 2017-08-19 11:40 | PN ---
Progress Note, Physician Chief Complaint: better cough+ decreased SOB - Current Medication List Current Medications: Active Medications Acetaminophen (Tylenol -) 650 mg PO Q6H PRN PRN Reason: FEVER Last Admin: 08/17/17 14:45 Dose: 650 mg Albuterol Sulfate (Ventolin 0.083% Nebulizer Soln -) 1 amp NEB Q4H PRN PRN Reason: SHORT OF BREATH/WHEEZING Albuterol/Ipratropium (Duoneb -) 1 amp NEB RQID [facility] Last Admin: 08/19/17 07:33 Dose: 1 amp Amlodipine Besylate (Norvasc -) 5 mg PO DAILY [facility] Last Admin: 08/19/17 09:50 Dose: 5 mg Bisacodyl (Dulcolax Suppository -) 10 mg RC DAILY PRN PRN Reason: CONSTIPATION Citalopram Hydrobromide (Celexa -) 40 mg PO HS [facility] Last Admin: 08/18/17 21:39 Dose: 40 mg Guaifenesin (Robitussin -) 10 ml PO Q4H PRN PRN Reason: COUGH Piperacillin Sod/Tazobactam (Sod 3.375 gm/ Dextrose) 50 mls @ 100 mls/hr IVPB Q8H-IV [facility]; Protocol Last Admin: 08/19/17 09:50 Dose: 100 mls/hr Azithromycin 500 mg/ Dextrose 250 mls @ 250 mls/hr IVPB DAILY [facility] Last Admin: 08/18/17 11:43 Dose: 250 mls/hr Lorazepam (Ativan -) 0.5 mg PO HS PRN PRN Reason: ANXIETY Last Admin: 08/18/17 21:39 Dose: 0.5 mg Methylprednisolone Sodium Succinate (Solu-Medrol -) 60 mg IVPUSH Q8H-IV [facility] Last Admin: 08/19/17 09:50 Dose: 60 mg Pantoprazole Sodium (Protonix -) 20 mg PO DAILY [facility] Last Admin: 08/19/17 09:50 Dose: 20 mg Pregabalin (Lyrica -) 50 mg PO BID [facility] Last Admin: 08/19/17 09:50 Dose: 50 mg Fluticasone/Salmeterol (Advair 100mcg/50mcg -) 1 puff IH BID [facility] Last Admin: 08/19/17 10:12 Dose: 1 puff Zolpidem Tartrate (Ambien -) 5 mg PO HS PRN PRN Reason: INSOMNIA Last Admin: 08/18/17 21:39 Dose: 5 mg - Objective Vital Signs: Vital Signs Temperature 97.9 F 08/19/17 06:19 Pulse Rate 91 H 08/19/17 06:19 Respiratory Rate 19 08/19/17 06:19 Blood Pressure 124/73 08/19/17 06:19 O2 Sat by Pulse Oximetry (%) 95 08/18/17 21:00 Constitutional: Yes: No Distress Cardiovascular: Yes: Regular Rate and Rhythm Respiratory: Yes: Diminished, Rhonchi Gastrointestinal: Yes: Normal Bowel Sounds, Soft, Abdomen, Obese. No: Tenderness Edema: No Labs: CBC, BMP 08/18/17 07:15 08/18/17 07:15 INR, PTT INR 1.37 (0.82-1.09) H 08/16/17 12:39 Problem List - Problems (1) Hospital acquired PNA Code(s): J18.9 - PNEUMONIA, UNSPECIFIED ORGANISM (2) Anemia Code(s): D64.9 - ANEMIA, UNSPECIFIED (3) COPD (chronic obstructive pulmonary disease) Code(s): J44.9 - CHRONIC OBSTRUCTIVE PULMONARY DISEASE, UNSPECIFIED Qualifiers: COPD type: unspecified COPD Qualified Code(s): J44.9 - Chronic obstructive pulmonary disease, unspecified (4) COPD exacerbation Code(s): J44.1 - CHRONIC OBSTRUCTIVE PULMONARY DISEASE W (ACUTE) EXACERBATION (5) GERD (gastroesophageal reflux disease) Code(s): K21.9 - GASTRO-ESOPHAGEAL REFLUX DISEASE WITHOUT ESOPHAGITIS (6) HTN (hypertension) Code(s): I10 - ESSENTIAL (PRIMARY) HYPERTENSION Assessment/Plan PLAN IV antibiotics has recurrent pneumonia, COPD Pulmonary eval noted Solumedrol Q8h Nebs O2 as needed CT chest NOTED DVT prophylaxis-- on Eliquis continue with meds
[2017-08-19] MEDS: AZITHROMYCIN IVPB 500 MG in DEXTROSE 5%-WATER - 250 ML IVPB SCH (13:27)
[2017-08-19] MEDS: ZOLPIDEM TARTRATE 5 MG TABLET PO PRN (21:43)
[2017-08-19] MEDS: CITALOPRAM HYDROBROMIDE 20 MG TABLET (FP) PO SCH (21:43)
[2017-08-19] MEDS: LORazepam 0.5 MG TABLET PO PRN (21:43)
[2017-08-20] MEDS ORDERED: PIPERACILLIN/TAZOBACTAM 3.375 GM VIAL IVPB ONE ×3 (01:03→17:21)
[2017-08-20] MEDS ORDERED: DEXTROSE 5%-WATER - 50 ML IVPB ONE ×3 (01:03→17:21)
[2017-08-20] MEDS: PIPERACILLIN/TAZOB 3.375 GM 3.375 GM in DEXTROSE 5%-WATER - 50 ML IVPB SCH ×3 (01:40→17:31)
[2017-08-20] MEDS: methylPREDNISolone NA SUCC 125 MG/2 ML VIAL IVPUSH SCH (01:45)
[2017-08-20] MEDS: ALBUTEROL SO4 2.5/IPRATROPIUM 0.5 INH SOL 3 ML VIAL.NEB. NEB SCH ×4 (07:20→20:10)
--- NOTE | 2017-08-20 09:24 | PN ---
Progress Note, Physician Chief Complaint: feeling better no distress - Current Medication List Current Medications: Active Medications Acetaminophen (Tylenol -) 650 mg PO Q6H PRN PRN Reason: FEVER Last Admin: 08/17/17 14:45 Dose: 650 mg Albuterol Sulfate (Ventolin 0.083% Nebulizer Soln -) 1 amp NEB Q4H PRN PRN Reason: SHORT OF BREATH/WHEEZING Albuterol/Ipratropium (Duoneb -) 1 amp NEB RQID [facility] Last Admin: 08/20/17 07:20 Dose: 1 amp Amlodipine Besylate (Norvasc -) 5 mg PO DAILY [facility] Last Admin: 08/19/17 09:50 Dose: 5 mg Bisacodyl (Dulcolax Suppository -) 10 mg RC DAILY PRN PRN Reason: CONSTIPATION Citalopram Hydrobromide (Celexa -) 40 mg PO HS [facility] Last Admin: 08/19/17 21:43 Dose: 40 mg Guaifenesin (Robitussin -) 10 ml PO Q4H PRN PRN Reason: COUGH Piperacillin Sod/Tazobactam (Sod 3.375 gm/ Dextrose) 50 mls @ 100 mls/hr IVPB Q8H-IV [facility]; Protocol Last Admin: 08/20/17 01:40 Dose: 100 mls/hr Azithromycin 500 mg/ Dextrose 250 mls @ 250 mls/hr IVPB DAILY [facility] Last Admin: 08/19/17 13:27 Dose: 250 mls/hr Lorazepam (Ativan -) 0.5 mg PO HS PRN PRN Reason: ANXIETY Last Admin: 08/19/17 21:43 Dose: 0.5 mg Methylprednisolone Sodium Succinate (Solu-Medrol -) 60 mg IVPUSH Q8H-IV [facility] Last Admin: 08/20/17 01:45 Dose: 60 mg Pantoprazole Sodium (Protonix -) 20 mg PO DAILY [facility] Last Admin: 08/19/17 09:50 Dose: 20 mg Pregabalin (Lyrica -) 50 mg PO BID [facility] Last Admin: 08/19/17 21:43 Dose: 50 mg Fluticasone/Salmeterol (Advair 100mcg/50mcg -) 1 puff IH BID [facility] Last Admin: 08/19/17 21:43 Dose: 1 puff Zolpidem Tartrate (Ambien -) 5 mg PO HS PRN PRN Reason: INSOMNIA Last Admin: 08/19/17 21:43 Dose: 5 mg - Objective Vital Signs: Vital Signs Temperature 97.8 F 08/20/17 07:17 Pulse Rate 82 08/20/17 07:17 Respiratory Rate 18 08/20/17 07:17 Blood Pressure 127/67 08/20/17 07:17 O2 Sat by Pulse Oximetry (%) 96 08/19/17 20:47 Constitutional: Yes: No Distress, Calm Cardiovascular: Yes: Regular Rate and Rhythm Respiratory: Yes: Diminished, Rhonchi (less) Gastrointestinal: Yes: Normal Bowel Sounds, Soft. No: Tenderness Edema: No Labs: CBC, BMP 08/18/17 07:15 08/18/17 07:15 INR, PTT INR 1.37 (0.82-1.09) H 08/16/17 12:39 Problem List - Problems (1) Hospital acquired PNA Code(s): J18.9 - PNEUMONIA, UNSPECIFIED ORGANISM (2) Anemia Code(s): D64.9 - ANEMIA, UNSPECIFIED (3) COPD (chronic obstructive pulmonary disease) Code(s): J44.9 - CHRONIC OBSTRUCTIVE PULMONARY DISEASE, UNSPECIFIED Qualifiers: COPD type: unspecified COPD Qualified Code(s): J44.9 - Chronic obstructive pulmonary disease, unspecified (4) COPD exacerbation Code(s): J44.1 - CHRONIC OBSTRUCTIVE PULMONARY DISEASE W (ACUTE) EXACERBATION (5) GERD (gastroesophageal reflux disease) Code(s): K21.9 - GASTRO-ESOPHAGEAL REFLUX DISEASE WITHOUT ESOPHAGITIS (6) HTN (hypertension) Code(s): I10 - ESSENTIAL (PRIMARY) HYPERTENSION Assessment/Plan PLAN IV antibiotics Solumedrol Q8h Nebs O2 as needed CT chest NOTED DVT prophylaxis-- on heparin sc PTeval continue with meds
[2017-08-20] MEDS ORDERED: PT OWN MED DRAWER 7, Y5N ONE ×2 (09:44→21:06)
[2017-08-20] MEDS: FLUTICASONE/SALMETEROL 100 MCG/50 MCG DISKUS IH SCH ×2 (09:49→21:19)
[2017-08-20] MEDS: PREGABALIN 50 MG CAPSULE PO SCH ×2 (09:49→21:18)
[2017-08-20] MEDS: amLODIPine BESYLATE 5 MG TABLET (FP) PO SCH (09:49)
[2017-08-20] MEDS: PANTOPRAZOLE 20 MG TABLET (FP) PO SCH (09:49)
[2017-08-20] MEDS: AZITHROMYCIN IVPB 500 MG in DEXTROSE 5%-WATER - 250 ML IVPB SCH (10:00)
[2017-08-20] MEDS: methylPREDNISolone NA SUCC 40 MG/1 ML VIAL IVPUSH SCH ×2 (10:01→17:30)
--- NOTE | 2017-08-20 11:48 | PN ---
Progress Note (short form) - Note Progress Note: Awake and alert on NC O2. No hemoptysis noted. Still with congested cough. Breathing feels about the same. Intake & Output 08/17/17 08/18/17 08/19/17 08/20/17 23:59 23:59 23:59 23:59 Intake Total 2150 800 1200 50 Output Total 400 Balance 4107 438 8878 50 Last Vital Signs Temp Pulse Resp BP Pulse Ox 97.8 F 82 18 127/67 96 08/20/17 07:17 08/20/17 07:17 08/20/17 07:17 08/20/17 07:17 08/19/17 20:47 Active Medications Acetaminophen (Tylenol -) 650 mg PO Q6H PRN PRN Reason: FEVER Last Admin: 08/17/17 14:45 Dose: 650 mg Albuterol Sulfate (Ventolin 0.083% Nebulizer Soln -) 1 amp NEB Q4H PRN PRN Reason: SHORT OF BREATH/WHEEZING Albuterol/Ipratropium (Duoneb -) 1 amp NEB RQID [facility] Last Admin: 08/20/17 11:33 Dose: 1 amp Amlodipine Besylate (Norvasc -) 5 mg PO DAILY [facility] Last Admin: 08/20/17 09:49 Dose: 5 mg Bisacodyl (Dulcolax Suppository -) 10 mg RC DAILY PRN PRN Reason: CONSTIPATION Citalopram Hydrobromide (Celexa -) 40 mg PO HS [facility] Last Admin: 08/19/17 21:43 Dose: 40 mg Guaifenesin (Robitussin -) 10 ml PO Q4H PRN PRN Reason: COUGH Piperacillin Sod/Tazobactam (Sod 3.375 gm/ Dextrose) 50 mls @ 100 mls/hr IVPB Q8H-IV [facility]; Protocol Last Admin: 08/20/17 09:50 Dose: 100 mls/hr Azithromycin 500 mg/ Dextrose 250 mls @ 250 mls/hr IVPB DAILY [facility] Last Admin: 08/19/17 13:27 Dose: 250 mls/hr Lorazepam (Ativan -) 0.5 mg PO HS PRN PRN Reason: ANXIETY Last Admin: 08/19/17 21:43 Dose: 0.5 mg Methylprednisolone Sodium Succinate (Solu-Medrol -) 40 mg IVPUSH Q8H-IV [facility] Last Admin: 08/20/17 10:01 Dose: 40 mg Pantoprazole Sodium (Protonix -) 20 mg PO DAILY [facility] Last Admin: 08/20/17 09:49 Dose: 20 mg Pregabalin (Lyrica -) 50 mg PO BID [facility] Last Admin: 08/20/17 09:49 Dose: 50 mg Fluticasone/Salmeterol (Advair 100mcg/50mcg -) 1 puff IH BID [facility] Last Admin: 08/20/17 09:49 Dose: 1 puff Zolpidem Tartrate (Ambien -) 5 mg PO HS PRN PRN Reason: INSOMNIA Last Admin: 08/19/17 21:43 Dose: 5 mg Constitutional: Yes: No Distress on NC O2, mildly anxious. Cardiovascular: Yes: Regular Rate and Rhythm Respiratory: Yes: Bilateral rhonchi, no wheeze Gastrointestinal: Yes: Normal Bowel Sounds, Soft, Abdomen, Obese. No: Tenderness Edema: No Neurological: Yes: Alert, Oriented. Psych -Mildly Anxious. Bilateral Pneumonia: Upper lobe predominance (?) Aspiration Acute COPD Exacerbation h/o Lung Ca s/p LLL lobectomy HTN Anxiety GERD - antibiotics per ID - O2 to keep SpO2 >90% - IV medrol - inhaled bronchodilators standing and PRN - DVT prophylaxis - Monitor hemoptysis Dr Rico
[2017-08-20] MEDS: CITALOPRAM HYDROBROMIDE 20 MG TABLET (FP) PO SCH (21:18)
[2017-08-20] MEDS: HEPARIN NA (PORCINE) 5,000 UNITS/ML 1ML VIAL SQ SCH (21:19)
[2017-08-20] MEDS: ZOLPIDEM TARTRATE 5 MG TABLET PO PRN (21:23)
[2017-08-20] MEDS: LORazepam 0.5 MG TABLET PO PRN (21:23)
--- NOTE | 2017-08-20 21:33 | CON.ENT ---
Consult Consult Specialty:: ENT Reason for Consultation:: Nose bleed - History of Present Illness Chief Complaint: Right nose bleed History of Present Illness: She hasn't had any nosebleeding till a couple days ago, and had a small amount of aguze placed in her right nostril. She has been using [place] Oxygen. She has not bled since the gauze was placed. - History Source History Provided By: Patient, Medical Record Limitations to Obtaining History: No Limitations - Past Medical History Cardio/Vascular: Yes: HTN Pulmonary: Yes: COPD Gastrointestinal: Yes: GERD Psych: Yes: Anxiety, Depression - Alcohol/Substance Use Hx Alcohol Use: No - Smoking History Smoking history: Never smoked Have you smoked in the past 12 months: No Home Medications - Allergies Allergies/Adverse Reactions: Allergies Allergy/AdvReac Type Severity Reaction Status Date / Time No Known Allergies Allergy Verified 07/13/17 04:12 - Home Medications Home Medications: Ambulatory Orders Omeprazole 20 mg PO DAILY 11/12/15 Pregabalin [Lyrica] 50 mg PO BID 11/12/15 Zolpidem Tartrate [Ambien] 5 mg PO HS 11/12/15 Amlodipine Besylate 5 mg PO DAILY 07/13/17 Brexpiprazole [Rexulti] 0.5 mg PO HS 07/13/17 Citalopram Hydrobromide [Celexa -] 40 mg PO HS 07/13/17 Lorazepam 0.5 mg PO HS 07/13/17 Tiotropium [place] [Spiriva] 2 inh PO DAILY 07/13/17 Albuterol 0.083% Nebulizer [place] [Ventolin 0.083% Nebulizer Soln -] 1 amp NEB Q4H PRN amp 07/22/17 Salmeterol/Fluticasone [Advair 100Mcg/50Mcg -] 1 puff IH BID inhaler 07/22/17 Acetaminophen [Acetaminophen ER] 650 mg PO Q6H PRN 08/16/17 Albuterol 2.5/Ipratropium 0.5 [Duoneb -] 1 amp NEB Q6H 08/16/17 Apixaban [Eliquis] 2.5 mg PO BID 08/16/17 Bisacodyl Suppository [Dulcolax Suppository -] 10 mg RC DAILY PRN 08/16/17 Levalbuterol HCl [Xopenex] 1.25 mg NEB Q6H PRN 08/16/17 Magnesium Hydrox 2400MG/30Ml [Milk of Magnesia -] 30 ml PO DAILY PRN 08/16/17 Metoprolol Tartrate 0.5 tab PO Q12H 08/16/17 Nutritional Supplement [Hi-Rodger] 4 oz PO DAILY 08/16/17 Physical Exam-ENT Vital Signs: Vital Signs Temperature 97.6 F 08/20/17 09:00 Pulse Rate 88 08/20/17 09:00 Respiratory Rate 18 08/20/17 09:00 Blood Pressure 116/75 08/20/17 09:00 O2 Sat by Pulse Oximetry (%) 96 08/20/17 09:00 Constitutional: Yes: Well Nourished, No Distress Head: Yes: WNL Face: Yes: WNL Eyes: Yes: WNL Nose: Yes: Other (gauze in right nostril, removed mucosa dry and irritated) Oral/Pharynx: Yes: WNL Outer Ear: Yes: WNL Ear Canal: Yes: WNL Neck: Yes: WNL Problem List - Problems (1) Epistaxis Assessment/Plan: Gauze removed. apply bacitracin tid with a qtip into right nares. Avoid using the nasal cannula on the right side. F/U in office. Code(s): R04.0 - EPISTAXIS Procedure - Procedure and Findings -: Nasal endoscopy, reveals no masses or lesions. Turbinates normal. No polyp, no pus, no large vessels. Middle meatus normal.
[2017-08-20] MEDS: BACITRACIN 15 GM TUBE TOPICAL OINTMENT NR SCH (22:35)
[2017-08-21] MEDS ORDERED: PIPERACILLIN/TAZOBACTAM 3.375 GM VIAL IVPB ONE ×3 (01:56→17:10)
[2017-08-21] MEDS ORDERED: DEXTROSE 5%-WATER - 50 ML IVPB ONE ×3 (01:56→17:12)
[2017-08-21] MEDS: methylPREDNISolone NA SUCC 40 MG/1 ML VIAL IVPUSH SCH ×4 (02:03→21:38)
[2017-08-21] MEDS: PIPERACILLIN/TAZOB 3.375 GM 3.375 GM in DEXTROSE 5%-WATER - 50 ML IVPB SCH ×3 (02:04→17:14)
[2017-08-21] MEDS: BACITRACIN 15 GM TUBE TOPICAL OINTMENT NR SCH ×3 (05:56→21:37)
[2017-08-21] MEDS: ALBUTEROL SO4 2.5/IPRATROPIUM 0.5 INH SOL 3 ML VIAL.NEB. NEB SCH ×3 (07:15→16:03)
[2017-08-21] MEDS ORDERED: PT OWN MED DRAWER 7, Y5N ONE ×2 (10:19→15:43)
[2017-08-21] MEDS: HEPARIN NA (PORCINE) 5,000 UNITS/ML 1ML VIAL SQ SCH ×2 (10:21→21:38)
[2017-08-21] MEDS: amLODIPine BESYLATE 5 MG TABLET (FP) PO SCH (10:21)
[2017-08-21] MEDS: PANTOPRAZOLE 20 MG TABLET (FP) PO SCH (10:22)
[2017-08-21] MEDS: FLUTICASONE/SALMETEROL 100 MCG/50 MCG DISKUS IH SCH ×2 (10:22→21:37)
[2017-08-21] MEDS: AZITHROMYCIN IVPB 500 MG in DEXTROSE 5%-WATER - 250 ML IVPB SCH (10:22)
[2017-08-21] MEDS: PREGABALIN 50 MG CAPSULE PO SCH ×2 (10:22→21:40)
--- NOTE | 2017-08-21 10:55 | PN ---
Progress Note (short form) - Note Progress Note: pt seen/ examined chart reviewed feels better decreased sob. afebrile sitting in chair all f/u noted Vital Signs Temp 97.6 F 08/21/17 06:00 Pulse 86 08/21/17 06:00 Resp 20 08/21/17 06:00 BP 148/85 08/21/17 06:00 Pulse Ox 96 08/20/17 22:00 Intake & Output 08/20/17 08/20/17 08/21/17 11:59 23:59 11:59 Intake Total 50 200 50 Balance 50 200 50 Intake: IVPB 50 50 Oral 200 Other: Voiding Method Toilet Toilet # Unmeasured Voids Void 2 Bowel Movement No Active Medications Acetaminophen (Tylenol -) 650 mg PO Q6H PRN PRN Reason: FEVER Last Admin: 08/17/17 14:45 Dose: 650 mg Albuterol Sulfate (Ventolin 0.083% Nebulizer Soln -) 1 amp NEB Q4H PRN PRN Reason: SHORT OF BREATH/WHEEZING Albuterol/Ipratropium (Duoneb -) 1 amp NEB RQID [facility] Last Admin: 08/21/17 07:15 Dose: 1 amp Amlodipine Besylate (Norvasc -) 5 mg PO DAILY [facility] Last Admin: 08/21/17 10:21 Dose: 5 mg Bacitracin (Bacitracin -) 1 applic NR TID [facility] Last Admin: 08/21/17 05:56 Dose: 1 applic Bisacodyl (Dulcolax Suppository -) 10 mg RC DAILY PRN PRN Reason: CONSTIPATION Citalopram Hydrobromide (Celexa -) 40 mg PO HS [facility] Last Admin: 08/20/17 21:18 Dose: 40 mg Guaifenesin (Robitussin -) 10 ml PO Q4H PRN PRN Reason: COUGH Heparin Sodium (Porcine) (Heparin -) 5,000 unit SQ BID [facility] Last Admin: 08/21/17 10:21 Dose: 5,000 unit Piperacillin Sod/Tazobactam (Sod 3.375 gm/ Dextrose) 50 mls @ 100 mls/hr IVPB Q8H-IV [facility]; Protocol Last Admin: 08/21/17 10:22 Dose: 100 mls/hr Azithromycin 500 mg/ Dextrose 250 mls @ 250 mls/hr IVPB DAILY [facility] Last Admin: 08/21/17 10:22 Dose: 250 mls/hr Methylprednisolone Sodium Succinate (Solu-Medrol -) 40 mg IVPUSH Q8H-IV [facility] Last Admin: 08/21/17 09:03 Dose: 40 mg Pantoprazole Sodium (Protonix -) 20 mg PO DAILY [facility] Last Admin: 08/21/17 10:22 Dose: 20 mg Pregabalin (Lyrica -) 50 mg PO BID [facility] Last Admin: 08/21/17 10:22 Dose: 50 mg Fluticasone/Salmeterol (Advair 100mcg/50mcg -) 1 puff IH BID [facility] Last Admin: 08/21/17 10:22 Dose: 1 puff CBC, BMP 08/18/17 07:15 08/18/17 07:15 Microbiology 08/16/17 12:30 Blood Culture - Preliminary Blood - Peripheral Venous NO GROWTH OBTAINED AFTER 96 HOURS, INCUBATION TO CONTINUE FOR 1 DAYS. 08/16/17 12:30 Blood Culture - Preliminary Blood - Peripheral Venous NO GROWTH OBTAINED AFTER 96 HOURS, INCUBATION TO CONTINUE FOR 1 DAYS. - Objective Constitutional: Yes: No Distress, Calm. comfortable Cardiovascular: Yes: Regular Rate and Rhythm Respiratory: Yes: Diminished, r>L Gastrointestinal: Yes: Normal Bowel Sounds, Soft. No: Tenderness Edema: No Problem List - Problems (1) Hospital acquired PNA Code(s): J18.9 - PNEUMONIA, UNSPECIFIED ORGANISM (2) Anemia Code(s): D64.9 - ANEMIA, UNSPECIFIED (3) COPD (chronic obstructive pulmonary disease) Code(s): J44.9 - CHRONIC OBSTRUCTIVE PULMONARY DISEASE, UNSPECIFIED Qualifiers: COPD type: unspecified COPD Qualified Code(s): J44.9 - Chronic obstructive pulmonary disease, unspecified (4) COPD exacerbation Code(s): J44.1 - CHRONIC OBSTRUCTIVE PULMONARY DISEASE W (ACUTE) EXACERBATION (5) GERD (gastroesophageal reflux disease) Code(s): K21.9 - GASTRO-ESOPHAGEAL REFLUX DISEASE WITHOUT ESOPHAGITIS (6) HTN (hypertension) Code(s): I10 - ESSENTIAL (PRIMARY) HYPERTENSION Assessment/Plan Better IV antibiotics Solumedrol Q8h-- taper Nebs O2 as needed CT chest NOTED f/u cxr DVT prophylaxis-- on heparin sc PTeval continue with meds if better - anticipate d/c in 1-2 days
--- NOTE | 2017-08-21 11:48 | PN ---
Progress Note (short form) - Note Progress Note: Awake and alert on [place] O2. No hemoptysis noted. Seen by ENT last night. No acute pathology or recurrent epistaxis. Breathing feels better. Intake & Output 08/18/17 08/19/17 08/20/17 08/21/17 23:59 23:59 23:59 23:59 Intake Total 800 1200 250 50 Balance 800 1200 250 50 Last Vital Signs Temp Pulse Resp BP Pulse Ox 97.7 F 97 H 20 136/85 96 08/21/17 08:00 08/21/17 08:00 08/21/17 08:00 08/21/17 08:00 08/21/17 08:00 Active Medications Acetaminophen (Tylenol -) 650 mg PO Q6H PRN PRN Reason: FEVER Last Admin: 08/17/17 14:45 Dose: 650 mg Albuterol Sulfate (Ventolin 0.083% Nebulizer Soln -) 1 amp NEB Q4H PRN PRN Reason: SHORT OF BREATH/WHEEZING Albuterol/Ipratropium (Duoneb -) 1 amp NEB RQID [facility] Last Admin: 08/21/17 11:29 Dose: 1 amp Amlodipine Besylate (Norvasc -) 5 mg PO DAILY [facility] Last Admin: 08/21/17 10:21 Dose: 5 mg Bacitracin (Bacitracin -) 1 applic NR TID [facility] Last Admin: 08/21/17 05:56 Dose: 1 applic Bisacodyl (Dulcolax Suppository -) 10 mg RC DAILY PRN PRN Reason: CONSTIPATION Citalopram Hydrobromide (Celexa -) 40 mg PO HS [facility] Last Admin: 08/20/17 21:18 Dose: 40 mg Guaifenesin (Robitussin -) 10 ml PO Q4H PRN PRN Reason: COUGH Heparin Sodium (Porcine) (Heparin -) 5,000 unit SQ BID [facility] Last Admin: 08/21/17 10:21 Dose: 5,000 unit Piperacillin Sod/Tazobactam (Sod 3.375 gm/ Dextrose) 50 mls @ 100 mls/hr IVPB Q8H-IV [facility]; Protocol Last Admin: 08/21/17 10:22 Dose: 100 mls/hr Azithromycin 500 mg/ Dextrose 250 mls @ 250 mls/hr IVPB DAILY [facility] Last Admin: 08/21/17 10:22 Dose: 250 mls/hr Methylprednisolone Sodium Succinate (Solu-Medrol -) 40 mg IVPUSH Q12H [facility] Pantoprazole Sodium (Protonix -) 20 mg PO DAILY [facility] Last Admin: 08/21/17 10:22 Dose: 20 mg Pregabalin (Lyrica -) 50 mg PO BID [facility] Last Admin: 08/21/17 10:22 Dose: 50 mg Fluticasone/Salmeterol (Advair 100mcg/50mcg -) 1 puff IH BID [facility] Last Admin: 08/21/17 10:22 Dose: 1 puff Constitutional: Yes: No Distress on [place] O2, mildly anxious. Cardiovascular: Yes: Regular Rate and Rhythm Respiratory: Yes: Bilateral rhonchi, no wheeze Gastrointestinal: Yes: Normal Bowel Sounds, Soft, Abdomen, Obese. No: Tenderness Edema: No Neurological: Yes: Alert, Oriented. Psych -Mildly Anxious. Bilateral Pneumonia: Upper lobe predominance (?) Aspiration Acute COPD Exacerbation h/o Lung Ca s/p LLL lobectomy HTN Anxiety GERD - antibiotics per ID - O2 to keep SpO2 >90% - Taper IV medrol - inhaled bronchodilators standing and PRN - DVT prophylaxis Dr Rico
[2017-08-21] MEDS: CITALOPRAM HYDROBROMIDE 20 MG TABLET (FP) PO SCH (21:38)
[2017-08-21] MEDS: LORazepam 0.5 MG TABLET PO PRN (22:09)
[2017-08-21] MEDS: ZOLPIDEM TARTRATE 5 MG TABLET PO PRN (22:09)
[2017-08-22] MEDS ORDERED: PIPERACILLIN/TAZOBACTAM 3.375 GM VIAL IVPB ONE ×3 (00:47→16:58)
[2017-08-22] MEDS ORDERED: DEXTROSE 5%-WATER - 50 ML IVPB ONE ×3 (00:48→16:58)
[2017-08-22] MEDS: PIPERACILLIN/TAZOB 3.375 GM 3.375 GM in DEXTROSE 5%-WATER - 50 ML IVPB SCH ×3 (01:30→17:00)
[2017-08-22] MEDS: BACITRACIN 15 GM TUBE TOPICAL OINTMENT NR SCH ×3 (06:06→21:01)
[2017-08-22] MEDS ORDERED: PT OWN MED DRAWER 7, Y5N ONE ×2 (09:10→20:49)
[2017-08-22] MEDS: FLUTICASONE/SALMETEROL 100 MCG/50 MCG DISKUS IH SCH ×2 (09:16→20:59)
[2017-08-22] MEDS: methylPREDNISolone NA SUCC 40 MG/1 ML VIAL IVPUSH SCH ×2 (09:17→21:00)
[2017-08-22] MEDS: AZITHROMYCIN IVPB 500 MG in DEXTROSE 5%-WATER - 250 ML IVPB SCH (09:17)
[2017-08-22] MEDS: amLODIPine BESYLATE 5 MG TABLET (FP) PO SCH (09:17)
[2017-08-22] MEDS: PREGABALIN 50 MG CAPSULE PO SCH ×2 (09:17→20:59)
[2017-08-22] MEDS: PANTOPRAZOLE 20 MG TABLET (FP) PO SCH (09:17)
[2017-08-22] MEDS: HEPARIN NA (PORCINE) 5,000 UNITS/ML 1ML VIAL SQ SCH ×2 (09:17→20:59)
--- NOTE | 2017-08-22 12:08 | PN ---
Progress Note (short form) - Note Progress Note: Awake and alert on [place] O2. No hemoptysis noted. No recurrent epistaxis. Breathing feels better. Intake & Output 08/19/17 08/20/17 08/21/17 08/22/17 23:59 23:59 23:59 23:59 Intake Total 9543 022 5180 50 Balance 5922 644 5694 50 Last Vital Signs Temp Pulse Resp BP Pulse Ox 97.6 F 83 18 142/84 96 08/22/17 06:00 08/22/17 06:00 08/22/17 06:00 08/22/17 06:00 08/21/17 20:32 Active Medications Acetaminophen (Tylenol -) 650 mg PO Q6H PRN PRN Reason: FEVER Last Admin: 08/17/17 14:45 Dose: 650 mg Amlodipine Besylate (Norvasc -) 5 mg PO DAILY [facility] Last Admin: 08/22/17 09:17 Dose: 5 mg Bacitracin (Bacitracin -) 1 applic NR TID [facility] Last Admin: 08/22/17 06:06 Dose: 1 applic Bisacodyl (Dulcolax Suppository -) 10 mg RC DAILY PRN PRN Reason: CONSTIPATION Citalopram Hydrobromide (Celexa -) 40 mg PO HS [facility] Last Admin: 08/21/17 21:38 Dose: 40 mg Guaifenesin (Robitussin -) 10 ml PO Q4H PRN PRN Reason: COUGH Heparin Sodium (Porcine) (Heparin -) 5,000 unit SQ BID [facility] Last Admin: 08/22/17 09:17 Dose: 5,000 unit Piperacillin Sod/Tazobactam (Sod 3.375 gm/ Dextrose) 50 mls @ 100 mls/hr IVPB Q8H-IV [facility]; Protocol Last Admin: 08/22/17 09:18 Dose: 100 mls/hr Azithromycin 500 mg/ Dextrose 250 mls @ 250 mls/hr IVPB DAILY [facility] Last Admin: 08/22/17 09:17 Dose: 250 mls/hr Lorazepam (Ativan -) 0.5 mg PO HS PRN PRN Reason: ANXIETY Last Admin: 08/21/17 22:09 Dose: 0.5 mg Methylprednisolone Sodium Succinate (Solu-Medrol -) 40 mg IVPUSH BID [facility] Last Admin: 08/22/17 09:17 Dose: 40 mg Pantoprazole Sodium (Protonix -) 20 mg PO DAILY [facility] Last Admin: 08/22/17 09:17 Dose: 20 mg Pregabalin (Lyrica -) 50 mg PO BID [facility] Last Admin: 08/22/17 09:17 Dose: 50 mg Fluticasone/Salmeterol (Advair 100mcg/50mcg -) 1 puff IH BID [facility] Last Admin: 08/22/17 09:16 Dose: 1 puff Zolpidem Tartrate (Ambien -) 5 mg PO HS PRN PRN Reason: INSOMNIA Last Admin: 08/21/17 22:09 Dose: 5 mg Constitutional: Yes: No Distress on [place] O2, mildly anxious. Cardiovascular: Yes: Regular Rate and Rhythm Respiratory: Yes: Bilateral rhonchi, no wheeze Gastrointestinal: Yes: Normal Bowel Sounds, Soft, Abdomen, Obese. No: Tenderness Edema: No Neurological: Yes: Alert, Oriented. Psych -Mildly Anxious. Bilateral Pneumonia: Upper lobe predominance (?) Aspiration Acute COPD Exacerbation h/o Lung Ca s/p LLL lobectomy HTN Anxiety GERD - antibiotics per ID - O2 to keep SpO2 >90% - Can likely change to Prednisone in the AM - inhaled bronchodilators standing and PRN - DVT prophylaxis - PT / ambulate Dr Rico
--- NOTE | 2017-08-22 12:25 | PN ---
Progress Note, Physician Chief Complaint: feeling better no distress still feel SOB, but less - Current Medication List Current Medications: Active Medications Acetaminophen (Tylenol -) 650 mg PO Q6H PRN PRN Reason: FEVER Last Admin: 08/17/17 14:45 Dose: 650 mg Amlodipine Besylate (Norvasc -) 5 mg PO DAILY [facility] Last Admin: 08/22/17 09:17 Dose: 5 mg Bacitracin (Bacitracin -) 1 applic NR TID [facility] Last Admin: 08/22/17 06:06 Dose: 1 applic Bisacodyl (Dulcolax Suppository -) 10 mg RC DAILY PRN PRN Reason: CONSTIPATION Citalopram Hydrobromide (Celexa -) 40 mg PO HS [facility] Last Admin: 08/21/17 21:38 Dose: 40 mg Guaifenesin (Robitussin -) 10 ml PO Q4H PRN PRN Reason: COUGH Heparin Sodium (Porcine) (Heparin -) 5,000 unit SQ BID [facility] Last Admin: 08/22/17 09:17 Dose: 5,000 unit Piperacillin Sod/Tazobactam (Sod 3.375 gm/ Dextrose) 50 mls @ 100 mls/hr IVPB Q8H-IV [facility]; Protocol Last Admin: 08/22/17 09:18 Dose: 100 mls/hr Azithromycin 500 mg/ Dextrose 250 mls @ 250 mls/hr IVPB DAILY [facility] Last Admin: 08/22/17 09:17 Dose: 250 mls/hr Lorazepam (Ativan -) 0.5 mg PO HS PRN PRN Reason: ANXIETY Last Admin: 08/21/17 22:09 Dose: 0.5 mg Methylprednisolone Sodium Succinate (Solu-Medrol -) 40 mg IVPUSH BID [facility] Last Admin: 08/22/17 09:17 Dose: 40 mg Pantoprazole Sodium (Protonix -) 20 mg PO DAILY [facility] Last Admin: 08/22/17 09:17 Dose: 20 mg Pregabalin (Lyrica -) 50 mg PO BID [facility] Last Admin: 08/22/17 09:17 Dose: 50 mg Fluticasone/Salmeterol (Advair 100mcg/50mcg -) 1 puff IH BID [facility] Last Admin: 08/22/17 09:16 Dose: 1 puff Zolpidem Tartrate (Ambien -) 5 mg PO HS PRN PRN Reason: INSOMNIA Last Admin: 08/21/17 22:09 Dose: 5 mg - Objective Vital Signs: Vital Signs Temperature 97.6 F 08/22/17 06:00 Pulse Rate 83 08/22/17 06:00 Respiratory Rate 18 08/22/17 06:00 Blood Pressure 142/84 08/22/17 06:00 O2 Sat by Pulse Oximetry (%) 96 08/21/17 20:32 Constitutional: Yes: No Distress Cardiovascular: Yes: Regular Rate and Rhythm Respiratory: Yes: Diminished, Rhonchi Gastrointestinal: Yes: Normal Bowel Sounds, Soft. No: Tenderness Edema: No Labs: CBC, BMP 08/18/17 07:15 08/18/17 07:15 INR, PTT INR 1.37 (0.82-1.09) H 08/16/17 12:39 Problem List - Problems (1) Hospital acquired PNA Code(s): J18.9 - PNEUMONIA, UNSPECIFIED ORGANISM (2) Anemia Code(s): D64.9 - ANEMIA, UNSPECIFIED (3) COPD (chronic obstructive pulmonary disease) Code(s): J44.9 - CHRONIC OBSTRUCTIVE PULMONARY DISEASE, UNSPECIFIED Qualifiers: COPD type: unspecified COPD Qualified Code(s): J44.9 - Chronic obstructive pulmonary disease, unspecified (4) COPD exacerbation Code(s): J44.1 - CHRONIC OBSTRUCTIVE PULMONARY DISEASE W (ACUTE) EXACERBATION (5) GERD (gastroesophageal reflux disease) Code(s): K21.9 - GASTRO-ESOPHAGEAL REFLUX DISEASE WITHOUT ESOPHAGITIS (6) HTN (hypertension) Code(s): I10 - ESSENTIAL (PRIMARY) HYPERTENSION Assessment/Plan PLAN IV antibiotics Solumedrol taper Nebs O2 as needed CT chest NOTED DVT prophylaxis-- on heparin sc PTeval continue with meds
[2017-08-22] MEDS: CITALOPRAM HYDROBROMIDE 20 MG TABLET (FP) PO SCH (20:59)
[2017-08-22] MEDS: LORazepam 0.5 MG TABLET PO PRN (21:05)
[2017-08-22] MEDS: ZOLPIDEM TARTRATE 5 MG TABLET PO PRN (21:05)
[2017-08-23] MEDS ORDERED: DEXTROSE 5%-WATER - 50 ML IVPB ONE ×3 (01:29→17:09)
[2017-08-23] MEDS ORDERED: PIPERACILLIN/TAZOBACTAM 3.375 GM VIAL IVPB ONE ×3 (01:29→17:09)
[2017-08-23] MEDS: PIPERACILLIN/TAZOB 3.375 GM 3.375 GM in DEXTROSE 5%-WATER - 50 ML IVPB SCH ×3 (01:50→17:36)
[2017-08-23] MEDS: BACITRACIN 15 GM TUBE TOPICAL OINTMENT NR SCH ×3 (06:10→21:57)
[2017-08-23] MEDS: amLODIPine BESYLATE 5 MG TABLET (FP) PO SCH (09:35)
[2017-08-23] MEDS: methylPREDNISolone NA SUCC 40 MG/1 ML VIAL IVPUSH SCH ×2 (09:35→21:55)
[2017-08-23] MEDS: PANTOPRAZOLE 20 MG TABLET (FP) PO SCH (09:36)
[2017-08-23] MEDS: PREGABALIN 50 MG CAPSULE PO SCH ×2 (09:36→23:01)
[2017-08-23] MEDS: AZITHROMYCIN IVPB 500 MG in DEXTROSE 5%-WATER - 250 ML IVPB SCH (09:36)
[2017-08-23] MEDS: HEPARIN NA (PORCINE) 5,000 UNITS/ML 1ML VIAL SQ SCH ×2 (09:37→21:56)
[2017-08-23] MEDS: FLUTICASONE/SALMETEROL 100 MCG/50 MCG DISKUS IH SCH ×2 (09:37→21:57)
[2017-08-23] MEDS ORDERED: PT OWN MED DRAWER 7, Y5N ONE (11:06)
--- NOTE | 2017-08-23 12:14 | PN ---
Progress Note, Physician Chief Complaint: Sitting up in chair HCP at bedside Pt feeling better - Current Medication List Current Medications: Active Medications Acetaminophen (Tylenol -) 650 mg PO Q6H PRN PRN Reason: FEVER Last Admin: 08/17/17 14:45 Dose: 650 mg Amlodipine Besylate (Norvasc -) 5 mg PO DAILY [facility] Last Admin: 08/23/17 09:35 Dose: 5 mg Bacitracin (Bacitracin -) 1 applic NR TID [facility] Last Admin: 08/23/17 06:10 Dose: 1 applic Bisacodyl (Dulcolax Suppository -) 10 mg RC DAILY PRN PRN Reason: CONSTIPATION Citalopram Hydrobromide (Celexa -) 40 mg PO HS [facility] Last Admin: 08/22/17 20:59 Dose: 40 mg Guaifenesin (Robitussin -) 10 ml PO Q4H PRN PRN Reason: COUGH Heparin Sodium (Porcine) (Heparin -) 5,000 unit SQ BID [facility] Last Admin: 08/23/17 09:37 Dose: 5,000 unit Piperacillin Sod/Tazobactam (Sod 3.375 gm/ Dextrose) 50 mls @ 100 mls/hr IVPB Q8H-IV [facility]; Protocol Last Admin: 08/23/17 09:36 Dose: 100 mls/hr Azithromycin 500 mg/ Dextrose 250 mls @ 250 mls/hr IVPB DAILY [facility] Last Admin: 08/23/17 09:36 Dose: 250 mls/hr Lorazepam (Ativan -) 0.5 mg PO HS PRN PRN Reason: ANXIETY Last Admin: 08/22/17 21:05 Dose: 0.5 mg Methylprednisolone Sodium Succinate (Solu-Medrol -) 40 mg IVPUSH BID [facility] Last Admin: 08/23/17 09:35 Dose: 40 mg Pantoprazole Sodium (Protonix -) 20 mg PO DAILY [facility] Last Admin: 08/23/17 09:36 Dose: 20 mg Pregabalin (Lyrica -) 50 mg PO BID [facility] Last Admin: 08/23/17 09:36 Dose: 50 mg Fluticasone/Salmeterol (Advair 100mcg/50mcg -) 1 puff IH BID [facility] Last Admin: 08/23/17 09:37 Dose: 1 puff Zolpidem Tartrate (Ambien -) 5 mg PO HS PRN PRN Reason: INSOMNIA Last Admin: 08/22/17 21:05 Dose: 5 mg - Objective Vital Signs: Vital Signs Temperature 98 F 08/23/17 07:30 Pulse Rate 73 08/23/17 07:30 Respiratory Rate 18 08/23/17 07:30 Blood Pressure 144/72 08/23/17 07:30 O2 Sat by Pulse Oximetry (%) 99 08/22/17 21:00 Constitutional: Yes: No Distress Cardiovascular: Yes: Regular Rate and Rhythm Respiratory: Yes: Diminished Gastrointestinal: Yes: Normal Bowel Sounds, Soft. No: Tenderness Edema: No Labs: CBC, BMP 08/18/17 07:15 08/18/17 07:15 INR, PTT INR 1.37 (0.82-1.09) H 08/16/17 12:39 Problem List - Problems (1) Hospital acquired PNA Code(s): J18.9 - PNEUMONIA, UNSPECIFIED ORGANISM (2) Anemia Code(s): D64.9 - ANEMIA, UNSPECIFIED (3) COPD (chronic obstructive pulmonary disease) Code(s): J44.9 - CHRONIC OBSTRUCTIVE PULMONARY DISEASE, UNSPECIFIED Qualifiers: COPD type: unspecified COPD Qualified Code(s): J44.9 - Chronic obstructive pulmonary disease, unspecified (4) COPD exacerbation Code(s): J44.1 - CHRONIC OBSTRUCTIVE PULMONARY DISEASE W (ACUTE) EXACERBATION (5) GERD (gastroesophageal reflux disease) Code(s): K21.9 - GASTRO-ESOPHAGEAL REFLUX DISEASE WITHOUT ESOPHAGITIS (6) HTN (hypertension) Code(s): I10 - ESSENTIAL (PRIMARY) HYPERTENSION Assessment/Plan PLAN IV antibiotics Solumedrol taper clinically improving Nebs O2 as needed DVT prophylaxis-- on heparin sc PTeval continue with meds anticipate discharge in 1-2 days incentive spirometer
--- NOTE | 2017-08-23 14:58 | PN ---
Progress Note, Physician History of Present Illness: PULMONARY ALERT,OOB-CHAIR,FEELING BETTER,LESS DYSPNEIC,LESS CONGESTED - Current Medication List Current Medications: Active Medications Acetaminophen (Tylenol -) 650 mg PO Q6H PRN PRN Reason: FEVER Last Admin: 08/17/17 14:45 Dose: 650 mg Amlodipine Besylate (Norvasc -) 5 mg PO DAILY [facility] Last Admin: 08/23/17 09:35 Dose: 5 mg Bacitracin (Bacitracin -) 1 applic NR TID [facility] Last Admin: 08/23/17 13:49 Dose: 1 applic Bisacodyl (Dulcolax Suppository -) 10 mg RC DAILY PRN PRN Reason: CONSTIPATION Citalopram Hydrobromide (Celexa -) 40 mg PO HS [facility] Last Admin: 08/22/17 20:59 Dose: 40 mg Guaifenesin (Robitussin -) 10 ml PO Q4H PRN PRN Reason: COUGH Heparin Sodium (Porcine) (Heparin -) 5,000 unit SQ BID [facility] Last Admin: 08/23/17 09:37 Dose: 5,000 unit Piperacillin Sod/Tazobactam (Sod 3.375 gm/ Dextrose) 50 mls @ 100 mls/hr IVPB Q8H-IV [facility]; Protocol Last Admin: 08/23/17 09:36 Dose: 100 mls/hr Azithromycin 500 mg/ Dextrose 250 mls @ 250 mls/hr IVPB DAILY [facility] Last Admin: 08/23/17 09:36 Dose: 250 mls/hr Lorazepam (Ativan -) 0.5 mg PO HS PRN PRN Reason: ANXIETY Last Admin: 08/22/17 21:05 Dose: 0.5 mg Methylprednisolone Sodium Succinate (Solu-Medrol -) 40 mg IVPUSH BID [facility] Last Admin: 08/23/17 09:35 Dose: 40 mg Pantoprazole Sodium (Protonix -) 20 mg PO DAILY [facility] Last Admin: 08/23/17 09:36 Dose: 20 mg Pregabalin (Lyrica -) 50 mg PO BID [facility] Last Admin: 08/23/17 09:36 Dose: 50 mg Fluticasone/Salmeterol (Advair 100mcg/50mcg -) 1 puff IH BID [facility] Last Admin: 08/23/17 09:37 Dose: 1 puff Zolpidem Tartrate (Ambien -) 5 mg PO HS PRN PRN Reason: INSOMNIA Last Admin: 08/22/17 21:05 Dose: 5 mg - Objective Vital Signs: Vital Signs Temperature 97.6 F 08/23/17 13:38 Pulse Rate 86 08/23/17 13:38 Respiratory Rate 20 08/23/17 13:38 Blood Pressure 127/65 08/23/17 13:38 O2 Sat by Pulse Oximetry (%) 99 08/22/17 21:00 Constitutional: Yes: Well Nourished, Calm Eyes: Yes: WNL HENT: Yes: WNL Neck: Yes: WNL Cardiovascular: Yes: Regular Rate and Rhythm, S1, S2 Respiratory: Yes: Rhonchi (FEW SCATTERED JAMES RHONCHI) Gastrointestinal: Yes: Normal Bowel Sounds, Soft Extremities: Yes: WNL Edema: No Labs: Problem List - Problems (1) Hospital acquired PNA Code(s): J18.9 - PNEUMONIA, UNSPECIFIED ORGANISM (2) COPD (chronic obstructive pulmonary disease) Code(s): J44.9 - CHRONIC OBSTRUCTIVE PULMONARY DISEASE, UNSPECIFIED Qualifiers: COPD type: unspecified COPD Qualified Code(s): J44.9 - Chronic obstructive pulmonary disease, unspecified (3) COPD exacerbation Code(s): J44.1 - CHRONIC OBSTRUCTIVE PULMONARY DISEASE W (ACUTE) EXACERBATION (4) Cough Code(s): R05 - COUGH (5) Dyspnea Code(s): R06.00 - DYSPNEA, UNSPECIFIED Qualifiers: Dyspnea type: unspecified Qualified Code(s): R06.00 - Dyspnea, unspecified (6) GERD (gastroesophageal reflux disease) Code(s): K21.9 - GASTRO-ESOPHAGEAL REFLUX DISEASE WITHOUT ESOPHAGITIS (7) HTN (hypertension) Code(s): I10 - ESSENTIAL (PRIMARY) HYPERTENSION Assessment/Plan Bilateral Pneumonia: Upper lobe predominance (?) Aspiration Acute COPD Exacerbation h/o Lung Ca s/p LLL lobectomy HTN Anxiety GERD - antibiotics per ID - O2 to keep SpO2 >90% - Prednisone in the AM - inhaled bronchodilators standing and PRN - DVT prophylaxis - PT / ambulate DR PEREZ
[2017-08-23] MEDS: CITALOPRAM HYDROBROMIDE 20 MG TABLET (FP) PO SCH (21:56)
[2017-08-23] MEDS: ZOLPIDEM TARTRATE 5 MG TABLET PO PRN (22:09)
[2017-08-23] MEDS: LORazepam 0.5 MG TABLET PO PRN (22:09)
[2017-08-24] MEDS ORDERED: PIPERACILLIN/TAZOBACTAM 3.375 GM VIAL IVPB ONE ×2 (02:33→09:21)
[2017-08-24] MEDS ORDERED: DEXTROSE 5%-WATER - 50 ML IVPB ONE ×2 (02:34→09:21)
[2017-08-24] MEDS ORDERED: PT OWN MED DRAWER 7, Y5N ONE ×3 (09:23→12:27)
[2017-08-24] MEDS: PANTOPRAZOLE 20 MG TABLET (FP) PO SCH (09:26)
[2017-08-24] MEDS: AZITHROMYCIN IVPB 500 MG in DEXTROSE 5%-WATER - 250 ML IVPB SCH (09:27)
[2017-08-24] MEDS: PREGABALIN 50 MG CAPSULE PO SCH ×2 (09:27→22:45)
[2017-08-24] MEDS: PIPERACILLIN/TAZOB 3.375 GM 3.375 GM in DEXTROSE 5%-WATER - 50 ML IVPB SCH (09:31)
[2017-08-24] MEDS: HEPARIN NA (PORCINE) 5,000 UNITS/ML 1ML VIAL SQ SCH ×2 (09:32→22:45)
[2017-08-24] MEDS: amLODIPine BESYLATE 5 MG TABLET (FP) PO SCH (09:33)
[2017-08-24] MEDS ORDERED: predniSONE 20 MG TABLET (UD) PO SCH (10:00)
--- NOTE | 2017-08-24 10:20 | PN ---
Progress Note, Physician Chief Complaint: Pt feeling better She looks more happy c/o itching in perineum area - Current Medication List Current Medications: Active Medications Acetaminophen (Tylenol -) 650 mg PO Q6H PRN PRN Reason: FEVER Last Admin: 08/17/17 14:45 Dose: 650 mg Amlodipine Besylate (Norvasc -) 5 mg PO DAILY [facility] Last Admin: 08/24/17 09:33 Dose: 5 mg Bacitracin (Bacitracin -) 1 applic NR TID [facility] Last Admin: 08/23/17 21:57 Dose: 1 applic Bisacodyl (Dulcolax Suppository -) 10 mg RC DAILY PRN PRN Reason: CONSTIPATION Citalopram Hydrobromide (Celexa -) 40 mg PO HS [facility] Last Admin: 08/23/17 21:56 Dose: 40 mg Guaifenesin (Robitussin -) 10 ml PO Q4H PRN PRN Reason: COUGH Heparin Sodium (Porcine) (Heparin -) 5,000 unit SQ BID [facility] Last Admin: 08/24/17 09:32 Dose: 5,000 unit Piperacillin Sod/Tazobactam (Sod 3.375 gm/ Dextrose) 50 mls @ 100 mls/hr IVPB Q8H-IV [facility]; Protocol Last Admin: 08/24/17 09:31 Dose: 100 mls/hr Azithromycin 500 mg/ Dextrose 250 mls @ 250 mls/hr IVPB DAILY [facility] Last Admin: 08/24/17 09:27 Dose: 250 mls/hr Lorazepam (Ativan -) 0.5 mg PO HS PRN PRN Reason: ANXIETY Last Admin: 08/23/17 22:09 Dose: 0.5 mg Pantoprazole Sodium (Protonix -) 20 mg PO DAILY [facility] Last Admin: 08/24/17 09:26 Dose: 20 mg Prednisone (Deltasone -) 60 mg PO DAILY [facility] Last Admin: 08/24/17 09:26 Dose: 60 mg Pregabalin (Lyrica -) 50 mg PO BID [facility] Last Admin: 08/24/17 09:27 Dose: 50 mg Fluticasone/Salmeterol (Advair 100mcg/50mcg -) 1 puff IH BID [facility] Last Admin: 08/23/17 21:57 Dose: 1 puff Zolpidem Tartrate (Ambien -) 5 mg PO HS PRN PRN Reason: INSOMNIA Last Admin: 08/23/17 22:09 Dose: 5 mg - Objective Vital Signs: Vital Signs Temperature 98.0 F 08/23/17 22:00 Pulse Rate 82 08/23/17 22:00 Respiratory Rate 20 08/23/17 22:00 Blood Pressure 123/66 08/23/17 22:00 O2 Sat by Pulse Oximetry (%) 98 08/23/17 22:00 Constitutional: Yes: No Distress, Calm Cardiovascular: Yes: Regular Rate and Rhythm Respiratory: Yes: CTA Bilaterally. No: Rales, Rhonchi Gastrointestinal: Yes: Normal Bowel Sounds, Soft. No: Tenderness Genitourinary: Yes: Other (erythema in perineum) Edema: No Labs: CBC, BMP 08/18/17 07:15 08/18/17 07:15 INR, PTT INR 1.37 (0.82-1.09) H 08/16/17 12:39 Problem List - Problems (1) Hospital acquired PNA Code(s): J18.9 - PNEUMONIA, UNSPECIFIED ORGANISM (2) Anemia Code(s): D64.9 - ANEMIA, UNSPECIFIED (3) COPD (chronic obstructive pulmonary disease) Code(s): J44.9 - CHRONIC OBSTRUCTIVE PULMONARY DISEASE, UNSPECIFIED Qualifiers: COPD type: unspecified COPD Qualified Code(s): J44.9 - Chronic obstructive pulmonary disease, unspecified (4) COPD exacerbation Code(s): J44.1 - CHRONIC OBSTRUCTIVE PULMONARY DISEASE W (ACUTE) EXACERBATION (5) GERD (gastroesophageal reflux disease) Code(s): K21.9 - GASTRO-ESOPHAGEAL REFLUX DISEASE WITHOUT ESOPHAGITIS (6) HTN (hypertension) Code(s): I10 - ESSENTIAL (PRIMARY) HYPERTENSION Assessment/Plan PLAN IV antibiotics-- will change to PO in AM Solumedrol dc-- received prednisone po today clinically improving mycolog cream to perineum Nebs O2 as needed DVT prophylaxis-- on heparin sc PTeval continue with meds dc plan for AM incentive spirometer
--- NOTE | 2017-08-24 10:49 | PN ---
Progress Note (short form) - Note Progress Note: Awake and alert on NC O2. No hemoptysis. Breathing improving. No recurrent epistaxis. Intake & Output 08/21/17 08/22/17 08/23/17 08/24/17 23:59 23:59 23:59 23:59 Intake Total 1050 1700 900 Balance 1050 1700 900 Last Vital Signs Temp Pulse Resp BP Pulse Ox 98.0 F 82 20 123/66 98 08/23/17 22:00 08/23/17 22:00 08/23/17 22:00 08/23/17 22:00 08/23/17 22:00 Active Medications Acetaminophen (Tylenol -) 650 mg PO Q6H PRN PRN Reason: FEVER Last Admin: 08/17/17 14:45 Dose: 650 mg Amlodipine Besylate (Norvasc -) 5 mg PO DAILY [facility] Last Admin: 08/24/17 09:33 Dose: 5 mg Bacitracin (Bacitracin -) 1 applic NR TID [facility] Last Admin: 08/23/17 21:57 Dose: 1 applic Bisacodyl (Dulcolax Suppository -) 10 mg RC DAILY PRN PRN Reason: CONSTIPATION Citalopram Hydrobromide (Celexa -) 40 mg PO HS [facility] Last Admin: 08/23/17 21:56 Dose: 40 mg Guaifenesin (Robitussin -) 10 ml PO Q4H PRN PRN Reason: COUGH Heparin Sodium (Porcine) (Heparin -) 5,000 unit SQ BID [facility] Last Admin: 08/24/17 09:32 Dose: 5,000 unit Piperacillin Sod/Tazobactam (Sod 3.375 gm/ Dextrose) 50 mls @ 100 mls/hr IVPB Q8H-IV [facility]; Protocol Last Admin: 08/24/17 09:31 Dose: 100 mls/hr Azithromycin 500 mg/ Dextrose 250 mls @ 250 mls/hr IVPB DAILY [facility] Last Admin: 08/24/17 09:27 Dose: 250 mls/hr Lorazepam (Ativan -) 0.5 mg PO HS PRN PRN Reason: ANXIETY Last Admin: 08/23/17 22:09 Dose: 0.5 mg Nystatin/Triamcinolone Acetonide (Mycolog Ii Cream -) 1 applic TP BID [facility] Pantoprazole Sodium (Protonix -) 20 mg PO DAILY [facility] Last Admin: 08/24/17 09:26 Dose: 20 mg Prednisone (Deltasone -) 60 mg PO DAILY [facility] Last Admin: 08/24/17 09:26 Dose: 60 mg Pregabalin (Lyrica -) 50 mg PO BID [facility] Last Admin: 08/24/17 09:27 Dose: 50 mg Fluticasone/Salmeterol (Advair 100mcg/50mcg -) 1 puff IH BID [facility] Last Admin: 08/23/17 21:57 Dose: 1 puff Zolpidem Tartrate (Ambien -) 5 mg PO HS PRN PRN Reason: INSOMNIA Last Admin: 08/23/17 22:09 Dose: 5 mg Constitutional: Yes: No Distress on NC O2, mildly anxious. Cardiovascular: Yes: Regular Rate and Rhythm Respiratory: Yes: Bilateral rhonchi, no wheeze Gastrointestinal: Yes: Normal Bowel Sounds, Soft, Abdomen, Obese. No: Tenderness Edema: No Neurological: Yes: Alert, Oriented. Psych -Mildly Anxious. Bilateral Pneumonia: Upper lobe predominance (?) Aspiration Acute COPD Exacerbation h/o Lung Ca s/p LLL lobectomy HTN Anxiety GERD - antibiotics per ID - O2 to keep SpO2 >90% - Noted change to Prednisone: change to 40mg - inhaled bronchodilators standing and PRN - DVT prophylaxis - PT / ambulate Dr Rico
[2017-08-24] MEDS: FLUTICASONE/SALMETEROL 100 MCG/50 MCG DISKUS IH SCH ×2 (12:25→22:46)
[2017-08-24] MEDS: NYSTATIN/TRIAMCINOLONE TOPICAL CREAM 15 GM TUBE TP SCH ×2 (16:06→22:30)
[2017-08-24] MEDS: BACITRACIN 15 GM TUBE TOPICAL OINTMENT NR SCH (22:30)
[2017-08-24] MEDS: LORazepam 0.5 MG TABLET PO PRN (22:45)
[2017-08-24] MEDS: ZOLPIDEM TARTRATE 5 MG TABLET PO PRN (22:45)
[2017-08-24] MEDS: CITALOPRAM HYDROBROMIDE 20 MG TABLET (FP) PO SCH (22:45)
[2017-08-25] MEDS ORDERED: DEXTROSE 5%-WATER - 50 ML IVPB ONE ×3 (03:05→16:06)
[2017-08-25] MEDS ORDERED: PIPERACILLIN/TAZOBACTAM 3.375 GM VIAL IVPB ONE ×3 (03:05→16:06)
[2017-08-25] MEDS: PIPERACILLIN/TAZOB 3.375 GM 3.375 GM in DEXTROSE 5%-WATER - 50 ML IVPB SCH ×3 (03:38→17:12)
[2017-08-25] MEDS: BACITRACIN 15 GM TUBE TOPICAL OINTMENT NR SCH ×4 (07:01→22:30)
[2017-08-25] MEDS ORDERED: PT OWN MED DRAWER 7, Y5N ONE ×2 (09:10→21:27)
[2017-08-25] MEDS: HEPARIN NA (PORCINE) 5,000 UNITS/ML 1ML VIAL SQ SCH ×2 (09:24→21:28)
[2017-08-25] MEDS: predniSONE 20 MG TABLET (UD) PO SCH (09:26)
[2017-08-25] MEDS: amLODIPine BESYLATE 5 MG TABLET (FP) PO SCH (09:26)
[2017-08-25] MEDS: PREGABALIN 50 MG CAPSULE PO SCH ×2 (09:26→21:28)
[2017-08-25] MEDS: PANTOPRAZOLE 20 MG TABLET (FP) PO SCH (09:26)
[2017-08-25] MEDS: NYSTATIN/TRIAMCINOLONE TOPICAL CREAM 15 GM TUBE TP SCH ×2 (09:27→22:27)
[2017-08-25] MEDS: FLUTICASONE/SALMETEROL 100 MCG/50 MCG DISKUS IH SCH ×2 (09:27→21:29)
[2017-08-25] MEDS: AZITHROMYCIN IVPB 500 MG in DEXTROSE 5%-WATER - 250 ML IVPB SCH (09:27)
--- NOTE | 2017-08-25 10:46 | PN ---
Progress Note (short form) - Note Progress Note: patient seen and examined today. Sitting in chair. Reports she is feeling better but still feels short of breath Clinically looks well not in distress or shortness of breath Chart reviewed Afebrile Vital Signs Temp 98.0 F 08/25/17 08:10 Pulse 84 08/25/17 08:10 Resp 16 08/25/17 08:10 BP 140/70 08/25/17 08:10 Pulse Ox 98 08/24/17 21:00 Intake & Output 08/24/17 08/24/17 08/25/17 11:59 23:59 11:59 Intake Total 310 400 290 Balance 310 400 290 Intake: IVPB 310 50 Oral 400 240 Other: Voiding Method Toilet Toilet # Unmeasured Voids Void 3 2 1 Bowel Movement Yes Yes # Bowel Movements 1 2 Active Medications Acetaminophen (Tylenol -) 650 mg PO Q6H PRN PRN Reason: FEVER Last Admin: 08/17/17 14:45 Dose: 650 mg Amlodipine Besylate (Norvasc -) 5 mg PO DAILY [facility] Last Admin: 08/25/17 09:26 Dose: 5 mg Bacitracin (Bacitracin -) 1 applic NR TID [facility] Last Admin: 08/25/17 07:01 Dose: 1 applic Bisacodyl (Dulcolax Suppository -) 10 mg RC DAILY PRN PRN Reason: CONSTIPATION Citalopram Hydrobromide (Celexa -) 40 mg PO HS [facility] Last Admin: 08/24/17 22:45 Dose: 40 mg Guaifenesin (Robitussin -) 10 ml PO Q4H PRN PRN Reason: COUGH Heparin Sodium (Porcine) (Heparin -) 5,000 unit SQ BID [facility] Last Admin: 08/25/17 09:24 Dose: 5,000 unit Piperacillin Sod/Tazobactam (Sod 3.375 gm/ Dextrose) 50 mls @ 100 mls/hr IVPB Q8H-IV [facility]; Protocol Last Admin: 08/25/17 09:20 Dose: 100 mls/hr Azithromycin 500 mg/ Dextrose 250 mls @ 250 mls/hr IVPB DAILY [facility] Last Admin: 08/25/17 09:27 Dose: 250 mls/hr Lorazepam (Ativan -) 0.5 mg PO HS PRN PRN Reason: ANXIETY Last Admin: 08/24/17 22:45 Dose: 0.5 mg Nystatin/Triamcinolone Acetonide (Mycolog Ii Cream -) 1 applic TP BID [facility] Last Admin: 08/25/17 09:27 Dose: 1 applic Pantoprazole Sodium (Protonix -) 20 mg PO DAILY [facility] Last Admin: 08/25/17 09:26 Dose: 20 mg Prednisone (Deltasone -) 40 mg PO DAILY [facility] Last Admin: 08/25/17 09:26 Dose: 40 mg Pregabalin (Lyrica -) 50 mg PO BID [facility] Last Admin: 08/25/17 09:26 Dose: 50 mg Fluticasone/Salmeterol (Advair 100mcg/50mcg -) 1 puff IH BID [facility] Last Admin: 08/25/17 09:27 Dose: 1 puff Zolpidem Tartrate (Ambien -) 5 mg PO HS PRN PRN Reason: INSOMNIA Last Admin: 08/24/17 22:45 Dose: 5 mg CBC, BMP 08/18/17 07:15 08/18/17 07:15 - Objective Constitutional: Yes: No Distress. comfortable. Sitting in chair. Cardiovascular: Yes: Regular Rate and Rhythm Respiratory: Yes: Diminished--- few scattered rhonchi otherwise clear Gastrointestinal: Yes: Normal Bowel Sounds, Soft. No: Tenderness Edema: No neuro--Alert and awake Psych--calm assessment and plan Clinically better Continue present care Antibiotics follow-up chest x-ray today pulmonary follow-up Discharge planning Anticipated discharge tomorrow if stable Discussed with nursing staff also will follow.
--- NOTE | 2017-08-25 13:59 | PN ---
Progress Note (short form) - Note Progress Note: PULMONARY AFEBRILE ANICTERIC/ ANICTERIC SCATTERED MILD RHONCHI S1S2 BS+ NONTENDER NO EDEMA LABS/MEDS/NOTES/IMAGES REVIEWED Acute COPD Exacerbation h/o Lung Ca s/p LLL lobectomy HTN Anxiety GERD - antibiotics - O2 to keep SpO2 >90% - Oral prednisone to taper - inhaled bronchodilators standing and PRN - DVT prophylaxis Sophia FOSTER MD
[2017-08-25] MEDS: CITALOPRAM HYDROBROMIDE 20 MG TABLET (FP) PO SCH (21:28)
[2017-08-25] MEDS: ZOLPIDEM TARTRATE 5 MG TABLET PO PRN (21:28)
[2017-08-25] MEDS: LORazepam 0.5 MG TABLET PO PRN (21:30)
[2017-08-26 00:05] VITALS: TEMP 98.4
[2017-08-26] MEDS ORDERED: DEXTROSE 5%-WATER - 50 ML IVPB ONE ×2 (00:37→09:45)
[2017-08-26] MEDS ORDERED: PIPERACILLIN/TAZOBACTAM 3.375 GM VIAL IVPB ONE ×2 (00:37→09:45)
[2017-08-26] MEDS: PIPERACILLIN/TAZOB 3.375 GM 3.375 GM in DEXTROSE 5%-WATER - 50 ML IVPB SCH ×2 (01:50→09:51)
[2017-08-26] MEDS: BACITRACIN 15 GM TUBE TOPICAL OINTMENT NR SCH (07:27)
--- NOTE | 2017-08-26 08:57 | PN ---
Progress Note (short form) - Note Progress Note: PULMONARY AFEBRILE OFFERS NO NEW COMPLAINTS ANICTERIC SCATTERED MILD RHONCHI S1S2 BS+ NONTENDER NO EDEMA LABS/MEDS/NOTES/IMAGES REVIEWED Acute COPD Exacerbation resolved h/o Lung Ca s/p LLL lobectomy HTN Anxiety - O2 to keep SpO2 >90% - Oral prednisone to taper - inhaled bronchodilators standing and PRN - DVT prophylaxis - Discharge planning Sophia FOSTER MD
[2017-08-26] MEDS ORDERED: PT OWN MED DRAWER 7, Y5N ONE (09:45)
[2017-08-26] MEDS: amLODIPine BESYLATE 5 MG TABLET (FP) PO SCH (09:49)
[2017-08-26] MEDS: PREGABALIN 50 MG CAPSULE PO SCH (09:49)
[2017-08-26] MEDS: PANTOPRAZOLE 20 MG TABLET (FP) PO SCH (09:49)
[2017-08-26] MEDS: predniSONE 20 MG TABLET (UD) PO SCH (09:49)
[2017-08-26] MEDS: AZITHROMYCIN IVPB 500 MG in DEXTROSE 5%-WATER - 250 ML IVPB SCH (09:49)
[2017-08-26] MEDS: HEPARIN NA (PORCINE) 5,000 UNITS/ML 1ML VIAL SQ SCH (09:50)
[2017-08-26] MEDS: FLUTICASONE/SALMETEROL 100 MCG/50 MCG DISKUS IH SCH (09:51)
--- NOTE | 2017-08-26 10:11 | DS ---
Physical Examination Vital Signs: Vital Signs Temperature 98.4 F 08/25/17 18:00 Pulse Rate 68 08/25/17 18:00 Respiratory Rate 20 08/25/17 21:00 Blood Pressure 138/68 08/25/17 18:00 O2 Sat by Pulse Oximetry (%) 98 08/25/17 21:00 Findings/Remarks: feels well. no distress mood calm. denies pain. no sob. cxr - better Constitutional: Yes: No Distress, Calm Eyes: Yes: Conjunctiva Clear Neck: Yes: Supple Cardiovascular: Yes: Regular Rate and Rhythm Respiratory: Yes: CTA Bilaterally Gastrointestinal: Yes: Normal Bowel Sounds, Soft Edema: No Neurological: Yes: Alert Psychiatric: Yes: Alert Labs: CBC, BMP 08/18/17 07:15 08/18/17 07:15 Discharge Summary Reason For Visit: HOSPITAL ACQUIRED PNEUMONIA Current Active Problems Epistaxis (Acute) Hospital acquired PNA (Acute) Hospital Course: 87 y/o febrile female with PMH COPD, PNA (Admitted here on 07/13/17 for PNA), HTN , lung CA s/p LLL resection, chronic anemia, GERD, depression and anxiety BIB EMS from [facility] with fever and worsening SOB. The patient was discharged from here recently on 07/22/17 where she was treated for PNA. She states she felt well until 1 week ago when she started feeling SOB again. She had a chest xray done at [facility] yesterday and it showed b/l pneumonia. She was given 4.5mg of zosyn at [facility] yesterday. Upon arrival in the ER she was febrile pt diagnosed with pneumonia treated with abx pulmonary also followed had one episode of epistaxis -- was on xarelto at that time - was d/zaynab ent - consult - was requested - no intervention pt did well Need for Xarelto ? I dont see any evidence here Please reassess in retirement for same on heparin for dvt prophylaxix will d/c back to retirement today meds reconcilled taper steroids d/c abx discussed with nursing staff also time spend in examining/ documenting and coordating care- 40 min Condition: Stable - Instructions Referrals: Nataly Manuel MD [Primary Care Provider] - Disposition: [facility] - Home Medications Comprehensive Discharge Medication List: Ambulatory Orders Omeprazole 20 mg PO DAILY 09/01/16 Pregabalin [Lyrica] 50 mg PO BID 11/12/15 Zolpidem Tartrate [Ambien] 5 mg PO HS 11/12/15 Amlodipine Besylate 5 mg PO DAILY 07/13/17 Brexpiprazole [Rexulti] 0.5 mg PO HS 07/13/17 Citalopram Hydrobromide [Celexa -] 40 mg PO HS 07/13/17 Lorazepam 0.5 mg PO HS 07/13/17 Tiotropium [place] [Spiriva] 2 inh PO DAILY 07/13/17 Salmeterol/Fluticasone [Advair 100Mcg/50Mcg -] 1 puff IH BID inhaler 07/22/17 Acetaminophen [Acetaminophen ER] 650 mg PO Q6H PRN 08/16/17 Albuterol 2.5/Ipratropium 0.5 [Duoneb -] 1 amp NEB Q6H 08/16/17 Bisacodyl Suppository [Dulcolax Suppository -] 10 mg RC DAILY PRN 08/16/17 Levalbuterol HCl [Xopenex] 1.25 mg NEB Q6H PRN 08/16/17 Magnesium Hydrox 2400MG/30Ml [Milk of Magnesia -] 30 ml PO DAILY PRN 08/16/17 Metoprolol Tartrate 0.5 tab PO Q12H 08/16/17 Nutritional Supplement [Hi-Rodger] 4 oz PO DAILY 08/16/17 Nystatin/Triamcinolone Top Cr [Mycolog II -] 1 applic TP BID #7 applic 08/24/17 Pantoprazole Sodium [Protonix -] 20 mg PO DAILY #30 tablet.ec 08/24/17 Prednisone See Taper PO DAILY #30 tablet 08/24/17 Heparin - 5,000 unit SQ BID vial 08/26/17
[2017-08-26] MEDS: NYSTATIN/TRIAMCINOLONE TOPICAL CREAM 15 GM TUBE TP SCH (10:16)
[2017-08-26 12:39] VITALS: BP 137/69; PULSE 78
== END 2017-08-26 12:49 | DRG 190 ==
LOC: JER 10:47 → JERBED 14:40 → J8W 22:23 → J6S 08-17 20:53
PROVIDERS: ADMIT Internal Medicine; ATTEND Internal Medicine
DX: J44.0 Chronic obstructive pulmonary disease with (acute) lower respiratory infection (principal); J18.9 Pneumonia, unspecified organism; D68.32 Hemorrhagic disorder due to extrinsic circulating anticoagulants; J44.1 Chronic obstructive pulmonary disease with (acute) exacerbation; K21.9 Gastro-esophageal reflux disease without esophagitis; I10 Essential (primary) hypertension; R04.0 Epistaxis; F41.9 Anxiety disorder, unspecified
CPT/HCPCS: 36415; 71045-TC-FY; 71250-TC; 80053; 81003; 81015; 82803; 83605; 83735; 84484; 85025; 85610; 85730; 87040; 87086; 87899; 93005; 93010; 94640; 97116-GP; 97162-GP; 99283-25; J0131; J1644; J7030; J7620